=== PATIENT | male | born 1950 | race Caucasian/White ===

== ENCOUNTER 2016-12-26 23:56 | Emergency (ER) | payer MEDICARE, OTHER ==
[2016-12-27] MEDS ORDERED: DIPH,PERTUS(ACELL)TETVAC-LF 0.5 ML VIAL IM ONE
--- NOTE | 2016-12-27 00:04 | ED ---
General Adult HPI - General Stated complaint: Fall/Head Injury Time Seen by Provider: 12/26/16 23:56 Source: RN notes reviewed - History of Present Illness Initial comments: This is a 66-year-old male who presents emergency department after having been found down on the sidewalk. There appears to have been approximately one hour since the patient left the bar to the time that he was found down on the sidewalk. Patient was found conscious but with a puddle blood around the posterior aspect of his head. Patient appears to be intoxicated. Patient has no complaints at this time. Patient denies headache patient denies numbness weakness. Patient denies neck pain. Patient denies chest pain palpitations difficulty breathing shortness breath per patient denies abdominal pain patient denies nausea vomiting or diarrhea. Patient states she can move all 4 times. Patient does not know when his last tetanus was. Patient is not on any blood thinners. It is unclear whether the patient did lose consciousness or not. - Related Data Home Medications Medication Instructions Recorded Confirmed Albuterol Inhaler [Ventolin Hfa 1 - 2 puff INHALATION RT-Q6H PRN 02/09/15 Inhaler] Albuterol Nebulized [Ventolin 2.5 mg INHALATION RT-QID PRN 02/09/15 12/27/16 Nebulized] Budesonide/Formoterol Fumarate 2 puff INHALATION RT-BID 02/09/15 12/27/16 [Symbicort 80-4.5 Mcg Inhaler] HYDROcodone/APAP 10-325MG [Ruby 1 tab PO QID PRN 02/09/15 12/27/16 10-325] Isosorbide Mononitrate [Isosorbide 15 mg PO QAM 02/09/15 12/27/16 Mononitrate ER] Lisinopril [Prinivil] 20 mg PO QAM 02/09/15 12/27/16 Omeprazole [PriLOSEC] 20 mg PO AC-BRKFST 02/09/15 12/27/16 amLODIPine [Norvasc] 5 mg PO QAM 02/09/15 12/27/16 Nitroglycerin Sl Tabs [Nitrostat] 0.4 mg PO Q5M PRN 06/22/15 12/27/16 Albuterol Inhaler [Ventolin Hfa 1 - 2 puff INHALATION Q6HR PRN 12/27/16 12/27/16 Inhaler] Aspirin 81 mg PO DAILY 12/27/16 12/27/16 Docusate [Colace] 100 mg PO ONCE PRN 12/27/16 12/27/16 Dronabinol [Marinol] 2.5 mg PO DAILY 12/27/16 12/27/16 Metoprolol Tartrate [Lopressor] 25 mg PO BID 12/27/16 12/27/16 Pravastatin Sodium [Pravachol] 20 mg PO DAILY 12/27/16 12/27/16 levETIRAcetam [levETIRAcetam ER] 500 mg PO BID 12/27/16 12/27/16 Previous Rx's Medication Instructions Recorded Aspirin 81 mg PO DAILY #30 chew 10/16/15 Allergies Allergy/AdvReac Type Severity Reaction Status Date / Time codeine Allergy Unknown Verified 10/15/15 14:50 Childhood Review of Systems ROS Statement: Those systems with pertinent positive or pertinent negative responses have been documented in the HPI. ROS Other: All systems not noted in ROS Statement are negative. 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" BOWEL RESECTION IN JUNE [address] TO BLE History of Any Multi-Drug Resistant Organisms: None Reported Past Surgical History: Appendectomy, Bowel Resection, Orthopedic Surgery Additional Past Surgical History / Comment(s): finger repair Past Anesthesia/Blood Transfusion Reactions: No Reported Reaction Past Psychological History: No Psychological Hx Reported Smoking Status: Current every day smoker Past Alcohol Use History: Daily Additional Past Alcohol Use History / Comment(s): started smoking 1966, AGE 15, SMOKED 2-3 PPD AT [employer], NOW SMOKING 20 CIGARETTES A DAY .drinks 2-3 beers per day Past Drug Use History: Marijuana Additional Drug Use History / Comment(s): smokes marijuana 4-5 times per month- has medical card - Past Family History Mother Additional Family Medical History / Comment(s): at age 92 Father Family Medical History: CVA/TIA, Myocardial Infarction ([place]) Additional Family Medical History / Comment(s): multiple mi's Brother(s) Family Medical History: Coronary Artery Disease (CAD) Additional Family Medical History / Comment(s): cabg General Exam - General Exam Comments Initial Comments: GENERAL: Patient is well-developed and well-nourished. Patient is nontoxic and well- hydrated and is in mild distress. ENT: Neck is soft and supple. No significant lymphadenopathy is noted. Oropharynx is clear. Moist mucous membranes. Neck has full range of motion without eliciting any pain. EYES: The sclera were anicteric and conjunctiva were pink and moist. Extraocular movements were intact and pupils were equal round and reactive to light. Eyelids were unremarkable. PULMONARY: Unlabored respirations. Good breath sounds bilaterally. No audible rales rhonchi or wheezing was noted. CARDIOVASCULAR: There is a regular rate and rhythm without any murmurs gallops or rubs. ABDOMEN: Soft and nontender with normal bowel sounds. No palpable organomegaly was noted. There is no palpable pulsatile mass. SKIN: There is a scalp laceration to the posterior aspect of the patient's head. Laceration measures about 2 and half centimeters. NEUROLOGIC: Patient is alert and oriented x3. Cranial nerves II through XII are grossly intact. Motor and sensory are also intact. Speech is slightly slurred typical of someone who is intoxicated. Symmetrical smile. MUSCULOSKELETAL: Normal extremities with adequate strength and full range of motion. No lower extremity swelling or edema. No calf tenderness. LYMPHATICS: No significant lymphadenopathy is noted PSYCHIATRIC: Normal psychiatric evaluation. Normal interpersonal interactions appears functionally intact in deals appropriately with others. No signs of depression. No signs of anxiety. Course Vital Signs 12/27/16 12/27/16 00:05 01:26 Temperature 97.1 F L 97 F L Pulse Rate 66 70 Respiratory 16 20 Rate Blood Pressure 151/84 153/76 O2 Sat by Pulse 93 L 97 Oximetry Procedures - Laceration Laceration #1 Consent Obtained: verbal consent Time Out Performed: Yes Indication: laceration Site: scalp Description: stellate Depth: simple, single layer (4 michelle were used to close the wound) Medical Decision Making - Medical Decision Making EKG shows a normal sinus rhythm at 61 bpm VT interval 192 QRS is 88 QT interval 428 QTC is 4:30. Patient's EKG shows no ST segment elevation or depression or T wave normalities are noted. CT of the head shows a right sided this acute subdural. Patient's C-spine was negative. I stapled up the laceration on the posterior aspect patient's scalp I spoke with the [facility] that except for the patient in transfer the patient down in [facility]. - Lab Data Result diagrams: 12/27/16 00:05 12/27/16 00:05 Lab Results 12/27/16 12/27/16 12/27/16 Range/Units 00:05 00:05 00:05 WBC 7.6 (3.8-10.6) k/uL RBC 4.51 (4.30-5.90) m/uL Hgb 15.3 (13.0-17.5) gm/dL Hct 43.8 (39.0-53.0) % MCV 97.0 (80.0-100.0) fL MCH 33.8 (25.0-35.0) pg MCHC 34.8 (31.0-37.0) g/dL RDW 15.1 (11.5-15.5) % Plt Count 226 (150-450) k/uL Neutrophils % (Manual) 54 % Lymphocytes % (Manual) 31 % Monocytes % (Manual) 13 % Eosinophils % (Manual) 1 % Basophils % (Manual) 1 % Neutrophils # (Manual) 4.10 (1.3-7.7) k/uL Lymphocytes # (Manual) 2.36 (1.0-4.8) k/uL Monocytes # (Manual) 0.99 (0-1.0) k/uL Eosinophils # (Manual) 0.08 (0-0.7) k/uL Basophils # (Manual) 0.08 (0-0.2) k/uL Nucleated RBCs 0 (0-0) /100 WBC Manual Slide Review Performed PT (9.0-12.0) sec INR (<1.2) APTT (22.0-30.0) sec Sodium 127 L (137-145) mmol/L Potassium 4.5 (3.5-5.1) mmol/L Chloride 94 L (98-107) mmol/L Carbon Dioxide 21 L (22-30) mmol/L Anion Gap 12 mmol/L BUN 7 L (9-20) mg/dL Creatinine 0.80 (0.66-1.25) mg/dL Est GFR (MDRD) Af Amer >60 (>60 ml/min/1.73 sqM) Est GFR (MDRD) Non-Af >60 (>60 ml/min/1.73 sqM) Glucose 81 (74-99) mg/dL Calcium 9.5 (8.4-10.2) mg/dL Magnesium 1.7 (1.6-2.3) mg/dL Total Bilirubin 0.5 (0.2-1.3) mg/dL AST 37 (17-59) U/L ALT 46 (21-72) U/L Alkaline Phosphatase 63 (38-126) U/L Total Creatine Kinase 84 (55-170) U/L CK-MB (CK-2) 1.0 (0.0-2.4) ng/mL CK-MB (CK-2) Rel Index 1.2 Troponin I <0.012 (0.000-0.034) ng/mL Total Protein 7.6 (6.3-8.2) g/dL Albumin 4.5 (3.5-5.0) g/dL Serum Alcohol 260 mg/dL 12/27/16 Range/Units 00:05 WBC (3.8-10.6) k/uL RBC (4.30-5.90) m/uL Hgb (13.0-17.5) gm/dL Hct (39.0-53.0) % MCV (80.0-100.0) fL MCH (25.0-35.0) pg MCHC (31.0-37.0) g/dL RDW (11.5-15.5) % Plt Count (150-450) k/uL Neutrophils % (Manual) % Lymphocytes % (Manual) % Monocytes % (Manual) % Eosinophils % (Manual) % Basophils % (Manual) % Neutrophils # (Manual) (1.3-7.7) k/uL Lymphocytes # (Manual) (1.0-4.8) k/uL Monocytes # (Manual) (0-1.0) k/uL Eosinophils # (Manual) (0-0.7) k/uL Basophils # (Manual) (0-0.2) k/uL Nucleated RBCs (0-0) /100 WBC Manual Slide Review PT 10.6 (9.0-12.0) sec INR 1.1 (<1.2) APTT 23.3 (22.0-30.0) sec Sodium (137-145) mmol/L Potassium (3.5-5.1) mmol/L Chloride (98-107) mmol/L Carbon Dioxide (22-30) mmol/L Anion Gap mmol/L BUN (9-20) mg/dL Creatinine (0.66-1.25) mg/dL Est GFR (MDRD) Af Amer (>60 ml/min/1.73 sqM) Est GFR (MDRD) Non-Af (>60 ml/min/1.73 sqM) Glucose (74-99) mg/dL Calcium (8.4-10.2) mg/dL Magnesium (1.6-2.3) mg/dL Total Bilirubin (0.2-1.3) mg/dL AST (17-59) U/L ALT (21-72) U/L Alkaline Phosphatase (38-126) U/L Total Creatine Kinase (55-170) U/L CK-MB (CK-2) (0.0-2.4) ng/mL CK-MB (CK-2) Rel Index Troponin I (0.000-0.034) ng/mL Total Protein (6.3-8.2) g/dL Albumin (3.5-5.0) g/dL Serum Alcohol mg/dL Critical Care Time Critical Care Time: Yes Total Critical Care Time: 35 Disposition Clinical Impression: Acute subdural hematoma, Scalp laceration, Alcohol intoxication Disposition: OTHER INSTITUTION NOT DEFINED Referrals: Stella Lawrence MD [Primary Care Provider] - 1-2 days Time of Disposition: 01:29 - Out of Hospital Transfer - Req. Specs Out of Hospital Transfer - Requested Specifics: Other Emergency Center ( [facility])
[2016-12-27 00:32] LABS: Anion Gap 12 mmol/L; Calcium 9.5 mg/dL (8.4-10.2); Carbon Dioxide 21 mmol/L (22-30); Chloride 94 mmol/L (98-107); Glucose 81 mg/dL (74-99); Non-African American GFR(MDRD) >60 (>60 ml/min/1.73 sqM); Sodium 127 mmol/L (137-145); Total Bilirubin 0.5 mg/dL (0.2-1.3); Total Protein 7.6 g/dL (6.3-8.2)
[2016-12-27 00:35] LABS: AST 37 U/L (17-59); Alcohol 260 mg/dL; Blood Urea Nitrogen 7 mg/dL (9-20); Potassium 4.5 mmol/L (3.5-5.1)
[2016-12-27 00:36] LABS: ALT 46 U/L (21-72); Alkaline Phosphatase 63 U/L (38-126); Magnesium 1.7 mg/dL (1.6-2.3)
[2016-12-27 00:41] LABS: Creatine Kinase 84 U/L (55-170)
[2016-12-27 00:45] LABS: Partial Thromboplastin Time 23.3 sec (22.0-30.0)
[2016-12-27 00:46] LABS: Aty Lym Flag Slight; CH 34.3; CHCM 35.6; HCT 43.8 % (39.0-53.0); HDW 2.32; HGB 15.3 gm/dL (13.0-17.5); MCH 33.8 pg (25.0-35.0); MCHC 34.8 g/dL (31.0-37.0); Mean Platelet Volume 7.4; RBC 4.51 m/uL (4.30-5.90); RDW 15.1 % (11.5-15.5); WBC 7.6 k/uL (3.8-10.6); WBC (Perox) 7.32
[2016-12-27 00:47] LABS: INR 1.1 (<1.2); Prothrombin Time 10.6 sec (9.0-12.0)
[2016-12-27 00:52] LABS: Add Differential Manual Differential
[2016-12-27 00:54] LABS: Troponin I <0.012 ng/mL (0.000-0.034)
[2016-12-27 00:59] LABS: Manual Review Performed; Nucleated Red Blood Cells 0 /100 WBC (0-0); Total Cells Counted 100
--- NOTE | 2016-12-27 01:22 | CT ---
CT HEAD WITHOUT CONTRAST INDICATION: Fall, laceration to the back of the head TECHNIQUE: CT acquisition is performed through the brain. Sagittal and coronal reformatted images are provided. No IV contrast is administered. DOSE INFORMATION: CTDIvol 57.40 mGy; DLP 1098.80 mGy-cm. One or more of the following dose reduction techniques were used: automated exposure control, adjustment of the mA and/or kV according to patient size, use of iterative reconstruction technique. COMPARISON: CT head 10/25/15. FINDINGS: There is an acute right lateral convexity subdural hematoma measuring up to 5 mm thick. No intra-axial hemorrhage is identified. There is no midline shift. There is cerebral and cerebellar volume loss with stable prominence of the ventricles, sulci, and basal cisterns. Hypoattenuation in the periventricular and deep cerebral white matter is compatible with chronic small vessel ischemic disease. Espinal-white matter differentiation is preserved. There is intracranial atherosclerosis. No evidence of skull fracture. There is a high midline parietal scalp laceration and small hematoma. Mild mucosal thickening is noted in the ethmoid air cells. The visualized portions of the paranasal sinuses and mastoid air cells are otherwise clear. IMPRESSION: 1. Acute right lateral convexity subdural hematoma measuring 5 mm. No midline shift. 2. High midline parietal scalp laceration and small hematoma. No skull fracture. CT C SPINE WITHOUT CONTRAST INDICATION: Fall, laceration to the back of the head TECHNIQUE: CT acquisition is performed through the cervical spine. Sagittal and coronal reformatted images are provided. No IV contrast is administered. DOSE INFORMATION: CTDIvol 14.20 mGy; DLP 234.50 mGy-cm. One or more of the following dose reduction techniques were used: automated exposure control, adjustment of the mA and/or kV according to patient size, use of iterative reconstruction technique. COMPARISON: CT cervical spine, 10/25/15. FINDINGS: There is normal cervical lordosis, vertebral body height, and alignment. There is no evidence of acute fracture or subluxation. Craniocervical and atlantoaxial relationships are maintained. There is mild multilevel degenerative disc disease. There is mild to moderate multilevel facet degeneration. There is multilevel foraminal narrowing, severe on the right at C3-C4 and C4-C5 and on the left at C5- C6. There is no prevertebral soft tissue swelling. The lung apices demonstrate centrilobular and paraseptal emphysema. There are bilateral carotid calcifications. IMPRESSION: 1. No CT evidence of acute osseous abnormality. Critical Value Communications 12/27/16 01:21 Call Doctor Regarding Intracranial Hemorrhage, called Dr. Larios on 12/27 01:20 (-04:00)
[2016-12-27 01:28] VITALS: BP 153/76; PULSE 70; RESP 20; TEMP 97
--- NOTE | 2016-12-27 02:12 | XR ---
INDICATION: Chest pain, fall, EtOH COMPARISON: CXR 10/05/15 FINDINGS: PA and lateral views of the chest are obtained. Mild cardiomegaly with mild pulmonary vascular congestion in comparison to prior exam. Lungs are hyperinflated with emphysematous changes. No airspace consolidation, pleural effusion, or pneumothorax. No acute osseous findings. IMPRESSION: 1. Emphysema and chronic obstructive pulmonary disease. 2. Mild pulmonary vascular congestion in comparison to prior exam.
== END 2016-12-27 01:58 | disposition short-term general hospital (02) ==
LOC: EC 23:56
DX: S01.01XA Laceration without foreign body of scalp, initial encounter (principal); S06.5X9A Traumatic subdural hemorrhage with loss of consciousness of unspecified duration, initial encounter; F10.129 Alcohol abuse with intoxication, unspecified; M99.71 Connective tissue and disc stenosis of intervertebral foramina of cervical region; I10 Essential (primary) hypertension; J44.9 Chronic obstructive pulmonary disease, unspecified; I73.9 Peripheral vascular disease, unspecified; F17.210 Nicotine dependence, cigarettes, uncomplicated; Z79.51 Long term (current) use of inhaled steroids; Z79.82 Long term (current) use of aspirin; Z79.899 Other long term (current) drug therapy; Z88.5 Allergy status to narcotic agent; Z87.39 Personal history of other diseases of the musculoskeletal system and connective tissue; Z23 Encounter for immunization; W18.30XA Fall on same level, unspecified, initial encounter; Y92.480 Sidewalk as the place of occurrence of the external cause
CPT/HCPCS: 12001; 36415; 70450; 71020; 72125; 80053; 80320; 82550; 82553; 83735; 84484; 85025; 85610; 85730; 90471; 90715; 93005; 99291

== ENCOUNTER 2017-01-12 09:49 | Emergency (ER) | payer MEDICARE, OTHER ==
[2017-01-12 10:43] VITALS: RESP 16; TEMP 99.6
--- NOTE | 2017-01-12 10:59 | ED ---
General Adult HPI - General Chief complaint: Recheck/Abnormal Lab/Rx Stated complaint: abnormal labs Time Seen by Provider: 01/12/17 10:51 Source: patient, RN notes reviewed Mode of arrival: ambulatory Limitations: no limitations - History of Present Illness Initial comments: 66-year-old male presents to the emergency department with a chief complaint of concern for low sodium. Patient states last night his doctor called him at home and informed him that his sodium was low and to go to the emergency department. Patient states that he has no symptoms he has no complaints he states just here to get his sodium checked.Patient denies any recent fever, chills, shortness of breath, chest pain, back pain, abdominal pain, nausea vomiting, numbness or tingling, dysuria or hematuria, constipation or diarrhea, headaches or visual changes, or any other current symptoms. - Related Data Home Medications Medication Instructions Recorded Confirmed Albuterol Inhaler [Ventolin Hfa 1 - 2 puff INHALATION RT-Q6H PRN 02/09/15 Inhaler] Albuterol Nebulized [Ventolin 2.5 mg INHALATION RT-QID PRN 02/09/15 12/27/16 Nebulized] Budesonide/Formoterol Fumarate 2 puff INHALATION RT-BID 02/09/15 12/27/16 [Symbicort 80-4.5 Mcg Inhaler] HYDROcodone/APAP 10-325MG [[place] 1 tab PO QID PRN 02/09/15 12/27/16 10-325] Isosorbide Mononitrate [Isosorbide 15 mg PO QAM 02/09/15 12/27/16 Mononitrate ER] Lisinopril [Prinivil] 20 mg PO QAM 02/09/15 12/27/16 Omeprazole [PriLOSEC] 20 mg PO AC-BRKFST 02/09/15 12/27/16 amLODIPine [Norvasc] 5 mg PO QAM 02/09/15 12/27/16 Nitroglycerin Sl Tabs [Nitrostat] 0.4 mg PO Q5M PRN 06/22/15 12/27/16 Albuterol Inhaler [Ventolin Hfa 1 - 2 puff INHALATION Q6HR PRN 12/27/16 12/27/16 Inhaler] Aspirin 81 mg PO DAILY 12/27/16 12/27/16 Docusate [Colace] 100 mg PO ONCE PRN 12/27/16 12/27/16 Dronabinol [Marinol] 2.5 mg PO DAILY 12/27/16 12/27/16 Metoprolol Tartrate [Lopressor] 25 mg PO BID 12/27/16 12/27/16 Pravastatin Sodium [Pravachol] 20 mg PO DAILY 12/27/16 12/27/16 levETIRAcetam [levETIRAcetam ER] 500 mg PO BID 12/27/16 12/27/16 Previous Rx's Medication Instructions Recorded Aspirin 81 mg PO DAILY #30 chew 10/16/15 Allergies Allergy/AdvReac Type Severity Reaction Status Date / Time codeine Allergy Unknown Verified 01/12/17 10:42 Childhood Review of Systems ROS Statement: Those systems with pertinent positive or pertinent negative responses have been documented in the HPI. ROS Other: All systems not noted in ROS Statement are negative. 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" BOWEL RESECTION IN JUNE [address] TO BLE History of Any Multi-Drug Resistant Organisms: None Reported Past Surgical History: Appendectomy, Bowel Resection, Orthopedic Surgery Additional Past Surgical History / Comment(s): finger repair Past Anesthesia/Blood Transfusion Reactions: No Reported Reaction Past Psychological History: No Psychological Hx Reported Smoking Status: Current every day smoker Past Alcohol Use History: Daily Past Drug Use History: Marijuana - Past Family History Mother Additional Family Medical History / Comment(s): at age 92 Father Family Medical History: CVA/TIA, Myocardial Infarction ([place]) Additional Family Medical History / Comment(s): multiple mi's Brother(s) Family Medical History: Coronary Artery Disease (CAD) Additional Family Medical History / Comment(s): cabg General Exam Limitations: no limitations General appearance: alert, in no apparent distress Neck exam: Present: normal inspection. Absent: tenderness, meningismus, lymphadenopathy Respiratory exam: Present: normal lung sounds bilaterally. Absent: respiratory distress, wheezes, rales, rhonchi, stridor Cardiovascular Exam: Present: regular rate, normal rhythm, normal heart sounds. Absent: systolic murmur, diastolic murmur, rubs, gallop, clicks Back exam: Present: normal inspection Neurological exam: Present: alert, oriented X3 Psychiatric exam: Present: normal affect, normal mood Skin exam: Present: warm, dry, intact, normal color. Absent: rash Course Vital Signs 01/12/17 10:40 Temperature 99.6 F Pulse Rate 89 Respiratory 16 Rate Blood Pressure 175/82 O2 Sat by Pulse 97 Oximetry Medical Decision Making - Medical Decision Making 66-year-old male presents to the emergency department with a chief complaint of concern for hyponatremia. At this time patient is found to be hyponatremic we will give the patient fluids here we discussed follow-up for repeat evaluation with his family care doctor. Patient is given the plan all questions have been answered. He will be discharged. - Lab Data Result diagrams: 01/12/17 11:05 01/12/17 11:05 Lab Results 01/12/17 01/12/17 Range/Units 11:05 11:05 WBC 6.4 (3.8-10.6) k/uL RBC 4.78 (4.30-5.90) m/uL Hgb 16.3 (13.0-17.5) gm/dL Hct 45.3 (39.0-53.0) % MCV 94.8 (80.0-100.0) fL MCH 34.0 (25.0-35.0) pg MCHC 35.9 (31.0-37.0) g/dL RDW 14.1 (11.5-15.5) % Plt Count 319 (150-450) k/uL Neutrophils % 60 % Lymphocytes % 26 % Monocytes % 8 % Eosinophils % 1 % Basophils % 1 % Neutrophils # 3.8 (1.3-7.7) k/uL Lymphocytes # 1.7 (1.0-4.8) k/uL Monocytes # 0.5 (0-1.0) k/uL Eosinophils # 0.1 (0-0.7) k/uL Basophils # 0.0 (0-0.2) k/uL Sodium 130 L (137-145) mmol/L Potassium 4.9 (3.5-5.1) mmol/L Chloride 97 L (98-107) mmol/L Carbon Dioxide 22 (22-30) mmol/L Anion Gap 11 mmol/L BUN 7 L (9-20) mg/dL Creatinine 0.71 (0.66-1.25) mg/dL Est GFR (MDRD) Af Amer >60 (>60 ml/min/1.73 sqM) Est GFR (MDRD) Non-Af >60 (>60 ml/min/1.73 sqM) Glucose 82 (74-99) mg/dL Calcium 9.8 (8.4-10.2) mg/dL Total Bilirubin 0.9 (0.2-1.3) mg/dL AST 29 (17-59) U/L ALT 39 (21-72) U/L Alkaline Phosphatase 110 (38-126) U/L Total Protein 8.3 H (6.3-8.2) g/dL Albumin 4.7 (3.5-5.0) g/dL Disposition Clinical Impression: Hyponatremia Disposition: HOME SELF-CARE Condition: Stable Instructions: Hyponatremia (ED) Additional Instructions: Please use medication as discussed. Please follow up with family doctor if symptoms have not improved over the next two days. Please return to the emergency room if your symptoms increase or worsen or for any other concerns. Referrals: Stella Lawrence MD [Primary Care Provider] - 1-2 days Time of Disposition: 11:59
[2017-01-12 11:23] LABS: Basophils % (A) 1 %; CH 33.4; CHCM 35.4; Eosinophils # (A) 0.1 k/uL (0-0.7); Eosinophils % (A) 1 %; HCT 45.3 % (39.0-53.0); HDW 2.33; HGB 16.3 gm/dL (13.0-17.5); Luc # (Auto) 0.25; Luc % (Auto) 4; Lymphocytes # (A) 1.7 k/uL (1.0-4.8); Lymphocytes % (A) 26 %; MCHC 35.9 g/dL (31.0-37.0); MCV 94.8 fL (80.0-100.0); Mean Platelet Volume 6.4; Monocytes # (A) 0.5 k/uL (0-1.0); Monocytes % (A) 8 %; Neutrophils # (A) 3.8 k/uL (1.3-7.7); Neutrophils % (A) 60 %; RBC 4.78 m/uL (4.30-5.90); RDW 14.1 % (11.5-15.5); WBC 6.4 k/uL (3.8-10.6); WBC (Perox) 6.38
[2017-01-12 11:35] LABS: ALT 39 U/L (21-72); AST 29 U/L (17-59); Alkaline Phosphatase 110 U/L (38-126); Anion Gap 11 mmol/L; Blood Urea Nitrogen 7 mg/dL (9-20); Calcium 9.8 mg/dL (8.4-10.2); Carbon Dioxide 22 mmol/L (22-30); Chloride 97 mmol/L (98-107); Glucose 82 mg/dL (74-99); Non-African American GFR(MDRD) >60 (>60 ml/min/1.73 sqM); Potassium 4.9 mmol/L (3.5-5.1); Sodium 130 mmol/L (137-145); Total Bilirubin 0.9 mg/dL (0.2-1.3); Total Protein 8.3 g/dL (6.3-8.2)
[2017-01-12] MEDS ORDERED: SODIUM CHLORIDE 0.9% 1,000 ML IV STA (11:54)
[2017-01-12 13:14] VITALS: BP 185/79; PULSE 79
== END 2017-01-12 13:14 | disposition home or self-care (01) ==
LOC: EC 09:49
DX: E87.1 Hypo-osmolality and hyponatremia (principal); J44.9 Chronic obstructive pulmonary disease, unspecified; I10 Essential (primary) hypertension; F17.200 Nicotine dependence, unspecified, uncomplicated; Z79.51 Long term (current) use of inhaled steroids; Z79.82 Long term (current) use of aspirin; Z79.899 Other long term (current) drug therapy; Z88.5 Allergy status to narcotic agent
CPT/HCPCS: 36415; 80053; 85025; 96365; 99283

== ENCOUNTER → 2017-01-16 | Outpatient (CLI) | payer MEDICARE ==
--- NOTE | 2017-01-16 22:12 | CT ---
EXAMINATION TYPE: CT brain wo con DATE OF EXAM: 01/16/2017 COMPARISON: 12/27/2016 HISTORY: 66-year-old male follow up head trauma from 12/22/16. TECHNIQUE: Examination was done in axial plane without intravenous contrast. Coronal and sagittal r econstructions performed. CT DLP: 1275.00 mGycm Automated exposure control for dose reduction was used. FINDINGS: There has been interval evolution of the previous right lateral subdural hematoma now with isodensity measuring only 3 mm thickness versus 5 mm, previously. No evidence for acute intracranial hemorrhage , acute ischemic change, mass, mass effect, or midline shift. No effacement of the basal subarachnoid cisterns. Espinal-white matter differentiation is maintained though with mild patchy periventricular wh ite matter hypodensity suggesting chronic small vessel ischemic disease. There is mild generalized supratentorial volume loss especially central cerebral atrophy with seconda ry mild prominence to the ventricular system. Leftward nasal septal deviation. Visualized paranasal sinuses and mastoid air cells are well pneumati zed. No calvarial fracture. IMPRESSION: 1. Previous right lateral subdural hematoma has decreased in size now measuring 3 mm thick versus 5 m m, previously, and now shows evolution to isodense, subacute blood products. No acute change or mass effect. 2. Stable central cerebral atrophy and changes of chronic small vessel ischemic disease.
== END | disposition home or self-care (01) ==
LOC: RADCTMAIN 18:22
PROVIDERS: ATTEND Specialist
DX: G31.9 Degenerative disease of nervous system, unspecified (principal); I67.82 Cerebral ischemia; I62.00 Nontraumatic subdural hemorrhage, unspecified
CPT/HCPCS: 70450

== ENCOUNTER → 2017-10-23 | Outpatient (CLI) | payer MEDICARE ==
--- NOTE | 2017-10-23 14:39 | CT ---
EXAMINATION TYPE: CT chest wo con DATE OF EXAM: 10/23/2017 COMPARISON: 04/07/2015 HISTORY: Productive cough CT DLP: 238.[address] of the chest was performed with lung and mediastinal window settings submitted. The la ck of contrast limits evaluation of the vascular, mediastinal and parenchymal structures including th e upper abdomen. LUNGS: Moderate upper lobe emphysematous change. 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 No distinct pulmonary nodule or mass. No focal consolidation. Proxi mal scarring right apical region posteriorly. Hyperinflation compatible with COPD. MEDIASTINUM/[place]: Ascending thoracic aortic aneurysm measuring 4.3 cm AP dimension unchanged from jeff or study. Atheromatous change in remainder of the thoracic aorta. The heart is mildly enlarged. Coron gio artery calcifications seen. No evidence for mediastinal mass. No lymph nodes greater than 1cm. UPPER ABDOMEN: No significant abnormality is seen. OTHER: No significant other abnormality. IMPRESSION: 1. Emphysematous changes with underlying COPD. 2. Asbestos related pleural disease. 3. No evidence for focal consolidation. 4. Ascending thoracic aortic aneurysm stable.
== END | disposition home or self-care (01) ==
LOC: RADCTMAIN 13:54
PROVIDERS: ATTEND Family Medicine
DX: J43.9 Emphysema, unspecified (principal); J61 Pneumoconiosis due to asbestos and other mineral fibers; I71.2 Thoracic aortic aneurysm, without rupture; Z72.0 Tobacco use
CPT/HCPCS: 71250

== ENCOUNTER 2017-10-30 20:25 | Observation (INO) | payer MEDICARE, OTHER ==
[2017-10-30] MEDS ORDERED: SODIUM CHLORIDE 0.9% 1,000 ML IV STA (20:44)
--- NOTE | 2017-10-30 20:53 | ED ---
Syncope HPI - General Source: patient, EMS Mode of arrival: EMS Limitations: physical limitation <Savi Zaragoza - Last Filed: 10/31/17 00:17> <Sukhwinder Benitez - Last Filed: 10/31/17 14:05> - General Chief Complaint: Syncope Stated Complaint: Syncope - History of Present Illness Initial Comments: 66-year-old male patient presents the emergency department today for evaluation after having a syncopal episode. Patient states that shortly prior to arrival he was sitting at his friends picnic table outside when he became dizzy and fell from the picnic table landing on the ground. Patient states prior to this episode he was feeling well. Does admit to having 4-5 beers and smoking marijuana. Patient states that he does have a history of hypertension and that her chronic diarrhea after having a colectomy approximately 3 years ago. States currently he is feeling well. He denies any headache, current dizziness , weakness, numbness, tingling, chest pain, shortness of breath, blurred vision , double vision, abdominal pain, nausea, or vomiting. Patient states that he has had a slight increase in the amount of diarrhea that he has, states that it is watery and he has approximately 2-3 episodes per day. Patient denies any recent fever or chills. Denies any cough, congestion, nasal drainage, ear pain , or sore throat. Patient denies any recent rash, hematuria, dysuria, urinary urgency, urinary frequency, or any other complaints. (Savi Zaragoza) - Related Data Home Medications Medication Instructions Recorded Confirmed Albuterol Inhaler [Ventolin Hfa 1 - 2 puff INHALATION RT-Q6H PRN 02/09/15 Inhaler] Albuterol Nebulized [Ventolin 2.5 mg INHALATION RT-TID PRN 02/09/15 10/31/17 Nebulized] Budesonide/Formoterol Fumarate 2 puff INHALATION RT-BID 02/09/15 10/31/17 [Symbicort 80-4.5 Mcg Inhaler] HYDROcodone/APAP 10-325MG [[place] 1 tab PO QID PRN 02/09/15 10/31/17 10-325] Isosorbide Mononitrate [Isosorbide 30 mg PO QAM 02/09/15 10/31/17 Mononitrate ER] Omeprazole [PriLOSEC] 20 mg PO AC-BRKFST 02/09/15 10/31/17 Nitroglycerin Sl Tabs [Nitrostat] 0.4 mg PO Q5M PRN 06/22/15 10/31/17 Metoprolol Tartrate [Lopressor] 25 mg PO BID 12/27/16 10/31/17 Pravastatin Sodium [Pravachol] 20 mg PO HS 12/27/16 10/31/17 Previous Rx's Medication Instructions Recorded Lisinopril [Prinivil] 10 mg PO QAM #0 10/31/17 Allergies Allergy/AdvReac Type Severity Reaction Status Date / Time codeine Allergy Unknown Verified 10/31/17 08:39 Childhood Review of Systems ROS Other: All systems not noted in ROS Statement are negative. <Savi Zaragoza - Last Filed: 10/31/17 00:17> ROS Other: All systems not noted in ROS Statement are negative. <Sukhwinder Benitez - Last Filed: 10/31/17 14:05> ROS Statement: Those systems with pertinent positive or pertinent negative responses have been documented in the HPI. 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" BOWEL RESECTION IN JUNE [address] TO BLE History of Any Multi-Drug Resistant Organisms: None Reported Past Surgical History: Appendectomy, Bowel Resection, Orthopedic Surgery Additional Past Surgical History / Comment(s): finger repair Past Anesthesia/Blood Transfusion Reactions: No Reported Reaction Past Psychological History: No Psychological Hx Reported Smoking Status: Current every day smoker Past Alcohol Use History: Daily Past Drug Use History: Marijuana - Past Family History Mother Additional Family Medical History / Comment(s): at age 92 Father Family Medical History: CVA/TIA, Myocardial Infarction ([place]) Additional Family Medical History / Comment(s): multiple mi's Brother(s) Family Medical History: Coronary Artery Disease (CAD) Additional Family Medical History / Comment(s): cabg <Savi Zaragoza - Last Filed: 10/31/17 00:17> General Exam Limitations: physical limitation General appearance: alert, in no apparent distress, other (This is a well- developed, well-nourished, unkempt adult male patient in no acute distress. Vital signs upon presentation are temperature 97.1F, pulse 72, respirations 17 , blood pressure 98/58, pulse ox 98% on room air.) Eye exam: Present: normal appearance, PERRL, EOMI. Absent: scleral icterus, conjunctival injection, nystagmus, periorbital swelling ENT exam: Present: normal exam, normal oropharynx, mucous membranes moist Respiratory exam: Present: normal lung sounds bilaterally. Absent: respiratory distress, wheezes, rales, rhonchi, stridor Cardiovascular Exam: Present: regular rate, normal rhythm, normal heart sounds. Absent: systolic murmur, diastolic murmur, rubs, gallop, clicks GI/Abdominal exam: Present: soft, normal bowel sounds. Absent: distended, tenderness, guarding, rebound, rigid Neurological exam: Present: alert, oriented X3, CN II-XII intact, other ( Strength in all 4 extremities is 5/5.) Psychiatric exam: Present: normal affect, normal mood Skin exam: Present: warm, dry, intact, normal color. Absent: rash <Bantle,Savi M - Last Filed: 10/31/17 00:17> Vital Signs 10/30/17 10/30/17 10/30/17 20:27 20:42 21:25 Temperature 97.1 F L Pulse Rate 72 66 Pulse Rate [ Left Supine Pulse Oximetery ] Respiratory 17 17 Rate Blood Pressure 98/58 105/64 Blood Pressure 97/57 [Right Arm Sitting] Blood Pressure 87/50 [Right Arm Standing] Blood Pressure 95/54 [Right Arm Supine] O2 Sat by Pulse 98 96 Oximetry 10/30/17 10/30/17 10/30/17 22:33 23:15 23:22 Temperature 97.0 F L Pulse Rate 64 65 Pulse Rate [ 64 Left Supine Pulse Oximetery ] Respiratory 16 18 17 Rate Blood Pressure 124/72 116/66 Blood Pressure [Right Arm Sitting] Blood Pressure 120/60 [Right Arm Standing] Blood Pressure [Right Arm Supine] O2 Sat by Pulse 95 95 96 Oximetry EKG Findings - EKG Comments: EKG Findings:: EKG obtained at 2107 shows normal sinus rhythm. Ventricular rate is 70, CO interval 180, QR jehovah's witness 64, QTC 414, QTC 447. No evidence of ST elevation or depression. <Savi Zaragoza - Last Filed: 10/31/17 00:17> Medical Decision Making - Lab Data Result diagrams: 10/30/17 20:30 10/30/17 21:29 - Radiology Data Radiology results: report reviewed, image reviewed <Savi Zaragoza - Last Filed: 10/31/17 00:17> - Lab Data Result diagrams: 10/30/17 20:30 10/30/17 21:29 <Sukhwinder Benitez - Last Filed: 10/31/17 14:05> - Medical Decision Making 66 year-old male patient presented to the emergency department today for evaluation after expressing a syncopal episode at home today. Upon arrival patient was hypotensive. Labs were obtained and reviewed and did show a mildly elevated troponin. Chest x-ray showed no acute cardiopulmonary process. Other labs were unremarkable. Given patient's syncopal episode that could be related to cardiac problem or vasovagal episode we will admit to the hospital for observation and repeat troponin testing. We'll have cardiology see the patient. My attending Dr. Benitez did discuss the case with Dr. Terrazas who is accepting. (Savi Zaragoza) Resident/PA attestation: I, Dr. Sukhwinder Benitez, personally saw and examined the patient. I have reviewed and agree with the resident/PA findings, including all diagnostic interpretations and treatment plans as written unless otherwise stated. I was present for the camacho portions of any procedures performed and inclusive time noted for any critical care statement. Briefly, patient is a 66-year-old alcoholic male presents after syncopal episode. He presents in episode of syncope. Given multiple comorbidities suspicion that patient's syncope and hypotension is secondary to cardiac cause. And to be admitted to observation under the care of internal medicine with echo and cardiology consultation. Patient evaluated by myself pending inpatient transfer and found to be in stable medical condition. Patient had improvement of vital signs with intravenous fluids. (Sukhwinder Benitez) - Lab Data Lab Results 10/30/17 10/30/17 10/30/17 Range/Units 20:30 20:30 21:08 WBC 7.5 (3.8-10.6) k/uL RBC 4.68 (4.30-5.90) m/uL Hgb 15.3 (13.0-17.5) gm/dL Hct 46.0 (39.0-53.0) % MCV 98.5 (80.0-100.0) fL MCH 32.6 (25.0-35.0) pg MCHC 33.1 (31.0-37.0) g/dL RDW 13.6 (11.5-15.5) % Plt Count 240 (150-450) k/uL Neutrophils % 53 % Lymphocytes % 33 % Monocytes % 8 % Eosinophils % 2 % Basophils % 1 % Neutrophils # 4.0 (1.3-7.7) k/uL Lymphocytes # 2.5 (1.0-4.8) k/uL Monocytes # 0.6 (0-1.0) k/uL Eosinophils # 0.2 (0-0.7) k/uL Basophils # 0.1 (0-0.2) k/uL PT 10.7 (9.0-12.0) sec INR 1.1 (<1.2) APTT 21.7 L (22.0-30.0) sec Sodium (137-145) mmol/L Potassium (3.5-5.1) mmol/L Chloride (98-107) mmol/L Carbon Dioxide (22-30) mmol/L Anion Gap mmol/L BUN (9-20) mg/dL Creatinine (0.66-1.25) mg/dL Est GFR (CKD-EPI)AfAm (>60 ml/min/1.73 sqM) Est GFR (CKD-EPI)NonAf (>60 ml/min/1.73 sqM) Glucose (74-99) mg/dL POC Glucose (mg/dL) 89 (75-99) mg/dL POC Glu Technical Specialist [employer] ID [place] Staples Calcium (8.4-10.2) mg/dL Total Bilirubin (0.2-1.3) mg/dL AST (17-59) U/L ALT (21-72) U/L Alkaline Phosphatase (38-126) U/L Total Creatine Kinase (55-170) U/L CK-MB (CK-2) (0.0-2.4) ng/mL CK-MB (CK-2) Rel Index Troponin I (0.000-0.034) ng/mL Total Protein (6.3-8.2) g/dL Albumin (3.5-5.0) g/dL Serum Alcohol mg/dL 10/30/17 10/30/17 Range/Units 21:29 21:30 WBC (3.8-10.6) k/uL RBC (4.30-5.90) m/uL Hgb (13.0-17.5) gm/dL Hct (39.0-53.0) % MCV (80.0-100.0) fL MCH (25.0-35.0) pg MCHC (31.0-37.0) g/dL RDW (11.5-15.5) % Plt Count (150-450) k/uL Neutrophils % % Lymphocytes % % Monocytes % % Eosinophils % % Basophils % % Neutrophils # (1.3-7.7) k/uL Lymphocytes # (1.0-4.8) k/uL Monocytes # (0-1.0) k/uL Eosinophils # (0-0.7) k/uL Basophils # (0-0.2) k/uL PT (9.0-12.0) sec INR (<1.2) APTT (22.0-30.0) sec Sodium 133 L (137-145) mmol/L Potassium 3.9 (3.5-5.1) mmol/L Chloride 98 (98-107) mmol/L Carbon Dioxide 21 L (22-30) mmol/L Anion Gap 14 mmol/L BUN 13 (9-20) mg/dL Creatinine 0.80 (0.66-1.25) mg/dL Est GFR (CKD-EPI)AfAm >90 (>60 ml/min/1.73 sqM) Est GFR (CKD-EPI)NonAf >90 (>60 ml/min/1.73 sqM) Glucose 79 (74-99) mg/dL POC Glucose (mg/dL) (75-99) mg/dL POC Glu Technical Specialist [employer]etics ID Calcium 8.7 (8.4-10.2) mg/dL Total Bilirubin 0.4 (0.2-1.3) mg/dL AST 28 (17-59) U/L ALT 25 (21-72) U/L Alkaline Phosphatase 59 (38-126) U/L Total Creatine Kinase 263 H (55-170) U/L CK-MB (CK-2) 4.4 H* (0.0-2.4) ng/mL CK-MB (CK-2) Rel Index 1.7 Troponin I 0.038 H* (0.000-0.034) ng/mL Total Protein 6.3 (6.3-8.2) g/dL Albumin 3.5 (3.5-5.0) g/dL Serum Alcohol 67 mg/dL - Radiology Data Two-view x-ray of the chest is obtained. There is no heart failure nor confluent pneumonic infiltrate. Costophrenic angles are clear. There are chest leads. There is slight coarsening of the interstitial markings. Bony thorax is intact. Thoracic aorta is atheromatous. Impression by Dr. Miramontes shows mild pulmonary fibrosis. No active cardiopulmonary disease. No change. ( Savi Zaragoza) Disposition Decision to Admit Reason: Admit from EC Decision Date: 10/30/17 Decision Time: 23:03 <Savi Zaragoza - Last Filed: 10/31/17 00:17> <Sukhwinder Benitez - Last Filed: 10/31/17 14:05> Clinical Impression: Hypotension, Syncope, Elevated troponin Disposition: ADMITTED IP TO THIS HOSP Condition: Serious
[2017-10-30 21:01] LABS: Basophils # (A) 0.1 k/uL (0-0.2); Basophils % (A) 1 %; Eosinophils # (A) 0.2 k/uL (0-0.7); Eosinophils % (A) 2 %; HGB 15.3 gm/dL (13.0-17.5); Lymphocytes # (A) 2.5 k/uL (1.0-4.8); Lymphocytes % (A) 33 %; MCH 32.6 pg (25.0-35.0); MCHC 33.1 g/dL (31.0-37.0); MCV 98.5 fL (80.0-100.0); Mean Platelet Volume 7.4; Monocytes # (A) 0.6 k/uL (0-1.0); Monocytes % (A) 8 %; Neutrophils % (A) 53 %; Platelet Count 240 k/uL (150-450); RBC 4.68 m/uL (4.30-5.90); RDW 13.6 % (11.5-15.5); WBC 7.5 k/uL (3.8-10.6)
[2017-10-30 21:16] LABS: Glucose,Whole Blood 89 mg/dL (75-99)
[2017-10-30 21:21] LABS: INR 1.1 (<1.2); Prothrombin Time 10.7 sec (9.0-12.0)
--- NOTE | 2017-10-30 21:22 | XR ---
EXAMINATION TYPE: XR chest 2V DATE OF EXAM: 10/30/2017 COMPARISON: 12/27/2016 HISTORY: Syncope TECHNIQUE: Frontal and lateral views of the chest are obtained. FINDINGS: There is no heart failure nor confluent pneumonic infiltrate. Costophrenic angles are jarvis r. There are chest leads. There is slight coarsening of interstitial markings. Bony thorax is intact. Thoracic aorta is atheromatous. IMPRESSION: Mild pulmonary fibrosis. No active cardiopulmonary disease. No change.
[2017-10-30 21:23] LABS: Partial Thromboplastin Time 21.7 sec (22.0-30.0)
[2017-10-30 21:49] LABS: ALT 25 U/L (21-72); AST 28 U/L (17-59); Albumin 3.5 g/dL (3.5-5.0); Alcohol 67 mg/dL; Alkaline Phosphatase 59 U/L (38-126); Anion Gap 14 mmol/L; Blood Urea Nitrogen 13 mg/dL (9-20); Calcium 8.7 mg/dL (8.4-10.2); Carbon Dioxide 21 mmol/L (22-30); Chloride 98 mmol/L (98-107); Glucose 79 mg/dL (74-99); Potassium 3.9 mmol/L (3.5-5.1); Sodium 133 mmol/L (137-145); Total Bilirubin 0.4 mg/dL (0.2-1.3); Total Protein 6.3 g/dL (6.3-8.2)
[2017-10-30 22:19] LABS: Creatine Kinase MB 4.4 ng/mL (0.0-2.4); Troponin I 0.038 ng/mL (0.000-0.034)
[2017-10-30] MEDS ORDERED: NALOXONE 0.4 MG/ML 1 ML VIAL IV PRN (22:54)
[2017-10-30 23:00] LABS: Appearance,Urine Clear (Clear); Bilirubin,Urine Negative (Negative); Blood,Urine Negative (Negative); Color,Urine Light Yellow; Glucose,Urine (UA) Negative (Negative); Ketones,Urine Negative (Negative); Leukocyte Esterase,Urine Negative (Negative); Nitrite,Urine Negative (Negative); Protein,Urine Negative (Negative); Specific Gravity,Urine 1.004 (1.001-1.035); Urobilinogen,Urine <2.0 mg/dL (<2.0)
[2017-10-30] MEDS ORDERED: NITROGLYCERIN SL TABS 0.4 MG TAB SUBLINGUAL PRN (23:00)
[2017-10-30] MEDS ORDERED: SODIUM CHLORIDE 0.9% 1,000 ML IV SCH (23:00)
[2017-10-31 03:56] VITALS: RESP 18
[2017-10-31 03:57] LABS: Cholesterol 145 mg/dL (<200); HDL Cholesterol 43 mg/dL (40-60); LDL Cholesterol,Calculated 79 mg/dL (0-99); Triglycerides 114 mg/dL (<150)
[2017-10-31 04:26] LABS: Creatine Kinase MB 3.6 ng/mL (0.0-2.4); Troponin I 0.039 ng/mL (0.000-0.034)
[2017-10-31 08:50] VITALS: PULSE 53
[2017-10-31] MEDS ORDERED: ASPIRIN 325 MG TAB PO SCH (09:00)
--- NOTE | 2017-10-31 09:44 | CONS ---
CONSULTATION CHIEF COMPLAINT: Syncope. Israel is a 66-year-old gentleman with history of severe peripheral vascular disease, smoking and EtOH abuse, who passed out transiently while he was drinking excessive amounts of alcohol. When he initially presented to the ER, his systolic blood pressures were low. He has been hydrated and since that time blood pressures have been normal and he did not have further episodes of syncope. He states that he was sitting, has had 6 or more beers, was exposed to hot weather, felt dizzy and went down. It is unclear if he truly lost consciousness or not. There is no history of focal neurological deficits. Since admission, he has had 2 sets of troponins that are mildly elevated at 0.038 and 0.039. EKG does not reveal acute ischemic changes. PAST MEDICAL HISTORY: Significant for hypertension, dyslipidemia, peripheral vascular disease, and COPD. MEDICATIONS: Medications include Norvasc 10 q. daily, pravastatin 20 q. daily, Prilosec, Lopressor 25 b.i.d., Prinivil 20 q. daily, Imdur 30 daily, Symbicort. ALLERGIES: Allergic to CODEINE. FAMILY HISTORY: Negative for premature coronary artery disease. SOCIAL HISTORY: Significant for smoking. There is no history of EtOH abuse or drug abuse. REVIEW OF SYSTEMS: HEENT is unremarkable. CARDIAC: As described above. RESPIRATORY: As described above. GI: Negative. GENITOURINARY: Negative. ALLERGY/IMMUNOLOGICAL: Negative. SKIN: Negative. MUSCULOSKELETAL: Significant for arthritis PSYCHOSOCIAL: Negative. ENDOCRINE: Negative. HEMATOLOGICAL: Negative. DERM: Negative. CONSTITUTIONAL: Negative. ONCOLOGICAL: Negative. Rest of the system review is not relevant. PHYSICAL EXAMINATION: On exam, patient is comfortable at rest. Afebrile. Heart rate is 66 beats per minute. Blood pressure is 100/62. Respiratory rate is 16. O2 sat is 96% on room air. There is no jugular venous distention. Carotid upstroke is diminished. There is no bruit. Chest exam reveals good air entry bilaterally. Heart exam reveals first and second heart sounds. Systolic murmur at the left lower sternal border. Abdomen is soft. Examination of extremities did not reveal any edema. Peripheral pulses are felt. LOANS CONSULTANT exam did not reveal focal neurological deficits. ASSESSMENT: 1. Syncope probably related to dehydration and alcohol consumption. 2. Non ST-segment elevation myocardial infarction. 3. Peripheral vascular disease. 4. Hypertension. 5. Dyslipidemia. PLAN: We will continue the patient on his current medications. Await the next set of troponin and if they are in the same avendaño zone, I will obtain a Lexiscan on him. If that is abnormal, I will ask Dr. Malik his primary mission analyst to perform a cardiac catheterization. MMODL / IJN: [id number] /
--- NOTE | 2017-10-31 10:29 | ECHOF ---
Referral Reason:syncope MEASUREMENTS -------- HEIGHT: 162.6 cm WEIGHT: 71.7 kg BP: RVIDd: 2.8 cm (< 3.3) IVSd: 1.4 cm (0.6 - 1.1) LVIDd: 3.8 cm (3.9 - 5.3) LVPWd: 1.2 cm (0.6 - 1.1) IVSs: 1.7 cm LVIDs: 3.3 cm LVPWs: 1.1 cm Ao Diam: 3.7 cm (2.0 - 3.7) AV Cusp: 1.9 cm (1.5 - 2.6) LA Diam: 3.6 cm (2.7 - 3.8) MV EXCURSION: 18.742 mm (> 18.000) MV EF SLOPE: 115 mm/s (70 - 150) EPSS: 0.2 cm MV E Bert: 0.73 m/s MV DecT: 165 ms MV A Bert: 0.62 m/s MV E/A Ratio: 1.18 RAP: 5.00 mmHg RVSP: 11.66 mmHg FINDINGS -------- Sinus rhythm. This was a technically adequate study. The left ventricular size is normal. There is mild concentric left ventricular hypertrophy. Overa ll left ventricular systolic function is low-normal with, an EF between 50 - 55 %. The right ventricle is normal in size. The left atrial size is normal. The right atrial size is normal. There is mild aortic valve sclerosis. There is mild aortic regurgitation. Mild mitral annular calcification present. Mild mitral regurgitation is present. Mild tricuspid regurgitation present. There is no evidence of pulmonary hypertension. The right v entricular systolic pressure, as measured by Doppler, is 11.66mmHg. There is no pulmonic regurgitation present. The aortic root size is normal. Echo free space represents a pericardial fat pad. CONCLUSIONS -------- 1. The left ventricular size is normal. 2. There is mild concentric left ventricular hypertrophy. 3. Overall left ventricular systolic function is low-normal with, an EF between 50 - 55 %. 4. The right ventricle is normal in size. 5. The left atrial size is normal. 6. The right atrial size is normal. 7. There is mild aortic valve sclerosis. 8. There is mild aortic regurgitation. 9. Mild mitral annular calcification present. 10. Mild mitral regurgitation is present. 11. Mild tricuspid regurgitation present. 12. There is no evidence of pulmonary hypertension. 13. The right ventricular systolic pressure, as measured by Doppler, is 11.66mmHg. 14. There is no pulmonic regurgitation present. 15. The aortic root size is normal. 16. Echo free space represents a pericardial fat pad. MEDICAL PARASITOLOGIST: Vianney Ghosh RDCS
[2017-10-31 10:44] LABS: Troponin I 0.027 ng/mL (0.000-0.034)
[2017-10-31 10:46] LABS: Creatine Kinase MB 2.8 ng/mL (0.0-2.4)
[2017-10-31 11:31] VITALS: BP 132/73; TEMP 96.7
[2017-10-31] MEDS ORDERED: AMINOPHYLLINE 500 MG/20 ML VIAL IV PRN (11:32)
[2017-10-31] MEDS ORDERED: REGADENOSON 0.4 MG/5 ML SYRINGE IV ONE (11:32)
[2017-10-31] MEDS ORDERED: NITROGLYCERIN SL TABS 0.4 MG TAB SUBLINGUAL PRN (11:46)
[2017-10-31] MEDS ORDERED: ALBUTEROL NEBULIZED 2.5 MG/3 ML INHALATION PRN ×2 (11:46)
[2017-10-31] MEDS ORDERED: HYDROcodone/APAP 10-325MG 1 EACH TAB PO PRN (11:46)
[2017-10-31] MEDS ORDERED: ISOSORBIDE MONONITRATE ER 30 MG TAB.ER.24H PO SCH (12:00)
--- NOTE | 2017-10-31 13:23 | P.HPIM ---
History of Present Illness 66-year-old gentleman came in after a syncopal episode patient believes it secondary to the heat outside. Patient was on a picnic has been drinking. Patient doesn't drink on regular basis use to drink on regular basis in the past patient doesn't believe his have withdrawals patient was smoking marijuana as well but a bit dehydrated was hypotensive. Patient has been taking a beta starr, amlodipine and lisinopril. Even before this episode patient always felt lightheaded because of the 3 antidepressants medications. Patient was evaluated by cardiology. Patient has positive orthostatic vitals received IV fluids feeling better patient will be discharged today after the stress test patient has minimally elevated troponins because of which she is undergoing stress test although patient denied any cardiac chest pain. His stress test is negative patient will be discharged today with the following changes in medications beta starr will be continued as it is, lisinopril , dose of which will be will cut it down and patient was asked to check the blood pressure daily basis at home amlodipine will be discontinued. Patient denied any hematuria dysuria urinary urgency urinary frequency cough Review of Systems REVIEW OF SYSTEMS: CONSTITUTIONAL: No fever, no malaise, no fatigue. HEENT: No recent visual problems or hearing problems. Denied any sore throat. CARDIOVASCULAR: No chest pain, orthopnea, PND, no palpitations, no syncope. PULMONARY: No shortness of breath, no cough, no hemoptysis. GASTROINTESTINAL: No diarrhea, no nausea, no vomiting, no abdominal pain. Normoactive bowel sounds. NEUROLOGICAL: No headaches, no weakness, no numbness. HEMATOLOGICAL: Denies any bleeding or petechiae. GENITOURINARY: Denies any burning micturition, frequency, or urgency. MUSCULOSKELETAL/RHEUMATOLOGICAL: Denies any joint pain, swelling, or any muscle pain. ENDOCRINE: Denies any polyuria or polydipsia. The rest of the 14-point review of systems is negative. 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" BOWEL RESECTION IN JUNE [address] TO BLE History of Any Multi-Drug Resistant Organisms: None Reported Past Surgical History: Appendectomy, Bowel Resection, Orthopedic Surgery Additional Past Surgical History / Comment(s): finger repair Past Anesthesia/Blood Transfusion Reactions: No Reported Reaction Past Psychological History: No Psychological Hx Reported Smoking Status: Current every day smoker Past Alcohol Use History: Daily Past Drug Use History: Marijuana - Past Family History Mother Additional Family Medical History / Comment(s): at age 92 Father Family Medical History: CVA/TIA, Myocardial Infarction ([place]) Additional Family Medical History / Comment(s): multiple mi's Brother(s) Family Medical History: Coronary Artery Disease (CAD) Additional Family Medical History / Comment(s): cabg Medications and Allergies Home Medications Medication Instructions Recorded Confirmed Type Albuterol Inhaler [Ventolin Hfa 1 - 2 puff INHALATION RT-Q6H PRN 02/09/15 History Inhaler] Albuterol Nebulized [Ventolin 2.5 mg INHALATION RT-TID PRN 02/09/15 10/31/17 History Nebulized] Budesonide/Formoterol Fumarate 2 puff INHALATION RT-BID 02/09/15 10/31/17 History [Symbicort 80-4.5 Mcg Inhaler] HYDROcodone/APAP 10-325MG [[place] 1 tab PO QID PRN 02/09/15 10/31/17 History 10-325] Isosorbide Mononitrate [Isosorbide 30 mg PO QAM 02/09/15 10/31/17 History Mononitrate ER] Omeprazole [PriLOSEC] 20 mg PO AC-BRKFST 02/09/15 10/31/17 History Nitroglycerin Sl Tabs [Nitrostat] 0.4 mg PO Q5M PRN 06/22/15 10/31/17 History Metoprolol Tartrate [Lopressor] 25 mg PO BID 12/27/16 10/31/17 History Pravastatin Sodium [Pravachol] 20 mg PO HS 12/27/16 10/31/17 History Lisinopril [Prinivil] 10 mg PO QAM #0 10/31/17 10/31/17 Rx Allergies Allergy/AdvReac Type Severity Reaction Status Date / Time codeine Allergy Unknown Verified 10/31/17 08:39 Childhood Physical Exam Vitals: Vital Signs Temp Pulse Pulse Resp BP BP BP 10/31/17 11:30 96.7 F L 53 L 18 10/31/17 08:00 97.3 F L 53 L 10/31/17 03:48 97.0 F L 64 18 10/31/17 00:00 97.2 F L 66 17 10/30/17 23:22 65 17 116/66 10/30/17 23:15 97.0 F L 64 18 120/60 10/30/17 22:33 64 16 124/72 10/30/17 21:25 66 17 105/64 10/30/17 20:42 97/57 87/50 10/30/17 20:27 97.1 F L 72 17 98/58 BP Pulse Ox 10/31/17 11:30 132/73 97 10/31/17 08:00 126/68 96 10/31/17 03:48 119/76 95 10/31/17 00:00 122/62 96 10/30/17 23:22 96 10/30/17 23:15 95 10/30/17 22:33 95 10/30/17 21:25 96 10/30/17 20:42 95/54 10/30/17 20:27 98 Intake and Output 10/30/17 10/31/17 10/31/17 22:59 06:59 14:59 Intake Total 0 Output Total 600 775 Balance -600 -775 Intake: Oral 0 Output: Urine 600 775 Other: Voiding Method Urinal Weight 68.946 kg 71.7 kg PHYSICAL EXAMINATION: GENERAL: The patient is alert and oriented x3, not in any acute distress. Well developed, well nourished. HEENT: Pupils are round and equally reacting to light. EOMI. No scleral icterus. No conjunctival pallor. Normocephalic, atraumatic. No pharyngeal erythema. No thyromegaly. CARDIOVASCULAR: S1 and S2 present. No murmurs, rubs, or gallops. PULMONARY: Chest is clear to auscultation, no wheezing or crackles. ABDOMEN: Soft, nontender, nondistended, normoactive bowel sounds. No palpable organomegaly. MUSCULOSKELETAL: No joint swelling or deformity. EXTREMITIES: No cyanosis, clubbing, or pedal edema. NEUROLOGICAL: Gross neurological examination did not reveal any focal deficits. SKIN: No rashes. Results CBC & Chem 7: 10/30/17 20:30 10/30/17 21:29 Labs: Abnormal Lab Results - Last 24 Hours (Table) 10/30/17 10/30/17 10/30/17 Range/Units 20:30 21:29 21:30 APTT 21.7 L (22.0-30.0) sec Sodium 133 L (137-145) mmol/L Carbon Dioxide 21 L (22-30) mmol/L Total Creatine Kinase 263 H (55-170) U/L CK-MB (CK-2) 4.4 H* (0.0-2.4) ng/mL Troponin I 0.038 H* (0.000-0.034) ng/mL 10/31/17 10/31/17 Range/Units 03:10 09:35 APTT (22.0-30.0) sec Sodium (137-145) mmol/L Carbon Dioxide (22-30) mmol/L Total Creatine Kinase 211 H 176 H (55-170) U/L CK-MB (CK-2) 3.6 H* 2.8 H* (0.0-2.4) ng/mL Troponin I 0.039 H* (0.000-0.034) ng/mL Thrombosis Risk Factor Assmnt - Choose All That Apply Each Factor Represents 1 point: Abnormal pulmonary function (COPD) Each Risk Factor Represents 2 Points: Age 61-74 years Thrombosis Risk Factor Assessment Total Risk Factor Score: 3 Thrombosis Risk Factor Assessment Level: Moderate Risk Assessment and Plan Plan: -Syncope: Secondary to intravascular depletion and dehydration with positive orthostatic vitals patient is clinically doing well will be discharged today. Received IV fluids. Patient is undergoing stresses because of abnormal elevated troponins. -Alcohol abuse: Counseling was provided -Hyponatremia: Hypervolemic hyponatremia expected to improve with IV fluids he received last night -COPD-hypertension hypertension management as mentioned above -Marijuana use: Counseling was provided -Nicotine abuse quit recently -Peripheral vascular disease
--- NOTE | 2017-10-31 13:23 | P.DS ---
Providers Date of admission: 10/30/17 22:51 Attending physician: Kiersten Terrazas Consults: 10/30/17 22:57 Consult Physician Routine Consulting Provider: [facility] Consult Reason/Comments: syncope; elevated trop Do you want consulting provider notified?: Yes Primary care physician: [facility] Course: As mentioned in HPI Patient Condition at Discharge: Serious Plan - Discharge Summary Discharge Rx Participant: No New Discharge Prescriptions: Continue HYDROcodone/APAP 10-325MG [Stewart 10-325] 1 tab PO QID PRN PRN Reason: Pain Budesonide/Formoterol Fumarate [Symbicort 80-4.5 Mcg Inhaler] 2 puff INHALATION RT-BID Albuterol Nebulized [Ventolin Nebulized] 2.5 mg INHALATION RT-TID PRN PRN Reason: Shortness Of Breath Albuterol Inhaler [Ventolin Hfa Inhaler] 1 - 2 puff INHALATION RT-Q6H PRN PRN Reason: Shortness Of Breath Isosorbide Mononitrate [Isosorbide Mononitrate ER] 30 mg PO QAM Omeprazole [PriLOSEC] 20 mg PO AC-BRKFST Nitroglycerin Sl Tabs [Nitrostat] 0.4 mg PO Q5M PRN PRN Reason: Angina Pravastatin Sodium [Pravachol] 20 mg PO HS Metoprolol Tartrate [Lopressor] 25 mg PO BID Changed Lisinopril [Prinivil] 10 mg PO QAM #0 Discontinued amLODIPine [Norvasc] 10 mg PO QAM Discharge Medication List Albuterol Inhaler [Ventolin Hfa Inhaler] 1 - 2 puff INHALATION RT-Q6H PRN [History] Albuterol Nebulized [Ventolin Nebulized] 2.5 mg INHALATION RT-TID PRN 02/09/15 [ History] Budesonide/Formoterol Fumarate [Symbicort 80-4.5 Mcg Inhaler] 2 puff INHALATION RT-BID 02/09/15 [History] HYDROcodone/APAP 10-325MG [Stewart 10-325] 1 tab PO QID PRN 02/09/15 [History] Isosorbide Mononitrate [Isosorbide Mononitrate ER] 30 mg PO QAM 02/09/15 [ History] Omeprazole [PriLOSEC] 20 mg PO AC-BRKFST 02/09/15 [History] Nitroglycerin Sl Tabs [Nitrostat] 0.4 mg PO Q5M PRN 06/22/15 [History] Metoprolol Tartrate [Lopressor] 25 mg PO BID 12/27/16 [History] Pravastatin Sodium [Pravachol] 20 mg PO HS 12/27/16 [History] Lisinopril [Prinivil] 10 mg PO QAM #0 10/31/17 [Rx] Follow up Appointment(s)/Referral(s): Stella Lawrence MD [Primary Care Provider] - 3 Days Discharge Disposition: HOME SELF-CARE
--- NOTE | 2017-10-31 14:38 | NM ---
EXAMINATION TYPE: NM stress lexiscan cardiolite DATE OF EXAM: 10/31/2017 COMPARISON: 10/10/2011 HISTORY: 66-year-old male with chest pain TECHNIQUE: After the intravenous administration of 10.9 mCi Tc 99m Sestamibi - Cardiolite resting SP ECT images acquired 45 minutes post injection. The patient received 0.4mg Lexiscan, 24 mCi Tc 99m Sestamibi - Stress images obtained 70 minutes post injection FINDINGS: Review of stress and rest SPECT images demonstrates no distinct reversible perfusion abnormality. The re is small area of fixed decreased activity at the apex. Gated analysis shows normal wall motion wit h an estimated left ventricular ejection fraction of 61 %. TID is calculated at 1.16, upper limits o f normal. IMPRESSION: 1. Small fixed area of decreased perfusion at the apex could represent apical thinning or a small old infarct. 2. No scintigraphic evidence for reversible ischemia.
[2017-10-31] MEDS ORDERED: SYMBICORT 80-4.5 MCG INHALER INHALATION SCH (20:00)
[2017-10-31] MEDS ORDERED: PRAVASTATIN SODIUM 20 MG TAB PO SCH (21:00)
[2017-10-31] MEDS ORDERED: METOPROLOL TARTRATE 25 MG TAB PO SCH (21:00)
[2017-11-01] MEDS ORDERED: PANTOPRAZOLE 40 MG TABLET PO SCH (07:30)
--- NOTE | 2017-11-01 13:06 | EST ---
EXERCISE STRESS DATE OF SERVICE: 10/31/2017 AGE: 66 SEX: M HT: 5'11" WT: 158 PROTOCOL: Lexiscan Cardiolite Stress Test. HEART RATE REST: 60 BLOOD PRESSURE REST: 166/87 MAXIMUM HEART RATE ACHIEVED: 90 MAXIMUM BLOOD PRESSURE: 146/87 INDICATIONS: Chest pain. CLINICAL INFORMATION: Baseline EKG revealed a normal sinus rhythm without significant ST-T changes. There was poor R-wave progression noted with Lexiscan administration. Heart rate changed from 68- 90 beats per minute, blood pressure changed from 166/87 to 146/87. EKG remained unremarkable. . By EKG criteria, this is an unremarkable Lexiscan stress test without subjective symptoms of angina and patient did not have any significant arrhythmia. The nuclear scan results, which are more pertinent, will be reported by the radiologist. GERRI / SHEILAN: [id number] /
== END 2017-10-31 16:14 | disposition home or self-care (01) ==
LOC: EC 20:25 → 6SEL 22:51
PROVIDERS: ADMIT Internal Medicine; ATTEND Internal Medicine
DX: E86.0 Dehydration (principal); E86.9 Volume depletion, unspecified; R55 Syncope and collapse; E87.1 Hypo-osmolality and hyponatremia; I95.9 Hypotension, unspecified; R77.8 Other specified abnormalities of plasma proteins; J44.9 Chronic obstructive pulmonary disease, unspecified; I10 Essential (primary) hypertension; I73.9 Peripheral vascular disease, unspecified; H93.19 Tinnitus, unspecified ear; F17.200 Nicotine dependence, unspecified, uncomplicated; Z90.49 Acquired absence of other specified parts of digestive tract; F10.20 Alcohol dependence, uncomplicated; E78.5 Hyperlipidemia, unspecified; M19.90 Unspecified osteoarthritis, unspecified site; F12.90 Cannabis use, unspecified, uncomplicated; Z79.51 Long term (current) use of inhaled steroids; R19.7 Diarrhea, unspecified; R42 Dizziness and giddiness; T43.205A Adverse effect of unspecified antidepressants, initial encounter; Z79.899 Other long term (current) drug therapy; Z88.5 Allergy status to narcotic agent; X30.XXXA Exposure to excessive natural heat, initial encounter; Z82.49 Family history of ischemic heart disease and other diseases of the circulatory system; Z82.3 Family history of stroke
CPT/HCPCS: 99285 ×2; 96360 ×2; 36415; 93005; 93017; 93306; 80061; 80053; 82550 ×2; 82553 ×2; 84484 ×2; 85025; 85610; 85730; 81003; 80320; 71046; 78452; G0378 ×2; A9500; J2785

== ENCOUNTER → 2017-12-04 | Outpatient (CLI) | payer MEDICARE, OTHER ==
--- NOTE | 2017-12-04 14:30 | CT ---
EXAMINATION TYPE: CT chest wo con DATE OF EXAM: 12/04/2017 COMPARISON: CT chest October 23, 2017 and older studies HISTORY: SOB and cough per order. CT DLP: 305.2 mGycm. Automated Exposure Control for Dose Reduction was Utilized. TECHNIQUE: CT scan of the thorax is performed without IV contrast. FINDINGS: LUNGS: Calcified bilateral pleural plaques are redemonstrated likely product of prior asbestos exposu re. There is fairly moderate underlying emphysematous change with scattered bulla and bleb. There is stable posterior right apical and upper lung scarring near image 12 and persistent focal scarring sup erior aspect right lower lobe near axial image 26. There is additional linear scarring in the lingula redemonstrated. No suspicious new focal consolidation or groundglass opacity is identified. No pleur al effusion or pneumothorax is seen bilaterally. Mild central peribronchial wall thickening is noted likely product of underlying COPD. MEDIASTINUM: Lack of IV contrast is noted to limit evaluation for mediastinal and especially hilar ad enopathy. There are no definitive greater than 1 cm hilar or mediastinal lymph nodes. No cardiomega ly or pericardial effusion is seen. Ascending aorta measures up to 4.1 cm in diameter axial image 30 significant change from prior. Mild to moderate calcified plaque in the thoracic aorta is seen. There is more moderate to severe calcified plaque in the mid abdominal aorta. Fairly severe 3 vessel coron gio artery calcification is present which is noted marker for coronary artery disease. OTHER: Surgical sutures are seen in the colon near level of hepatic flexure felt from partial right-s ided colectomy. Duodenal diverticulum suspected axial image 77 along mesenteric aspect of the second and third portion of duodenum. Moderate multilevel spurring in the thoracic spine is identified mid t o lower levels. There is 1.7 cm splenule inferior to spleen redemonstrated. IMPRESSION: Evidence of prior asbestos exposure and moderate underlying emphysematous change. Scatter ed scarring. No acute pulmonary process. Stable 4.1 cm aneurysm of ascending aorta. No significant ch nagi from most recent CT.
== END | disposition home or self-care (01) ==
LOC: RADCTMAIN 12:53
PROVIDERS: ATTEND Internal Medicine Pulmonary Disease
DX: J43.9 Emphysema, unspecified (principal); J98.4 Other disorders of lung; I71.2 Thoracic aortic aneurysm, without rupture
CPT/HCPCS: 71250

== ENCOUNTER 2018-01-25 18:39 | Emergency (ER) | payer MEDICARE ==
[2018-01-25 19:03] VITALS: RESP 18
[2018-01-25] MEDS ORDERED: SODIUM CHLORIDE 0.9% 1,000 ML IV STA ×2 (19:03→20:30)
--- NOTE | 2018-01-25 19:25 | ED ---
General Adult HPI - General Chief complaint: Syncope Stated complaint: Syncope Time Seen by Provider: 01/25/18 18:40 Source: patient, EMS, RN notes reviewed, old records reviewed Mode of arrival: EMS Limitations: no limitations - History of Present Illness Initial comments: This is a 67-year-old male the ER for evaluation. Today patient presents for evaluation regarding syncopal event. Patient has no significant medical history does have prior history of syncope. Patient was doing some drinking today with friends. Syncopal event, does admit to mild dehydration otherwise has no complaints of chest pain or shortness breath or abdominal pain no headache currently. - Related Data Home Medications Medication Instructions Recorded Confirmed Albuterol Inhaler [Ventolin Hfa 1 - 2 puff INHALATION RT-Q6H PRN 02/09/15 Inhaler] Albuterol Nebulized [Ventolin 2.5 mg INHALATION RT-TID PRN 02/09/15 10/31/17 Nebulized] Budesonide/Formoterol Fumarate 2 puff INHALATION RT-BID 02/09/15 10/31/17 [Symbicort 80-4.5 Mcg Inhaler] HYDROcodone/APAP 10-325MG [Franklin 1 tab PO QID PRN 02/09/15 10/31/17 10-325] Isosorbide Mononitrate [Isosorbide 30 mg PO QAM 02/09/15 10/31/17 Mononitrate ER] Omeprazole [PriLOSEC] 20 mg PO AC-BRKFST 02/09/15 10/31/17 Nitroglycerin Sl Tabs [Nitrostat] 0.4 mg PO Q5M PRN 06/22/15 10/31/17 Metoprolol Tartrate [Lopressor] 25 mg PO BID 12/27/16 10/31/17 Pravastatin Sodium [Pravachol] 20 mg PO HS 12/27/16 10/31/17 Previous Rx's Medication Instructions Recorded Lisinopril [Prinivil] 10 mg PO QAM #0 10/31/17 Allergies Allergy/AdvReac Type Severity Reaction Status Date / Time codeine Allergy Unknown Verified 01/25/18 18:54 Childhood Review of Systems ROS Statement: Those systems with pertinent positive or pertinent negative responses have been documented in the HPI. ROS Other: All systems not noted in ROS Statement are negative. 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" BOWEL RESECTION IN JUNE [address] TO BLE History of Any Multi-Drug Resistant Organisms: None Reported Past Surgical History: Appendectomy, Bowel Resection, Orthopedic Surgery Additional Past Surgical History / Comment(s): finger repair Past Anesthesia/Blood Transfusion Reactions: No Reported Reaction Past Psychological History: No Psychological Hx Reported Smoking Status: Current every day smoker Past Alcohol Use History: Daily Past Drug Use History: Marijuana - Past Family History Mother Additional Family Medical History / Comment(s): at age 92 Father Family Medical History: CVA/TIA, Myocardial Infarction (MT) Additional Family Medical History / Comment(s): multiple mi's Brother(s) Family Medical History: Coronary Artery Disease (CAD) Additional Family Medical History / Comment(s): cabg General Exam Limitations: no limitations General appearance: alert, in no apparent distress Head exam: Present: atraumatic, normocephalic, normal inspection Eye exam: Present: normal appearance, PERRL, EOMI. Absent: scleral icterus, conjunctival injection, periorbital swelling ENT exam: Present: normal exam, mucous membranes moist Neck exam: Present: normal inspection. Absent: tenderness, meningismus, lymphadenopathy Respiratory exam: Present: normal lung sounds bilaterally. Absent: respiratory distress, wheezes, rales, rhonchi, stridor Cardiovascular Exam: Present: regular rate, normal rhythm, normal heart sounds. Absent: systolic murmur, diastolic murmur, rubs, gallop, clicks GI/Abdominal exam: Present: soft, normal bowel sounds. Absent: distended, tenderness, guarding, rebound, rigid Extremities exam: Present: normal inspection, full ROM, normal capillary refill. Absent: tenderness, pedal edema, joint swelling, calf tenderness Back exam: Present: normal inspection Neurological exam: Present: alert, oriented X3, CN II-XII intact Psychiatric exam: Present: normal affect, normal mood Skin exam: Present: warm, dry, intact, normal color. Absent: rash Course Vital Signs 01/25/18 01/25/18 01/25/18 18:54 20:37 21:00 Temperature 97.9 F Pulse Rate 68 77 68 Respiratory 18 18 18 Rate Blood Pressure 157/78 164/77 147/82 O2 Sat by Pulse 97 94 L 96 Oximetry 01/25/18 23:02 Temperature 97.5 F L Pulse Rate 88 Respiratory 18 Rate Blood Pressure 164/84 O2 Sat by Pulse 98 Oximetry - Reevaluation(s) Reevaluation #1: Patient is without syncopal event here in the ER no arrhythmia noted on rhythm strip. Patient states he has no headache chest pain source of breath or abdominal pain currently EKG Findings - EKG Comments: EKG Findings:: EKG shows sinus rhythm rate of 65, DC 170, QRS 72, QTc 457 Medical Decision Making - Medical Decision Making 67 male the ER with syncopal event, unknown cause. Patient does have alcohol intake today patient's feeling better with resuscitation and can be discharged home - Lab Data Result diagrams: 01/25/18 19:25 01/25/18 19:25 Lab Results 01/25/18 01/25/18 01/25/18 Range/Units 19:25 19:25 19:25 WBC 5.5 (3.8-10.6) k/uL RBC 5.04 (4.30-5.90) m/uL Hgb 16.3 (13.0-17.5) gm/dL Hct 49.7 (39.0-53.0) % MCV 98.6 (80.0-100.0) fL MCH 32.3 (25.0-35.0) pg MCHC 32.8 (31.0-37.0) g/dL RDW 14.2 (11.5-15.5) % Plt Count 201 (150-450) k/uL Neutrophils % 52 % Lymphocytes % 34 % Monocytes % 7 % Eosinophils % 3 % Basophils % 1 % Neutrophils # 2.9 (1.3-7.7) k/uL Lymphocytes # 1.9 (1.0-4.8) k/uL Monocytes # 0.4 (0-1.0) k/uL Eosinophils # 0.2 (0-0.7) k/uL Basophils # 0.0 (0-0.2) k/uL PT (9.0-12.0) sec INR (<1.2) APTT (22.0-30.0) sec D-Dimer (<0.60) mg/L FEU Sodium 136 L (137-145) mmol/L Potassium 4.2 (3.5-5.1) mmol/L Chloride 102 (98-107) mmol/L Carbon Dioxide 25 (22-30) mmol/L Anion Gap 9 mmol/L BUN 7 L (9-20) mg/dL Creatinine 0.78 (0.66-1.25) mg/dL Est GFR (CKD-EPI)AfAm >90 (>60 ml/min/1.73 sqM) Est GFR (CKD-EPI)NonAf >90 (>60 ml/min/1.73 sqM) Glucose 85 (74-99) mg/dL Calcium 9.2 (8.4-10.2) mg/dL Phosphorus 4.0 (2.5-4.5) mg/dL Magnesium 1.9 (1.6-2.3) mg/dL Total Bilirubin 0.6 (0.2-1.3) mg/dL AST 25 (17-59) U/L ALT 22 (21-72) U/L Alkaline Phosphatase 61 (38-126) U/L Total Creatine Kinase 66 (55-170) U/L CK-MB (CK-2) 1.9 (0.0-2.4) ng/mL CK-MB (CK-2) Rel Index 2.9 Troponin I <0.012 (0.000-0.034) ng/mL Total Protein 7.2 (6.3-8.2) g/dL Albumin 3.9 (3.5-5.0) g/dL Serum Alcohol 97 mg/dL 01/25/18 Range/Units 19:25 WBC (3.8-10.6) k/uL RBC (4.30-5.90) m/uL Hgb (13.0-17.5) gm/dL Hct (39.0-53.0) % MCV (80.0-100.0) fL MCH (25.0-35.0) pg MCHC (31.0-37.0) g/dL RDW (11.5-15.5) % Plt Count (150-450) k/uL Neutrophils % % Lymphocytes % % Monocytes % % Eosinophils % % Basophils % % Neutrophils # (1.3-7.7) k/uL Lymphocytes # (1.0-4.8) k/uL Monocytes # (0-1.0) k/uL Eosinophils # (0-0.7) k/uL Basophils # (0-0.2) k/uL PT 10.3 (9.0-12.0) sec INR 1.1 (<1.2) APTT 21.4 L (22.0-30.0) sec D-Dimer 1.74 H (<0.60) mg/L FEU Sodium (137-145) mmol/L Potassium (3.5-5.1) mmol/L Chloride (98-107) mmol/L Carbon Dioxide (22-30) mmol/L Anion Gap mmol/L BUN (9-20) mg/dL Creatinine (0.66-1.25) mg/dL Est GFR (CKD-EPI)AfAm (>60 ml/min/1.73 sqM) Est GFR (CKD-EPI)NonAf (>60 ml/min/1.73 sqM) Glucose (74-99) mg/dL Calcium (8.4-10.2) mg/dL Phosphorus (2.5-4.5) mg/dL Magnesium (1.6-2.3) mg/dL Total Bilirubin (0.2-1.3) mg/dL AST (17-59) U/L ALT (21-72) U/L Alkaline Phosphatase (38-126) U/L Total Creatine Kinase (55-170) U/L CK-MB (CK-2) (0.0-2.4) ng/mL CK-MB (CK-2) Rel Index Troponin I (0.000-0.034) ng/mL Total Protein (6.3-8.2) g/dL Albumin (3.5-5.0) g/dL Serum Alcohol mg/dL - Radiology Data Radiology results: report reviewed (CTA chest is negative for PE), image reviewed Disposition Clinical Impression: Syncope Disposition: HOME SELF-CARE Condition: Good Instructions: Syncope (ED) Is patient prescribed a controlled substance at d/c from ED?: No Referrals: Stella Lawrence MD [Primary Care Provider] - 1-2 days
[2018-01-25 19:47] LABS: Basophils % (A) 1 %; Eosinophils # (A) 0.2 k/uL (0-0.7); Eosinophils % (A) 3 %; HCT 49.7 % (39.0-53.0); HGB 16.3 gm/dL (13.0-17.5); Lymphocytes # (A) 1.9 k/uL (1.0-4.8); Lymphocytes % (A) 34 %; MCH 32.3 pg (25.0-35.0); MCHC 32.8 g/dL (31.0-37.0); MCV 98.6 fL (80.0-100.0); Monocytes # (A) 0.4 k/uL (0-1.0); Monocytes % (A) 7 %; Neutrophils # (A) 2.9 k/uL (1.3-7.7); Neutrophils % (A) 52 %; Platelet Count 201 k/uL (150-450); RBC 5.04 m/uL (4.30-5.90); RDW 14.2 % (11.5-15.5); WBC 5.5 k/uL (3.8-10.6)
[2018-01-25 19:56] LABS: ALT 22 U/L (21-72); AST 25 U/L (17-59); Albumin 3.9 g/dL (3.5-5.0); Alkaline Phosphatase 61 U/L (38-126); Anion Gap 9 mmol/L; Blood Urea Nitrogen 7 mg/dL (9-20); Calcium 9.2 mg/dL (8.4-10.2); Carbon Dioxide 25 mmol/L (22-30); Chloride 102 mmol/L (98-107); Glucose 85 mg/dL (74-99); Magnesium 1.9 mg/dL (1.6-2.3); Potassium 4.2 mmol/L (3.5-5.1); Sodium 136 mmol/L (137-145); Total Bilirubin 0.6 mg/dL (0.2-1.3); Total Protein 7.2 g/dL (6.3-8.2)
[2018-01-25 19:59] LABS: Alcohol 97 mg/dL
[2018-01-25 20:10] LABS: Creatine Kinase 66 U/L (55-170)
[2018-01-25 20:24] LABS: Creatine Kinase MB 1.9 ng/mL (0.0-2.4); Troponin I <0.012 ng/mL (0.000-0.034)
[2018-01-25] MEDS ORDERED: FOLIC ACID 1 MG TAB PO STA (20:30)
[2018-01-25 20:49] LABS: INR 1.1 (<1.2); Prothrombin Time 10.3 sec (9.0-12.0)
[2018-01-25 20:57] LABS: D-Dimer 1.74 mg/L FEU (<0.60); Partial Thromboplastin Time 21.4 sec (22.0-30.0)
--- NOTE | 2018-01-25 21:42 | CT ---
CT CHEST FOR PULMONARY EMBOLISM. EXAMINATION TYPE: CT angio chest DATE OF EXAM: 01/25/2018 INDICATION: Syncope CT DLP: 487 mGycm, Automated exposure control for dose reduction was used. CONTRAST: Patient injected with 100 mL of Isovue 370. COMPARISON: None TECHNIQUE: CT of the chest is performed on a spiral scan at 2 mm thick sections. Study is performed with intravenous contrast timed for evaluation for pulmonary embolism. This will limit additional po rtions of the evaluation. 3-D MIP images reconstructed by the technologist are reviewed on the compu ter in the coronal and sagittal planes. FINDINGS: No persistent filling defects are evident to suggest an acute pulmonary embolism. No mediastinal or hilar adenopathy enlarged by CT criteria is evident. Some small shotty lymphadenop athy is present. The ascending aorta diameter at the level of the main pulmonary artery is 4.1 cm. T he main pulmonary artery diameter at the bifurcation is 2.6 cm. Lung there is a subtle density just above the right diaphragm measuring 0.8 cm. Series 5 image 113 manan ng windows. In the coronal plane this is suggestive for some pleural plaquing along the diaphragm. Wi ndows are otherwise clear. Smaller areas of pleural plaquing with calcification are noted. Emphysemat ous changes are through the lung lewis. Limited CT section through the upper abdomen are unremarkable. IMPRESSIONS: 1. No acute pulmonary embolism. 2. Scattered small areas of pleural thickening and calcification could be prior asbestos exposure. 3. Ascending thoracic aortic aneurysm measuring 4.1 cm.
[2018-01-25 23:04] VITALS: BP 164/84; PULSE 88; TEMP 97.5
[2018-01-26] MEDS ORDERED: THIAMINE 100 MG/ML 2 ML VIAL IVPB SCH (09:00)
== END 2018-01-25 23:02 | disposition home or self-care (01) ==
LOC: EC 18:39
DX: R55 Syncope and collapse (principal); E86.0 Dehydration; I10 Essential (primary) hypertension; J44.9 Chronic obstructive pulmonary disease, unspecified; F17.200 Nicotine dependence, unspecified, uncomplicated; Z88.5 Allergy status to narcotic agent; Z79.51 Long term (current) use of inhaled steroids; Z79.899 Other long term (current) drug therapy
CPT/HCPCS: 36415; 93005; 85379; 80053; 82550; 82553; 83735; 84100; 84484; 85025; 85610; 85730; 71275; 99285; 96360; 96361; G0480; Q9967; 80320

== ENCOUNTER 2018-02-21 14:45 | Emergency (ER) | payer MEDICARE ==
[2018-02-21 15:05] LABS: Glucose,Whole Blood 111 mg/dL (75-99)
[2018-02-21] MEDS ORDERED: SODIUM CHLORIDE 0.9% 1,000 ML IV ONE (15:48)
[2018-02-21] MEDS ORDERED: ASPIRIN 81 MG PO STA (15:48)
--- NOTE | 2018-02-21 15:52 | ED ---
Syncope HPI - General Chief Complaint: Syncope Stated Complaint: Syncope Time Seen by Provider: 02/21/18 15:33 Source: patient Mode of arrival: wheelchair Limitations: no limitations - History of Present Illness Initial Comments: Patient is a 67-year-old chief complaint of a syncopal episode. Patient states that he has history of the same last month for which she was evaluated in the emergency department at this facility. Patient states that today he was at the bar when he had a syncopal episode lasting about 5 minutes. Patient states he was seated and just fell asleep at the bar. This was a witnessed event, witnesses say that he had a very pale skin color, had an episode of emesis, and up after 5 minutes. There were no inciting events leading up to this, there are no aggravating or alleviating factors. Currently the patient states he is asymptomatic. - Related Data Home Medications Medication Instructions Recorded Confirmed Albuterol Inhaler [Ventolin Hfa 1 - 2 puff INHALATION RT-Q6H PRN 02/09/15 Inhaler] Albuterol Nebulized [Ventolin 2.5 mg INHALATION RT-TID PRN 02/09/15 02/21/18 Nebulized] Budesonide/Formoterol Fumarate 2 puff INHALATION RT-BID 02/09/15 02/21/18 [Symbicort 80-4.5 Mcg Inhaler] Isosorbide Mononitrate [Isosorbide 30 mg PO QAM 02/09/15 02/21/18 Mononitrate ER] Omeprazole [PriLOSEC] 20 mg PO AC-BRKFST 02/09/15 02/21/18 Nitroglycerin Sl Tabs [Nitrostat] 0.4 mg PO Q5M PRN 06/22/15 02/21/18 Metoprolol Tartrate [Lopressor] 25 mg PO BID 12/27/16 02/21/18 Pravastatin Sodium [Pravachol] 20 mg PO HS 12/27/16 02/21/18 Aspirin EC [Ecotrin Low Dose] 81 mg PO DAILY 02/21/18 02/21/18 Previous Rx's Medication Instructions Recorded Lisinopril [Prinivil] 10 mg PO QAM #0 10/31/17 Allergies Allergy/AdvReac Type Severity Reaction Status Date / Time codeine Allergy Unknown Verified 02/21/18 15:56 Childhood Review of Systems ROS Statement: Those systems with pertinent positive or pertinent negative responses have been documented in the HPI. ROS Other: All systems not noted in ROS Statement are negative. Gastrointestinal: Reports: nausea, vomiting Neurological: Reports: other (Syncope) 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" BOWEL RESECTION IN JUNE [address] TO BLE History of Any Multi-Drug Resistant Organisms: None Reported Past Surgical History: Appendectomy, Bowel Resection, Orthopedic Surgery Additional Past Surgical History / Comment(s): finger repair Past Anesthesia/Blood Transfusion Reactions: No Reported Reaction Past Psychological History: No Psychological Hx Reported Smoking Status: Current every day smoker Past Alcohol Use History: Daily Past Drug Use History: Marijuana - Past Family History Mother Additional Family Medical History / Comment(s): at age 92 Father Family Medical History: CVA/TIA, Myocardial Infarction ([place]) Additional Family Medical History / Comment(s): multiple mi's Brother(s) Family Medical History: Coronary Artery Disease (CAD) Additional Family Medical History / Comment(s): cabg General Exam Limitations: no limitations General appearance: alert, in no apparent distress Head exam: Present: atraumatic, normocephalic Eye exam: Present: normal appearance, PERRL, EOMI ENT exam: Present: normal exam Neck exam: Present: normal inspection Respiratory exam: Present: rhonchi. Absent: respiratory distress Cardiovascular Exam: Present: regular rate, normal rhythm GI/Abdominal exam: Present: soft. Absent: distended, tenderness Rectal exam: Present: deferred Extremities exam: Present: normal inspection Back exam: Present: normal inspection Neurological exam: Present: alert, oriented X3 Psychiatric exam: Present: normal affect, normal mood Skin exam: Present: warm, dry, intact Course Vital Signs 02/21/18 02/21/18 02/21/18 14:57 16:21 16:30 Temperature 97.4 F L Pulse Rate 67 72 Respiratory 16 Rate Blood Pressure 121/67 112/77 112/77 O2 Sat by Pulse 98 97 96 Oximetry 02/21/18 02/21/18 02/21/18 17:00 17:30 18:00 Temperature Pulse Rate 68 66 70 Respiratory Rate Blood Pressure 121/80 137/85 124/80 O2 Sat by Pulse 95 95 Oximetry 02/21/18 21:00 Temperature 97.8 F Pulse Rate 93 Respiratory 20 Rate Blood Pressure 138/96 O2 Sat by Pulse 97 Oximetry Medical Decision Making - Medical Decision Making Patient presents with a chief complaint of syncopal episode. On initial evaluation, vital signs are stable, patient is no acute distress. Patient to be evaluated with basic labs including cardiac enzymes and urinalysis. Review of patient's chart shows that he was evaluated for this last month. 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 review of past imaging studies reveals a normal stress test on 10/31/2017, Lexiscan was performed of the same time and that did not show any reversible ischemia and there was a small area at the apex that represents either cleaning or old TX. EF was estimated at 61% at that time. I was unable to find any record of CT scans of the head and therefore today the patient will be evaluated with a computed tomography scan of the brain with and without contrast. 6:32 PM Lab evaluation of this patient is unremarkable. Troponin is negative. A computed tomography scan of the head shows chronic small vessel ischemic changes without other acute intracranial abnormality. CT angios shows a 30% and 40% narrowing of the internal carotid arteries with complete occlusion of the left vertebral artery. This is stable when compared to previous study performed in 2016. On reevaluation, the patient is in no acute distress. Currently pending repeat troponin. 9:19 PM Repeat troponin is negative. I discussed results with the patient instructed to follow up with primary care in 1-2 days. Return to the emergency department if symptoms worsen or change. Patient family agreeable with this care plan. - Lab Data Result diagrams: 02/21/18 16:20 02/21/18 16:20 Lab Results 02/21/18 02/21/18 02/21/18 Range/Units 15:03 16:20 16:20 WBC 8.8 (3.8-10.6) k/uL RBC 5.36 (4.30-5.90) m/uL Hgb 17.8 H (13.0-17.5) gm/dL Hct 53.6 H (39.0-53.0) % MCV 99.9 (80.0-100.0) fL MCH 33.1 (25.0-35.0) pg MCHC 33.2 (31.0-37.0) g/dL RDW 14.9 (11.5-15.5) % Plt Count 249 (150-450) k/uL Neutrophils % 76 % Lymphocytes % 15 % Monocytes % 6 % Eosinophils % 1 % Basophils % 0 % Neutrophils # 6.7 (1.3-7.7) k/uL Lymphocytes # 1.3 (1.0-4.8) k/uL Monocytes # 0.5 (0-1.0) k/uL Eosinophils # 0.1 (0-0.7) k/uL Basophils # 0.0 (0-0.2) k/uL Macrocytosis Slight Sodium 136 L (137-145) mmol/L Potassium 4.7 (3.5-5.1) mmol/L Chloride 98 (98-107) mmol/L Carbon Dioxide 28 (22-30) mmol/L Anion Gap 10 mmol/L BUN 12 (9-20) mg/dL Creatinine 1.01 (0.66-1.25) mg/dL Est GFR (CKD-EPI)AfAm 89 (>60 ml/min/1.73 sqM) Est GFR (CKD-EPI)NonAf 77 (>60 ml/min/1.73 sqM) Glucose 104 H (74-99) mg/dL POC Glucose (mg/dL) 111 H (75-99) mg/dL POC Glu [employer] Specialist ID Chasity Walsh Calcium 10.0 (8.4-10.2) mg/dL Troponin I (0.000-0.034) ng/mL NT-Pro-B Natriuret Pep pg/mL Urine Color Urine Appearance (Clear) Urine pH (5.0-8.0) Ur Specific [place] (1.001-1.035) Urine Protein (Negative) Urine Glucose (UA) (Negative) Urine Ketones (Negative) Urine Blood (Negative) Urine Nitrite (Negative) Urine Bilirubin (Negative) Urine Urobilinogen (<2.0) mg/dL Ur Leukocyte Esterase (Negative) Serum Alcohol <10 mg/dL 02/21/18 02/21/18 02/21/18 Range/Units 16:20 16:20 18:20 WBC (3.8-10.6) k/uL RBC (4.30-5.90) m/uL Hgb (13.0-17.5) gm/dL Hct (39.0-53.0) % MCV (80.0-100.0) fL MCH (25.0-35.0) pg MCHC (31.0-37.0) g/dL RDW (11.5-15.5) % Plt Count (150-450) k/uL Neutrophils % % Lymphocytes % % Monocytes % % Eosinophils % % Basophils % % Neutrophils # (1.3-7.7) k/uL Lymphocytes # (1.0-4.8) k/uL Monocytes # (0-1.0) k/uL Eosinophils # (0-0.7) k/uL Basophils # (0-0.2) k/uL Macrocytosis Sodium (137-145) mmol/L Potassium (3.5-5.1) mmol/L Chloride (98-107) mmol/L Carbon Dioxide (22-30) mmol/L Anion Gap mmol/L BUN (9-20) mg/dL Creatinine (0.66-1.25) mg/dL Est GFR (CKD-EPI)AfAm (>60 ml/min/1.73 sqM) Est GFR (CKD-EPI)NonAf (>60 ml/min/1.73 sqM) Glucose (74-99) mg/dL POC Glucose (mg/dL) (75-99) mg/dL POC Glu [employer] Specialist ID Calcium (8.4-10.2) mg/dL Troponin I 0.013 (0.000-0.034) ng/mL NT-Pro-B Natriuret Pep 372 pg/mL Urine Color Yellow Urine Appearance Clear (Clear) Urine pH 6.0 (5.0-8.0) Ur Specific [place] 1.027 (1.001-1.035) Urine Protein Trace H (Negative) Urine Glucose (UA) Negative (Negative) Urine Ketones Negative (Negative) Urine Blood Negative (Negative) Urine Nitrite Negative (Negative) Urine Bilirubin Negative (Negative) Urine Urobilinogen <2.0 (<2.0) mg/dL Ur Leukocyte Esterase Negative (Negative) Serum Alcohol mg/dL 02/21/18 Range/Units 19:41 WBC (3.8-10.6) k/uL RBC (4.30-5.90) m/uL Hgb (13.0-17.5) gm/dL Hct (39.0-53.0) % MCV (80.0-100.0) fL MCH (25.0-35.0) pg MCHC (31.0-37.0) g/dL RDW (11.5-15.5) % Plt Count (150-450) k/uL Neutrophils % % Lymphocytes % % Monocytes % % Eosinophils % % Basophils % % Neutrophils # (1.3-7.7) k/uL Lymphocytes # (1.0-4.8) k/uL Monocytes # (0-1.0) k/uL Eosinophils # (0-0.7) k/uL Basophils # (0-0.2) k/uL Macrocytosis Sodium (137-145) mmol/L Potassium (3.5-5.1) mmol/L Chloride (98-107) mmol/L Carbon Dioxide (22-30) mmol/L Anion Gap mmol/L BUN (9-20) mg/dL Creatinine (0.66-1.25) mg/dL Est GFR (CKD-EPI)AfAm (>60 ml/min/1.73 sqM) Est GFR (CKD-EPI)NonAf (>60 ml/min/1.73 sqM) Glucose (74-99) mg/dL POC Glucose (mg/dL) (75-99) mg/dL POC Glu [employer] Specialist ID Calcium (8.4-10.2) mg/dL Troponin I 0.013 (0.000-0.034) ng/mL NT-Pro-B Natriuret Pep pg/mL Urine Color Urine Appearance (Clear) Urine pH (5.0-8.0) Ur Specific [place] (1.001-1.035) Urine Protein (Negative) Urine Glucose (UA) (Negative) Urine Ketones (Negative) Urine Blood (Negative) Urine Nitrite (Negative) Urine Bilirubin (Negative) Urine Urobilinogen (<2.0) mg/dL Ur Leukocyte Esterase (Negative) Serum Alcohol mg/dL Disposition Clinical Impression: Syncope Disposition: HOME SELF-CARE Condition: Good Instructions: Syncope (DC) Is patient prescribed a controlled substance at d/c from ED?: No Referrals: Stella Lawrence MD [Primary Care Provider] - 1-2 days
[2018-02-21 16:38] LABS: Basophils % (A) 0 %; Eosinophils # (A) 0.1 k/uL (0-0.7); Eosinophils % (A) 1 %; HCT 53.6 % (39.0-53.0); HGB 17.8 gm/dL (13.0-17.5); Lymphocytes # (A) 1.3 k/uL (1.0-4.8); Lymphocytes % (A) 15 %; MCH 33.1 pg (25.0-35.0); MCHC 33.2 g/dL (31.0-37.0); MCV 99.9 fL (80.0-100.0); Macrocytosis Slight; Mean Platelet Volume 6.6; Monocytes # (A) 0.5 k/uL (0-1.0); Monocytes % (A) 6 %; Neutrophils # (A) 6.7 k/uL (1.3-7.7); Neutrophils % (A) 76 %; Platelet Count 249 k/uL (150-450); RBC 5.36 m/uL (4.30-5.90); RDW 14.9 % (11.5-15.5); WBC 8.8 k/uL (3.8-10.6)
--- NOTE | 2018-02-21 16:50 | XR ---
EXAMINATION TYPE: XR chest 2V DATE OF EXAM: 02/21/2018 COMPARISON: 10/30/2017 HISTORY: Syncope TECHNIQUE: Frontal and lateral views of the chest are obtained. FINDINGS: There is no heart failure nor confluent pneumonic infiltrate. Costophrenic angles are jarvis r. There is mild coarsening of the lung markings. Bony thorax shows slight anterior wedging of 2 mid thoracic vertebra of 10-15%. IMPRESSION: No active cardiopulmonary disease. No change. Mild pulmonary fibrosis.
[2018-02-21 16:56] LABS: Alcohol <10 mg/dL; Anion Gap 10 mmol/L; Blood Urea Nitrogen 12 mg/dL (9-20); Carbon Dioxide 28 mmol/L (22-30); Chloride 98 mmol/L (98-107); Glucose 104 mg/dL (74-99); Potassium 4.7 mmol/L (3.5-5.1); Sodium 136 mmol/L (137-145)
--- NOTE | 2018-02-21 18:02 | CT ---
EXAMINATION TYPE: CT brain wo con DATE OF EXAM: 02/21/2018 COMPARISON: 04/04/2017 HISTORY: Syncopal episode today. CT DLP: 1082.2 mGycm Automated exposure control for dose reduction was used. FINDINGS: There is cerebral cortical atrophy. There is no mass effect nor midline shift. There is no sign of in tracranial hemorrhage. The calvarium is intact. There is some hypodensity in the periventricular whit e matter. IMPRESSION: CEREBRAL ATROPHY AND CHRONIC SMALL VESSEL ISCHEMIA. NO ACUTE INTRACRANIAL ABNORMALITY. NO CHANGE.
--- NOTE | 2018-02-21 18:13 | CT ---
EXAMINATION TYPE: CT angio head neck DATE OF EXAM: 02/21/2018 HISTORY: Syncopal episode today. COMPARISON: None CT DLP: 325.2 mGycm. Automated Exposure Control for Dose Reduction was Utilized. TECHNIQUE: CTA scan of the neck is performed with IV Contrast, patient injected with 65 mL of Isovue 370, axial images are obtained, coronal and sagittal reformatted images are reviewed. Three-D recons tructed images are created on an independent workstation and reviewed. FINDINGS: There is normal branching pattern of the great vessels on the aortic arch. There is no evidence of ao rtic arch dissection. There is arterial flow in the right vertebral artery. There is no flow seen in the left vertebral art saundra. There is arterial flow in the common internal and external carotid arteries bilaterally. There is ath erosclerotic plaque formation at the carotid artery bifurcations. There is approximate 30% stenosis o rigin of the right internal carotid artery. There is approximate 40% stenosis origin of the left inte rnal carotid artery. There is arterial flow in the basilar artery. There is arterial flow in the distal left vertebral art saundra probably through retrograde filling. There is arterial flow in the anterior middle and posterior cerebral arteries. I see no significant contrast in the venous sinuses probably due to the timing of the exam. There is no mass effect. I see no intracranial arterial stenosis. There is atherosclerotic plaque in the intracranial internal carotid arteries. There is probably some luminal narrowing of the cavernous portions of both internal carotid arteries due to plaque formation. IMPRESSION: Mild stenosis both internal carotid arteries as above at the bifurcation. No evidence of carotid or v ertebral artery dissection. 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 This is also evident o n the MR angiogram 10/18/2015. There is plaque formation and probably some stenosis of the cavernous portions of both internal carot id arteries. No aneurysm identified. The arterial lumen could be better evaluated with repeat MR scan if clinically indicated.
[2018-02-21 18:38] LABS: Appearance,Urine Clear (Clear); Bilirubin,Urine Negative (Negative); Blood,Urine Negative (Negative); Color,Urine Yellow; Glucose,Urine (UA) Negative (Negative); Ketones,Urine Negative (Negative); Leukocyte Esterase,Urine Negative (Negative); Nitrite,Urine Negative (Negative); Protein,Urine Trace (Negative); Specific Gravity,Urine 1.027 (1.001-1.035); Urobilinogen,Urine <2.0 mg/dL (<2.0)
[2018-02-21 21:18] VITALS: BP 138/96; PULSE 93; RESP 20; TEMP 97.8
== END 2018-02-21 21:24 | disposition home or self-care (01) ==
LOC: EC 14:45
DX: R55 Syncope and collapse (principal); I67.82 Cerebral ischemia; I65.29 Occlusion and stenosis of unspecified carotid artery; I65.02 Occlusion and stenosis of left vertebral artery; J44.9 Chronic obstructive pulmonary disease, unspecified; I10 Essential (primary) hypertension; F17.200 Nicotine dependence, unspecified, uncomplicated; Z88.5 Allergy status to narcotic agent; Z79.51 Long term (current) use of inhaled steroids; Z79.82 Long term (current) use of aspirin; Z79.899 Other long term (current) drug therapy; Z82.49 Family history of ischemic heart disease and other diseases of the circulatory system
CPT/HCPCS: 36415; 83880; 80048; 84484; 85025; 81003; 71046; 70496; 70450; 70498; 99285; 96360; 96361 ×4; G0480; Q9967; 80320

== ENCOUNTER 2018-03-17 21:44 | Emergency (ER) | payer MEDICARE ==
--- NOTE | 2018-03-17 22:47 | CT ---
EXAMINATION TYPE: CT brain leroy esqueda con DATE OF EXAM: 03/17/2018 COMPARISON: 04/04/2017 HISTORY: Fall. CT DLP: 1219.6 mGycm Automated exposure control for dose reduction was used. TECHNIQUE: CT scan of the head and cervical spine are performed without contrast. FINDINGS: There is cerebral cortical atrophy. There is no mass effect nor midline shift. There is n o sign of intracranial hemorrhage. There is patchy hypodensity in the periventricular white matter. T here is prominence of the ventricles. There is left occipital scalp soft tissue swelling and a 4 x 1 cm scalp hematoma. Cervical vertebra have normal alignment. There is mild narrowing and spurring at C5-6 C6-7. Posterior elements are intact. There is mild facet arthropathy. The skull base is intact. IMPRESSION: Mild spondylotic changes. No fracture. Cerebral atrophy and chronic small vessel ischemia. Mild hydrocephalus. Brain and cervical spine unchanged compared to old exam. There is new left occipital scalp hematoma compared to old exam.
--- NOTE | 2018-03-17 23:39 | XR ---
EXAMINATION TYPE: XR chest 2V DATE OF EXAM: 03/17/2018 COMPARISON: 02/21/2018 HISTORY: Chest pain TECHNIQUE: Frontal and lateral views of the chest are obtained. FINDINGS: There is some coarsening of interstitial markings in the lower lobes. There is no heart fa ilure. Costophrenic angles are clear. Bony thorax is intact. Thoracic aorta is atheromatous. IMPRESSION: Pulmonary interstitial fibrosis. No heart failure. No significant change compared to old exam.
--- NOTE | 2018-03-17 23:45 | ED ---
General Adult HPI - General Chief complaint: Fall Stated complaint: FALL Source: patient, EMS, RN notes reviewed, old records reviewed Mode of arrival: EMS Limitations: no limitations - History of Present Illness Initial comments: 67-year-old male patient presents to ED after sustaining fall. Patient was sitting on chair when he fell backwards hitting his head. patient admits to using alcohol. Patient had a approximately 1 minute loss of consciousness. Patient got up set on chair and then fell back again. Patient did not have a loss of consciousness the second fall. Patient presented to ED. Patient denies use of blood thinners. Patient denies changes in vision. Patient denies focal weakness. Patient able to use all extremities. Patient has full sensation in all extremities.patient denies loss of bowel or bladder control. Patient denies chest pain or shortness of breath. Systemic: Pt denies fatigue, myalgia, fever/chills, rash. Pt denies weakness, night sweats, weight loss. Neuro: Pt denies visual disturbances, syncope. HEENT: Pt denies ocular discharge or irritation, otalgia, rhinorrhea, pharyngitis or notable lymphadenopathy. Cardiopulmonary: Pt denies chest pain, SOB, heart palpitations, dyspnea on exertion. Abdominal/GI: Pt denies abdominal pain, n/v/d. : Pt denies dysuria, burning w/ urination, frequency/urgency. Denies new onset urinary or bowel incontinence. MSK: Pt denies myalgia, loss of strength or function in extremities. - Related Data Home Medications Medication Instructions Recorded Confirmed Albuterol Inhaler [Ventolin Hfa 1 - 2 puff INHALATION RT-Q6H PRN 02/09/15 Inhaler] Albuterol Nebulized [Ventolin 2.5 mg INHALATION RT-TID PRN 02/09/15 02/21/18 Nebulized] Budesonide/Formoterol Fumarate 2 puff INHALATION RT-BID 02/09/15 02/21/18 [Symbicort 80-4.5 Mcg Inhaler] Isosorbide Mononitrate [Isosorbide 30 mg PO QAM 02/09/15 02/21/18 Mononitrate ER] Omeprazole [PriLOSEC] 20 mg PO AC-BRKFST 02/09/15 02/21/18 Nitroglycerin Sl Tabs [Nitrostat] 0.4 mg PO Q5M PRN 06/22/15 02/21/18 Metoprolol Tartrate [Lopressor] 25 mg PO BID 12/27/16 02/21/18 Pravastatin Sodium [Pravachol] 20 mg PO HS 12/27/16 02/21/18 Aspirin EC [Ecotrin Low Dose] 81 mg PO DAILY 02/21/18 02/21/18 Previous Rx's Medication Instructions Recorded Lisinopril [Prinivil] 10 mg PO QAM #0 10/31/17 Allergies Allergy/AdvReac Type Severity Reaction Status Date / Time codeine Allergy Unknown Verified 03/17/18 21:48 Childhood Review of Systems ROS Statement: Those systems with pertinent positive or pertinent negative responses have been documented in the HPI. ROS Other: All systems not noted in ROS Statement are negative. 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" BOWEL RESECTION IN JUNE [address] TO BLE History of Any Multi-Drug Resistant Organisms: None Reported Past Surgical History: Appendectomy, Bowel Resection, Orthopedic Surgery Additional Past Surgical History / Comment(s): finger repair Past Anesthesia/Blood Transfusion Reactions: No Reported Reaction Past Psychological History: No Psychological Hx Reported Smoking Status: Current every day smoker Past Alcohol Use History: Daily Past Drug Use History: Marijuana - Past Family History Mother Additional Family Medical History / Comment(s): at age 92 Father Family Medical History: CVA/TIA, Myocardial Infarction ([place]) Additional Family Medical History / Comment(s): multiple mi's Brother(s) Family Medical History: Coronary Artery Disease (CAD) Additional Family Medical History / Comment(s): cabg General Exam - General Exam Comments Initial Comments: Constitutional: NAD, AOX3, Pt has pleasant affect. HEENT: NC/AT, trachea midline, neck supple, no lymphadenopathy. Posterior pharynx non erythematous, without exudates. External ears appear normal, without discharge. Mucous membranes moist. Eyes PERRLA, EOM intact. There is no scleral icterus. No pallor noted. Cardiopulmonary: RRR, no murmurs, rubs or gallops, no JVD noted. Lungs CTAB in anterior and posterior lewis. No peripheral edema. Abdominal exam: Abdomen soft and non-distended. Abdomen non-tender to palpation in all 4 quadrants. Bowel sounds active in LLQ. No hepatosplenomegaly. Neuro: CN II-XII intact. no focal deficit. Full sensation in all extremities. 5 out of 5 strength in upper and lower extremities. MSK: Pt has approximately 2x2cm contusion on L occiptal lobe. Limitations: no limitations Course Vital Signs 03/17/18 21:48 Temperature 97.9 F Pulse Rate 72 Respiratory 16 Rate Blood Pressure 142/100 O2 Sat by Pulse 93 L Oximetry Medical Decision Making - Medical Decision Making 67-year-old male patient presents to ED after sustaining fall. Patient was sitting on chair when he fell backwards hitting his head. patient admits to using alcohol. Patient had a approximately 1 minute loss of consciousness. Patient got up set on chair and then fell back again. Patient did not have a loss of consciousness the second fall. Patient presented to ED. Patient denies use of blood thinners. Patient denies changes in vision. Patient denies focal weakness. Patient able to use all extremities. Patient has full sensation in all extremities.patient denies loss of bowel or bladder control. Patient denies chest pain or shortness of breath.physical exam displayed a normal neuro exam. No cranial nerve deficit. No focal weakness. Full sensation in all extremities. Full active range of motion and normal strength. Pt has approximately 2x2cm contusion on L occiptal lobe. Noncontrast CT of head and neck did not display any pathology. Mild hydrocephalus was noted on CT, findings explained to pt. CXR did not display any acute process, findings explained to pt. Pt to be driven home by friend, davida. patient to follow with PCP in one to days. patient to put ice on 2 x 2 centimeter contusion. Patient to return to ED if any new signs or symptoms develop including chest pain, shortness of breath, weakness, syncope or urinary symptoms. Case discussed with Dr. Chandler. Disposition Clinical Impression: Contusion, Fall Disposition: HOME SELF-CARE Condition: Good Instructions: Fall Prevention for Older Adults (ED) Additional Instructions: Patient to adhere to previously discussed treatment plan and will take medication(s) as directed. Patient to follow up with PCP in 1-2 days. Patient to return to ED if symptoms do not improve. Is patient prescribed a controlled substance at d/c from ED?: No Referrals: Stella Lawrence MD [Primary Care Provider] - 1-2 days Time of Disposition: 23:45
[2018-03-18 00:09] VITALS: BP 141/90; PULSE 64; RESP 18; TEMP 97.1
== END 2018-03-18 00:05 | disposition home or self-care (01) ==
LOC: EC 21:44
DX: S06.2X1A Diffuse traumatic brain injury with loss of consciousness of 30 minutes or less, initial encounter (principal); G91.9 Hydrocephalus, unspecified; J44.9 Chronic obstructive pulmonary disease, unspecified; I10 Essential (primary) hypertension; I73.9 Peripheral vascular disease, unspecified; F17.200 Nicotine dependence, unspecified, uncomplicated; Z88.5 Allergy status to narcotic agent; Z79.51 Long term (current) use of inhaled steroids; Z79.82 Long term (current) use of aspirin; Z79.899 Other long term (current) drug therapy; W07.XXXA Fall from chair, initial encounter; Y93.89 Activity, other specified
CPT/HCPCS: 70450; 71046; 72125; 99284

== ENCOUNTER → 2018-03-25 | Outpatient (CLI) | payer MEDICARE ==
--- NOTE | 2018-03-26 11:20 | MR ---
EXAMINATION TYPE: MR brain wo con DATE OF EXAM: 03/25/2018 COMPARISON: 10/18/2015 HISTORY: 67-year-old male Syncope and collapse TECHNIQUE: Multiplanar, multisequence images of the brain and brainstem were acquired without IV con trast. Diffusion weighted imaging is performed. FINDINGS: Residual left posterior scalp hematoma with heterogeneous signal intensity and restricted diffusion m easuring 3.0 x 0.8 cm. No evidence for acute infarction, hemorrhage, mass, mass effect, midline shift, herniation, effacemen t of basal cisterns, or extra-axial fluid collection. There is mild ventriculomegaly likely secondary to central cerebral atrophy with moderate generalized supratentorial volume loss. Consideration was calculated at 0.36 versus 0.34, previously. Major intracranial flow voids are intact. T2/FLAIR weighted sequences demonstrate moderate patchy white matter change, confluent in the periven tricular regions with foci scattered throughout the subcortical and deep white matter as well without significant change. Patchy increased signal in the bilateral paramedian javan is redemonstrated. There is loss of flow void within the visualized V3 and proximal V4 segment of the left vertebral art saundra compatible with known vessel occlusion. Midline structures demonstrate normal morphology. The craniocervical junction is normal. Moderate pansinus mucosal thickening, severe in the ethmoid air cells. Leftward nasal septal deviatio n. Globes are intact. Trapped fluid in the mastoid air cells. IMPRESSION: 1. Mild ventriculomegaly likely on an ex vacuo basis secondary to moderate generalized supratentorial volume loss. Atrophy has slightly progressed from 2016. 2. Similar moderate burden of T2 bright white matter change in both cerebral hemispheres and in the p ons. Nonspecific, likely relating to changes of chronic small vessel ischemic disease. 3. Residual left posterior scalp hematoma. 4. Loss of the flow void within the left vertebral artery compatible with known vessel occlusion. 5. Moderate to severe chronic pansinusitis. 6. Trapped fluid in the mastoid air cells. Correlate for any mastoid pain to exclude mastoiditis.
--- NOTE | 2018-03-26 11:27 | MR ---
EXAMINATION TYPE: MR angio head wo con DATE OF EXAM: 03/25/2018 COMPARISON: 10/18/2015 HISTORY: 67-year-old male Syncope and collapse TECHNIQUE: High-resolution 3-D [id number] imaging focusing on the [place] were performed without contrast. Rotational 3-D reconstructions generated on a dedicated independent workstation. FINDINGS: Loss of flow related enhancement within the proximal to mid C4 segment left vertebral artery compatib le with known vessel occlusion. There is some reconstitution of enhancement in the distal left V4 seg ment likely secondary to retrograde flow from the basilar artery. The tiny focal 2.5 mm outpouching along the anterior cavernous segment of the right ICA is unchanged. There is some mild to moderate atherosclerotic irregularity and narrowing along the clinoid and ophth almic segments of the bilateral ICAs. This appearance is also relatively unchanged. Otherwise, no arterial occlusion, significant stenosis, or other aneurysmal changes seen. IMPRESSION: 1. Known left vertebral artery occlusion. There is some reconstitution of the distal V4 segment from retrograde flow from the basilar artery as seen previously. 2. 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 3. Stable mild to moderate atherosclerotic narrowing throughout the carotid siphons.
== END | disposition home or self-care (01) ==
LOC: RADMRIMAIN 14:34
PROVIDERS: ATTEND Family Medicine
DX: G93.89 Other specified disorders of brain (principal); G31.9 Degenerative disease of nervous system, unspecified; R90.82 White matter disease, unspecified; I65.02 Occlusion and stenosis of left vertebral artery; I65.23 Occlusion and stenosis of bilateral carotid arteries; I72.0 Aneurysm of carotid artery; J32.4 Chronic pansinusitis
CPT/HCPCS: 70544; 70551

== ENCOUNTER → 2018-06-13 | Day surgery (SDC) | payer MEDICARE ==
[2018-06-11 13:14] VITALS: BMI 22.4
[~2018-06-13] MED LIST: ALPRAZolam 0.25 MG TAB PO PRN; ASPIRIN 325 MG TAB PO STA; IOPAMIDOL-250 100ML BTL INTRAARTER ONE; IOPAMIDOL-250 50ML BTL INTRAARTER ONE; LIDOCAINE 1% INJ 10MG/ML (20 ML MDV) SQ ONE; MIDAZOLAM 2 MG/2 ML VIAL IV ONE; SODIUM CHLORIDE 0.9% 1,000 ML IV SCH; SODIUM CHLORIDE 0.9% 1,000 ML in EMPTY BAG 1 BAG IV ONE
[2018-06-13 07:13] VITALS: RESP 18; TEMP 97.6
--- NOTE | 2018-06-13 12:42 | IR ---
Fluoroscopy HISTORY: Pain in bilateral legs 2.4 minutes fluoroscopy time supplied to the referring clinician. 287 intraoperative C-arm images do cument the procedure. See dictated report from cardiology.
[2018-06-13 14:02] VITALS: BP 117/65; PULSE 63
--- NOTE | 2018-06-13 15:21 | AN ---
ANGIOGRAPHY REPORT DATE OF SERVICE: June 13, 2018 PERFORMING PHYSICIAN: Teddy Busby MD, elevator examiner. PROCEDURE PERFORMED: 1. Abdominal aortogram. 2. Bilateral lower extremities runoff. INDICATION: This is a pleasant 67-year-old gentleman who sees Dr. Malik in the office on a regular basis as an outpatient with a past medical history significant for peripheral arterial disease, hypertension, and dyslipidemia, who was experiencing bilateral lower extremity intermittent claudication, seems to be severe enough and interfering with his daily activities. The patient cannot walk more than 1 block before he stops because of the pain. The pain is in both legs. In 2016, he underwent abdominal aortogram and bilateral lower extremities runoff and he was found to have severe peripheral arterial disease bilaterally with severe aortoiliac and femoral-popliteal disease. At that point, I did recommend the patient to undergo an aortobifem surgery, but for some reason he ended up not having it. Lately his symptoms of intermittent claudication has gotten worse. Because of that, I did recommend doing angiogram again. APPROACH: Right common femoral artery. COMPLICATION: None. LEVEL OF SEDATION: Moderate with sedation length of 20 minutes. PROCEDURE DESCRIPTION: After obtaining an informed consent, the patient was brought to cardiac mill laborer. The right common femoral artery was cannulated under ultrasound guidance, I did advance a micropuncture wire freely. Then I did place 4-Georgian sheath in the right common femoral artery. After that, I did an abdominal aortogram and bilateral lower extremities runoff using DSA. The catheter was initially placed at the level of the renal arteries then it was pulled into above the bifurcation of the aorta to right and left common iliac arteries. The procedure was completed without any complication. SELECTIVE PERIPHERAL ANGIOGRAM: 1. The aorta appeared to be heavily calcified with mild to moderate disease only. 2. 3. Common iliac arteries: The right common iliac artery appeared to be critically diseased. The left common iliac artery appeared to have mild disease only. 4. External iliac arteries: The right external iliac artery appeared to have critical disease and the left external iliac artery is occluded in the proximal portion. 5. Common femoral arteries: The right and left common femoral arteries are extremely calcified and chronically occluded as well. 6. Profunda: The right and left profunda are patent. 7. SFA: The right and left SFA are extremely calcified and diffusely disease up to about 100% by the Landon canal. 8. Popliteal: The right and left popliteal are also occluded bilaterally. 9. Below the knee: There are 1 vessel runoff below the knee on the right side with posterior tibial and 2 vessel runoff on the left side with posterior tibial and peroneal. CONCLUSION: 1. Severe aortoiliac disease with severe disease involving the external iliac arteries bilaterally. 2. Severe femoral-popliteal disease with occluded bilateral common femoral arteries and SFA. 3. Severe nujrc-lqb-jzoi disease with one-vessel runoff below the knee on the right- side which is posterior tibial and two-vessel runoff on the right side with posterior tibial and peroneal. POSTPROCEDURE MANAGEMENT: Given his anatomy, and given his age, I did recommend proceeding with aortobifem surgery. I am going to discuss that with him in the office. MMODL / IJN: [id number] /
== END ==
LOC: CATHCVL 06:23
PROVIDERS: ATTEND Internal Medicine Interventional Cardiology
DX: I10 Essential (primary) hypertension (principal); E78.5 Hyperlipidemia, unspecified; F17.200 Nicotine dependence, unspecified, uncomplicated; Z79.51 Long term (current) use of inhaled steroids; Z79.899 Other long term (current) drug therapy
CPT/HCPCS: 36200; 75625; 75716; C1769 ×4; J2250; J2001; Q9966 ×2

== ENCOUNTER 2018-07-15 15:48 | Observation (INO) | payer MEDICARE ==
[2018-07-15] MEDS ORDERED: SODIUM CHLORIDE 0.9% 1,000 ML IV STA (16:26)
[2018-07-15 16:53] LABS: Glucose,Whole Blood 108 mg/dL (75-99)
[2018-07-15 16:55] LABS: Basophils # (A) 0.1 k/uL (0-0.2); Basophils % (A) 1 %; Eosinophils # (A) 0.1 k/uL (0-0.7); Eosinophils % (A) 1 %; HGB 14.9 gm/dL (13.0-17.5); Lymphocytes # (A) 2.1 k/uL (1.0-4.8); Lymphocytes % (A) 25 %; MCH 32.3 pg (25.0-35.0); MCHC 31.7 g/dL (31.0-37.0); MCV 101.9 fL (80.0-100.0); Macrocytosis Slight; Mean Platelet Volume 6.5; Monocytes # (A) 0.5 k/uL (0-1.0); Monocytes % (A) 6 %; Neutrophils # (A) 5.6 k/uL (1.3-7.7); Neutrophils % (A) 66 %; Platelet Count 263 k/uL (150-450); RBC 4.61 m/uL (4.30-5.90); RDW 14.9 % (11.5-15.5); WBC 8.5 k/uL (3.8-10.6)
[2018-07-15 16:59] LABS: ALT 22 U/L (21-72); AST 23 U/L (17-59); Acetaminophen <10.0 ug/mL; Albumin 3.5 g/dL (3.5-5.0); Alcohol <10 mg/dL; Alkaline Phosphatase 81 U/L (38-126); Anion Gap 11 mmol/L; Blood Urea Nitrogen 12 mg/dL (9-20); Calcium 8.9 mg/dL (8.4-10.2); Carbon Dioxide 23 mmol/L (22-30); Chloride 103 mmol/L (98-107); Creatine Kinase 173 U/L (55-170); Glucose 123 mg/dL (74-99); Magnesium 1.6 mg/dL (1.6-2.3); Partial Thromboplastin Time 22.2 sec (22.0-30.0); Potassium 4.4 mmol/L (3.5-5.1); Prothrombin Time 10.6 sec (9.0-12.0); Salicylate <1.0 mg/dL; Sodium 137 mmol/L (137-145); Total Bilirubin 0.8 mg/dL (0.2-1.3); Total Protein 6.4 g/dL (6.3-8.2)
[2018-07-15 17:01] LABS: Ammonia <9 umol/L (<30)
[2018-07-15 17:02] LABS: Lactic Acid, Venous 3.2 mmol/L (0.7-2.0)
[2018-07-15] MEDS ORDERED: MAGNESIUM SULFATE-D5W PMX 1 GM in DEXTROSE/WATER 1 100ML.BAG IVPB ONE (17:09)
--- NOTE | 2018-07-15 17:14 | XR ---
EXAMINATION: XR chest 2V DATE AND TIME: 07/15/2018 5:01 PM CLINICAL INDICATION: PHH; syncope TECHNIQUE: Departmental protocol COMPARISON: 03/17/2018 FINDINGS: The lungs appear similar to the prior study, with hyperinflation and senescent changes redemonstrated . There is no additional silhouetting of the pulmonary vasculature, and there is no silhouetting of the pleural reflections to suggest acute pulmonary process. The pleural spaces are negative. The cardiac silhouette is borderline enlarged, unchanged. The skeletal structures and soft tissues are negative for acute findings. IMPRESSION: NO ACUTE PROCESS.
--- NOTE | 2018-07-15 18:30 | CT ---
EXAMINATION TYPE: CT brain leroy han DATE OF EXAM: 07/15/2018 COMPARISON: 03/17/2018 HISTORY: Multiple falls in the last 4 days with posterior head injury CT DLP: 1406.8 mGycm Automated exposure control for dose reduction was used. TECHNIQUE: CT scan of the head and cervical spine are performed without contrast. FINDINGS: High over the right convexity is subcutaneous hematoma measuring approximately 3 cm mean d iameter. There is no underlying fracture. There is no acute intracranial hemorrhage, mass effect, or midline shift identified. The ventricles are larger than the sulcal pattern and cisterns, suggesting the possibility of a clinical diagnosis of normal pressure hydrocephalus. The globes are intact and the visualized sinuses are clear. Cervical spine is visualized in its entirety from C1 through upper thoracic levels and demonstrates s atisfactory alignment without evidence of acute fracture or dislocation. Prevertebral soft tissue ap pears within normal limits. The C1-C2 articulation is unremarkable. IMPRESSION: 1. There is no acute fracture or dislocation evident in the cervical spine. 2. No skull fracture or acute intracranial hemorrhage, mass effect, or midline shift.
[2018-07-15 19:28] LABS: Appearance,Urine Clear (Clear); Bilirubin,Urine Negative (Negative); Blood,Urine Negative (Negative); Color,Urine Yellow; Glucose,Urine (UA) Negative (Negative); Ketones,Urine Negative (Negative); Leukocyte Esterase,Urine Negative (Negative); Nitrite,Urine Negative (Negative); PH, Urine 5.5 (5.0-8.0); Protein,Urine Trace (Negative); Specific Gravity,Urine 1.009 (1.001-1.035); Urobilinogen,Urine <2.0 mg/dL (<2.0)
[2018-07-15] MEDS ORDERED: AMPICILLIN-SULBACTAM 3 GM in SODIUM CHLORIDE 0.9% 100 ML IVPB STA (19:28)
--- NOTE | 2018-07-15 19:30 | ED ---
Dizziness HPI - General Chief Complaint: Syncope Stated Complaint: Syncope/head injury Time Seen by Provider: 07/15/18 15:51 Source: patient, EMS Mode of arrival: EMS Limitations: no limitations - History of Present Illness Initial Comments: The patient is a 67-year-old male presents to the emergency department after he had a syncopal episode. The patient reports that he had a syncopal episode on Saturday. He was drinking heavily because it was . He was at home when he had a syncopal episode. Fell and hit his posterior head on the floor of his home. This happened around 8:00 pm. He states he was on the floor until about midnight when he woke up and crawled into bed. There was significant bleeding noted on the floor. He did not seek care for his wounds. He then went to the bar today to have a few drinks. States that when he arrived he felt very lightheaded. They did give him some thing to eat and he did drink a portion of a beer. He then had a second syncopal episode within his chair. He did not fall or hit his head this time. He was out for only several seconds before he was aroused. EMS was called. Upon finding the patient his blood pressure was noted to be in the 70 systolic. They obtained IV access and gave the patient 400 mL of fluid. He did slowly improve to 100 systolic. Patient does arrive to the emergency department and states that he does feel better. No history of syncopal episodes in the past. He denies any visual changes headaches, neck pain, fevers, chills prior to the episode. He denied any chest pain, chest palpitations or shortness of breath prior to the episode. No recent report of diarrhea, constipation, melanotic stools or hematochezia. He denies any changes in his urination. No ripping or tearing sensation to his back. Denies urinary changes. Denies use of any drugs. - Related Data Home Medications Medication Instructions Recorded Confirmed Albuterol Inhaler [Ventolin Hfa 1 - 2 puff INHALATION RT-Q4H PRN 02/09/1507/15 Inhaler] Isosorbide Mononitrate [Isosorbide 30 mg PO DAILY 02/09/15 07/15/18 Mononitrate ER] Omeprazole [PriLOSEC] 20 mg PO AC-BRKFST 02/09/15 07/15/18 Aspirin EC [Ecotrin Low Dose] 81 mg PO DAILY 02/21/18 07/15/18 amLODIPine [Norvasc] 10 mg PO DAILY 06/11/18 07/15/18 Atorvastatin [Lipitor] 80 mg PO HS 07/15/18 07/15/18 Budesonide/Formoterol Fumarate 2 puff INHALATION RT-BID 07/15/18 07/15/18 [Symbicort 80-4.5 Mcg Inhaler] Metoprolol Tartrate [Lopressor] 25 mg PO BID 07/15/18 07/15/18 Nitroglycerin Sl Tabs [Nitrostat] 0.4 mg SUBLINGUAL Q5M PRN 07/15/18 07/15/18 Allergies Allergy/AdvReac Type Severity Reaction Status Date / Time No Known Allergies Allergy Verified 07/15/18 17:50 Review of Systems ROS Statement: Those systems with pertinent positive or pertinent negative responses have been documented in the HPI. ROS Other: All systems not noted in ROS Statement are negative. 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 History of Any Multi-Drug Resistant Organisms: None Reported Past Surgical History: Appendectomy, Bowel Resection, Orthopedic Surgery Additional Past Surgical History / Comment(s): finger repair Past Anesthesia/Blood Transfusion Reactions: No Reported Reaction Past Psychological History: Depression Smoking Status: Heavy tobacco smoker Past Alcohol Use History: Daily Past Drug Use History: Marijuana - Past Family History Mother Additional Family Medical History / Comment(s): at age 92 Father Family Medical History: CVA/TIA, Myocardial Infarction ([place]) Additional Family Medical History / Comment(s): multiple mi's Brother(s) Family Medical History: Coronary Artery Disease (CAD) Additional Family Medical History / Comment(s): cabg General Exam Limitations: no limitations General appearance: alert, in no apparent distress Head exam: Present: other (The patient does have 2 lacerations noted to his posterior scalp. They do measure 3 and 3.5 cm in length. They are not actively bleeding. They are in healing stages however there does appear to be a small amount of surrounding cellulitis) Eye exam: Present: PERRL, EOMI Pupils: Present: normal accommodation ENT exam: Present: normal exam, normal oropharynx, mucous membranes moist, TM's normal bilaterally, other (There is no sign of hemotympanum. Negative Grey sign. Negative raccoon eyes) Neck exam: Present: normal inspection. Absent: tenderness Respiratory exam: Present: normal lung sounds bilaterally. Absent: respiratory distress, wheezes, rales, rhonchi Cardiovascular Exam: Present: regular rate, normal rhythm GI/Abdominal exam: Present: soft. Absent: distended, tenderness, guarding, rebound, rigid Extremities exam: Present: normal inspection, full ROM, normal capillary refill. Absent: tenderness Back exam: Present: normal inspection, full ROM Neurological exam: Present: alert, oriented X3 Psychiatric exam: Present: normal affect, normal mood Skin exam: Present: warm, dry, intact Course Vital Signs 07/15/18 07/15/18 07/15/18 15:53 15:57 16:00 Temperature 97.7 F Pulse Rate 89 92 94 Respiratory 18 Rate Blood Pressure 108/65 108/65 108/65 O2 Sat by Pulse 97 97 96 Oximetry 07/15/18 07/15/18 07/15/18 16:30 17:00 17:30 Temperature Pulse Rate 82 78 Respiratory Rate Blood Pressure 99/54 102/68 104/73 O2 Sat by Pulse 96 96 Oximetry 07/15/18 07/15/18 07/15/18 18:00 18:30 19:00 Temperature Pulse Rate 93 71 83 Respiratory Rate Blood Pressure 109/74 98/64 106/67 O2 Sat by Pulse 98 96 94 L Oximetry 07/15/18 20:00 Temperature Pulse Rate 62 Respiratory 20 Rate Blood Pressure 114/73 O2 Sat by Pulse 97 Oximetry EKG Findings - EKG Results: EKG: WNL, sinus rhythm Medical Decision Making - Medical Decision Making The patient was placed into room 1. He hooked up to continuous pulse ox and ca rdiac monitoring. A 12-lead EKG is performed and demonstrates a normal sinus rhythm. No acute ST segment elevations or depressions concerning for ischemic changes. The patient has had improvement in his blood pressures 100 systolic. I did recommend a CT of the patient's brain and C-spine because of his recent injury. I also recommended a chest x-ray. Laboratory studies are performed. Upon return results I did discuss with the patient. I did recommend admission to the hospital due to the patient's transient hypotension and multiple syncopal episodes. Patient did agree to this. He will be admitted to Dr. Tolbert. The PA did recommend that I place the patient on CIWA protocol. He will also have neuro checks done every 6 hours and be given electrolyte replacement. I did start the patient on Unasyn because of his posterior scalp cellulitis. I also ordered an echo. The patient remained in stable condition was transferred to the floor - Lab Data Result diagrams: 07/15/18 16:03 07/15/18 16:03 Lab Results 07/15/18 07/15/18 07/15/18 Range/Units 16:03 16:03 16:03 WBC 8.5 (3.8-10.6) k/uL RBC 4.61 (4.30-5.90) m/uL Hgb 14.9 (13.0-17.5) gm/dL Hct 47.0 (39.0-53.0) % MCV 101.9 H (80.0-100.0) fL MCH 32.3 (25.0-35.0) pg MCHC 31.7 (31.0-37.0) g/dL RDW 14.9 (11.5-15.5) % Plt Count 263 (150-450) k/uL Neutrophils % 66 % Lymphocytes % 25 % Monocytes % 6 % Eosinophils % 1 % Basophils % 1 % Neutrophils # 5.6 (1.3-7.7) k/uL Lymphocytes # 2.1 (1.0-4.8) k/uL Monocytes # 0.5 (0-1.0) k/uL Eosinophils # 0.1 (0-0.7) k/uL Basophils # 0.1 (0-0.2) k/uL Macrocytosis Slight PT 10.6 (9.0-12.0) sec INR 1.0 (<1.2) APTT 22.2 (22.0-30.0) sec Sodium 137 (137-145) mmol/L Potassium 4.4 (3.5-5.1) mmol/L Chloride 103 (98-107) mmol/L Carbon Dioxide 23 (22-30) mmol/L Anion Gap 11 mmol/L BUN 12 (9-20) mg/dL Creatinine 0.97 (0.66-1.25) mg/dL Est GFR (CKD-EPI)AfAm >90 (>60 ml/min/1.73 sqM) Est GFR (CKD-EPI)NonAf 81 (>60 ml/min/1.73 sqM) Glucose 123 H (74-99) mg/dL POC Glucose (mg/dL) (75-99) mg/dL POC Glu Financial Rep ID Lactic Ac Sepsis Rflx Plasma Lactic Acid Colin (0.7-2.0) mmol/L Calcium 8.9 (8.4-10.2) mg/dL Magnesium 1.6 (1.6-2.3) mg/dL Total Bilirubin 0.8 (0.2-1.3) mg/dL AST 23 (17-59) U/L ALT 22 (21-72) U/L Alkaline Phosphatase 81 (38-126) U/L Ammonia (<30) umol/L Creatine Kinase 173 H (55-170) U/L Troponin I (0.000-0.034) ng/mL Total Protein 6.4 (6.3-8.2) g/dL Albumin 3.5 (3.5-5.0) g/dL Urine Color Urine Appearance (Clear) Urine pH (5.0-8.0) Ur Specific [place] (1.001-1.035) Urine Protein (Negative) Urine Glucose (UA) (Negative) Urine Ketones (Negative) Urine Blood (Negative) Urine Nitrite (Negative) Urine Bilirubin (Negative) Urine Urobilinogen (<2.0) mg/dL Ur Leukocyte Esterase (Negative) Salicylates <1.0 mg/dL Acetaminophen <10.0 ug/mL Serum Alcohol <10 mg/dL 07/15/18 07/15/18 07/15/18 Range/Units 16:03 16:03 16:51 WBC (3.8-10.6) k/uL RBC (4.30-5.90) m/uL Hgb (13.0-17.5) gm/dL Hct (39.0-53.0) % MCV (80.0-100.0) fL MCH (25.0-35.0) pg MCHC (31.0-37.0) g/dL RDW (11.5-15.5) % Plt Count (150-450) k/uL Neutrophils % % Lymphocytes % % Monocytes % % Eosinophils % % Basophils % % Neutrophils # (1.3-7.7) k/uL Lymphocytes # (1.0-4.8) k/uL Monocytes # (0-1.0) k/uL Eosinophils # (0-0.7) k/uL Basophils # (0-0.2) k/uL Macrocytosis PT (9.0-12.0) sec INR (<1.2) APTT (22.0-30.0) sec Sodium (137-145) mmol/L Potassium (3.5-5.1) mmol/L Chloride (98-107) mmol/L Carbon Dioxide (22-30) mmol/L Anion Gap mmol/L BUN (9-20) mg/dL Creatinine (0.66-1.25) mg/dL Est GFR (CKD-EPI)AfAm (>60 ml/min/1.73 sqM) Est GFR (CKD-EPI)NonAf (>60 ml/min/1.73 sqM) Glucose (74-99) mg/dL POC Glucose (mg/dL) 108 H (75-99) mg/dL POC Glu Financial Rep ID [place] Lactic Ac Sepsis Rflx Plasma Lactic Acid Colin 3.2 H* (0.7-2.0) mmol/L Calcium (8.4-10.2) mg/dL Magnesium (1.6-2.3) mg/dL Total Bilirubin (0.2-1.3) mg/dL AST (17-59) U/L ALT (21-72) U/L Alkaline Phosphatase (38-126) U/L Ammonia <9 (<30) umol/L Creatine Kinase (55-170) U/L Troponin I <0.012 (0.000-0.034) ng/mL Total Protein (6.3-8.2) g/dL Albumin (3.5-5.0) g/dL Urine Color Urine Appearance (Clear) Urine pH (5.0-8.0) Ur Specific [place] (1.001-1.035) Urine Protein (Negative) Urine Glucose (UA) (Negative) Urine Ketones (Negative) Urine Blood (Negative) Urine Nitrite (Negative) Urine Bilirubin (Negative) Urine Urobilinogen (<2.0) mg/dL Ur Leukocyte Esterase (Negative) Salicylates mg/dL Acetaminophen ug/mL Serum Alcohol mg/dL 07/15/18 07/15/18 Range/Units 17:06 19:15 WBC (3.8-10.6) k/uL RBC (4.30-5.90) m/uL Hgb (13.0-17.5) gm/dL Hct (39.0-53.0) % MCV (80.0-100.0) fL MCH (25.0-35.0) pg MCHC (31.0-37.0) g/dL RDW (11.5-15.5) % Plt Count (150-450) k/uL Neutrophils % % Lymphocytes % % Monocytes % % Eosinophils % % Basophils % % Neutrophils # (1.3-7.7) k/uL Lymphocytes # (1.0-4.8) k/uL Monocytes # (0-1.0) k/uL Eosinophils # (0-0.7) k/uL Basophils # (0-0.2) k/uL Macrocytosis PT (9.0-12.0) sec INR (<1.2) APTT (22.0-30.0) sec Sodium (137-145) mmol/L Potassium (3.5-5.1) mmol/L Chloride (98-107) mmol/L Carbon Dioxide (22-30) mmol/L Anion Gap mmol/L BUN (9-20) mg/dL Creatinine (0.66-1.25) mg/dL Est GFR (CKD-EPI)AfAm (>60 ml/min/1.73 sqM) Est GFR (CKD-EPI)NonAf (>60 ml/min/1.73 sqM) Glucose (74-99) mg/dL POC Glucose (mg/dL) (75-99) mg/dL POC Glu Financial Rep ID Lactic Ac Sepsis Rflx Y Plasma Lactic Acid Colin (0.7-2.0) mmol/L Calcium (8.4-10.2) mg/dL Magnesium (1.6-2.3) mg/dL Total Bilirubin (0.2-1.3) mg/dL AST (17-59) U/L ALT (21-72) U/L Alkaline Phosphatase (38-126) U/L Ammonia (<30) umol/L Creatine Kinase (55-170) U/L Troponin I (0.000-0.034) ng/mL Total Protein (6.3-8.2) g/dL Albumin (3.5-5.0) g/dL Urine Color Yellow Urine Appearance Clear (Clear) Urine pH 5.5 (5.0-8.0) Ur Specific [place] 1.009 (1.001-1.035) Urine Protein Trace H (Negative) Urine Glucose (UA) Negative (Negative) Urine Ketones Negative (Negative) Urine Blood Negative (Negative) Urine Nitrite Negative (Negative) Urine Bilirubin Negative (Negative) Urine Urobilinogen <2.0 (<2.0) mg/dL Ur Leukocyte Esterase Negative (Negative) Salicylates mg/dL Acetaminophen ug/mL Serum Alcohol mg/dL - EKG Data -: EKG Interpreted by [place] EKG shows normal: sinus rhythm When compared to previous EKG there are: no significant change - Radiology Data Radiology results: report reviewed Disposition Clinical Impression: Vasovagal syncope, Syncope due to orthostatic hypotension, Dehydration, Hypotension Disposition: ADMITTED IP TO THIS [facility] Condition: Stable Is patient prescribed a controlled substance at d/c from ED?: No Decision to Admit Reason: Admit from EC Decision Date: 07/15/18 Decision Time: 19:30
[2018-07-15] MEDS ORDERED: NALOXONE 0.4 MG/ML 1 ML VIAL IV PRN (19:39)
[2018-07-15] MEDS ORDERED: SODIUM CHLORIDE 0.9% 1,000 ML IV SCH (19:45)
[2018-07-16] MEDS ORDERED: ALBUTEROL NEBULIZED 2.5 MG/3 ML INHALATION PRN (00:14)
[2018-07-16] MEDS ORDERED: ATORVASTATIN 80 MG TAB PO SCH (00:30)
[2018-07-16] MEDS: HEPARIN SODIUM,PORCINE 5,000 UNIT/ML 1 ML VIAL SQ SCH ×3 (01:21→13:41)
[2018-07-16 04:48] VITALS: RESP 18
[2018-07-16 06:18] LABS: Basophils # (A) 0.1 k/uL (0-0.2); Basophils % (A) 1 %; Eosinophils # (A) 0.2 k/uL (0-0.7); Eosinophils % (A) 2 %; HCT 40.6 % (39.0-53.0); Lymphocytes # (A) 2.2 k/uL (1.0-4.8); Lymphocytes % (A) 32 %; MCH 31.8 pg (25.0-35.0); MCV 99.6 fL (80.0-100.0); Macrocytosis Slight; Mean Platelet Volume 6.6; Monocytes # (A) 0.5 k/uL (0-1.0); Monocytes % (A) 7 %; Neutrophils % (A) 56 %; Platelet Count 231 k/uL (150-450); RBC 4.07 m/uL (4.30-5.90); RDW 14.4 % (11.5-15.5); WBC 7.1 k/uL (3.8-10.6)
[2018-07-16 06:34] LABS: Calcium 8.7 mg/dL (8.4-10.2); Potassium 4.6 mmol/L (3.5-5.1)
[2018-07-16 07:57] VITALS: PULSE 53
[2018-07-16] MEDS ORDERED: SYMBICORT 80-4.5 MCG INHALER INHALATION SCH (08:00)
[2018-07-16] MEDS ORDERED: METOPROLOL TARTRATE 25 MG TAB PO SCH (09:00)
[2018-07-16] MEDS ORDERED: amLODIPine 10 MG TAB PO SCH (09:00)
[2018-07-16] MEDS ORDERED: THIAMINE 100 MG TAB PO SCH (12:00)
[2018-07-16] MEDS ORDERED: FOLIC ACID 1 MG TAB PO SCH (12:00)
[2018-07-16] MEDS ORDERED: MULTIVITAMINS, THERA 1 EACH TAB PO SCH (12:00)
[2018-07-16 12:58] VITALS: BP 154/82; TEMP 98.2
--- NOTE | 2018-07-16 14:01 | ECHOF ---
Referral Reason:syncope MEASUREMENTS -------- HEIGHT: 177.8 cm WEIGHT: 73.9 kg BP: 153/76 RVIDd: 3.8 cm (< 3.3) IVSd: 1.3 cm (0.6 - 1.1) LVIDd: 4.3 cm (3.9 - 5.3) LVPWd: 1.3 cm (0.6 - 1.1) IVSs: 1.8 cm LVIDs: 2.9 cm LVPWs: 1.7 cm LA Diam: 3.9 cm (2.7 - 3.8) LAESV Index (A-L): 21.59 ml/m Ao Diam: 4.6 cm (2.0 - 3.7) AV Cusp: 2.2 cm (1.5 - 2.6) MV EXCURSION: 18.395 mm (> 18.000) MV EF SLOPE: 77 mm/s (70 - 150) EPSS: 0.8 cm MV E Bert: 0.93 m/s MV DecT: 193 ms MV A Bert: 0.78 m/s MV E/A Ratio: 1.19 AR PHT: 1401 ms RAP: 5.00 mmHg RVSP: 25.10 mmHg FINDINGS -------- Sinus rhythm. This was a technically difficult study with suboptimal apical views. The left ventricular size is normal. There is mild concentric left ventricular hypertrophy. Overa ll left ventricular systolic function is normal with, an EF between 60 - 65 %. The right ventricle is mild to moderately enlarged. Normal LA size by volume 22+/-6 ml/m2. The right atrium is normal in size. 5 ml of Lumason was utilized for enhancement of images. Aortic valve is trileaflet and is mildly thickened. There is mild aortic regurgitation. The mitral valve is normal. Mild tricuspid regurgitation present. Right ventricular systolic pressure is normal at < 35 mmHg. There is no pulmonic regurgitation present. The aortic root is dilated measuring 4.6cm. Normal inferior vena cava with normal inspiratory collapse consistent with estimated right atrial pre ssure of 5 mmHg. There is no pericardial effusion. CONCLUSIONS -------- 1. Sinus rhythm. 2. This was a technically difficult study with suboptimal apical views. 3. The left ventricular size is normal. 4. There is mild concentric left ventricular hypertrophy. 5. Overall left ventricular systolic function is normal with, an EF between 60 - 65 %. 6. The right ventricle is mild to moderately enlarged. 7. Normal LA size by volume 22+/-6 ml/m2. 8. The right atrium is normal in size. 9. 5 ml of Lumason was utilized for enhancement of images. 10. Aortic valve is trileaflet and is mildly thickened. 11. There is mild aortic regurgitation. 12. The mitral valve is normal. 13. Mild tricuspid regurgitation present. 14. Right ventricular systolic pressure is normal at < 35 mmHg. 15. There is no pulmonic regurgitation present. 16. The aortic root is dilated measuring 4.6cm. 17. Normal inferior vena cava with normal inspiratory collapse consistent with estimated right atrial pressure of 5 mmHg. 18. There is no pericardial effusion. ELECTRIC METER TESTER HELPER: Alicia Ni RDCS
--- NOTE | 2018-07-16 17:27 | CONS ---
CONSULTATION Mr. Gasca is a 67-year-old gentleman who is seen for cardiac evaluation. Patient came to the emergency room with a complaint of syncope. The patient gives a history that he was drinking heavily on 's Day. Subsequently he went home and he had a syncopal episode. He did have some head injury. Patient lay down on the floor for several hours and subsequently he went to the bed. There was evidence of some bleeding noted on the floor. The patient did go to the bar the next day to have a few more drinks and subsequently patient again passed out for several seconds. EMS was called. When the EMS arrived, patient's blood pressure was low, in the range of 70 systolic. The patient was given IV fluids, with improvement in the symptoms. The patient denies any chest discomfort. Patient does have a history of hypertension, history of reflux and peripheral vascular disease. PAST MEDICAL HISTORY: 1. Appendicectomy. 2. Bowel resection. 3. Orthopedic surgery. 4. History of peripheral vascular disease. HOME MEDICATIONS: Home medications include: 1. Isosorbide. 2. Prilosec. 3. Ecotrin. 4. Norvasc. 5. Lopressor 25 mg b.i.d. 6. Nitrostat. PHYSICAL EXAMINATION: Physical examination at present reveals a 67-year-old gentleman who does not appear to be in any acute distress. In the emergency room, this patient's initial blood pressure was 108/65 mmHg. Heart rate was 80 per minute. Patient is stable now. Blood pressure is 154/83 mmHg, heart rate is 60 per minute. Head/ENT examination is negative. Neck is supple. There is no increase in jugular venous pressure. Both the carotid pulses are felt. There is no bruit. Chest is symmetrical. HEART: The PMI is not felt. First and second heart sounds are heard. There is no evidence of any murmur. Lungs are clinically clear to auscultation and percussion. Abdomen is negative. EXTREMITIES: Peripheral pulsations are 2+. EKG shows normal sinus rhythm without any acute ischemic changes. First troponin is negative. FINAL IMPRESSION: This patient's syncope appears to be secondary to hypovolemia, dehydration and hypotension. No significant cardiac dysrhythmias are noted. RECOMMENDATIONS: We will obtain echo and Doppler study, check for orthostatic hypotension and continue the IV fluids. If the troponins are negative, patient can be discharged home. MMODL / IJN: [id number] /
--- NOTE | 2018-07-16 21:56 | P.HPIM ---
History of Present Illness H&P Date: 07/16/18 Chief Complaint: Syncope Patient is 67-year-old male with a known history of COPD, GERD, hypertension, history of bowel resection, frequent diarrhea, depression and alcohol abuse was brought to the hospital post syncopal episode. Patient was drinking heavily on Saturday, 's Day and had a syncopal episode at home. Patient fell back and hit his head on the floor. Patient was on the floor until midnight and when he woke up in the midnight he crawled to the bed. Patient was found to have significant bleeding on the floor. She then went to the bar had a few drinks. [place] very lightheaded and and second syncopal episode within his chair and could not be aroused while he was in the change. EMS was called and patient was brought to the hospital. Patient was hypotensive on admission with SBP less than 70 mmHg. Patient was started on IV fluids by EMS. Patient is able symptomatically. Denied any complaints of further syncopal episode while in the hospital. Otherwise denied any fever or chills. No chest pain or shortness of breath. No cough or sputum production. No hematemesis or melena or hemoptysis. Denied any dysuria or hematuria. Denied any recent illnesses. Patient also uses marijuana and does smoke more than a pack a day. Lactic acid 3.2 and CK level CLXXV EKG showed sinus rhythm with PVCs. Chest x-ray showed no acute cardio pulmonary process CT head and cervical spine showed no fracture or dislocation. No acute intracranial abnormality was noted. Review of Systems Constitutional: Patient denies any fever or chills . No generalized weakness or weight loss. Abdomen: Patient denied nausea vomiting and diarrhea and abdominal pain. Cardiovascular: Patient denies any chest pain or short of breath no palpitations. Respiratory: patient denied any cough is from production. No shortness of breath Neurologic: Patient denied any numbness or tingling headache. Musculoskeletal: Patient denies any complaints of joint swelling or deformity. Skin: Negative Psychiatric: Negative Endocrine: No heat or cold intolerance. No recent weight gain. Genitourinary: No dysuria or hematuria. 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 History of Any Multi-Drug Resistant Organisms: None Reported Past Surgical History: Appendectomy, Bowel Resection, Orthopedic Surgery Additional Past Surgical History / Comment(s): finger repair Past Anesthesia/Blood Transfusion Reactions: No Reported Reaction Past Psychological History: Depression Smoking Status: Heavy tobacco smoker Past Alcohol Use History: Daily Past Drug Use History: Marijuana - Past Family History Mother Additional Family Medical History / Comment(s): at age 92 Father Family Medical History: CVA/TIA, Myocardial Infarction (MT) Additional Family Medical History / Comment(s): multiple mi's Brother(s) Family Medical History: Coronary Artery Disease (CAD) Additional Family Medical History / Comment(s): cabg Medications and Allergies Home Medications Medication Instructions Recorded Confirmed Type Albuterol Inhaler [Ventolin Hfa 1 - 2 puff INHALATION RT-Q4H PRN 02/09/15 07/15/18 History Inhaler] Isosorbide Mononitrate [Isosorbide 30 mg PO DAILY 02/09/15 07/15/18 History Mononitrate ER] Omeprazole [PriLOSEC] 20 mg PO AC-BRKFST 02/09/15 07/15/18 History Aspirin EC [Ecotrin Low Dose] 81 mg PO DAILY 02/21/18 07/15/18 History amLODIPine [Norvasc] 10 mg PO DAILY 06/11/18 07/15/18 History Atorvastatin [Lipitor] 80 mg PO HS 07/15/18 07/15/18 History Budesonide/Formoterol Fumarate 2 puff INHALATION RT-BID 07/15/18 07/15/18 History [Symbicort 80-4.5 Mcg Inhaler] Metoprolol Tartrate [Lopressor] 25 mg PO BID 07/15/18 07/15/18 History Nitroglycerin Sl Tabs [Nitrostat] 0.4 mg SUBLINGUAL Q5M PRN 07/15/18 07/15/18 History Folic Acid 1 mg PO DAILY@1200 #30 tab 07/16/18 Rx Multivitamins, Thera [Multivitamin 1 each PO DAILY@1200 #30 tab 07/16/18 Rx (formulary)] Thiamine [Vitamin B-1] 100 mg PO DAILY@1200 #30 tab 07/16/18 Rx Allergies Allergy/AdvReac Type Severity Reaction Status Date / Time No Known Allergies Allergy Verified 07/15/18 17:50 Physical Exam Vitals: Vital Signs Temp Pulse Pulse Resp BP BP Pulse Ox 07/16/18 07:56 98.1 F 53 L 18 112/62 97 07/16/18 04:46 98.2 F 69 18 153/76 95 07/16/18 03:25 56 L 17 07/16/18 00:00 98.4 F 58 L 17 123/70 96 07/15/18 21:18 97.7 F 70 18 128/71 98 07/15/18 20:44 17 07/15/18 20:00 62 20 114/73 97 07/15/18 19:00 83 106/67 94 L 07/15/18 18:30 71 98/64 96 07/15/18 18:00 93 109/74 98 07/15/18 17:30 78 104/73 96 07/15/18 17:00 102/68 07/15/18 16:30 82 99/54 96 07/15/18 16:00 94 108/65 96 07/15/18 15:57 92 108/65 97 07/15/18 15:53 97.7 F 89 18 108/65 97 Intake and Output 07/15/18 07/16/18 07/16/18 22:59 06:59 14:59 Other: Voiding Method Toilet Toilet # Voids 2 1 Weight 73.936 kg MPHYSICAL EXAMINATION: Patient is lying in the bed comfortably, no acute distress, awake alert and oriented.. HEENT: Normocephalic. 2 x 2 centimeter laceration on the occipital scalp. Neck is supple. Pupils reactive. Nostrils clear. Oral cavity is moist. Ears reveal no drainage. Neck reveals no JVD, carotid bruits, or thyromegaly. CHEST EXAMINATION: Trachea is central. Symmetrical expansion. Lung lewis clear to auscultation and percussion. CARDIAC: Normal S1, S2 with no gallops. No murmurs ABDOMEN: Soft. Bowel sounds normal. No organomegaly. No abdominal bruits. Extremities: reveal no edema. No clubbing or cyanosis Neurologically awake, alert, oriented x3 with well-coordinated movements. No focal deficits noted Skin: No rash or skin lesions. Psychiatric: Coperative. Nonsuicidal Musculoskeletal: No joint swelling or deformity. Normal range of motion. . Results CBC & Chem 7: 07/16/18 05:45 07/16/18 05:45 Labs: Abnormal Lab Results - Last 24 Hours (Table) 07/15/18 07/15/18 07/15/18 Range/Units 16:03 16:03 16:03 RBC (4.30-5.90) m/uL MCV 101.9 H (80.0-100.0) fL Glucose 123 H (74-99) mg/dL POC Glucose (mg/dL) (75-99) mg/dL Plasma Lactic Acid Colin 3.2 H* (0.7-2.0) mmol/L Creatine Kinase 173 H (55-170) U/L Urine Protein (Negative) 07/15/18 07/15/18 07/16/18 Range/Units 16:51 19:15 05:45 RBC 4.07 L (4.30-5.90) m/uL MCV (80.0-100.0) fL Glucose (74-99) mg/dL POC Glucose (mg/dL) 108 H (75-99) mg/dL Plasma Lactic Acid Colin (0.7-2.0) mmol/L Creatine Kinase (55-170) U/L Urine Protein Trace H (Negative) Thrombosis Risk Factor Assmnt - DVT/VTE Prophylaxis DVT/VTE Prophylaxis: Pharmacologic Prophylaxis ordered - Choose All That Apply Each Risk Factor Represents 2 Points: Age 61-74 years, Malignancy Other congenital or acquired thrombophilia - If yes, enter type in comment: No Thrombosis Risk Factor Assessment Total Risk Factor Score: 4 Thrombosis Risk Factor Assessment Level: Moderate Risk Assessment and Plan Assessment: Acute syncopal episode likely due to orthostatic hypotension and dehydration Dehydration and volume depletion with hypotension. unLikely septic are cardiogenic shock. 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 DVT prophylaxis plan: Patient will be admitted on IV hydration and fluid boluses given in the ER. Patient had CT head, CT cervical spine and chest x-ray, a negative study. Blood pressure is currently much improved. Replace electrolyte. Patient will be continued on thiamine and folic acid and multivitamins. 2-D echocardiogram was ordered. Alcohol abuse and smoking cessation has been counseled extensively. Cardiology was consulted for further evaluation. Time with Patient: Greater than 30
--- NOTE | 2018-07-16 22:00 | P.DS ---
Providers Date of admission: 07/15/18 19:39 Expected date of discharge: 07/16/18 Attending physician: Linda Tolbert Consults: 07/16/18 08:29 Consult Physician Routine Consulting Provider: Sima Mcdowell Consult Reason/Comments: syncope/hypotension Do you want consulting provider notified?: Already Contacted [facility] [place] [facility] Course: Discharge diagnosis Acute syncopal episode likely due to orthostatic hypotension and dehydration Dehydration and volume depletion with hypotension. unLikely septic are cardiogenic shock. 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 DVT prophylaxis Hospital course Patient is 67-year-old male with a known history of COPD, GERD, hypertension, history of bowel resection, frequent diarrhea, depression and alcohol abuse was brought to the hospital post syncopal episode. Patient was drinking heavily on Saturday, 's Day and had a syncopal episode at home. Patient fell back and hit his head on the floor. Patient was on the floor until midnight and when he woke up in the midnight he crawled to the bed. Patient was found to have significant bleeding on the floor. She then went to the bar had a few drinks. [place] very lightheaded and and second syncopal episode within his chair and could not be aroused while he was in the change. EMS was called and patient was brought to the hospital. Patient was hypotensive on admission with SBP less than 70 mmHg. Patient was started on IV fluids by EMS. Patient is able symptomatically. Denied any complaints of further syncopal episode while in the hospital. Otherwise denied any fever or chills. No chest pain or shortness of breath. No cough or sputum production. No hematemesis or melena or hemoptysis. Denied any dysuria or hematuria. Denied any recent illnesses. Patient also uses marijuana and does smoke more than a pack a day. Lactic acid 3.2 and CK level CLXXV EKG showed sinus rhythm with PVCs. Chest x-ray showed no acute cardio pulmonary process CT head and cervical spine showed no fracture or dislocation. No acute intracranial abnormality was noted. Patient will be admitted on IV hydration and fluid boluses given in the ER. Patient had CT head, CT cervical spine and chest x-ray, a negative study. Blood pressure is currently much improved. Replace electrolyte. Patient will be continued on thiamine and folic acid and multivitamins. 2-D echocardiogram was ordered. 2-D echocardiogram showed normal ejection fraction and no valvular abnormality noted. Alcohol abuse and smoking cessation has been counseled extensively. Discharge physical examination was done. Vital Signs - 24 hr 07/16/18 07/16/18 07/16/18 00:00 03:25 04:46 Temperature 98.4 F 98.2 F Pulse Rate [ 58 L 56 L 69 Pulse Oximetery ] Respiratory 17 17 18 Rate Blood Pressure 123/70 153/76 [Right Arm] O2 Sat by Pulse 96 95 Oximetry 07/16/18 07/16/18 07:56 12:57 Temperature 98.1 F 98.2 F Pulse Rate [ 53 L 53 L Pulse Oximetery ] Respiratory 18 18 Rate Blood Pressure 112/62 154/82 [Right Arm] O2 Sat by Pulse 97 95 Oximetry Patient Condition at Discharge: Stable Plan - Discharge Summary Discharge Rx Participant: Yes New Discharge Prescriptions: New Folic Acid 1 mg PO DAILY@1200 #30 tab Multivitamins, Thera [Multivitamin (formulary)] 1 each PO DAILY@1200 #30 tab Thiamine [Vitamin B-1] 100 mg PO DAILY@1200 #30 tab Continue Albuterol Inhaler [Ventolin Hfa Inhaler] 1 - 2 puff INHALATION RT-Q4H PRN PRN Reason: Shortness Of Breath Isosorbide Mononitrate [Isosorbide Mononitrate ER] 30 mg PO DAILY Omeprazole [PriLOSEC] 20 mg PO AC-BRKFST Aspirin EC [Ecotrin Low Dose] 81 mg PO DAILY amLODIPine [Norvasc] 10 mg PO DAILY Atorvastatin [Lipitor] 80 mg PO HS Budesonide/Formoterol Fumarate [Symbicort 80-4.5 Mcg Inhaler] 2 puff INHALATION RT-BID Metoprolol Tartrate [Lopressor] 25 mg PO BID Nitroglycerin Sl Tabs [Nitrostat] 0.4 mg SUBLINGUAL Q5M PRN PRN Reason: Chest Pain Discharge Medication List Albuterol Inhaler [Ventolin Hfa Inhaler] 1 - 2 puff INHALATION RT-Q4H PRN 02/09/15 [History] Isosorbide Mononitrate [Isosorbide Mononitrate ER] 30 mg PO DAILY 02/09/15 [History] Omeprazole [PriLOSEC] 20 mg PO AC-BRKFST 02/09/15 [History] Aspirin EC [Ecotrin Low Dose] 81 mg PO DAILY 02/21/18 [History] amLODIPine [Norvasc] 10 mg PO DAILY 06/11/18 [History] Atorvastatin [Lipitor] 80 mg PO HS 07/15/18 [History] Budesonide/Formoterol Fumarate [Symbicort 80-4.5 Mcg Inhaler] 2 puff INHALATION RT-BID 07/15/18 [History] Metoprolol Tartrate [Lopressor] 25 mg PO BID 07/15/18 [History] Nitroglycerin Sl Tabs [Nitrostat] 0.4 mg SUBLINGUAL Q5M PRN 07/15/18 [History] Folic Acid 1 mg PO DAILY@1200 #30 tab 07/16/18 [Rx] Multivitamins, Thera [Multivitamin (formulary)] 1 each PO DAILY@1200 #30 tab 07/16/18 [Rx] Thiamine [Vitamin B-1] 100 mg PO DAILY@1200 #30 tab 07/16/18 [Rx] Follow up Appointment(s)/Referral(s): Stella Lawrence MD [Primary Care Provider] - 1-2 days Patient Instructions/Handouts: Syncope (GEN) Discharge Disposition: HOME SELF-CARE
== END 2018-07-16 16:13 | disposition home or self-care (01) ==
LOC: EC 15:48 → 1SOBS 19:39
PROVIDERS: ADMIT Internal Medicine; ATTEND Internal Medicine
DX: R55 Syncope and collapse (principal); I95.1 Orthostatic hypotension; E86.0 Dehydration; E86.9 Volume depletion, unspecified; F10.10 Alcohol abuse, uncomplicated; L03.811 Cellulitis of head [any part, except face]; K21.9 Gastro-esophageal reflux disease without esophagitis; J44.9 Chronic obstructive pulmonary disease, unspecified; I10 Essential (primary) hypertension; F32.9 Major depressive disorder, single episode, unspecified; I67.1 Cerebral aneurysm, nonruptured; Z90.49 Acquired absence of other specified parts of digestive tract; R19.7 Diarrhea, unspecified; W18.30XA Fall on same level, unspecified, initial encounter; Y92.009 Unspecified place in unspecified non-institutional (private) residence as the place of occurrence of the external cause; F17.210 Nicotine dependence, cigarettes, uncomplicated; F12.90 Cannabis use, unspecified, uncomplicated; I73.9 Peripheral vascular disease, unspecified; R26.2 Difficulty in walking, not elsewhere classified; M79.605 Pain in left leg; M79.604 Pain in right leg; R35.0 Frequency of micturition; Z82.3 Family history of stroke; Z79.82 Long term (current) use of aspirin; Z79.899 Other long term (current) drug therapy; Z79.51 Long term (current) use of inhaled steroids; Z82.49 Family history of ischemic heart disease and other diseases of the circulatory system
CPT/HCPCS: 96361 ×3; 96365; 96367; 99285; 36415; 94640 ×2; 93005; 80053; 80048; 82140; 82550; 83605; 83735; 84484; 85025 ×2; 85610; 85730; 81003; 83520 ×2; 71046; 72125; 70450; G0378 ×2; C8929; G0480; J3475; J0295; Q9950; 80320; 93306

== ENCOUNTER → 2018-08-12 | Outpatient (CLI) | payer MEDICARE ==
[2018-08-12 13:34] LABS: Blood Urea Nitrogen 12 mg/dL (9-20)
--- NOTE | 2018-08-12 15:55 | CT ---
EXAMINATION TYPE: CT angio head DATE OF EXAM: 08/12/2018 HISTORY: Cerebral aneurysm with headache COMPARISON: MR angiogram of the head dated 03/25/2018 CT DLP: 1574.5 mGycm. Automated Exposure Control for Dose Reduction was Utilized. TECHNIQUE: CTA scan of the neck is performed with IV Contrast, patient injected with 100 mL of Isovu e 370, axial images are obtained, coronal and sagittal reformatted images are reviewed. Three-D recon structed images are created on an independent workstation and reviewed. FINDINGS: There is noninclusion of the left vertebral artery with no flow seen at the level of C2 nor C1. There is minimal retrograde flow within the vertebral artery from the basilar artery at the level of the f oramen magnum. A known tiny 2.5 mm aneurysm from the anterior right cavernous portion of the internal carotid artery is better appreciated on MRA and not well appreciated on CTA. This partially measures approximately 2.5 mm, stable on series 6 image 23. Again there is moderate calcific plaquing of the cavernous and supraclinoid portions of the internal carotid arteries without hemodynamically significant or stenosis or occlusion. Feeding arteries appea r absent. [place] of [place] does not appear complete. No new additional aneurysm is identified. Symmet lewis sulcal prominence and ventricular prominence are compatible with age-related atrophy. There is ci rcumferential mucosal thickening of the inferior maxillary sinuses, right greater than left. Leftward nasal septal deviation is also seen. Mild mucosal thickening in the ethmoid sinuses extending into t he right frontal recess and frontal sinuses are noted. Sphenoid sinuses and mastoid air cells are wel l aerated. Calvarium appears intact. IMPRESSION: 1. 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 2. 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 3. No new intracranial aneurysm or occlusion. 4. Moderate atherosclerosis of the cavernous and supraglottic portions of the internal carotid arteri es. 5. Overall moderate paranasal sinus disease.
== END ==
LOC: RADCTMAIN 12:51
PROVIDERS: ATTEND Specialist
DX: I72.0 Aneurysm of carotid artery (principal); I65.02 Occlusion and stenosis of left vertebral artery; I65.1 Occlusion and stenosis of basilar artery
CPT/HCPCS: 82565; 84520; 70496; 36415; Q9967

== ENCOUNTER → 2018-11-19 | Outpatient (CLI) | payer MEDICARE ==
[2018-11-19 14:34] LABS: African American GFR (CKD) >90 (>60 ml/min/1.73 sqM); Blood Urea Nitrogen 13 mg/dL (9-20)
--- NOTE | 2018-11-19 15:37 | CT ---
EXAMINATION TYPE: CT angio chest DATE OF EXAM: 11/19/2018 COMPARISON: HISTORY: Thoracic ascending aneurysm. CT DLP: 675 mGycm CONTRAST: CTA thoracic aorta with 3-D reconstruction is performed and without and with IV Contrast, patient inj ected with 100 mL of Isovue 370. Contrast CTA of the thoracic aorta was performed from the lung apex through the upper abdomen. 3D re construction imaging obtained at a separate workstation. CT Chest: THORACIC AORTA: Ascending thoracic aortic aneurysm measuring 4.1 cm AP dimension. Mild atheromatous changes seen. There is no evidence for dissection or periaortic collection. LUNGS: The lungs are clear and free of infiltrate or atelectasis. No pulmonary nodule or mass is det ected. No pleural effusion or CT evidence of interstitial lung disease. Calcified pleural plaques no ilan. Emphysematous changes noted. MEDIASTINUM: No evidence for mediastinal hematoma. No evidence for mediastinal mass or adenopathy. There is evidence of cardiomegaly with coronary artery calcifications. HILAR STRUCTURES: No evidence for mass. No hilar adenopathy is appreciated. OTHER: No significant abnormality. IMPRESSION- 1. Ascending thoracic aorta aneurysm with uncomplicated factor. 2. Pleural-based plaques. 3. Moderate emphysematous change.
== END | disposition home or self-care (01) ==
LOC: RADCTMAIN 13:53
PROVIDERS: ATTEND Thoracic Surgery (Cardiothoracic Vascular Surgery)
DX: I71.2 Thoracic aortic aneurysm, without rupture (principal); J43.9 Emphysema, unspecified
CPT/HCPCS: 82565; 84520; 71275; 36415; Q9967

== ENCOUNTER 2019-02-09 21:32 | Emergency (ER) | payer MEDICARE ==
[2019-02-09 21:50] VITALS: TEMP 97.6
[2019-02-09] MEDS ORDERED: SODIUM CHLORIDE 0.9% 1,000 ML IV STA (22:01)
--- NOTE | 2019-02-09 22:03 | ED ---
Fall HPI - General Source: EMS, RN notes reviewed, old records reviewed Mode of arrival: EMS Limitations: no limitations - History of Present Illness MD Complaint: fall, other (LOC after gall) -: minutes(s) Fall From: standing When Fall Occurred: unsure Fall Witnessed: yes, by bystander Place Fall Occurred: other (VFF) Loss of Consciousness: yes Prolonged Down Time?: no Symptoms Prior to Fall: none Location: head Severity: mild Context: tripped/slipped Associated Symptoms: denies <Marcos Price - Last Filed: 02/09/19 23:38> <Cecy Chandler - Last Filed: 02/10/19 05:41> - General Chief Complaint: Fall Stated Complaint: Fall Time Seen by Provider: 02/09/19 21:39 - History of Present Illness Initial Comments: This is a 60-year-old male the ER status post fall fall from standing. Does admit to positive alcohol use tonight. Patient was at the [facility], was much lines. Biliary did fall in a passed out he did hit his head. No significant headache currently. Patient denies any chest pain or shortness of breath. No recent change in medications (Marcos Price) - Related Data Home Medications Medication Instructions Recorded Confirmed Albuterol Inhaler [Ventolin Hfa 1 - 2 puff INHALATION RT-Q4H PRN 02/09/15 07/15/18 Inhaler] Isosorbide Mononitrate [Isosorbide 30 mg PO DAILY 02/09/15 07/15/18 Mononitrate ER] Omeprazole [PriLOSEC] 20 mg PO AC-BRKFST 02/09/15 07/15/18 Aspirin EC [Ecotrin Low Dose] 81 mg PO DAILY 02/21/18 02/09/19 amLODIPine [Norvasc] 10 mg PO DAILY 06/11/18 07/15/18 Atorvastatin [Lipitor] 80 mg PO HS 07/15/18 07/15/18 Budesonide/Formoterol Fumarate 2 puff INHALATION RT-BID 07/15/18 07/15/18 [Symbicort 80-4.5 Mcg Inhaler] Metoprolol Tartrate [Lopressor] 25 mg PO BID 07/15/18 07/15/18 Nitroglycerin Sl Tabs [Nitrostat] 0.4 mg SUBLINGUAL Q5M PRN 07/15/18 07/15/18 Previous Rx's Medication Instructions Recorded Folic Acid 1 mg PO DAILY@1200 #30 tab 07/16/18 Multivitamins, Thera [Multivitamin 1 each PO DAILY@1200 #30 tab 07/16/18 (formulary)] Thiamine [Vitamin B-1] 100 mg PO DAILY@1200 #30 tab 07/16/18 Allergies Allergy/AdvReac Type Severity Reaction Status Date / Time No Known Allergies Allergy Verified 02/09/19 22:10 Review of Systems ROS Other: All systems not noted in ROS Statement are negative. <Marcos Price - Last Filed: 02/09/19 23:38> ROS Other: All systems not noted in ROS Statement are negative. <Cecy Chandler - Last Filed: 02/10/19 05:41> ROS Statement: Those systems with pertinent positive or pertinent negative responses have been documented in the HPI. 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 History of Any Multi-Drug Resistant Organisms: None Reported Past Surgical History: Appendectomy, Bowel Resection, Orthopedic Surgery Additional Past Surgical History / Comment(s): finger repair Past Anesthesia/Blood Transfusion Reactions: No Reported Reaction Past Psychological History: Depression Smoking Status: Heavy tobacco smoker Past Alcohol Use History: Daily Past Drug Use History: Marijuana - Past Family History Mother Additional Family Medical History / Comment(s): at age 92 Father Family Medical History: CVA/TIA, Myocardial Infarction ([place]) Additional Family Medical History / Comment(s): multiple mi's Brother(s) Family Medical History: Coronary Artery Disease (CAD) Additional Family Medical History / Comment(s): cabg <Marcos Price - Last Filed: 02/09/19 23:38> General Exam Limitations: no limitations General appearance: alert, in no apparent distress, appears intoxicated Head exam: Present: atraumatic, normocephalic, normal inspection Eye exam: Present: normal appearance, PERRL, EOMI. Absent: scleral icterus, conjunctival injection, periorbital swelling ENT exam: Present: normal exam, mucous membranes moist Neck exam: Present: normal inspection. Absent: tenderness, meningismus, lymphadenopathy Respiratory exam: Present: normal lung sounds bilaterally. Absent: respiratory distress, wheezes, rales, rhonchi, stridor Cardiovascular Exam: Present: regular rate, normal rhythm, normal heart sounds. Absent: systolic murmur, diastolic murmur, rubs, gallop, clicks GI/Abdominal exam: Present: soft, normal bowel sounds. Absent: distended, tenderness, guarding, rebound, rigid Extremities exam: Present: normal inspection, full ROM, normal capillary refill. Absent: tenderness, pedal edema, joint swelling, calf tenderness Back exam: Present: normal inspection Neurological exam: Present: alert, oriented X3, CN II-XII intact Psychiatric exam: Present: normal affect, normal mood Skin exam: Present: warm, dry, intact, normal color. Absent: rash <Marcos Price - Last Filed: 02/09/19 23:38> Course <Marcos Price - Last Filed: 02/09/19 23:38> Vital Signs 02/09/19 02/09/19 02/09/19 21:34 22:30 23:50 Temperature 97.6 F Pulse Rate 59 L 66 57 L Respiratory 20 18 16 Rate Blood Pressure 149/100 135/80 148/81 O2 Sat by Pulse 95 93 L 93 L Oximetry 02/10/19 02:09 Temperature Pulse Rate 64 Respiratory 18 Rate Blood Pressure 128/62 O2 Sat by Pulse 96 Oximetry - Reevaluation(s) Reevaluation #1: 02/09/19 23:38 Medical records reviewed (Marcos Price) Reevaluation #2: 02/09/19 23:38 Patient significantly intoxicated (Marcos Price) Reevaluation #3: 02/09/19 23:38 Family at bedside with they did leave, unable to say her take the patient home (Marcos Price) Medical Decision Making - Lab Data Result diagrams: 02/09/19 21:49 02/09/19 21:49 - EKG Data -: EKG Interpreted by Me (EKG shows sinus rhythm rate of 60, [place] 204, QRS 62, QTc 4:30) - Radiology Data Radiology results: report reviewed (CT brain C-spine negative for acute disease), image reviewed <Marcos Price - Last Filed: 02/09/19 23:38> - Lab Data Result diagrams: 02/09/19 21:49 02/09/19 21:49 <Cecy Chandler - Last Filed: 02/10/19 05:41> - Medical Decision Making 68 male the ER for evaluation presents today for evaluation regards to fall with alcohol intoxication. (Marcos Price) - Lab Data Lab Results 02/09/19 02/09/19 02/09/19 Range/Units 21:49 21:49 21:49 WBC 7.5 (3.8-10.6) k/uL RBC 4.69 (4.30-5.90) m/uL Hgb 16.4 (13.0-17.5) gm/dL Hct 47.6 (39.0-53.0) % MCV 101.5 H (80.0-100.0) fL MCH 34.9 (25.0-35.0) pg MCHC 34.4 (31.0-37.0) g/dL RDW 13.6 (11.5-15.5) % Plt Count 211 (150-450) k/uL Neutrophils % 42 % Lymphocytes % 45 % Monocytes % 5 % Eosinophils % 3 % Basophils % 1 % Neutrophils # 3.1 (1.3-7.7) k/uL Lymphocytes # 3.4 (1.0-4.8) k/uL Monocytes # 0.4 (0-1.0) k/uL Eosinophils # 0.2 (0-0.7) k/uL Basophils # 0.1 (0-0.2) k/uL Macrocytosis Slight PT (9.0-12.0) sec INR (<1.2) APTT (22.0-30.0) sec Sodium 135 L (137-145) mmol/L Potassium 4.3 (3.5-5.1) mmol/L Chloride 97 L (98-107) mmol/L Carbon Dioxide 26 (22-30) mmol/L Anion Gap 12 mmol/L BUN 11 (9-20) mg/dL Creatinine 0.75 (0.66-1.25) mg/dL Est GFR (CKD-EPI)AfAm >90 (>60 ml/min/1.73 sqM) Est GFR (CKD-EPI)NonAf >90 (>60 ml/min/1.73 sqM) Glucose 85 (74-99) mg/dL Calcium 9.1 (8.4-10.2) mg/dL Phosphorus 4.7 H (2.5-4.5) mg/dL Magnesium 1.9 (1.6-2.3) mg/dL Total Bilirubin 0.6 (0.2-1.3) mg/dL AST 45 (17-59) U/L ALT 46 (21-72) U/L Alkaline Phosphatase 65 (38-126) U/L Troponin I (0.000-0.034) ng/mL NT-Pro-B Natriuret Pep 312 pg/mL Total Protein 7.6 (6.3-8.2) g/dL Albumin 4.1 (3.5-5.0) g/dL Serum Alcohol 255 H* mg/dL 02/09/19 02/09/19 Range/Units 21:49 21:49 WBC (3.8-10.6) k/uL RBC (4.30-5.90) m/uL Hgb (13.0-17.5) gm/dL Hct (39.0-53.0) % MCV (80.0-100.0) fL MCH (25.0-35.0) pg MCHC (31.0-37.0) g/dL RDW (11.5-15.5) % Plt Count (150-450) k/uL Neutrophils % % Lymphocytes % % Monocytes % % Eosinophils % % Basophils % % Neutrophils # (1.3-7.7) k/uL Lymphocytes # (1.0-4.8) k/uL Monocytes # (0-1.0) k/uL Eosinophils # (0-0.7) k/uL Basophils # (0-0.2) k/uL Macrocytosis PT 10.2 (9.0-12.0) sec INR 0.9 (<1.2) APTT 25.2 (22.0-30.0) sec Sodium (137-145) mmol/L Potassium (3.5-5.1) mmol/L Chloride (98-107) mmol/L Carbon Dioxide (22-30) mmol/L Anion Gap mmol/L BUN (9-20) mg/dL Creatinine (0.66-1.25) mg/dL Est GFR (CKD-EPI)AfAm (>60 ml/min/1.73 sqM) Est GFR (CKD-EPI)NonAf (>60 ml/min/1.73 sqM) Glucose (74-99) mg/dL Calcium (8.4-10.2) mg/dL Phosphorus (2.5-4.5) mg/dL Magnesium (1.6-2.3) mg/dL Total Bilirubin (0.2-1.3) mg/dL AST (17-59) U/L ALT (21-72) U/L Alkaline Phosphatase (38-126) U/L Troponin I <0.012 (0.000-0.034) ng/mL NT-Pro-B Natriuret Pep pg/mL Total Protein (6.3-8.2) g/dL Albumin (3.5-5.0) g/dL Serum Alcohol mg/dL Disposition Is patient prescribed a controlled substance at d/c from ED?: No <Marcos Price B - Last Filed: 02/09/19 23:38> Is patient prescribed a controlled substance at d/c from ED?: No <Cecy Chandler P - Last Filed: 02/10/19 05:41> Clinical Impression: Fall, Alcohol intoxication Disposition: HOME SELF-CARE Condition: Good Instructions (If sedation given, give patient instructions): Alcohol Intoxication (ED), Fall Prevention (ED) Referrals: Stella Lawrence MD [Primary Care Provider] - 1-2 days
[2019-02-09 22:15] LABS: Basophils # (A) 0.1 k/uL (0-0.2); Basophils % (A) 1 %; Eosinophils # (A) 0.2 k/uL (0-0.7); Eosinophils % (A) 3 %; HCT 47.6 % (39.0-53.0); HGB 16.4 gm/dL (13.0-17.5); Lymphocytes # (A) 3.4 k/uL (1.0-4.8); Lymphocytes % (A) 45 %; MCH 34.9 pg (25.0-35.0); MCHC 34.4 g/dL (31.0-37.0); MCV 101.5 fL (80.0-100.0); Macrocytosis Slight; Mean Platelet Volume 6.1; Monocytes # (A) 0.4 k/uL (0-1.0); Monocytes % (A) 5 %; Neutrophils # (A) 3.1 k/uL (1.3-7.7); Neutrophils % (A) 42 %; Platelet Count 211 k/uL (150-450); RBC 4.69 m/uL (4.30-5.90); RDW 13.6 % (11.5-15.5); WBC 7.5 k/uL (3.8-10.6)
[2019-02-09 22:25] LABS: ALT 46 U/L (21-72); AST 45 U/L (17-59); African American GFR (CKD) >90 (>60 ml/min/1.73 sqM); Albumin 4.1 g/dL (3.5-5.0); Alkaline Phosphatase 65 U/L (38-126); Anion Gap 12 mmol/L; Blood Urea Nitrogen 11 mg/dL (9-20); Calcium 9.1 mg/dL (8.4-10.2); Carbon Dioxide 26 mmol/L (22-30); Chloride 97 mmol/L (98-107); Glucose 85 mg/dL (74-99); INR 0.9 (<1.2); Partial Thromboplastin Time 25.2 sec (22.0-30.0); Phosphorus 4.7 mg/dL (2.5-4.5); Prothrombin Time 10.2 sec (9.0-12.0); Sodium 135 mmol/L (137-145); Total Bilirubin 0.6 mg/dL (0.2-1.3); Total Protein 7.6 g/dL (6.3-8.2)
[2019-02-09 22:28] LABS: Alcohol 255 mg/dL; Magnesium 1.9 mg/dL (1.6-2.3); Potassium 4.3 mmol/L (3.5-5.1)
--- NOTE | 2019-02-09 23:00 | CT ---
EXAMINATION TYPE: CT brain leroy wo con DATE OF EXAM: 02/09/2019 COMPARISON: 07/15/2018 HISTORY: Fall injury CT DLP: 1447.4 mGycm Automated exposure control for dose reduction was used. TECHNIQUE: CT scan of the head and cervical spine are performed without contrast. FINDINGS: There is cerebral cortical atrophy. There is hypodensity in the periventricular white mat ter. There is no mass effect nor midline shift. There is no sign of intracranial hemorrhage. The calv arium is intact. There is moderate mucosal thickening in the maxillary and ethmoid sinuses. There is mild mucosal thickening also in the frontal sinuses. Cervical vertebra have fairly normal alignment. There is mild spurring in the lower cervical spine. P osterior elements are intact. There is mild multilevel hypertrophic cervical facet arthropathy. Atlan toaxial facet joint appears normal. . IMPRESSION: Cerebral atrophy. No acute intracranial abnormality. Chronic small vessel ischemia. Brain unchanged. There is sinusitis that is new compared to old exam. Mild spondylotic changes in the cervical spine. No fracture.
[2019-02-10 02:10] VITALS: PULSE 64
[2019-02-10 06:25] VITALS: BP 186/90; RESP 17
== END 2019-02-10 06:42 | disposition home or self-care (01) ==
LOC: EC 21:32
DX: F10.129 Alcohol abuse with intoxication, unspecified (principal); J44.9 Chronic obstructive pulmonary disease, unspecified; K21.9 Gastro-esophageal reflux disease without esophagitis; I10 Essential (primary) hypertension; I73.9 Peripheral vascular disease, unspecified; F17.200 Nicotine dependence, unspecified, uncomplicated; Z79.51 Long term (current) use of inhaled steroids; Z79.82 Long term (current) use of aspirin; Z79.899 Other long term (current) drug therapy; Z87.39 Personal history of other diseases of the musculoskeletal system and connective tissue; Y90.8 Blood alcohol level of 240 mg/100 ml or more; W18.39XA Other fall on same level, initial encounter; Y92.29 Other specified public building as the place of occurrence of the external cause
CPT/HCPCS: 36415; 93005; 83880; 80053; 83735; 84100; 84484; 85025; 85610; 85730; 72125; 70450; 99285; 96360; 96361 ×2; G0480; 80320

== ENCOUNTER 2019-05-18 22:21 | Emergency (ER) | payer MEDICARE ==
[2019-05-18] MEDS ORDERED: SODIUM CHLORIDE 0.9% 500 ML 500 ML IV STA (22:28)
[2019-05-18] MEDS ORDERED: SODIUM CHLORIDE 0.9% 1,000 ML IV STA ×2 (22:28)
--- NOTE | 2019-05-18 22:31 | ED ---
Alcohol HPI - General Chief Complaint: Alcohol Stated Complaint: ETOH Time Seen by Provider: 05/18/19 22:25 Source: patient, EMS, RN notes reviewed, old records reviewed Mode of arrival: EMS Limitations: no limitations - History of Present Illness Initial Comments: This is a 60-year-old male here for evaluation. Patient is safe for evaluation regards to alcohol intoxication nausea vomiting abdominal pain not feeling well weakness no recent fevers no travel history multiple ER visits for alcohol intoxication does fabian mauricio prior to arrival. No recent travel history or sick contacts. No new medications. Patient has no desire to stop drinking and denies abdominal MD Complaint: alcohol intoxication, alcohol dependence Last Drink: just [employer] -: minute(s) Previous Visits for Alcohol Intoxication?: Yes Recent Trauma: Yes Associated Symptoms: denies other symptoms Treatments Prior to Arrival: none Chronic Alcohol Use: Yes - Related Data Home Medications Medication Instructions Recorded Confirmed Albuterol Inhaler [Ventolin Hfa 1 - 2 puff INHALATION RT-Q4H PRN 02/09/15 07/15/18 Inhaler] Isosorbide Mononitrate [Isosorbide 30 mg PO DAILY 02/09/15 07/15/18 Mononitrate ER] Omeprazole [PriLOSEC] 20 mg PO AC-BRKFST 02/09/15 07/15/18 Aspirin EC [Ecotrin Low Dose] 81 mg PO DAILY 02/21/18 02/09/19 amLODIPine [Norvasc] 10 mg PO DAILY 06/11/18 07/15/18 Atorvastatin [Lipitor] 80 mg PO HS 07/15/18 07/15/18 Budesonide/Formoterol Fumarate 2 puff INHALATION RT-BID 07/15/18 07/15/18 [Symbicort 80-4.5 Mcg Inhaler] Metoprolol Tartrate [Lopressor] 25 mg PO BID 07/15/18 07/15/18 Nitroglycerin Sl Tabs [Nitrostat] 0.4 mg SUBLINGUAL Q5M PRN 07/15/18 07/15/18 Previous Rx's Medication Instructions Recorded Folic Acid 1 mg PO DAILY@1200 #30 tab 07/16/18 Multivitamins, Thera [Multivitamin 1 each PO DAILY@1200 #30 tab 07/16/18 (formulary)] Thiamine [Vitamin B-1] 100 mg PO DAILY@1200 #30 tab 07/16/18 Allergies Allergy/AdvReac Type Severity Reaction Status Date / Time No Known Allergies Allergy Verified 05/18/19 22:28 Review of Systems ROS Statement: Those systems with pertinent positive or pertinent negative responses have been documented in the HPI. ROS Other: All systems not noted in ROS Statement are negative. 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 History of Any Multi-Drug Resistant Organisms: None Reported Past Surgical History: Appendectomy, Bowel Resection, Orthopedic Surgery Additional Past Surgical History / Comment(s): finger repair Past Anesthesia/Blood Transfusion Reactions: No Reported Reaction Past Psychological History: Depression Smoking Status: Heavy tobacco smoker Past Alcohol Use History: Daily Past Drug Use History: Marijuana - Past Family History Mother Additional Family Medical History / Comment(s): at age 92 Father Family Medical History: CVA/TIA, Myocardial Infarction ([place]) Additional Family Medical History / Comment(s): multiple mi's Brother(s) Family Medical History: Coronary Artery Disease (CAD) Additional Family Medical History / Comment(s): cabg General Exam Limitations: no limitations General appearance: appears intoxicated, anxious Head exam: Present: atraumatic, normocephalic, normal inspection Eye exam: Present: normal appearance, PERRL, EOMI. Absent: scleral icterus, conjunctival injection, periorbital swelling ENT exam: Present: normal exam, mucous membranes moist Neck exam: Present: normal inspection. Absent: tenderness, meningismus, lymphadenopathy Respiratory exam: Present: normal lung sounds bilaterally. Absent: respiratory distress, wheezes, rales, rhonchi, stridor Cardiovascular Exam: Present: regular rate, normal rhythm, normal heart sounds. Absent: systolic murmur, diastolic murmur, rubs, gallop, clicks GI/Abdominal exam: Present: soft, normal bowel sounds. Absent: distended, tenderness, guarding, rebound, rigid Extremities exam: Present: normal inspection, full ROM, normal capillary refill. Absent: tenderness, pedal edema, joint swelling, calf tenderness Back exam: Present: normal inspection Neurological exam: Present: alert, oriented X3, CN II-XII intact Psychiatric exam: Present: normal affect, normal mood Skin exam: Present: warm, dry, intact, normal color. Absent: rash Course Vital Signs 05/18/19 05/18/19 05/19/19 22:28 23:30 00:30 Temperature 97.9 F Pulse Rate 74 77 78 Respiratory 20 20 20 Rate Blood Pressure 144/85 167/90 163/85 O2 Sat by Pulse 90 L 95 95 Oximetry - Reevaluation(s) Reevaluation #1: 05/19/19 01:45 Medical records reviewed Reevaluation #2: 05/19/19 01:45 Patient is in no significant distress able to drink Medical Decision Making - Medical Decision Making 68 Male here for evaluation positive alcohol intoxication some abdominal pain, lipase is negative lab work is normal otherwise. Patient will be discharged home - Lab Data Result diagrams: 05/18/19 23:20 05/18/19 23:20 Lab Results 05/18/19 05/18/19 05/18/19 Range/Units 00:55 00:55 23:20 WBC 6.4 (3.8-10.6) k/uL RBC 5.32 (4.30-5.90) m/uL Hgb 17.5 (13.0-17.5) gm/dL Hct 52.8 (39.0-53.0) % MCV 99.2 (80.0-100.0) fL MCH 32.8 (25.0-35.0) pg MCHC 33.1 (31.0-37.0) g/dL RDW 12.8 (11.5-15.5) % Plt Count 280 (150-450) k/uL Neutrophils % 53 % Lymphocytes % 34 % Monocytes % 6 % Eosinophils % 4 % Basophils % 1 % Neutrophils # 3.4 (1.3-7.7) k/uL Lymphocytes # 2.1 (1.0-4.8) k/uL Monocytes # 0.4 (0-1.0) k/uL Eosinophils # 0.2 (0-0.7) k/uL Basophils # 0.0 (0-0.2) k/uL Sodium (137-145) mmol/L Potassium (3.5-5.1) mmol/L Chloride (98-107) mmol/L Carbon Dioxide (22-30) mmol/L Anion Gap mmol/L BUN (9-20) mg/dL Creatinine (0.66-1.25) mg/dL Est GFR (CKD-EPI)AfAm (>60 ml/min/1.73 sqM) Est GFR (CKD-EPI)NonAf (>60 ml/min/1.73 sqM) Glucose (74-99) mg/dL Calcium (8.4-10.2) mg/dL Phosphorus (2.5-4.5) mg/dL Magnesium (1.6-2.3) mg/dL Total Bilirubin (0.2-1.3) mg/dL AST (17-59) U/L ALT (4-49) U/L Alkaline Phosphatase (38-126) U/L Creatine Kinase (55-170) U/L Total Protein (6.3-8.2) g/dL Albumin (3.5-5.0) g/dL Lipase (23-300) U/L Urine Color Light Yellow Urine Appearance Clear (Clear) Urine pH 5.0 (5.0-8.0) Ur Specific [place] 1.004 (1.001-1.035) Urine Protein Negative (Negative) Urine Glucose (UA) Negative (Negative) Urine Ketones Negative (Negative) Urine Blood Negative (Negative) Urine Nitrite Negative (Negative) Urine Bilirubin Negative (Negative) Urine Urobilinogen <2.0 (<2.0) mg/dL Ur Leukocyte Esterase Negative (Negative) Urine Opiates Screen Not Detected (NotDetected) Ur Oxycodone Screen Not Detected (NotDetected) Urine Methadone Screen Not Detected (NotDetected) Ur Propoxyphene Screen Not Detected (NotDetected) Ur Barbiturates Screen Not Detected (NotDetected) U Tricyclic Antidepress Not Detected (NotDetected) Ur Phencyclidine Scrn Not Detected (NotDetected) Ur Amphetamines Screen Not Detected (NotDetected) U Methamphetamines Scrn Not Detected (NotDetected) U Benzodiazepines Scrn Not Detected (NotDetected) Urine Cocaine Screen Not Detected (NotDetected) U Marijuana (THC) Screen Not Detected (NotDetected) Serum Alcohol mg/dL 05/18/19 Range/Units 23:20 WBC (3.8-10.6) k/uL RBC (4.30-5.90) m/uL Hgb (13.0-17.5) gm/dL Hct (39.0-53.0) % MCV (80.0-100.0) fL MCH (25.0-35.0) pg MCHC (31.0-37.0) g/dL RDW (11.5-15.5) % Plt Count (150-450) k/uL Neutrophils % % Lymphocytes % % Monocytes % % Eosinophils % % Basophils % % Neutrophils # (1.3-7.7) k/uL Lymphocytes # (1.0-4.8) k/uL Monocytes # (0-1.0) k/uL Eosinophils # (0-0.7) k/uL Basophils # (0-0.2) k/uL Sodium 134 L (137-145) mmol/L Potassium 3.9 (3.5-5.1) mmol/L Chloride 98 (98-107) mmol/L Carbon Dioxide 20 L (22-30) mmol/L Anion Gap 16 mmol/L BUN 11 (9-20) mg/dL Creatinine 0.79 (0.66-1.25) mg/dL Est GFR (CKD-EPI)AfAm >90 (>60 ml/min/1.73 sqM) Est GFR (CKD-EPI)NonAf >90 (>60 ml/min/1.73 sqM) Glucose 102 H (74-99) mg/dL Calcium 9.4 (8.4-10.2) mg/dL Phosphorus 5.2 H (2.5-4.5) mg/dL Magnesium 1.8 (1.6-2.3) mg/dL Total Bilirubin 0.5 (0.2-1.3) mg/dL AST 33 (17-59) U/L ALT 27 (4-49) U/L Alkaline Phosphatase 75 (38-126) U/L Creatine Kinase 80 (55-170) U/L Total Protein 7.7 (6.3-8.2) g/dL Albumin 4.3 (3.5-5.0) g/dL Lipase 83 (23-300) U/L Urine Color Urine Appearance (Clear) Urine pH (5.0-8.0) Ur Specific [place] (1.001-1.035) Urine Protein (Negative) Urine Glucose (UA) (Negative) Urine Ketones (Negative) Urine Blood (Negative) Urine Nitrite (Negative) Urine Bilirubin (Negative) Urine Urobilinogen (<2.0) mg/dL Ur Leukocyte Esterase (Negative) Urine Opiates Screen (NotDetected) Ur Oxycodone Screen (NotDetected) Urine Methadone Screen (NotDetected) Ur Propoxyphene Screen (NotDetected) Ur Barbiturates Screen (NotDetected) U Tricyclic Antidepress (NotDetected) Ur Phencyclidine Scrn (NotDetected) Ur Amphetamines Screen (NotDetected) U Methamphetamines Scrn (NotDetected) U Benzodiazepines Scrn (NotDetected) Urine Cocaine Screen (NotDetected) U Marijuana (THC) Screen (NotDetected) Serum Alcohol 156 mg/dL - EKG Data -: EKG Interpreted by Me (EKG shows sinus arrhythmia, ME 150, QRS 72, QTc 482) Disposition Clinical Impression: Alcoholic intoxication, Dehydration Disposition: HOME SELF-CARE Instructions (If sedation given, give patient instructions): Alcohol Intoxication (ED) Is patient prescribed a controlled substance at d/c from ED?: No Referrals: Stella Lawrence MD [Primary Care Provider] - 1-2 days
[2019-05-18 23:33] LABS: Basophils % (A) 1 %; Eosinophils # (A) 0.2 k/uL (0-0.7); Eosinophils % (A) 4 %; HCT 52.8 % (39.0-53.0); HGB 17.5 gm/dL (13.0-17.5); Lymphocytes # (A) 2.1 k/uL (1.0-4.8); Lymphocytes % (A) 34 %; MCH 32.8 pg (25.0-35.0); MCHC 33.1 g/dL (31.0-37.0); MCV 99.2 fL (80.0-100.0); Mean Platelet Volume 7.1; Monocytes # (A) 0.4 k/uL (0-1.0); Monocytes % (A) 6 %; Neutrophils # (A) 3.4 k/uL (1.3-7.7); Neutrophils % (A) 53 %; Platelet Count 280 k/uL (150-450); RBC 5.32 m/uL (4.30-5.90); RDW 12.8 % (11.5-15.5); WBC 6.4 k/uL (3.8-10.6)
[2019-05-18 23:52] LABS: ALT 27 U/L (4-49); AST 33 U/L (17-59); African American GFR (CKD) >90 (>60 ml/min/1.73 sqM); Albumin 4.3 g/dL (3.5-5.0); Alkaline Phosphatase 75 U/L (38-126); Anion Gap 16 mmol/L; Blood Urea Nitrogen 11 mg/dL (9-20); Calcium 9.4 mg/dL (8.4-10.2); Carbon Dioxide 20 mmol/L (22-30); Chloride 98 mmol/L (98-107); Creatine Kinase 80 U/L (55-170); Glucose 102 mg/dL (74-99); Magnesium 1.8 mg/dL (1.6-2.3); Non-African American GFR(CKD) >90 (>60 ml/min/1.73 sqM); Phosphorus 5.2 mg/dL (2.5-4.5); Potassium 3.9 mmol/L (3.5-5.1); Sodium 134 mmol/L (137-145); Total Bilirubin 0.5 mg/dL (0.2-1.3); Total Protein 7.7 g/dL (6.3-8.2)
[2019-05-18 23:57] LABS: Alcohol 156 mg/dL
[2019-05-19] MEDS ORDERED: PANTOPRAZOLE 40 MG/10 ML VIAL IVP STA (00:17)
[2019-05-19] MEDS ORDERED: ONDANSETRON 4 MG/2 ML VIAL IVP STA (00:17)
[2019-05-19 01:16] LABS: Appearance,Urine Clear (Clear); Bilirubin,Urine Negative (Negative); Blood,Urine Negative (Negative); Color,Urine Light Yellow; Glucose,Urine (UA) Negative (Negative); Ketones,Urine Negative (Negative); Leukocyte Esterase,Urine Negative (Negative); Nitrite,Urine Negative (Negative); Protein,Urine Negative (Negative); Specific Gravity,Urine 1.004 (1.001-1.035); Urobilinogen,Urine <2.0 mg/dL (<2.0)
[2019-05-19 01:27] LABS: Amphetamine Screen,Urine Not Detected (NotDetected); Barbiturate Screen,Urine Not Detected (NotDetected); Benzodiazepines Screen,Urine Not Detected (NotDetected); Cocaine Screen,Urine Not Detected (NotDetected); Methadone Screen, Urine Not Detected (NotDetected); Opiate Screen,Urine Not Detected (NotDetected); Oxycodone Screen, Urine Not Detected (NotDetected); Phencyclidine Screen,Urine Not Detected (NotDetected); Tricyclic Antidepressant,Urine Not Detected (NotDetected); Urn Cannabinoid Scrn Not Detected (NotDetected)
[2019-05-19 02:47] VITALS: BP 171/93; PULSE 94; RESP 19; TEMP 98
== END 2019-05-19 02:47 | disposition home or self-care (01) ==
LOC: EC 22:21
DX: F10.129 Alcohol abuse with intoxication, unspecified (principal); E86.0 Dehydration; J44.9 Chronic obstructive pulmonary disease, unspecified; K21.9 Gastro-esophageal reflux disease without esophagitis; I10 Essential (primary) hypertension; F17.200 Nicotine dependence, unspecified, uncomplicated; Z79.82 Long term (current) use of aspirin; Z79.51 Long term (current) use of inhaled steroids; Z79.899 Other long term (current) drug therapy
CPT/HCPCS: 99284 ×2; 96374 ×2; 96375 ×2; 96361 ×4; 82075; 36415; 93005; 80053; 82550; 83690; 83735; 84100; 85025; 81003; 80306; G0480; J2405; C9113; 80320

== ENCOUNTER → 2019-07-13 | Outpatient (CLI) | payer MEDICARE | END | disposition home or self-care (01) | CPT/HCPCS: 82565; 84520; 36415; 74174; Q9967 ==

== ENCOUNTER 2019-10-05 20:57 | Emergency (ER) | payer MEDICARE ==
--- NOTE | 2019-10-05 21:34 | ED ---
Fall HPI - General Chief Complaint: Fall Stated Complaint: Fall, ETOH Time Seen by Provider: 10/05/19 21:19 Source: EMS, RN notes reviewed, old records reviewed Mode of arrival: EMS Limitations: no limitations - History of Present Illness Initial Comments: This is a 60-year-old male DF for evaluation patient presents intoxicated with a slip and fall. Patient does have occipital scalp laceration EMS was called secondary to fall being witnessed patient was at [employer] drinking today really drinking all day who is also unknown drinker. Patient is complaining of headache, missed alcohol drinking today. Mild bleeding MD Complaint: fall -: minutes(s) Fall From: standing When Fall Occurred: 1 hour [facility] Fall Witnessed: yes, by bystander Place Fall Occurred: other (Patient was at a bar) Loss of Consciousness: none Prolonged Down Time?: no Symptoms Prior to Fall: none Location: head Severity: mild Severity scale (1-10): 5 Context: alcohol use Associated Symptoms: headache - Related Data Home Medications Medication Instructions Recorded Confirmed Omeprazole [PriLOSEC] 20 mg PO AC-BRKFST 02/09/15 10/05/19 Aspirin EC [Ecotrin Low Dose] 81 mg PO DAILY 02/21/18 10/05/19 Budesonide/Formoterol Fumarate 2 puff INHALATION RT-DAILY 07/15/18 10/05/19 [Symbicort 80-4.5 Mcg Inhaler] Metoprolol Tartrate [Lopressor] 25 mg PO BID 07/15/18 10/05/19 Nitroglycerin Sl Tabs [Nitrostat] 0.4 mg SUBLINGUAL Q5M PRN 07/15/18 10/05/19 Albuterol Sulfate [Ventolin HFA] 1 - 2 puff INHALATION RT-Q6H PRN 10/05/19 10/05/19 Isosorbide Mononitrate 20 mg PO DAILY 10/05/19 10/05/19 Lisinopril [Zestril] 20 mg PO DAILY 10/05/19 10/05/19 Pravastatin Sodium [Pravachol] 20 mg PO HS 10/05/19 10/05/19 amLODIPine [Norvasc] 5 mg PO DAILY 10/05/19 10/05/19 Allergies Allergy/AdvReac Type Severity Reaction Status Date / Time No Known Allergies Allergy Verified 10/05/19 22:07 Review of Systems ROS Statement: Those systems with pertinent positive or pertinent negative responses have been documented in the HPI. ROS Other: All systems not noted in ROS Statement are negative. 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 History of Any Multi-Drug Resistant Organisms: None Reported Past Surgical History: Appendectomy, Bowel Resection, Orthopedic Surgery Additional Past Surgical History / Comment(s): finger repair Past Anesthesia/Blood Transfusion Reactions: No Reported Reaction Past Psychological History: Depression Smoking Status: Heavy tobacco smoker Past Alcohol Use History: Daily Past Drug Use History: Marijuana - Past Family History Mother Additional Family Medical History / Comment(s): at age 92 Father Family Medical History: CVA/TIA, Myocardial Infarction ([place]) Additional Family Medical History / Comment(s): multiple mi's Brother(s) Family Medical History: Coronary Artery Disease (CAD) Additional Family Medical History / Comment(s): cabg General Exam Limitations: no limitations General appearance: alert, in no apparent distress Head exam: Present: normocephalic, normal inspection. Absent: atraumatic (Patient does have 4 cm scalp laceration) Eye exam: Present: normal appearance, PERRL, EOMI. Absent: scleral icterus, conjunctival injection, periorbital swelling ENT exam: Present: normal exam, mucous membranes moist Neck exam: Present: normal inspection. Absent: tenderness, meningismus, lymphad enopathy Respiratory exam: Present: normal lung sounds bilaterally. Absent: respiratory distress, wheezes, rales, rhonchi, stridor Cardiovascular Exam: Present: regular rate, normal rhythm, normal heart sounds. Absent: systolic murmur, diastolic murmur, rubs, gallop, clicks GI/Abdominal exam: Present: soft, normal bowel sounds. Absent: distended, tenderness, guarding, rebound, rigid Extremities exam: Present: normal inspection, full ROM, normal capillary refill. Absent: tenderness, pedal edema, joint swelling, calf tenderness Back exam: Present: normal inspection Neurological exam: Present: alert, oriented X3, CN II-XII intact Psychiatric exam: Present: normal affect, normal mood Skin exam: Present: warm, dry, intact, normal color. Absent: rash Course Vital Signs 10/05/19 10/05/19 10/05/19 20:59 21:05 22:46 Temperature 97.4 F L Pulse Rate 77 69 Respiratory 16 16 Rate Blood Pressure 188/107 177/98 157/92 O2 Sat by Pulse 97 96 Oximetry 10/05/19 23:21 Temperature 98 F Pulse Rate 86 Respiratory 18 Rate Blood Pressure 155/95 O2 Sat by Pulse 98 Oximetry - Reevaluation(s) Reevaluation #1: Medical records reviewed Patient has known history of alcoholism Patient's able ambulate without significant intoxication or difficulty Procedures - Laceration Laceration #1 Consent Obtained: verbal consent Indication: laceration Site: scalp Size (cm): 5 Description: linear Depth: simple, single layer Anesthetic Used: lidocaine 1%, with epi Type of Sutures: other (Michelle) Size of Sutures: other (Michelle) Patient Tolerated Procedure: well Medical Decision Making - Medical Decision Making 68 male DF for evaluation patient Dese for evaluation of fall several scalp laceration repaired here in the ER with michelle and patient can be discharged home - EKG Data -: EKG Interpreted by Me (EKG shows sinus rhythm of 64, DE 200 QRS 66 QTc 437) - Radiology Data Radiology results: report reviewed (CT brain C-spine negative for acute disease), image reviewed Disposition Clinical Impression: Fall, Alcohol intoxication, Occipital scalp laceration, Head injury Disposition: HOME SELF-CARE Condition: Good Instructions (If sedation given, give patient instructions): Fall Prevention for Older Adults (ED), Head Injury (ED), Alcohol Intoxication (ED) Is patient prescribed a controlled substance at d/c from ED?: No Referrals: Stella Lawrence MD [Primary Care Provider] - 1-2 days
--- NOTE | 2019-10-05 22:00 | CT ---
EXAMINATION TYPE: CT brain leroy wo con DATE OF EXAM: 10/05/2019 COMPARISON: 02/09/2019 HISTORY: Fall, posterior head injury. CT DLP: 1361.8 mGycm Automated exposure control for dose reduction was used. There is diffuse cerebral atrophy. There is no mass effect nor midline shift. There is no sign of int racranial hemorrhage. There is some hypodensity in the periventricular white matter. There is slight enlargement of the ventricles. Calvarium is intact. There is some mild right parietal scalp soft tiss ue swelling. Skull base appears intact. Cervical vertebra have fairly normal spacing and alignment. Posterior elements are intact. There is m ild hypertrophic cervical facet arthropathy. There is mild spurring of the endplates. There is no juanito dence of cervical spine fracture. IMPRESSION: Cerebral atrophy and chronic small vessel ischemia. Mild right side maxillary sinusitis that is impro emily compared to old exam. Mild spondylotic changes in the cervical spine. No fracture. No change.
[2019-10-05 23:23] VITALS: BP 155/95; PULSE 86; RESP 18; TEMP 98
== END 2019-10-05 23:32 | disposition home or self-care (01) ==
LOC: EC 20:57
DX: F10.129 Alcohol abuse with intoxication, unspecified (principal); S01.01XA Laceration without foreign body of scalp, initial encounter; J44.9 Chronic obstructive pulmonary disease, unspecified; K21.9 Gastro-esophageal reflux disease without esophagitis; I10 Essential (primary) hypertension; I73.9 Peripheral vascular disease, unspecified; F17.210 Nicotine dependence, cigarettes, uncomplicated; Z79.51 Long term (current) use of inhaled steroids; Z79.82 Long term (current) use of aspirin; Z79.899 Other long term (current) drug therapy; Z90.49 Acquired absence of other specified parts of digestive tract; Z99.89 Dependence on other enabling machines and devices; W01.0XXA Fall on same level from slipping, tripping and stumbling without subsequent striking against object, initial encounter; Y93.89 Activity, other specified; Y92.89 Other specified places as the place of occurrence of the external cause
CPT/HCPCS: 12002; 70450; 72125; 93005; 99285

== ENCOUNTER → 2019-10-22 | Outpatient (CLI) | payer MEDICARE ==
[2019-10-22 13:13] LABS: HCT 51.9 % (39.0-53.0); HGB 17.1 gm/dL (13.0-17.5); MCH 31.4 pg (25.0-35.0); MCHC 32.9 g/dL (31.0-37.0); MCV 95.3 fL (80.0-100.0); Mean Platelet Volume 6.9; Platelet Count 288 k/uL (150-450); RBC 5.44 m/uL (4.30-5.90); RDW 13.8 % (11.5-15.5)
[2019-10-22 13:49] LABS: Partial Thromboplastin Time 24.4 sec (22.0-30.0); Prothrombin Time 10.5 sec (9.0-12.0)
== END | disposition home or self-care (01) ==
LOC: LABPAT 12:34
PROVIDERS: ATTEND Anesthesiology
DX: Z01.818 Encounter for other preprocedural examination (principal); U07.1 COVID-19
CPT/HCPCS: 85027; 85610; 85730; U0003; 36415; 86850; 86900; 86901

== ENCOUNTER 2019-11-06 06:01 | Inpatient (IN) | payer MEDICARE ==
[~2019-11-06 06:01] MED LIST changes: -ASPIRIN 325 MG TAB PO STA; -IOPAMIDOL-250 100ML BTL INTRAARTER ONE; -IOPAMIDOL-250 50ML BTL INTRAARTER ONE; -LIDOCAINE 1% INJ 10MG/ML (20 ML MDV) SQ ONE; -MIDAZOLAM 2 MG/2 ML VIAL IV ONE; -SODIUM CHLORIDE 0.9% 1,000 ML IV SCH
[2019-11-06] MEDS ORDERED: SODIUM CHLORIDE 0.9% 1,000 ML IV ONE (06:54)
[2019-11-06] MEDS ORDERED: ASPIRIN 325 MG TAB PO ONE (07:00)
[2019-11-06 07:05] LABS: African American GFR (CKD) >90 (>60 ml/min/1.73 sqM); Anion Gap 9 mmol/L; Blood Urea Nitrogen 10 mg/dL (9-20); Calcium 9.3 mg/dL (8.4-10.2); Carbon Dioxide 26 mmol/L (22-30); Chloride 99 mmol/L (98-107); Glucose 94 mg/dL (74-99); Non-African American GFR(CKD) >90 (>60 ml/min/1.73 sqM); Potassium 4.3 mmol/L (3.5-5.1); Sodium 134 mmol/L (137-145)
[2019-11-06] MEDS ORDERED: NEOSTIGMINE 1 MG/ML 10 ML VIAL ONE (07:40)
[2019-11-06] MEDS ORDERED: ROCURONIUM BROMIDE 10 MG/ML 5 ML VIAL IV ONE (07:40)
[2019-11-06] MEDS ORDERED: fentaNYL (PF) 50 MCG/ML 2 ML AMP ONE (07:40)
[2019-11-06] MEDS ORDERED: SUCCINYLCHOLINE CHLORIDE 100 MG/5 ML SYR IV ONE (07:40)
[2019-11-06] MEDS ORDERED: PROPOFOL 10 MG/ML 20 ML VIAL IV ONE (07:40)
[2019-11-06] MEDS ORDERED: ePHEDrine SULFATE/0.9% NACL/PF 50 MG/5 ML SYRINGE IV ONE (07:40)
[2019-11-06] MEDS ORDERED: PHENYLEPHRINE-0.9% NACL SYG 1 MG/10 ML SYRINGE ONE (07:40)
[2019-11-06] MEDS ORDERED: HEPARIN SODIUM,PORCINE 10,000 UNIT/ML 1 ML VIAL ONE (07:40)
[2019-11-06] MEDS ORDERED: LIDOCAINE 1% INJ 10MG/ML (20 ML MDV) ONE (07:40)
[2019-11-06] MEDS ORDERED: MIDAZOLAM 2 MG/2 ML VIAL ONE (07:40)
[2019-11-06] MEDS ORDERED: GLYCOPYRROLATE 0.2 MG/ML 2 ML VIAL ONE (07:40)
[2019-11-06] MEDS ORDERED: PROTAMINE SULFATE 10 MG/ML 5 ML VIAL IV ONE (07:40)
--- NOTE | 2019-11-06 07:41 | P.GSHP ---
History of Present Illness H&P Date: 11/06/19 Chief Complaint: lower extremity pain 68-year-old gentleman with history of lower extremity claudication which patient states he is unable to walk more than 50 feet without significant pain in his lower extremities and calves. He also complains of intermittent pain at night which is relieved by pain in his feet over the bed. He was scheduled previously for endarterectomy of bilateral common femoral arteries with possible aortobiiliac bypass prior to [facility] but due to the restrictions he was rescheduled. He presents today for revascularization of bilateral common femo ral arteries. He did undergo an aortogram with runoff with Dr. Busby in the past which did demonstrate severe femoral and iliac occlusions. Currently he denies any fevers, chills, chest pain or shortness of breath. He was cleared per cardiology and primary care. 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 Fall 10/05/19 with michelle back of head History of Any Multi-Drug Resistant Organisms: None Reported Past Surgical History: Appendectomy, Bowel Resection, Orthopedic Surgery Additional Past Surgical History / Comment(s): finger repair Past Anesthesia/Blood Transfusion Reactions: No Reported Reaction Smoking Status: Current every day smoker - Past Family History Mother Family Medical History: No Reported History Additional Family Medical History / Comment(s): . Father Family Medical History: CVA/TIA, Myocardial Infarction ([place]) Additional Family Medical History / Comment(s): multiple mi's Brother(s) Family Medical History: Coronary Artery Disease (CAD) Additional Family Medical History / Comment(s): cabg Medications and Allergies Home Medications Medication Instructions Recorded Confirmed Type Omeprazole [PriLOSEC] 20 mg PO AC-BRKFST 02/09/15 11/06/19 History Budesonide/Formoterol Fumarate 2 puff INHALATION BID 07/15/18 11/06/19 History [Symbicort 80-4.5 Mcg Inhaler] Metoprolol Tartrate [Lopressor] 25 mg PO BID 07/15/18 11/06/19 History Nitroglycerin Sl Tabs [Nitrostat] 0.4 mg SUBLINGUAL Q5M PRN 07/15/18 11/04/19 History Albuterol Sulfate [Ventolin HFA] 1 - 2 puff INHALATION RT-Q6H PRN 10/05/19 11/06/19 History Isosorbide Mononitrate 20 mg PO DAILY 10/05/19 11/06/19 History Lisinopril [Zestril] 20 mg PO DAILY 10/05/19 11/06/19 History Pravastatin Sodium [Pravachol] 20 mg PO HS 10/05/19 11/06/19 History amLODIPine [Norvasc] 5 mg PO DAILY 10/05/19 11/06/19 History Allergies Allergy/AdvReac Type Severity Reaction Status Date / Time No Known Allergies Allergy Verified 11/06/19 06:21 Surgical - Exam Vital Signs Temp Pulse Resp BP Pulse Ox 98.2 F 58 L 16 192/84 96 11/06/19 07:20 11/06/19 07:20 11/06/19 07:20 11/06/19 07:20 11/06/19 07:20 - General well developed, well nourished, no distress - Eyes PERRL - Neck no masses, no bruits - Respiratory normal expansion - Cardiovascular Rhythm: regular - Abdomen Abdomen: soft, non tender - Integumentary no rash - Neurologic normal coordination, no normal sensation - Psychiatric oriented to time, oriented to person, speech is normal Results - Labs 11/06/19 06:40 Abnormal Lab Results - Last 24 Hours (Table) 11/06/19 Range/Units 06:40 Sodium 134 L (137-145) mmol/L Diabetes panel 11/06/19 Range/Units 06:40 Sodium 134 L (137-145) mmol/L Potassium 4.3 (3.5-5.1) mmol/L Chloride 99 (98-107) mmol/L Carbon Dioxide 26 (22-30) mmol/L BUN 10 (9-20) mg/dL Creatinine 0.74 (0.66-1.25) mg/dL Glucose 94 (74-99) mg/dL Calcium 9.3 (8.4-10.2) mg/dL Calcium panel 11/06/19 Range/Units 06:40 Calcium 9.3 (8.4-10.2) mg/dL Pituitary panel 11/06/19 Range/Units 06:40 Sodium 134 L (137-145) mmol/L Potassium 4.3 (3.5-5.1) mmol/L Chloride 99 (98-107) mmol/L Carbon Dioxide 26 (22-30) mmol/L BUN 10 (9-20) mg/dL Creatinine 0.74 (0.66-1.25) mg/dL Glucose 94 (74-99) mg/dL Calcium 9.3 (8.4-10.2) mg/dL Adrenal panel 11/06/19 Range/Units 06:40 Sodium 134 L (137-145) mmol/L Potassium 4.3 (3.5-5.1) mmol/L Chloride 99 (98-107) mmol/L Carbon Dioxide 26 (22-30) mmol/L BUN 10 (9-20) mg/dL Creatinine 0.74 (0.66-1.25) mg/dL Glucose 94 (74-99) mg/dL Calcium 9.3 (8.4-10.2) mg/dL Assessment and Plan Assessment: #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
[2019-11-06] MEDS ORDERED: LIDOCAINE 1% INJ 10MG/ML (20 ML MDV) SQ ONE (09:23)
[2019-11-06 09:28] VITALS: BMI 22.9
[2019-11-06] MEDS ORDERED: IOPAMIDOL-250 100ML BTL INTRAARTER ONE (13:06)
[2019-11-06] MEDS ORDERED: THROMBIN (BOVINE) 5,000 UNIT VIAL TOPICAL ONE (13:06)
[2019-11-06] MEDS ORDERED: ceFAZolin 4,000 MG in SODIUM CHLORIDE 0.9% 1,000 ML IRRIGATION ONE (13:06)
[2019-11-06] MEDS ORDERED: IOPAMIDOL-300 50ML BTL INJ ONE (13:06)
[2019-11-06] MEDS ORDERED: GELATIN SPONGE,ABSORB (LARGE) 1 EACH SPONGE TOPICAL ONE (13:06)
[2019-11-06] MEDS ORDERED: NITROGLYCERIN SL TABS 0.4 MG TAB SUBLINGUAL PRN (14:09)
[2019-11-06] MEDS: HYDROmorphone 0.5 MG/0.5 ML SYRINGE IVP ONE ×3 (14:30→15:15)
--- NOTE | 2019-11-06 14:31 | IR ---
Fluoroscopy HISTORY: Pain in bilateral legs 29.4 minutes fluoroscopy time supplied to the referring clinician. 1167 images obtained document the procedure. See dictated report from vascular surgery for full evaluation.
[2019-11-06] MEDS ORDERED: LABETALOL 5 MG/ML VIAL MDV IV ONE (14:39)
[2019-11-06 15:51] LABS: Basophils % (A) 0 %; Eosinophils # (A) 0.1 k/uL (0-0.7); Eosinophils % (A) 1 %; HCT 50.2 % (39.0-53.0); HGB 15.9 gm/dL (13.0-17.5); Lymphocytes # (A) 1.4 k/uL (1.0-4.8); Lymphocytes % (A) 14 %; MCH 31.6 pg (25.0-35.0); MCHC 31.7 g/dL (31.0-37.0); MCV 99.8 fL (80.0-100.0); Macrocytosis Slight; Mean Platelet Volume 7.3; Monocytes # (A) 0.4 k/uL (0-1.0); Monocytes % (A) 4 %; Neutrophils % (A) 80 %; Platelet Count 206 k/uL (150-450); RBC 5.03 m/uL (4.30-5.90); RDW 14.3 % (11.5-15.5); WBC 9.9 k/uL (3.8-10.6)
[2019-11-06 16:08] LABS: Glucose,Whole Blood 96 mg/dL (75-99)
[2019-11-06] MEDS: SODIUM CHLORIDE 0.9% 1,000 ML IV SCH (16:08)
[2019-11-06 16:15] LABS: African American GFR (CKD) >90 (>60 ml/min/1.73 sqM); Anion Gap 9 mmol/L; Blood Urea Nitrogen 8 mg/dL (9-20); Calcium 8.2 mg/dL (8.4-10.2); Carbon Dioxide 22 mmol/L (22-30); Chloride 103 mmol/L (98-107); Glucose 107 mg/dL (74-99); Non-African American GFR(CKD) 89 (>60 ml/min/1.73 sqM); Potassium 4.5 mmol/L (3.5-5.1); Sodium 134 mmol/L (137-145)
--- NOTE | 2019-11-06 17:17 | P.CONS ---
History of Present Illness - Reason for Consult Recommendations regarding blood pressure medications - History of Present Illness Patient was a 68-year-old gentleman was admitted for left extremity claudication patient underwent iliac stent followed by bilateral femoral artery endarterectomy. Patient is feeling better does have poor pulses in both lower extremities . Patient denied any fever chills patient denied dysuria patient has a Robles catheter in place which probably will be removed tomorrow Patient blood pressure is bit elevated patient does admit to drinking alcohol and daily basis just continues to smoke. Review of Systems REVIEW OF SYSTEMS: CONSTITUTIONAL: No fever, no malaise, no fatigue. HEENT: No recent visual problems or hearing problems. Denied any sore throat. CARDIOVASCULAR: No chest pain, orthopnea, PND, no palpitations, no syncope. PULMONARY: No shortness of breath, no cough, no hemoptysis. GASTROINTESTINAL: No diarrhea, no nausea, no vomiting, no abdominal pain. NEUROLOGICAL: No headaches, no weakness, no numbness. HEMATOLOGICAL: Denies any bleeding or petechiae. GENITOURINARY: Denies any burning micturition, frequency, or urgency. MUSCULOSKELETAL/RHEUMATOLOGICAL: Denies any joint pain, swelling, or any muscle pain. ENDOCRINE: Denies any polyuria or polydipsia. The rest of the 14-point review of systems is negative. 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 Fall 10/05/19 with michelle back of head History of Any Multi-Drug Resistant Organisms: None Reported Past Surgical History: Appendectomy, Bowel Resection, Orthopedic Surgery Additional Past Surgical History / Comment(s): finger repair Past Anesthesia/Blood Transfusion Reactions: No Reported Reaction Smoking Status: Current every day smoker - Past Family History Mother Family Medical History: No Reported History Additional Family Medical History / Comment(s): . Father Family Medical History: CVA/TIA, Myocardial Infarction ([place]) Additional Family Medical History / Comment(s): multiple mi's Brother(s) Family Medical History: Coronary Artery Disease (CAD) Additional Family Medical History / Comment(s): cabg Medications and Allergies Home Medications Medication Instructions Recorded Confirmed Type Omeprazole [PriLOSEC] 20 mg PO AC-BRKFST 02/09/15 11/06/19 History Budesonide/Formoterol Fumarate 2 puff INHALATION BID 07/15/18 11/06/19 History [Symbicort 80-4.5 Mcg Inhaler] Metoprolol Tartrate [Lopressor] 25 mg PO BID 07/15/18 11/06/19 History Nitroglycerin Sl Tabs [Nitrostat] 0.4 mg SUBLINGUAL Q5M PRN 07/15/18 11/04/19 History Albuterol Sulfate [Ventolin HFA] 1 - 2 puff INHALATION RT-Q6H PRN 10/05/19 11/06/19 History Isosorbide Mononitrate 20 mg PO DAILY 10/05/19 11/06/19 History Lisinopril [Zestril] 20 mg PO DAILY 10/05/19 11/06/19 History Pravastatin Sodium [Pravachol] 20 mg PO HS 10/05/19 11/06/19 History amLODIPine [Norvasc] 5 mg PO DAILY 10/05/19 11/06/19 History Allergies Allergy/AdvReac Type Severity Reaction Status Date / Time No Known Allergies Allergy Verified 11/06/19 06:21 Physical Exam Vitals: Vital Signs Temp Pulse Pulse Pulse Resp BP BP 11/06/19 16:00 97.7 F 81 21 153/89 11/06/19 15:48 20 11/06/19 15:30 59 L 18 158/76 11/06/19 15:15 72 18 185/84 11/06/19 15:00 66 18 164/82 11/06/19 14:45 56 L 18 143/70 11/06/19 14:30 87 20 200/94 11/06/19 14:15 98 F 90 20 197/99 11/06/19 07: 98.2 F 58 L 16 192/84 Pulse Ox 11/06/19 16:00 97 11/06/19 15:48 99 11/06/19 15:30 99 11/06/19 15:15 99 11/06/19 15:00 100 11/06/19 14:45 100 11/06/19 14:30 100 11/06/19 14:15 96 11/06/19 07:20 96 Intake and Output 11/06/19 11/06/19 11/06/19 06:59 14:59 22:59 Intake Total 100 101 80 Output Total 600 75 Balance 100 -499 5 Intake: IV 100 101 80 Sodium Chloride 0.9% 1, 80 000 ml @ 80 mls/hr IV . [id number] [facility] Rx#:[id number] Output: Urine 75 Estimated Blood Loss 600 Other: Voiding Method Indwelling Catheter Weight 76.7 kg 76.7 kg PHYSICAL EXAMINATION: GENERAL: The patient is alert and oriented x3, not in any acute distress. Well developed, well nourished. HEENT: Pupils are round and equally reacting to light. EOMI. No scleral icterus. No conjunctival pallor. Normocephalic, atraumatic. No pharyngeal erythema. No t hyromegaly. CARDIOVASCULAR: S1 and S2 present. No murmurs, rubs, or gallops. PULMONARY: Chest is clear to auscultation, no wheezing or crackles. ABDOMEN: Soft, nontender, nondistended, normoactive bowel sounds. No palpable organomegaly. MUSCULOSKELETAL: No joint swelling or deformity. EXTREMITIES: No cyanosis, clubbing, or pedal edema. NEUROLOGICAL: Gross neurological examination did not reveal any focal deficits. SKIN: No rashes. Results CBC & Chem 7: 11/06/19 14:44 11/06/19 14:44 Labs: Abnormal Lab Results - Last 24 Hours (Table) 11/06/19 11/06/19 11/06/19 Range/Units 06:40 14:44 14:44 Neutrophils # 8.0 H (1.3-7.7) k/uL Sodium 134 L 134 L (137-145) mmol/L BUN 8 L (9-20) mg/dL Glucose 107 H (74-99) mg/dL Calcium 8.2 L (8.4-10.2) mg/dL Assessment and Plan Plan: -Hypertension: Patient will be continued on amlodipine and a beta starr will be changed to Coreg from metoprolol for better blood pressure control. Lisinop ril will be continued as well -Hyperlipidemia -COPD without any acute exacerbation -Cerebrovascular disease patient underwent above-mentioned procedures postoperative day 0 extensive counseling regarding nicotine cessation was provided will use nicotine patch if needed but that does increase her blood pressure -Alcohol abuse: Counseling was provided patient will be watched for alcohol withdrawals if he has any will be treated accordingly with Ativan -Gastroesophageal reflux disease -Depression
--- NOTE | 2019-11-06 17:30 | P.OP ---
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% #3 left external iliac artery occlusion #4 bilateral common femoral artery occlusions #5 bilateral superficial femoral artery [employer]'s Postoperative Diagnosis: Same Procedure(s) Performed: #1 bilateral common femoral, external iliac artery endarterectomy with patch angioplasty #2 bilateral common iliac artery transluminal balloon angioplasty #3 bilateral common iliac artery stenting #4 bilateral external iliac artery transluminal balloon angioplasty #5 bilateral external iliac artery covered stent placement #6 aortoiliac angiogram with catheter placement in the aorta #7 bilateral selective iliofemoral angiogram #8 bilateral Prevena incisional VAC placement Anesthesia: GETA Surgeon: Jarrett Tucker (Co-surgeon: Jerica Robles) Estimated Blood Loss (ml): 600 Pathology: other (Bilateral femoral artery plaque) Condition: stable Disposition: PACU Indications for Procedure: 68-year-old gentleman with history of bilateral lower extremity claudication which has worsened to rest pain [place] classification 4 presents to the hospital for elective iliofemoral stenting with femoral endarterectomy and patch angioplasty secondary to iliofemoral occlusions noted on recent angiogram. Operative Findings: Bilateral common femoral and external iliac artery calcification and occlusions with dense atherosclerotic calcific disease throughout the iliofemoral system. Description of Procedure: After written and informed consent was obtained the patient all risks benefits competitions were described the patient is brought to the [facility] [employer] and laid in a supine position. The area of the abdomen and groins were prepped and draped in usual sterile fashion after appropriate anesthetic was performed per the anesthesiologist. A timeout was performed in normal fashion and antibiotics were given prior to any incision. Bilateral vertical incisions were then created with a 10 blade scalpel at the groin and dissection was carried down to the common femoral artery with electrocautery. The common femoral, profundus, superficial femoral, circumflex arteries were dissected free in a circumferential manner and controlled with vessel loops. Dissection was carried up under the inguinal ligament bilaterally and the external iliac artery was also dissected free and controlled with a vessel loop. The patient was administered 5000 units of heparin and redosed as needed based off of ACTs. Once proximal distal control was obtained after the ACT was over 200 and arteriotomy was created with 11 blade scalpel of the femoral artery and extended with Pott Johnson scissors. This was extended to the external iliac artery and endarterectomy was performed with eversion technique for the profundus femoris artery. Plaque was removed and sent off for pathology. All free debris was removed. Improved inflow was noted but there is still dense plaque within the external iliac artery system. At this time a patch angioplasty with a bovine pericardial patch was performed with 6-0 Prolene suture in a running fashion. Prior to final sutures the superficial femoral, profundus femoris were assessed for back-bleeding and brisk back-bleeding was noted from the profundus with slow trickle back-bleeding from the superficial femoral artery. All control was released and the patch was then accessed with a multipurpose needle and a 12- German sheath was placed. Retrograde and gram was obtained demonstrating oc clusion of the external iliac artery just above the patch with severe stenosis in the external and common iliac arteries greater than 80-90%. 035 Glidewire was then placed through these lesions into the aorta. Aortogram with bilateral iliac angiogram was then obtained through the angled glide catheter/RBI. Occlusion was noted at the external iliac artery just distal to the left internal iliac artery takeoff. Utilizing an 035 Glidewire advantage a 5-German destination sheath was placed through the 12-German sheath an up and over fashion. Attention was then placed to the left common femoral artery and control was obtained both proximally and distally and utilizing 11 blade scalpel and arteriotomy was created and extended with Pott Johnson scissors. Endarterectomy was then performed of the external iliac, femoral, eversion technique for the profundus down to the superficial femoral artery. When plaque was removed the posterior wall did separate and needed repair with 6-0 Prolene suture. Once repaired all free debris was removed. Utilizing a 035 Glidewire from the right femoral sheath the external iliac artery occlusion was crossed and the wire was passed through and into the common femoral artery opening and a body floss manner. Once across the lesion patch angioplasty of the left iliofemoral area was performed with 6-0 Prolene suture in a running fashion. Utilizing the Up & Over wire and an 8-German sheath was placed through the left femoral patch. Retrograde angiogram was obtained demonstrating occlusion of the external iliac artery. Transluminal balloon angioplasty was then performed throughout the entire common iliac and external iliac systems bilaterally with a 5 mm balloon. Measurements were obtained and it was determined to place covered stent across the lesions due to the dense calcification. A 10 mm stent was then placed in bilateral common iliac arteries just distal to the bifurcation. This was followed by a 8 x 79 mm VBX stent in the right common, extending into the external iliac artery. Balloon angioplasty with a 10 mm balloon was then performed and the stent was dilated out to 10 mm. Another VBX stent was then utilized and extended into the external iliac artery. Good pulsatile brisk flow was then noted after stent placement. Attention was then placed to the left external iliac artery and once again a 6 x 79 mm VBX stent was placed just distal to the takeoff of the external iliac artery. Postdilatation was performed followed by another 7 x 39 mm VBX stent across the inguinal ligaments into the external iliac, femoral junction. Postdilatation was performed and final angiogram was performed revealing good brisk flow through the aorta and bilateral iliac femoral systems. Good pulsatile flow was noted in the common femoral arteries bilaterally and the sheaths were then removed and 6-0 Prolene suture was utilized to close the patch out any sites. The area was then copiously irrigated with antibiotic solution. Hemostasis was assured with Gelfoam and thrombin. Once hemostatic and good pulsatile flow was noted into the profundus femoris arteries bilaterally the incisions were then closed in a multilayer fashion. The skin was then cleansed and dressed with Prevena incisional VAC. The patient tolerated the procedure well and had palpable femoral pulses bilaterally with Doppler signal at the DP and PT. He was then sent to PACU for recovery.
[2019-11-06] MEDS: CARVEDILOL 6.25 MG TAB PO SCH (17:38)
[2019-11-06] MEDS: SYMBICORT 80-4.5 MCG INHALER INHALATION SCH (20:10)
[2019-11-06] MEDS ORDERED: METOPROLOL TARTRATE 25 MG TAB PO SCH (21:00)
[2019-11-06] MEDS: PRAVASTATIN SODIUM 20 MG TAB PO SCH (22:40)
[2019-11-07 06:29] LABS: African American GFR (CKD) >90 (>60 ml/min/1.73 sqM); Non-African American GFR(CKD) >90 (>60 ml/min/1.73 sqM)
[2019-11-07 07:45] LABS: HCT 43.1 % (39.0-53.0); HGB 14.1 gm/dL (13.0-17.5); MCH 32.4 pg (25.0-35.0); MCHC 32.6 g/dL (31.0-37.0); MCV 99.4 fL (80.0-100.0); Macrocytosis Slight; Mean Platelet Volume 7.8; Platelet Count 207 k/uL (150-450); RBC 4.34 m/uL (4.30-5.90); RDW 14.5 % (11.5-15.5); WBC 10.8 k/uL (3.8-10.6)
[2019-11-07 08:04] LABS: African American GFR (CKD) >90 (>60 ml/min/1.73 sqM); Anion Gap 6 mmol/L; Blood Urea Nitrogen 6 mg/dL (9-20); Calcium 8.3 mg/dL (8.4-10.2); Carbon Dioxide 24 mmol/L (22-30); Chloride 105 mmol/L (98-107); Glucose 105 mg/dL (74-99); Non-African American GFR(CKD) >90 (>60 ml/min/1.73 sqM); Potassium 4.4 mmol/L (3.5-5.1); Sodium 135 mmol/L (137-145)
[2019-11-07] MEDS: SYMBICORT 80-4.5 MCG INHALER INHALATION SCH ×2 (08:25→19:27)
[2019-11-07] MEDS: PANTOPRAZOLE 40 MG TABLET PO SCH (08:33)
[2019-11-07] MEDS: amLODIPine 5 MG TAB PO SCH (08:33)
[2019-11-07] MEDS: ISOSORBIDE MONONITRATE 20 MG TAB PO SCH (08:33)
[2019-11-07] MEDS: ASPIRIN 81 MG PO SCH (08:33)
[2019-11-07] MEDS: CARVEDILOL 6.25 MG TAB PO SCH (08:33)
[2019-11-07] MEDS: SODIUM CHLORIDE 0.9% 1,000 ML IV SCH ×2 (08:35→19:50)
[2019-11-07] MEDS ORDERED: LISINOPRIL 20 MG TAB PO SCH (09:00)
[2019-11-07] MEDS ORDERED: IPRATROPIUM-ALBUTEROL 3 ML NEB INHALATION PRN (11:14)
--- NOTE | 2019-11-07 11:15 | P.PN ---
Subjective Progress Note Date: 11/07/19 Patient is postop day #1 status post bilateral iliofemoral thromboendarterectomy/stent placement. Indicates that his legs feel well. He has taken some liquids today without issue. He indicates his pain is relatively well controlled. His Robles catheter was just recently discontinued and he has yet to void. He has not ambulated although he is now sitting in a chair. Evaluation revealed the patient be on 2 L of nasal cannula with 100% of pulse oxygenation. His blood pressure and heart rate are stable. Surgical wounds were covered by [employer]. dressings. There is no significant drainage noted Assessment: Patient appears surgically stable at this point time however he has yet to avoid and has not really ambulated. The Robles catheters been discontinued and I will await his spontaneous void. We will also contact physical therapy to begin ambulation. It is felt the patient would be able to be dismissed within the next 24 hours. Objective - Vital Signs Vital signs: Vital Signs Temp 97.8 F 11/07/19 09:00 Pulse 88 11/07/19 10:00 Resp 16 11/07/19 08:00 BP 69/54 11/07/19 10:00 Pulse Ox 97 11/07/19 10:00 Intake & Output 11/06/19 11/07/19 11/07/19 18:59 06:59 18:59 Intake Total 841 960 240 Output Total 770 1310 155 Balance 71 -350 85 Weight 76.7 kg 77.4 kg Intake: IV 841 960 240 Sodium Chloride 0.9% 1, 240 960 240 000 ml @ 80 mls/hr IV . [id number] [facility] Rx#:[id number] Output: Urine 170 1310 155 Estimated Blood Loss 600 Other: Voiding Method Indwelling Catheter Indwelling Catheter Indwelling Catheter - Labs CBC & Chem 7: 11/07/19 05:22 11/07/19 05:22 Labs: Abnormal Lab Results - Last 24 Hours (Table) 11/06/19 11/06/19 11/07/19 Range/Units 14:44 14:44 05:22 WBC 10.8 H (3.8-10.6) k/uL Neutrophils # 8.0 H (1.3-7.7) k/uL Sodium 134 L (137-145) mmol/L BUN 8 L (9-20) mg/dL Glucose 107 H (74-99) mg/dL Calcium 8.2 L (8.4-10.2) mg/dL 11/07/19 Range/Units 05:22 WBC (3.8-10.6) k/uL Neutrophils # (1.3-7.7) k/uL Sodium 135 L (137-145) mmol/L BUN 6 L (9-20) mg/dL Glucose 105 H (74-99) mg/dL Calcium 8.3 L (8.4-10.2) mg/dL
[2019-11-07] MEDS: HYDROcodone/APAP 5-325MG 1 EACH TAB PO PRN (11:34)
--- NOTE | 2019-11-07 11:41 | CONS ---
CONSULTATION DATE OF CONSULTATION: 11/07/2019 REASON FOR CONSULTATION: Pulmonary/critical care. HISTORY OF PRESENT ILLNESS: This is a 68-year-old gentleman who apparently was brought in for an elective procedure. He apparently had some significant blockages in his lower extremity arteries and had significant claudication. The patient underwent a bilateral common femoral, external iliac artery endarterectomy with patch angioplasty, bilateral common iliac artery transluminal balloon angioplasty, bilateral common iliac artery stenting, bilateral external iliac artery transluminal balloon angioplasty, bilateral external iliac artery covered stent placement, aortoiliac angiogram with catheter placement in the aorta, bilateral selective iliofemoral angiogram and bilateral Prevena incisional VAC placement. The surgery was done with general anesthesia by Dr. Tucker. The patient came back to the ICU. He was having some issues with hypertension postoperatively and received some labetalol in the postoperative area. MMJOCELYN / SHEILAN: [id number] /
--- NOTE | 2019-11-07 13:20 | CONS ---
CONSULTATION ADDENDUM: Currently, the patient is resting comfortably. He is postop day #1. The surgery was done by Dr. Tucker. He is on 2 L nasal cannula. He is getting saline at 80 mL an hour. He did have some issues with high blood pressure in the recovery area and received some labetalol. Currently, the patient is stable and eating breakfast. He does admit to drinking alcohol and smoking on a daily basis. His primary care physician is Dr. Douglas. MEDICAL HISTORY: Reviewed. He has a history of COPD, GERD, hypertension, and peripheral artery disease. He apparently does have claudication. 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 He suffers from frequent diarrhea, frequent urination and apparently has a tiny aneurysm in his brain. SURGICAL HISTORY: Includes appendectomy, bowel resection, and some orthopedic procedures. He has also had some finger surgery. SOCIAL HISTORY: Positive for ongoing tobacco use and alcohol use. FAMILY HISTORY: Positive for a mother who is healthy and a father with history of CVA and myocardial infarction and a brother with a history of CAD and previous bypass grafting. MEDICATIONS: Home medications reviewed. Takes Prilosec, Symbicort, Lopressor, Nitrostat, albuterol, Imdur, lisinopril, Pravachol and amlodipine. ALLERGIES: Denied. REVIEW OF SYSTEMS: CONSTITUTIONAL negative. NEUROLOGIC negative. HEENT negative. CARDIOVASCULAR negative. PULMONARY negative. GI/ negative. RHEUMATOLOGIC negative. IMMUNOLOGIC negative. ENDOCRINOLOGIC negative. DERMATOLOGIC negative. He does suffer from significant claudication. PHYSICAL EXAMINATION: VITAL SIGNS: Current vital signs are reviewed. Temperature is 97.8. Heart rate 88, respiratory rate 14, blood pressure 136/83 mean 100. Saturations on 2 L are 97%. Appears in no acute distress. HEENT: Examination is grossly unremarkable. Nasal O2 in place. NECK: Supple. Full range of motion. No adenopathy. Neck veins are flat. CARDIOVASCULAR: Examination reveals regular rhythm and rate. Heart rate about 80 beats per minute. S1, S2 normal. Heart sounds are distant. No murmur. LUNGS: Reveal relatively clear breath sounds. A few scattered rhonchi. No wheezes or crackles. ABDOMEN: Soft. EXTREMITIES are intact. No cyanosis, clubbing or edema. SKIN: Without rash. NEUROLOGIC: Examination is brief but nonfocal. LABS: Reviewed. White count 7.8, hemoglobin 14.1, hematocrit 43.1, platelet count 307,000. Sodium 135, potassium 4.4, chloride 105, CO2 24, anion gap is 6. BUN and creatinine were 6 and 0.82, calcium 8.3. No additional x-rays to report. ASSESSMENT: 1. Postoperative day #1 status post femoral endarterectomy with stent placement for severe peripheral artery disease/peripheral vascular occlusive disease. 2. Postoperative hypertension, treated with labetalol, improved. 3. History of chronic obstructive pulmonary disease from chronic and ongoing tobacco use. 4. Gastroesophageal reflux disease. 5. Hypertension by history. 6. Tinnitus. 7. History of bowel/appendiceal tumor, status post resection. 8. History of frequent diarrhea as well as frequent urination. 9. History of tiny brain aneurysm. 10.Daily alcohol and tobacco abuse. PLAN: Currently, the patient seems to be doing relatively well. He has no particular complaints currently. His medications are reviewed. He is currently on Symbicort. I will add some DuoNeb. The rest of his medications appear to be normal. No additional recommendations are made. We will continue to follow. MMODL / IJN: [id number] /
[2019-11-07] MEDS: IPRATROPIUM-ALBUTEROL 3 ML NEB INHALATION SCH ×2 (13:49→19:26)
--- NOTE | 2019-11-07 14:01 | P.PN ---
Subjective Patient was a 68-year-old gentleman was admitted for left extremity claudication patient underwent iliac stent followed by bilateral femoral artery endarterectomy. Patient is feeling better does have poor pulses in both lower extremities . Patient denied any fever chills patient denied dysuria patient has a Robles catheter in place which probably will be removed tomorrow Patient blood pressure is bit elevated patient does admit to drinking alcohol and daily basis just continues to smoke. 11/07/2019 Patient's hyponatremia improved with patient the blood pressure dropped after he received all the antidepressant medications because of this I'm cutting down lisinopril dose for tomorrow morning to 10 mg and also changing coronary back to metoprolol. His blood pressure dropped to as low as 70 systolic at the time patient was dizzy. Constitutional: Denied any fatigue denied any fever. Cardio vascular: denied any chest pain, palpitations Gastrointestinal denied any nausea vomiting Pulmonary: Denied any shortness of breath cough Neurologic denied any new focal deficits All inpatient medications were reviewed and appropriate changes in these medications as dictated in the interval history and assessment and plan. Objective - Vital Signs Vital signs: Vital Signs Temp 97.8 F 11/07/19 09:00 Pulse 64 11/07/19 13:50 Resp 16 11/07/19 13:30 BP 92/71 11/07/19 13:00 Pulse Ox 99 11/07/19 13:30 Intake & Output 11/06/19 11/07/19 11/07/19 18:59 06:59 18:59 Intake Total 841 960 560 Output Total 770 1310 155 Balance 71 -350 405 Weight 76.7 kg 77.4 kg Intake: IV 841 960 560 Sodium Chloride 0.9% 1, 240 960 560 000 ml @ 80 mls/hr IV . [id number] [facility] Rx#:[id number] Output: Urine 170 1310 155 Estimated Blood Loss 600 Other: Voiding Method Indwelling Catheter Indwelling Catheter Indwelling Catheter # Voids 0 - Exam PHYSICAL EXAMINATION: GENERAL: The patient is alert and oriented x3, not in any acute distress. Well developed, well nourished. HEENT: Pupils are round and equally reacting to light. EOMI. No scleral icterus. No conjunctival pallor. Normocephalic, atraumatic. No pharyngeal erythema. No thyromegaly. CARDIOVASCULAR: S1 and S2 present. No murmurs, rubs, or gallops. PULMONARY: Chest is clear to auscultation, no wheezing or crackles. ABDOMEN: Soft, nontender, nondistended, normoactive bowel sounds. No palpable organomegaly. MUSCULOSKELETAL: No joint swelling or deformity. EXTREMITIES: No cyanosis, clubbing, or pedal edema. NEUROLOGICAL: Gross neurological examination did not reveal any focal deficits. SKIN: No rashes. - Labs CBC & Chem 7: 11/07/19 05:22 11/07/19 05:22 Labs: Abnormal Lab Results - Last 24 Hours (Table) 11/06/19 11/06/19 11/07/19 Range/Units 14:44 14:44 05:22 WBC 10.8 H (3.8-10.6) k/uL Neutrophils # 8.0 H (1.3-7.7) k/uL Sodium 134 L (137-145) mmol/L BUN 8 L (9-20) mg/dL Glucose 107 H (74-99) mg/dL Calcium 8.2 L (8.4-10.2) mg/dL 11/07/19 Range/Units 05:22 WBC (3.8-10.6) k/uL Neutrophils # (1.3-7.7) k/uL Sodium 135 L (137-145) mmol/L BUN 6 L (9-20) mg/dL Glucose 105 H (74-99) mg/dL Calcium 8.3 L (8.4-10.2) mg/dL Assessment and Plan Plan: -Hypertension: Ended an episode of hypotension because of which I'm cutting down the dose of lisinopril and Toprol is being changed to oral will repeat the basic metabolic profile tomorrow to make sure patient the doesn't have any renal failure because of these episode of hypotension. -Hyperlipidemia -COPD without any acute exacerbation -Cerebrovascular disease patient underwent above-mentioned procedures postoperative day 1 -Alcohol abuse: Counseling was provided patient will be watched for alcohol withdrawals if he has any will be treated accordingly with Ativan -Gastroesophageal reflux disease -Depression
[2019-11-07] MEDS: METOPROLOL TARTRATE 25 MG TAB PO SCH (19:51)
[2019-11-07] MEDS: PRAVASTATIN SODIUM 20 MG TAB PO SCH (20:48)
[2019-11-08] MEDS: SODIUM CHLORIDE 0.9% 1,000 ML IV SCH ×2 (04:41→16:44)
[2019-11-08 05:05] LABS: Calcium 8.4 mg/dL (8.4-10.2); Potassium 3.8 mmol/L (3.5-5.1)
[2019-11-08] MEDS: IPRATROPIUM-ALBUTEROL 3 ML NEB INHALATION SCH ×3 (07:45→20:10)
[2019-11-08] MEDS: SYMBICORT 80-4.5 MCG INHALER INHALATION SCH ×2 (07:58→20:10)
[2019-11-08] MEDS: METOPROLOL TARTRATE 25 MG TAB PO SCH (08:36)
[2019-11-08] MEDS: ISOSORBIDE MONONITRATE 20 MG TAB PO SCH (08:36)
[2019-11-08] MEDS: ASPIRIN 81 MG PO SCH (08:36)
[2019-11-08] MEDS: amLODIPine 5 MG TAB PO SCH (08:36)
[2019-11-08] MEDS: PANTOPRAZOLE 40 MG TABLET PO SCH (08:36)
[2019-11-08] MEDS ORDERED: LISINOPRIL 10 MG TAB PO SCH (09:00)
--- NOTE | 2019-11-08 10:08 | P.PN ---
Subjective Progress Note Date: 11/08/19 Patient is asked status post bilateral lower extremity revascularization, postop day #2. He is seen sitting in a chair. He did have some physical therapy however nursing reports it takes 2-3 people to stand him. He denies any abdominal pain. He indicates that his surgical site pain is well controlled. Vital signs are stable and patient is afebrile. Legs are free of edema. Toes are freely movable and nontender. Assessment: #1: Status post bilateral lower extremity revascularization, surgically stable presently. #2: General debilitation, will most likely need TIFFANY placement. Objective - Vital Signs Vital signs: Vital Signs Temp 98.1 F 11/08/19 08:00 Pulse 74 11/08/19 08:00 Resp 23 11/08/19 08:00 BP 127/68 11/08/19 08:00 Pulse Ox 99 11/08/19 08:00 Intake & Output 11/07/19 11/08/19 11/08/19 18:59 06:59 18:59 Intake Total 1160 960 200 Output Total 155 200 60 Balance 1005 760 140 Weight 82.7 kg Intake: IV 960 960 80 Sodium Chloride 0.9% 1, 960 960 80 000 ml @ 80 mls/hr IV . [id number] Rx#:[id number] Oral 200 120 Output: Urine 155 200 60 Other: Voiding Method Indwelling Catheter Indwelling Catheter # Voids 0 0 - Labs CBC & Chem 7: 11/07/19 05:22 11/08/19 04:07 Labs: Abnormal Lab Results - Last 24 Hours (Table) 11/08/19 Range/Units 04:07 Sodium 133 L (137-145) mmol/L Creatinine 1.43 H (0.66-1.25) mg/dL Glucose 112 H (74-99) mg/dL
[2019-11-08] MEDS: HYDROcodone/APAP 5-325MG 1 EACH TAB PO PRN (11:12)
--- NOTE | 2019-11-08 11:56 | PN ---
PROGRESS NOTE DATE OF SERVICE: November 08, 2019 This is a patient who is postop day #1 status post femoral endarterectomy with stent placement, severe peripheral artery disease/peripheral vascular occlusive disease. He did have some postoperative hypertension treated with labetalol. He also suffers from chronic obstructive pulmonary disease from ongoing tobacco use. Currently, he is doing relatively well. He is on 2 L nasal cannula. He is getting saline at 80 mL an hour. He is well enough to go to general medical floor in my opinion. He denies any chest pain or chest discomfort. There is no shortness of breath, cough, wheezing, phlegm production. Denies any pain in his lower extremities. PHYSICAL EXAMINATION: VITAL SIGNS: Current vital signs are reviewed. Temperature 98.1. Heart rate 62, respiratory rate 20. Blood pressure 116/64, mean 81, 2 L saturations 100%. He appears in no acute distress. HEENT: Examination is grossly unremarkable. NECK: Supple. Full range of motion. No adenopathy. Neck veins are flat. CARDIOVASCULAR: Examination reveals distant heart sounds. Heart rate mid 60s. S1, S2 normal. There is no S3, S4, or murmur. LUNGS: Reveal mostly clear breath sounds. A few scattered rhonchi. Breath sounds are definitely decreased throughout. No crackles. ABDOMEN: Soft. Bowel sounds are heard. EXTREMITIES are intact. No cyanosis, clubbing, or significant edema. LABS: Reviewed. Sodium 133, potassium 3.8, chloride 102, CO2 23. Anion gap 8. BUN and creatinine were 12 and 1.43. Microbiology is negative. No recent x-ray to report. Medications reviewed. ASSESSMENT: 1. Postoperative day #2 status post femoral endarterectomy with stent placement, and severe CAD/PVOD. 2. Postoperative hypertension, treated with labetalol, improved. 3. History of chronic obstructive pulmonary disease from chronic and ongoing tobacco use. 4. Gastroesophageal reflux disease. 5. Hypertension by history. 6. Tinnitus. 7. History of bowel/appendiceal tumor, status post resection. 8. History of frequent diarrhea as well as frequent urination. 9. History of tiny brain aneurysm. 10.Daily alcohol and tobacco abuse. PLAN: All-in-all, the patient is doing well. He is on 2 L. He is getting saline at 80 mL an hour. He has yet to be seen by the vascular surgeon. He is postop day #2. He could be transferred to the general medical floor. GERRI / SANTI: [id number] / TARA
--- NOTE | 2019-11-08 13:13 | P.PN ---
Subjective Patient was a 68-year-old gentleman was admitted for left extremity claudication patient underwent iliac stent followed by bilateral femoral artery endarterectomy. Patient is feeling better does have poor pulses in both lower extremities . Patient denied any fever chills patient denied dysuria patient has a Robles catheter in place which probably will be removed tomorrow Patient blood pressure is bit elevated patient does admit to drinking alcohol and daily basis just continues to smoke. 11/07/2019 Patient's hyponatremia improved with patient the blood pressure dropped after he received all the antidepressant medications because of this I'm cutting down lisinopril dose for tomorrow morning to 10 mg and also changing coronary back to metoprolol. His blood pressure dropped to as low as 70 systolic at the time patient was dizzy. 11/08/2019 Patient was hypotensive yesterday leading to renal failure today. STALIN inhibitor as well as amlodipine patient's blood pressure was still low today depending on her blood pressure tomorrow and discharge on his discharge med and it was medications. Patient is fairly feeling well. Patient the creatinine is 1.43 as opposed to 0.8 yesterday patient is still hyponatremic. Patient will continue on IV fluids and physical therapy will be consulted patient is quite weak may require subacute rehabilitation. Patient will be transferred out of ICU Constitutional: Denied any fatigue denied any fever. Cardio vascular: denied any chest pain, palpitations Gastrointestinal denied any nausea vomiting Pulmonary: Denied any shortness of breath cough Neurologic denied any new focal deficits All inpatient medications were reviewed and appropriate changes in these medications as dictated in the interval history and assessment and plan. Objective - Vital Signs Vital signs: Vital Signs Temp 98.4 F 11/08/19 09:00 Pulse 62 11/08/19 11:00 Resp 26 H 11/08/19 11:00 BP 88/67 11/08/19 11:00 Pulse Ox 100 11/08/19 11:00 Intake & Output 11/07/19 11/08/19 11/08/19 18:59 06:59 18:59 Intake Total 1160 960 530 Output Total 155 200 160 Balance 1005 760 370 Weight 82.7 kg Intake: IV 960 960 320 Sodium Chloride 0.9% 1, 960 960 320 000 ml @ 80 mls/hr IV . [id number] [facility] Rx#:[id number] Oral 200 210 Output: Urine 155 200 160 Other: Voiding Method Indwelling Catheter Indwelling Catheter Indwelling Catheter # Voids 0 0 1 - Exam PHYSICAL EXAMINATION: GENERAL: The patient is alert and oriented x3, not in any acute distress. Well developed, well nourished. HEENT: Pupils are round and equally reacting to light. EOMI. No scleral icterus. No conjunctival pallor. Normocephalic, atraumatic. No pharyngeal erythema. No thyromegaly. CARDIOVASCULAR: S1 and S2 present. No murmurs, rubs, or gallops. PULMONARY: Chest is clear to auscultation, no wheezing or crackles. ABDOMEN: Soft, nontender, nondistended, normoactive bowel sounds. No palpable organomegaly. MUSCULOSKELETAL: No joint swelling or deformity. EXTREMITIES: No cyanosis, clubbing, or pedal edema. NEUROLOGICAL: Gross neurological examination did not reveal any focal deficits. SKIN: No rashes. - Labs CBC & Chem 7: 11/07/19 05:22 11/08/19 04:07 Labs: Abnormal Lab Results - Last 24 Hours (Table) 11/08/19 Range/Units 04:07 Sodium 133 L (137-145) mmol/L Creatinine 1.43 H (0.66-1.25) mg/dL Glucose 112 H (74-99) mg/dL Assessment and Plan Plan: -Hypertension: Patient still remained hypotensive today because of the renal failure on hold off on STALIN inhibitor also hold off amlodipine because of hypo-continued hypotension depending on his blood pressure tomorrow we will decide on the discharge antihypertensive medication regimen -Acute renal failure secondary to hypotension continue with IV fluids recheck the kidney function tomorrow -Hyperlipidemia -COPD without any acute exacerbation -Cerebrovascular disease patient underwent above-mentioned procedures postoperative day 2 -Alcohol abuse: Patient is not having any withdrawals -Gastroesophageal reflux disease -Depression -Hyponatremia probably hypotonic hyponatremia continue with IV fluids recheck the sodium tomorrow -Generalized deconditioning PT and OT evaluation
[2019-11-09] MEDS: PRAVASTATIN SODIUM 20 MG TAB PO SCH ×2 (00:02→20:52)
[2019-11-09] MEDS: METOPROLOL TARTRATE 25 MG TAB PO SCH ×3 (00:02→20:52)
--- NOTE | 2019-11-09 06:58 | XR ---
EXAMINATION TYPE: XR chest 1V portable DATE OF EXAM: 11/09/2019 HISTORY: Shortness of breath. COMPARISON: 07/15/2018 TECHNIQUE: Single view of the chest is submitted. FINDINGS: Demonstrated are scattered senescent parenchymal change. Basilar atelectasis and/or infiltrates persist. The heart is stable. Hilar and mediastinal structures are within normal limits. Degenerative changes are seen of the dorsal spine. IMPRESSION: 1. Basilar atelectasis and/or infiltrates persist.
--- NOTE | 2019-11-09 07:00 | XR ---
EXAMINATION TYPE: XR abdomen 1V DATE OF EXAM: 11/09/2019 COMPARISON: NONE HISTORY: Pain TECHNIQUE: Single supine KUB image of the abdomen is obtained FINDINGS: Dilated small and large bowel noted. Distal obstruction difficult to exclude. No convincing evidence for pneumoperitoneum. No unusual calcifications. The lung bases are clear. The osseous structures are intact. Biiliac stents are in place. IMPRESSION: 1. Dilated small and large bowel noted. Distal obstruction difficult to exclude.
[2019-11-09] MEDS: IPRATROPIUM-ALBUTEROL 3 ML NEB INHALATION SCH ×3 (07:51→18:52)
[2019-11-09] MEDS: SYMBICORT 80-4.5 MCG INHALER INHALATION SCH ×2 (08:04→18:52)
[2019-11-09] MEDS: SODIUM CHLORIDE 0.9% 1,000 ML IV SCH ×3 (08:26→23:19)
[2019-11-09 08:55] LABS: Basophils % (A) 0 %; Eosinophils # (A) 0.1 k/uL (0-0.7); Eosinophils % (A) 1 %; HCT 40.7 % (39.0-53.0); HGB 13.1 gm/dL (13.0-17.5); Lymphocytes # (A) 1.1 k/uL (1.0-4.8); Lymphocytes % (A) 14 %; MCH 31.8 pg (25.0-35.0); MCHC 32.3 g/dL (31.0-37.0); MCV 98.5 fL (80.0-100.0); Mean Platelet Volume 7.5; Monocytes # (A) 0.5 k/uL (0-1.0); Monocytes % (A) 6 %; Neutrophils # (A) 5.8 k/uL (1.3-7.7); Neutrophils % (A) 75 %; Platelet Count 265 k/uL (150-450); RBC 4.13 m/uL (4.30-5.90); RDW 14.4 % (11.5-15.5); WBC 7.7 k/uL (3.8-10.6)
[2019-11-09] MEDS ORDERED: DOCUSATE 100 MG CAP PO PRN (09:00)
[2019-11-09 09:11] LABS: ALT 13 U/L (4-49); AST 27 U/L (17-59); African American GFR (CKD) >90 (>60 ml/min/1.73 sqM); Albumin 3.2 g/dL (3.5-5.0); Alkaline Phosphatase 67 U/L (38-126); Anion Gap 6 mmol/L; Blood Urea Nitrogen 14 mg/dL (9-20); Calcium 8.6 mg/dL (8.4-10.2); Carbon Dioxide 25 mmol/L (22-30); Chloride 104 mmol/L (98-107); Glucose 132 mg/dL (74-99); Non-African American GFR(CKD) >90 (>60 ml/min/1.73 sqM); Potassium 4.2 mmol/L (3.5-5.1); Sodium 135 mmol/L (137-145); Total Bilirubin 1.1 mg/dL (0.2-1.3); Total Protein 5.9 g/dL (6.3-8.2)
[2019-11-09] MEDS: PANTOPRAZOLE 40 MG TABLET PO SCH (10:17)
[2019-11-09] MEDS: ASPIRIN 81 MG PO SCH (10:17)
[2019-11-09] MEDS: ISOSORBIDE MONONITRATE 20 MG TAB PO SCH (10:17)
[2019-11-09] MEDS: BISACODYL 10 MG SUPP RECTAL SCH (10:18)
--- NOTE | 2019-11-09 12:25 | P.PN ---
Subjective Progress Note Date: 11/09/19 Patient was seen and evaluated lying in bed in the ICU. Patient is postop day #3 status post bilateral iliofemoral thromboendarterectomy/stent placement. Patient was being considered for discharge to subacute rehab, however through the night has developed an ileus. ICU is back on medical management. They are ordering patient to have a Robles catheter placed. Physical therapy has been working with the patient at the bedside. He is able to move bilateral lower extremities. Sensorimotor and intact bilaterally. His Provina dressing from left groin came off. He is without any active bleeding. Abdominal x-ray shows dilated small and large bowel, distal traction difficult to exclude. No convin cing evidence for pneumoperitoneum. Objective - Vital Signs Vital signs: Vital Signs Temp 97.7 F 11/09/19 08:00 Pulse 89 11/09/19 11:00 Resp 22 11/09/19 11:00 BP 128/86 11/09/19 11:00 Pulse Ox 98 11/09/19 11:00 Intake & Output 11/08/19 11/09/19 11/09/19 18:59 06:59 18:59 Intake Total 1320 425 Output Total 280 400 650 Balance 1040 -400 -225 Intake: IV 800 425 Sodium Chloride 0.9% 1, 800 425 000 ml @ 125 mls/hr IV . Q8H [facility] Rx#:[id number] Oral 520 Output: Urine 280 400 650 Other: Voiding Method Indwelling Catheter Indwelling Catheter Urinal # Voids 1 1 # Bowel Movements 2 - Exam General appearance: The patient is alert, oriented, in no acute distress. HET: Head is normocephalic and atraumatic. Pupils are equal and reactive. Oropharynx is clear without lesions. Neck: Supple without lymphadenopathy. Trachea midline. Heart: S1 S2. Regular rate and rhythm. Lungs: No crackles or wheezes are heard. Abdomen: Soft, nontender, nondistended with bowel sounds. Extremities: Normal skin color and turgor. No cyanosis, rash, ulceration, clubbing, or edema. Able to move bilateral lower extremities and toes, patient has intact sensory motor bilaterally. Right PT and DP Doppler signals. Left monophasic PT Doppler signal, intermittent DP signal. Neurological: No focal deficits. Strength and sensation are grossly intact. - Labs CBC & Chem 7: 11/09/19 08:27 11/09/19 08:27 Labs: Abnormal Lab Results - Last 24 Hours (Table) 11/09/19 11/09/19 Range/Units 08:27 08:27 RBC 4.13 L (4.30-5.90) m/uL Sodium 135 L (137-145) mmol/L Glucose 132 H (74-99) mg/dL Total Protein 5.9 L (6.3-8.2) g/dL Albumin 3.2 L (3.5-5.0) g/dL Assessment and Plan Assessment: #1: Status post bilateral lower extremity revascularization, surgically stable p resently. #2: General debilitation, will most likely need TIFFANY placement. #3 Ileus Plan: Physical therapy to continue to work with patient. Left provina removed and 4 x 4 applied. Maintain right provina dressing. Incentive spirometer to bedside. These management to work on subacute rehab placement. We will await further recommendations per ICU management for ileus. Further recommendations to follow. The above dictated assessment and findings were discussed with Dr. Robles. The impression and plan of care have been directed as dictated.
--- NOTE | 2019-11-09 12:35 | P.PN ---
Subjective Patient was a 68-year-old gentleman was admitted for left extremity claudication patient underwent iliac stent followed by bilateral femoral artery endarterectomy. Patient is feeling better does have poor pulses in both lower extremities . Patient denied any fever chills patient denied dysuria patient has a Robles catheter in place which probably will be removed tomorrow Patient blood pressure is bit elevated patient does admit to drinking alcohol and daily basis just continues to smoke. 11/07/2019 Patient's hyponatremia improved with patient the blood pressure dropped after he received all the antidepressant medications because of this I'm cutting down lisinopril dose for tomorrow morning to 10 mg and also changing coronary back to metoprolol. His blood pressure dropped to as low as 70 systolic at the time patient was dizzy. 11/08/2019 Patient was hypotensive yesterday leading to renal failure today. STALIN inhibitor as well as amlodipine patient's blood pressure was still low today depending on her blood pressure tomorrow and discharge on his discharge med and it was medications. Patient is fairly feeling well. Patient the creatinine is 1.43 as opposed to 0.8 yesterday patient is still hyponatremic. Patient will continue on IV fluids and physical therapy will be consulted patient is quite weak may require subacute rehabilitation. Patient will be transferred out of ICU 11/09/2019 Patient's hyponatremia and renal failure improved but the patient is found to have ileus patient started having nausea vomiting found to have ileus on the abdominal x-ray patient has sluggish bowel sounds. Constitutional: Denied any fatigue denied any fever. Cardio vascular: denied any chest pain, palpitations Gastrointestinal denied any nausea vomiting Pulmonary: Denied any shortness of breath cough Neurologic denied any new focal deficits All inpatient medications were reviewed and appropriate changes in these medications as dictated in the interval history and assessment and plan. Objective - Vital Signs Vital signs: Vital Signs Temp 97.7 F 11/09/19 08:00 Pulse 89 11/09/19 11:00 Resp 22 11/09/19 11:00 BP 128/86 11/09/19 11:00 Pulse Ox 98 11/09/19 11:00 Intake & Output 11/08/19 11/09/19 11/09/19 18:59 06:59 18:59 Intake Total 1320 425 Output Total 280 400 650 Balance 1040 -400 -225 Intake: IV 800 425 Sodium Chloride 0.9% 1, 800 425 000 ml @ 125 mls/hr IV . Q8H [facility] Rx#:[id number] Oral 520 Output: Urine 280 400 650 Other: Voiding Method Indwelling Catheter Indwelling Catheter Urinal # Voids 1 1 # Bowel Movements 2 - Exam PHYSICAL EXAMINATION: GENERAL: The patient is alert and oriented x3, not in any acute distress. Well developed, well nourished. HEENT: Pupils are round and equally reacting to light. EOMI. No scleral icterus. No conjunctival pallor. Normocephalic, atraumatic. No pharyngeal erythema. No thyromegaly. CARDIOVASCULAR: S1 and S2 present. No murmurs, rubs, or gallops. PULMONARY: Chest is clear to auscultation, no wheezing or crackles. ABDOMEN: Abdomen is distended sluggish bowel sounds no tenderness MUSCULOSKELETAL: No joint swelling or deformity. EXTREMITIES: No cyanosis, clubbing, or pedal edema. NEUROLOGICAL: Gross neurological examination did not reveal any focal deficits. SKIN: No rashes. - Labs CBC & Chem 7: 11/09/19 08:27 11/09/19 08:27 Labs: Abnormal Lab Results - Last 24 Hours (Table) 11/09/19 11/09/19 Range/Units 08:27 08:27 RBC 4.13 L (4.30-5.90) m/uL Sodium 135 L (137-145) mmol/L Glucose 132 H (74-99) mg/dL Total Protein 5.9 L (6.3-8.2) g/dL Albumin 3.2 L (3.5-5.0) g/dL Assessment and Plan Plan: -Hypertension: Blood pressure is better today expected to go up tomorrow after tomorrow patient will be started on Norvasc. -Ileus: Patient will remain nothing by mouth bowel rest -Acute renal failure secondary to hypotension continue with IV fluids recheck the kidney function tomorrow -Hyperlipidemia -COPD without any acute exacerbation -Cerebrovascular disease patient underwent above-mentioned procedures postoperative day 2 -Alcohol abuse: Patient is not having any withdrawals -Gastroesophageal reflux disease -Depression -Hyponatremia probably hypotonic hyponatremia continue with IV fluids recheck the sodium tomorrow -Generalized deconditioning PT and OT evaluation
--- NOTE | 2019-11-09 12:38 | P.PN ---
Subjective Progress Note Date: 11/09/19 A 68-year-old male patient with extensive peripheral vascular disease and the patient is postop day #3 following bilateral iliofemoral thromboendarterectomy and stent placements. The patient is stent placement in the right iliac and femoral endarterectomies bilaterally. He is resting comfortably in bed. No significant pain lower extremities. Doppler signal were quite weak specially in the left. Nevertheless, the foot itself is not significantly cold and the patient had diminished sensation yet there present. Vascular surgery will be reevaluating the vascular supply to the left lower extremity and left foot. No edema lower extremities. Abdomen today's distended. The patient had 2 bouts of emesis earlier and the patient is currently nothing by mouth status. X-ray of the abdomen was done and showed dilatation of the small or large bowel consistent with ileus. He states that he is passing bowel movement activity and he had liquidy bowel movement earlier today. He is also passing flatness. the chest x-ray shows atelectatic changes in lung bases bilaterally. No evidence of any pneumoperitoneum or air under the diaphragm. No fever. No chills. He has a Robles catheter in place. He is on IV fluids with normal saline at the rate of 80 mL an hour and the fluid was increased up to 125 mL an hour. No respiratory distress. Currently on room air oxygen. No chest pain. No cough or sputum production. No hemoptysis or pleurisy. Objective - Vital Signs Vital signs: Vital Signs Temp 97.7 F 11/09/19 08:00 Pulse 89 11/09/19 11:00 Resp 22 11/09/19 11:00 BP 128/86 11/09/19 11:00 Pulse Ox 98 11/09/19 11:00 Intake & Output 11/08/19 11/09/19 11/09/19 18:59 06:59 18:59 Intake Total 1320 425 Output Total 280 400 650 Balance 1040 -400 -225 Intake: IV 800 425 Sodium Chloride 0.9% 1, 800 425 000 ml @ 125 mls/hr IV . Q8H [facility] Rx#:[id number] Oral 520 Output: Urine 280 400 650 Other: Voiding Method Indwelling Catheter Indwelling Catheter Urinal # Voids 1 1 # Bowel Movements 2 - Exam General appearance: The patient is alert, oriented, in no acute distress. Head exam was generally normal. There was no scleral icterus or corneal arcus. Mucous membranes were moist. Neck was supple and without jugular venous distension, thyromegaly, or carotid bruits. Carotids were easily palpable bilaterally. There was no adenopathy. Cardiac exam revealed the PMI to be normally situated and sized. The rhythm was regular and no extrasystoles were noted during several minutes of auscultation. The first and second heart sounds were normal and physiologic splitting of the second heart sound was noted. There were no murmurs, rubs, clicks, or gallops. Lungs were clear to auscultation and percussion, and with normal diaphragmatic excursion. No wheezes or rales were noted. Abdomen: Soft, nontender, distended and extremely diminished bowel sounds have been noted. No direct tenderness. No rebound tenderness or guarding. Abdomen is slightly distended. No organs cannot be accurately palpated this point in time. This positive tympany. Extremities: Normal skin color and turgor. No cyanosis, rash, ulceration, clubbing, or edema. Able to move bilateral lower extremities and toes, patient has intact sensory motor bilaterally. Right PT and DP Doppler signals. Left monophasic PT Doppler signal, intermittent DP signal. Neurological: No focal deficits. Strength and sensation are grossly intact. - Labs CBC & Chem 7: 11/09/19 08:27 11/09/19 08:27 Labs: Abnormal Lab Results - Last 24 Hours (Table) 11/09/19 11/09/19 Range/Units 08:27 08:27 RBC 4.13 L (4.30-5.90) m/uL Sodium 135 L (137-145) mmol/L Glucose 132 H (74-99) mg/dL Total Protein 5.9 L (6.3-8.2) g/dL Albumin 3.2 L (3.5-5.0) g/dL Assessment and Plan Plan: 1 severe peripheral vascular disease and the patient is undergone bilateral lower extremity femoral thromboendarterectomy and rides iliac stent insertion. The patient is postop day #3. Pulses remained quite diminished specially in the left foot. Surgical wound site in the groin are dry clean and intact at this point in time. Hemoglobin stable. Hemodynamically stable. 2 claudication secondary to above 3 acute abdominal distention, small and large bowel ileus versus partial obstruction. The patient about of emesis this morning. 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 For now the patient is stable. Continue using incentive spirometer Monitor the surgical wounds over the groins bilaterally We'll continue to follow and keep the patient in ICU for now.
[2019-11-09] MEDS: HYDROcodone/APAP 5-325MG 1 EACH TAB PO PRN (23:18)
[2019-11-10 04:27] LABS: Basophils % (A) 0 %; Eosinophils # (A) 0.1 k/uL (0-0.7); Eosinophils % (A) 2 %; HCT 32.2 % (39.0-53.0); HGB 10.2 gm/dL (13.0-17.5); Lymphocytes # (A) 1.3 k/uL (1.0-4.8); Lymphocytes % (A) 20 %; MCH 31.4 pg (25.0-35.0); MCHC 31.8 g/dL (31.0-37.0); MCV 98.7 fL (80.0-100.0); Mean Platelet Volume 7.5; Monocytes # (A) 0.4 k/uL (0-1.0); Monocytes % (A) 6 %; Neutrophils # (A) 4.6 k/uL (1.3-7.7); Neutrophils % (A) 69 %; Platelet Count 231 k/uL (150-450); RBC 3.26 m/uL (4.30-5.90); RDW 14.5 % (11.5-15.5); WBC 6.6 k/uL (3.8-10.6)
[2019-11-10 04:47] LABS: African American GFR (CKD) >90 (>60 ml/min/1.73 sqM); Anion Gap 4 mmol/L; Blood Urea Nitrogen 18 mg/dL (9-20); Calcium 7.8 mg/dL (8.4-10.2); Carbon Dioxide 21 mmol/L (22-30); Chloride 108 mmol/L (98-107); Glucose 95 mg/dL (74-99); Non-African American GFR(CKD) >90 (>60 ml/min/1.73 sqM); Potassium 3.7 mmol/L (3.5-5.1); Sodium 133 mmol/L (137-145)
[2019-11-10] MEDS ORDERED: POTASSIUM CHLORIDE ER 20 MEQ TAB.ER PO STA (05:12)
[2019-11-10] MEDS: PANTOPRAZOLE 40 MG TABLET PO SCH (06:49)
[2019-11-10] MEDS: SODIUM CHLORIDE 0.9% 1,000 ML IV SCH ×2 (07:33→11:19)
[2019-11-10] MEDS: METOPROLOL TARTRATE 25 MG TAB PO SCH (08:33)
[2019-11-10] MEDS: ASPIRIN 81 MG PO SCH (08:33)
[2019-11-10] MEDS: ISOSORBIDE MONONITRATE 20 MG TAB PO SCH (08:50)
[2019-11-10] MEDS: BISACODYL 10 MG SUPP RECTAL SCH (08:50)
--- NOTE | 2019-11-10 09:09 | CDI ---
Documentation Clarification Form Date: 11/10/2019 08:53:17 AM From: Jami Conway CCS, CCDS Admit Date: 11/06/2019 06:01:00 AM Patient Name: Israel Gasca Visit Number: [id number] Discharge Date: ATTENTION: The Clinical Documentation Specialists (CDI) and [facility] Coding Staff appreciate your assistance in clarifying documentation. Please respond to the clarification below the line at the bottom and electronically sign. The CDI & [facility] Coding staff will review the response and follow-up if needed. Please note: Queries are made part of the Legal Health Record. If you have any questions, please contact the author of this message via ITS. Dr. Linda Tolbert: Per the 11/06 Medical Management Progress Note: ""Hypertension: ... episode of hypotension because of which I'm cutting down the dose of Lisinopril and Toprol is being changed to oral, will repeat the basic metabolic profile tomorrow to make sure patient the doesn't have any renal failure because of these episode of hypotension." Per the 11/07 Medical Management Progress Note: "Acute Renal Failure secondary to Hypotension, continue with IV fluids, recheck the kidney function tomorrow." Patients Admitting Diagnosis: Bilateral lower extremity disabling claudication with rest pain. 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 Left external iliac artery occlusion Bilateral common femoral artery occlusions. Bilateral superficial femoral artery NEWS PRODUCER's. Post-Operative Diagnosis: Same Procedure performed: Bilateral common femoral, external iliac artery endarterectomy with patch angioplasty. Bilateral common iliac artery transluminal balloon angioplasty & stent. Bilateral external iliac artery transluminal balloon angioplasty & stent. Aortoiliac angiogram with catheter placement in the aorta. Bilateral selective iliofemoral angiogram. Bilateral Prevena incisional VAC placement. History/Risk Factors: Hypertension, COPD, GERD, Previous bowel resection, Brain aneurysm, Current Smoker, Drinks Alcohol daily. Clinical Indicators: Presented for elective surgery as above. Postoperatively developed hypotension as documented & Acute Renal Failure. Blood Pressure 11/05: 153/89 - 109/73; 11/06: 110/78 - 76/53; 11/07: 103/56 - 88/67; 11/08: 151/90 - 93/71; 11/09: 131/63 Treatment: Medication adjusted per PN above, IV fluid rate 1000 mls @ 75/hr, IV Trandate. In order to accurately reflect this patients severity of illness, please clarify if the Hypotension: is a complication of surgical procedure is an expected outcome of the surgical procedure is related to co-morbid condition(s) of Other please specify: Unable to determine (Last Revision: May 2019) Good condition for vascular surgery MTDD
--- NOTE | 2019-11-10 09:16 | CDI ---
Documentation Clarification Form Date: 11/10/2019 CDS: Jami Conway, CCS, CCDS Admit Date: 11/06/2019 Patient Name: Israel Gasca Discharge Date: ATTENTION: The Clinical Documentation Specialists (CDI) and [facility] Coding Staff appreciate your assistance in clarifying documentation. Please respond to the clarification below the line at the bottom and electronically sign. The CDI & [facility] Coding staff will review the response and follow-up if needed. Please note: Queries are made part of the Legal Health Record. If you have any questions, please contact the author of this message via ITS. Dear Dr. Jarrett Tucker: Per the 11/08 Vascular Surgery Progress Note: "Patient was being considered for discharge to subacute rehab, however through the night has developed an ileus." Patients Admitting Diagnosis: Bilateral lower extremity disabling claudication with rest pain. 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 Left external iliac artery occlusion Bilateral common femoral artery occlusions. Bilateral superficial femoral artery TRACKMOBILE OPERATOR's. Post-Operative Diagnosis: Same Procedure performed: Bilateral common femoral, external iliac artery endarterectomy with patch angioplasty. Bilateral common iliac artery transluminal balloon angioplasty. Bilateral common iliac artery stenting. Bilateral external iliac artery transluminal balloon angioplasty. Bilateral external iliac artery covered stent placement. Aortoiliac angiogram with catheter placement in the aorta. Bilateral selective iliofemoral angiogram. Bilateral Prevena incisional VAC placement. History/Risk Factors: Hypertension, COPD, GERD, Previous bowel resection, Brain aneurysm, Current Smoker, Drinks Alcohol daily. Clinical Indicators: Presented for elective surgery as above. Postoperatively developed an ileus as documented. 11/08 Abdominal XR: Dilated small & large bowel noted. Distal obstruction difficult to exclude. Treatment: IV Cefazolin, IV fluid rate 1000 mls @ 75/hr, NPO, IV Dilaudid, IV Trandate, INH Symbicort. Per the Pulmonary/Critical Care Progress Note on 11/08: may consider an NGT. In order to accurately reflect this patients severity of illness, please clarify if the Ileus: is a complication of surgical procedure is an expected outcome of the surgical procedure is related to co-morbid condition(s) of Other please specify: Unable to determine (Last Revision: May 2019) expected outcome MTDD
[2019-11-10] MEDS: IPRATROPIUM-ALBUTEROL 3 ML NEB INHALATION SCH ×3 (09:48→21:43)
[2019-11-10] MEDS: SYMBICORT 80-4.5 MCG INHALER INHALATION SCH ×2 (09:49→21:43)
--- NOTE | 2019-11-10 12:04 | P.PN ---
Subjective Progress Note Date: 11/10/19 Patient was seen and examined in the ICU. Patient is postop day #4 status post bilateral iliofemoral thromboendarterectomy/stent placement. Patient denies any acute changes through the night. Patient had 2-3 bowel movements yesterday. Robles catheter still intact. Patient had another suppository this morning. Denies any abdominal pain nausea or vomiting. States pain has improved in bilateral lower extremity since surgery. Objective - Vital Signs Vital signs: Vital Signs Temp 97.7 F 11/10/19 08:00 Pulse 54 L 11/10/19 11:00 Resp 21 11/10/19 11:00 BP 136/90 11/10/19 11:00 Pulse Ox 95 11/10/19 11:00 Intake & Output 11/09/19 11/10/19 11/10/19 18:59 06:59 18:59 Intake Total 1522 1700 475 Output Total 970 620 427 Balance 552 1080 48 Weight 82.3 kg Intake: IV 1300 1500 475 Sodium Chloride 0.9% 1, 1300 1500 475 000 ml @ 75 mls/hr IV . [id number] [facility] Rx#:[id number] Oral 222 200 Output: Urine 970 620 427 Other: Voiding Method Indwelling Catheter Indwelling Catheter Indwelling Catheter # Voids 1 # Bowel Movements 2 - Exam General appearance: The patient is alert, oriented, in no acute distress. HET: Head is normocephalic and atraumatic. Pupils are equal and reactive. Oropharynx is clear without lesions. Neck: Supple without lymphadenopathy. Trachea midline. Heart: S1 S2. Regular rate and rhythm. Lungs: No crackles or wheezes are heard. Abdomen: Soft, nontender, nondistended with bowel sounds. Extremities: Normal skin color and turgor. No cyanosis, rash, ulceration, clubbing, or edema. Able to move bilateral lower extremities and toes, patient has intact sensory motor bilaterally. Right PT and DP Doppler signals. Left monophasic PT Doppler signal, intermittent DP signal. Neurological: No focal deficits. Strength and sensation are grossly intact. - Labs CBC & Chem 7: 11/10/19 03:50 11/10/19 03:50 Labs: Abnormal Lab Results - Last 24 Hours (Table) 11/10/19 11/10/19 Range/Units 03:50 03:50 RBC 3.26 L (4.30-5.90) m/uL Hgb 10.2 L (13.0-17.5) gm/dL Hct 32.2 L (39.0-53.0) % Sodium 133 L (137-145) mmol/L Chloride 108 H (98-107) mmol/L Carbon Dioxide 21 L (22-30) mmol/L Calcium 7.8 L (8.4-10.2) mg/dL Assessment and Plan Assessment: #1: Status post bilateral lower extremity revascularization, surgically stable presently. #2: General debilitation, will most likely need TIFFANY placement. #3 Ileus Plan: Ileus has improved. Discontinue Robles catheter. Continue with physical therapy. Case management to work on subacute rehab placement. Patient may be downgraded to [facility] unit. The above dictated assessment and findings were discussed with Dr. Robles. The impression and plan of care have been directed as dictated.
--- NOTE | 2019-11-10 12:40 | P.PN ---
Subjective Patient was a 68-year-old gentleman was admitted for left extremity claudication patient underwent iliac stent followed by bilateral femoral artery endarterectomy. Patient is feeling better does have poor pulses in both lower extremities . Patient denied any fever chills patient denied dysuria patient has a Robles catheter in place which probably will be removed tomorrow Patient blood pressure is bit elevated patient does admit to drinking alcohol and daily basis just continues to smoke. 11/07/2019 Patient's hyponatremia improved with patient the blood pressure dropped after he received all the antidepressant medications because of this I'm cutting down lisinopril dose for tomorrow morning to 10 mg and also changing coronary back to metoprolol. His blood pressure dropped to as low as 70 systolic at the time patient was dizzy. 11/08/2019 Patient was hypotensive yesterday leading to renal failure today. STALIN inhibitor as well as amlodipine patient's blood pressure was still low today depending on her blood pressure tomorrow and discharge on his discharge med and it was medications. Patient is fairly feeling well. Patient the creatinine is 1.43 as opposed to 0.8 yesterday patient is still hyponatremic. Patient will continue on IV fluids and physical therapy will be consulted patient is quite weak may require subacute rehabilitation. Patient will be transferred out of ICU 11/09/2019 Patient's hyponatremia and renal failure improved but the patient is found to have ileus patient started having nausea vomiting found to have ileus on the abdominal x-ray patient has sluggish bowel sounds. 11/10/2019 Patient ileus resolved. Patient does have increased OXYGEN requirements above- mentioned chest x-ray to rule out any pulmonary edema. IV fluids will be discontinued. Blood pressure is fairly stable. Serum creatinine improved Constitutional: Denied any fatigue denied any fever. Cardio vascular: denied any chest pain, palpitations Gastrointestinal denied any nausea vomiting Pulmonary: Denied any shortness of breath cough Neurologic denied any new focal deficits All inpatient medications were reviewed and appropriate changes in these medications as dictated in the interval history and assessment and plan. Objective - Vital Signs Vital signs: Vital Signs Temp 97.7 F 11/10/19 08:00 Pulse 54 L 11/10/19 11:00 Resp 21 11/10/19 11:00 BP 136/90 11/10/19 11:00 Pulse Ox 95 11/10/19 11:00 Intake & Output 07/11/10/19 11/10/19 18:59 06:59 18:59 Intake Total 1522 1700 475 Output Total 970 620 427 Balance 552 1080 48 Weight 82.3 kg Intake: IV 1300 1500 475 Sodium Chloride 0.9% 1, 1300 1500 475 000 ml @ 75 mls/hr IV . [id number] [facility] Rx#:[id number] Oral 222 200 Output: Urine 970 620 427 Other: Voiding Method Indwelling Catheter Indwelling Catheter Indwelling Catheter # Voids 1 # Bowel Movements 2 - Exam PHYSICAL EXAMINATION: GENERAL: The patient is alert and oriented x3, not in any acute distress. Well developed, well nourished. HEENT: Pupils are round and equally reacting to light. EOMI. No scleral icterus. No conjunctival pallor. Normocephalic, atraumatic. No pharyngeal erythema. No thyromegaly. CARDIOVASCULAR: S1 and S2 present. No murmurs, rubs, or gallops. PULMONARY: Decreased air entry with possible bibasilar crackles ABDOMEN: Abdomen is distended sluggish bowel sounds no tenderness MUSCULOSKELETAL: No joint swelling or deformity. EXTREMITIES: No cyanosis, clubbing, or pedal edema. NEUROLOGICAL: Gross neurological examination did not reveal any focal deficits. SKIN: No rashes. - Labs CBC & Chem 7: 11/10/19 03:50 11/10/19 03:50 Labs: Abnormal Lab Results - Last 24 Hours (Table) 11/10/19 11/10/19 Range/Units 03:50 03:50 RBC 3.26 L (4.30-5.90) m/uL Hgb 10.2 L (13.0-17.5) gm/dL Hct 32.2 L (39.0-53.0) % Sodium 133 L (137-145) mmol/L Chloride 108 H (98-107) mmol/L Carbon Dioxide 21 L (22-30) mmol/L Calcium 7.8 L (8.4-10.2) mg/dL Assessment and Plan Plan: -Hypertension: Patient blood pressure is doing well will not be started on any other antidepressant medications. We'll obtain a chest x-ray to see if patient has any pulmonary edema patient has bibasilar crackles can be atelectasis. -Ileus: Patient will remain nothing by mouth bowel rest -Acute renal failure secondary to hypotension improved with IV fluids presently discontinued with concerns of pulmonary edema -Hyperlipidemia -COPD without any acute exacerbation -Cerebrovascular disease patient underwent above-mentioned procedures postoperative day 2 -Alcohol abuse: Patient is not having any withdrawals -Gastroesophageal reflux disease -Depression -Hyponatremia etiology is not clear initially hypovolemic hyponatremia presently appears to have hypervolemic hyponatremia may need Lasix will order Lasix. Patient's chest x-ray shows pulmonary edema -Generalized deconditioning she'll be discharged to subacute rehabilitation
--- NOTE | 2019-11-10 13:18 | XR ---
EXAMINATION TYPE: XR chest 1V portable DATE OF EXAM: 11/10/2019 COMPARISON: 11/09/2019 INDICATION: CHF TECHNIQUE: Single frontal view of the chest is obtained. FINDINGS: The heart size is normal. The pulmonary vasculature is normal. Minimal bibasilar infiltrates are present. Correlate for atelectasis. Findings are improved compariso n IMPRESSION: 1. Improving minimal bibasilar infiltrates. Correlate for atelectasis. Resolving pneumonia could be c onsidered. Continued follow-up is performed.
--- NOTE | 2019-11-10 13:50 | P.PN ---
Subjective Progress Note Date: 11/10/19 A 68-year-old male patient with extensive peripheral vascular disease and the patient is postop day #3 following bilateral iliofemoral thromboendarterectomy and stent placements. The patient is stent placement in the right iliac and femoral endarterectomies bilaterally. He is resting comfortably in bed. No significant pain lower extremities. Doppler signal were quite weak specially in the left. Nevertheless, the foot itself is not significantly cold and the patient had diminished sensation yet there present. Vascular surgery will be reevaluating the vascular supply to the left lower extremity and left foot. No edema lower extremities. Abdomen today's distended. The patient had 2 bouts of emesis earlier and the patient is currently nothing by mouth status. X-ray of the abdomen was done and showed dilatation of the small or large bowel consistent with ileus. He states that he is passing bowel movement activity and he had liquidy bowel movement earlier today. He is also passing flatness. the chest x-ray shows atelectatic changes in lung bases bilaterally. No evidence of any pneumoperitoneum or air under the diaphragm. No fever. No chills. He has a Robles catheter in place. He is on IV fluids with normal saline at the rate of 80 mL an hour and the fluid was increased up to 125 mL an hour. No respiratory distress. Currently on room air oxygen. No chest pain. No cough or sputum production. No hemoptysis or pleurisy. On today's evaluation of 11/10/2019, the patient is postop day #4 following a iliofemoral thromboendarterectomy and stent placement. The patient is doing well. The examination of the left lower extremity essentially the same. The foot is slightly cold. The pulses are intermittent by Doppler signal. This is mainly in the dorsalis pedis and posterior tibialis. No leg pain. He is able to sit up on a chair. His abdomen still distended. He had several bowel movements yesterday that was liquidy. No nausea. No vomiting. No emesis. Is tolerating his diet. His abdomen is however is slightly distended and his tympanic. Suspect a component of mild ileus. No altered mentation. His IV fluids running at 125 mL an hour. Function is normalized. No respiratory distress. Objective - Vital Signs Vital signs: Vital Signs Temp 97.7 F 11/10/19 08:00 Pulse 54 L 11/10/19 11:00 Resp 21 11/10/19 11:00 BP 136/90 11/10/19 11:00 Pulse Ox 95 11/10/19 11:00 Intake & Output 11/09/19 11/10/19 11/10/19 18:59 06:59 18:59 Intake Total 1522 1700 475 Output Total 970 620 427 Balance 552 1080 48 Weight 82.3 kg Intake: IV 1300 1500 475 Sodium Chloride 0.9% 1, 1300 1500 475 000 ml @ 75 mls/hr IV . [id number] [facility] Rx#:[id number] Oral 222 200 Output: Urine 970 620 427 Other: Voiding Method Indwelling Catheter Indwelling Catheter Indwelling Catheter # Voids 1 # Bowel Movements 2 - Exam General appearance: The patient is alert, oriented, in no acute distress. Head exam was generally normal. There was no scleral icterus or corneal arcus. Mucous membranes were moist. Neck was supple and without jugular venous distension, thyromegaly, or carotid bruits. Carotids were easily palpable bilaterally. There was no adenopathy. Cardiac exam revealed the PMI to be normally situated and sized. The rhythm was regular and no extrasystoles were noted during several minutes of auscultation. The first and second heart sounds were normal and physiologic splitting of the second heart sound was noted. There were no murmurs, rubs, clicks, or gallops. Lungs were clear to auscultation and percussion, and with normal diaphragmatic excursion. No wheezes or rales were noted. Abdomen: Soft, nontender, distended and extremely diminished bowel sounds have been noted. No direct tenderness. No rebound tenderness or guarding. Abdomen is slightly distended. No organs cannot be accurately palpated this point in time. This positive tympany. Extremities: Normal skin color and turgor. No cyanosis, rash, ulceration, clubbing, or edema. Able to move bilateral lower extremities and toes, patient has intact sensory motor bilaterally. Right PT and DP Doppler signals. Left monophasic PT Doppler signal, intermittent DP signal. Neurological: No focal deficits. Strength and sensation are grossly intact. - Labs CBC & Chem 7: 11/10/19 03:50 11/10/19 03:50 Labs: Abnormal Lab Results - Last 24 Hours (Table) 11/10/19 11/10/19 Range/Units 03:50 03:50 RBC 3.26 L (4.30-5.90) m/uL Hgb 10.2 L (13.0-17.5) gm/dL Hct 32.2 L (39.0-53.0) % Sodium 133 L (137-145) mmol/L Chloride 108 H (98-107) mmol/L Carbon Dioxide 21 L (22-30) mmol/L Calcium 7.8 L (8.4-10.2) mg/dL Assessment and Plan Plan: 1 severe peripheral vascular disease and the patient is undergone bilateral lower extremity femoral thromboendarterectomy and rides iliac stent insertion. The patient is postop day #4. Pulses remained quite diminished specially in the left foot. Surgical wound site in the groin are dry clean and intact at this point in time. Hemoglobin stable. Hemodynamically stable. The examination of left lower extremity remains unchanged. There is some intermittent pulses by Doppler signal. 2 claudication secondary to above 3 abdominal distention, small and large bowel ileus versus partial obstruction. The patient is passing stools. There is some sluggish bowel sounds. Abdomen still distended. No signs of any obstruction as the patient is having liquidy stool for now. 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 There be a component of ileus for now. Continue using incentive spirometer Monitor the surgical wounds over the groins bilaterally We'll continue to follow and may transfer to a medical surgical floor.
[2019-11-10] MEDS: HYDROcodone/APAP 5-325MG 1 EACH TAB PO PRN (20:01)
[2019-11-10] MEDS: PRAVASTATIN SODIUM 20 MG TAB PO SCH (20:28)
[2019-11-11] MEDS: IPRATROPIUM-ALBUTEROL 3 ML NEB INHALATION SCH ×2 (07:36→11:08)
[2019-11-11] MEDS: SYMBICORT 80-4.5 MCG INHALER INHALATION SCH (07:36)
[2019-11-11 08:11] LABS: Basophils # (A) 0.1 k/uL (0-0.2); Basophils % (A) 1 %; Eosinophils # (A) 0.2 k/uL (0-0.7); Eosinophils % (A) 3 %; HCT 32.2 % (39.0-53.0); HGB 10.9 gm/dL (13.0-17.5); Lymphocytes # (A) 1.7 k/uL (1.0-4.8); Lymphocytes % (A) 25 %; MCH 33.5 pg (25.0-35.0); MCHC 33.8 g/dL (31.0-37.0); MCV 99.2 fL (80.0-100.0); Mean Platelet Volume 7.5; Monocytes # (A) 0.5 k/uL (0-1.0); Monocytes % (A) 7 %; Neutrophils # (A) 4.2 k/uL (1.3-7.7); Neutrophils % (A) 61 %; Platelet Count 274 k/uL (150-450); RBC 3.24 m/uL (4.30-5.90); RDW 14.4 % (11.5-15.5); WBC 6.8 k/uL (3.8-10.6)
[2019-11-11] MEDS: PANTOPRAZOLE 40 MG TABLET PO SCH (08:11)
[2019-11-11] MEDS: ISOSORBIDE MONONITRATE 20 MG TAB PO SCH (08:11)
[2019-11-11] MEDS: ASPIRIN 81 MG PO SCH (08:11)
[2019-11-11] MEDS: BISACODYL 10 MG SUPP RECTAL SCH (08:12)
[2019-11-11 08:17] LABS: African American GFR (CKD) >90 (>60 ml/min/1.73 sqM); Anion Gap 7 mmol/L; Blood Urea Nitrogen 9 mg/dL (9-20); Calcium 8.1 mg/dL (8.4-10.2); Carbon Dioxide 24 mmol/L (22-30); Chloride 103 mmol/L (98-107); Glucose 91 mg/dL (74-99); Non-African American GFR(CKD) >90 (>60 ml/min/1.73 sqM); Potassium 3.9 mmol/L (3.5-5.1); Sodium 134 mmol/L (137-145)
[2019-11-11] MEDS ORDERED: METOPROLOL SUCCINATE (ER) 25 MG TAB.ER.24H PO SCH (09:00)
[2019-11-11 11:19] VITALS: PULSE 68
[2019-11-11 13:32] VITALS: BP 141/67; RESP 23; TEMP 97.6
--- NOTE | 2019-11-11 14:40 | P.DS ---
Providers Date of admission: 11/06/19 06:01 Expected date of discharge: 11/11/19 Attending physician: Jarrett Tucker DO Consults: 11/06/19 14:06 Consult Physician Routine Consulting Provider: Willam Houston Consult Reason/Comments: medical management Do you want consulting provider notified?: Yes 11/06/19 14:10 Consult Physician Routine Consulting Provider: Yuniel Sanches Consult Reason/Comments: icu care Do you want consulting provider notified?: Yes Primary care physician: [place] Hospital Course: Patient is 60-year-old gentleman with a history of lower extremity claudication who was unable to walk more than 50 feet without significant pain in his lower extremities and calves. He was previously scheduled for an endarterectomy of bilateral common femoral arteries with possible aorta biiliac bypass prior to but due to restriction was rescheduled. He had a past aortogram with runoff with Dr. Busby in the past which did demonstrate severe femoral and iliac occlusions. The patient was brought in for revascularization of bilateral common femoral arteries. On 11/06/2019 he underwent bilateral common iliofemoral endarterectomy with patch angioplasty/stent placement. Patient tolerated the procedure well. However he has had difficulty with ambulation, therefore physical therapy was consult today working with the patient. Patient remains unstable on his feet, requiring subacute rehab placement. Patient has remained afebrile, voiding without difficulty, advanced his diet. Bilateral Prevena dressings removed. He is without complaints today. Pain has substantially improved. During his stay in the ICU the patient did develop nausea and vomiting, and x-ray did show probable ileus. Ileus has since resolved, patient having all movement. Has not had any further nausea or vomiting. Patient is stable and cleared for discharge from vascular surgery. Patient will need to follow-up with Dr. Tucker in 1-2 weeks. Assessment: - Exam General appearance: The patient is alert, oriented, in no acute distress. HET: Head is normocephalic and atraumatic. Pupils are equal and reactive. Oropharynx is clear without lesions. Neck: Supple without lymphadenopathy. Trachea midline. Heart: S1 S2. Regular rate and rhythm. Lungs: No crackles or wheezes are heard. Abdomen: Soft, nontender, nondistended with bowel sounds. Extremities: Normal skin color and turgor. No cyanosis, rash, ulceration, clubbing, or edema. Able to move bilateral lower extremities and toes, patient has intact sensory motor bilaterally. Right PT and DP Doppler signals. Left monophasic PT Doppler signal, intermittent DP signal. Right groin Prevena dressing in place. Neurological: No focal deficits. Strength and sensation are grossly intact. Assessment: #1: Status post bilateral lower extremity revascularization, surgically stable presently. #2: General debilitation, will most likely need TIFFANY placement. #3 Ileus, resolved Procedures: 11/06/2019 bilateral common iliofemoral endarterectomy with patch angioplasty/stent placement. Patient Condition at Discharge: Fair Plan - Discharge Summary Discharge Rx Participant: No New Discharge Prescriptions: New Ipratropium-Albuterol Nebulize [Duoneb 0.5 mg-3 mg/3 ml Soln] 3 ml INHALATION RT-Q2H PRN ml PRN Reason: Shortness Of Breath Or Wheezing Metoprolol Succinate (ER) [Toprol XL] 25 mg PO DAILY tab.er.24h Polyethylene Glycol 3350 [Miralax] 17 gm PO DAILY PRN #15 packet PRN Reason: Constipation Continue Omeprazole [PriLOSEC] 20 mg PO AC-BRKFST Budesonide/Formoterol Fumarate [Symbicort 80-4.5 Mcg Inhaler] 2 puff INHALATION BID Nitroglycerin Sl Tabs [Nitrostat] 0.4 mg SUBLINGUAL Q5M PRN PRN Reason: Chest Pain Albuterol Sulfate [Ventolin HFA] 1 - 2 puff INHALATION RT-Q6H PRN PRN Reason: Shortness Of Breath Isosorbide Mononitrate 20 mg PO DAILY Pravastatin Sodium [Pravachol] 20 mg PO HS Changed Lisinopril [Zestril] 5 mg PO DAILY #0 Discontinued Metoprolol Tartrate [Lopressor] 25 mg PO BID amLODIPine [Norvasc] 5 mg PO DAILY Discharge Medication List Omeprazole [PriLOSEC] 20 mg PO AC-BRKFST 02/09/15 [History] Budesonide/Formoterol Fumarate [Symbicort 80-4.5 Mcg Inhaler] 2 puff INHALATION BID 07/15/18 [History] Nitroglycerin Sl Tabs [Nitrostat] 0.4 mg SUBLINGUAL Q5M PRN 07/15/18 [History] Albuterol Sulfate [Ventolin HFA] 1 - 2 puff INHALATION RT-Q6H PRN 10/05/19 [History] Isosorbide Mononitrate 20 mg PO DAILY 10/05/19 [History] Pravastatin Sodium [Pravachol] 20 mg PO HS 10/05/19 [History] Ipratropium-Albuterol Nebulize [Duoneb 0.5 mg-3 mg/3 ml Soln] 3 ml INHALATION RT-Q2H PRN ml 11/11/19 [Rx] Lisinopril [Zestril] 5 mg PO DAILY #0 11/11/19 [Rx] Metoprolol Succinate (ER) [Toprol XL] 25 mg PO DAILY tab.er.24h 11/11/19 [Rx] Polyethylene Glycol 3350 [Miralax] 17 gm PO DAILY PRN #15 packet 11/11/19 [Rx] Follow up Appointment(s)/Referral(s): Eb Foster MD [STAFF PHYSICIAN] - 1-2 Days Jarrett Tucker DO [STAFF PHYSICIAN] - 1 Week Stella Lawrence MD [Primary Care Provider] - 2 Weeks Activity/Diet/Wound Care/Special Instructions: No heavy lifting greater than 10 pounds. No tub bathing, patient may shower. Increase ambulation per physical therapy. Discharge Disposition: TRANSFER TO SNF/ECF
--- NOTE | 2019-11-11 15:08 | P.PN ---
Subjective Progress Note Date: 11/11/19 Principal diagnosis: lower extremity pain, status post bilateral lower extremity revascularization A 68-year-old male patient with extensive peripheral vascular disease and the pa tient is postop day #3 following bilateral iliofemoral thromboendarterectomy and stent placements. The patient is stent placement in the right iliac and femoral endarterectomies bilaterally. He is resting comfortably in bed. No significant pain lower extremities. Doppler signal were quite weak specially in the left. Nevertheless, the foot itself is not significantly cold and the patient had d iminished sensation yet there present. Vascular surgery will be reevaluating the vascular supply to the left lower extremity and left foot. No edema lower extremities. Abdomen today's distended. The patient had 2 bouts of emesis earlier and the patient is currently nothing by mouth status. X-ray of the abdomen was done and showed dilatation of the small or large bowel consistent with ileus. He states that he is passing bowel movement activity and he had liquidy bowel movement earlier today. He is also passing flatness. the chest x-ray shows atelectatic changes in lung bases bilaterally. No evidence of any pneumoperitoneum or air under the diaphragm. No fever. No chills. He has a Robles catheter in place. He is on IV fluids with normal saline at the rate of 80 mL an hour and the fluid was increased up to 125 mL an hour. No respiratory distress. Currently on room air oxygen. No chest pain. No cough or sputum production. No hemoptysis or pleurisy. On today's evaluation of 11/10/2019, the patient is postop day #4 following a iliofemoral thromboendarterectomy and stent placement. The patient is doing well. The examination of the left lower extremity essentially the same. The foot is slightly cold. The pulses are intermittent by Doppler signal. This is mainly in the dorsalis pedis and posterior tibialis. No leg pain. He is able to sit up on a chair. His abdomen still distended. He had several bowel movements yesterday that was liquidy. No nausea. No vomiting. No emesis. Is tolerating his diet. His abdomen is however is slightly distended and his tympanic. Suspect a component of mild ileus. No altered mentation. His IV fluids running at 125 mL an hour. Function is normalized. No respiratory distress. On 11/11/2019 patient seen in follow-up on a general medical floor, yesterday we transfer the patient the intensive care unit, in the last 24 hours has had no acute events, he denies any shortness of breath, he is on 2 L of oxygen with pulse ox of 98%, occasional cough, lung sounds reveal some scattered rhonchi, patient is on nebulized bronchodilators, no fever or chills, he is status post iliofemoral thrombo-endarterectomy and stent placement, postoperative day #5. His bilateral lower extremities are warm, Doppler left posterior tibial pulse, no pallor, skin is warm. patient is working with physical therapy, he requires extensive assist to get out of bed, he is complaining of some pain on the bottom of his feet with standing. patient is being evaluated for discharge to [facility] today for rehabilitation. patient continues on stool softeners, denies any abdominal discomfort, and he started tolerating regular diet.no nausea vomiting. no diarrhea, she is voiding without difficulty, bilateral pre-vena dressings were removed, bilateral groin incisions and michelle are intact. Patient is passing bowel movements. Objective - Vital Signs Vital signs: Vital Signs Temp 97.6 F 11/11/19 12:50 Pulse 68 11/11/19 12:50 Resp 23 11/11/19 12:50 BP 141/67 11/11/19 12:50 Pulse Ox 98 11/11/19 12:50 Intake & Output 11/10/19 11/11/19 11/11/19 18:59 06:59 18:59 Intake Total 475 1200 Output Total 502 125 Balance -27 1075 Intake: IV 475 600 Sodium Chloride 0.9% 1, 475 600 000 ml @ 75 mls/hr IV . [id number] [facility] Rx#:[id number] Oral 600 Output: Urine 502 125 Other: Voiding Method Bedside Commode Urinal Urinal # Voids 1 3 4 # Bowel Movements 0 - Exam GENERAL EXAM: Alert, very pleasant, 60-year-old white male, on 2 L of oxygen pulse ox of 98% comfortable in no apparent distress. HEAD: Normocephalic/atraumatic. EYES: Normal reaction of pupils, equal size. Conjunctiva pink, sclera white. NOSE: Clear with pink turbinates. THROAT: No erythema or exudates. NECK: No masses, no JVD, no thyroid enlargement, no adenopathy. CHEST: No chest wall deformity. Symmetrical expansion. LUNGS: Equal air entry with no crackles, wheeze, rhonchi or dullness. CVS: Regular rate and rhythm, normal S1 and S2, no gallops, no murmurs, no rubs ABDOMEN: Soft, nontender. No hepatosplenomegaly, normal bowel sounds, no guarding or rigidity. EXTREMITIES: No clubbing, no edema, no cyanosis, right posterior tibial and pedal Doppler signals, left posterior tibial Doppler signal, and intermittent pedal signal on the left. Bilateral groin incisions clean dry and intact, with intact michelle MUSCULOSKELETAL: Muscle strength and tone normal. SPINE: No scoliosis or deformity SKIN: No rashes CENTRAL NERVOUS SYSTEM: Alert and oriented -3. No focal deficits, tone is normal in all 4 extremities. PSYCHIATRIC: Alert and oriented -3. Appropriate affect. Intact judgment and insight. - Labs CBC & Chem 7: 11/11/19 07:40 11/11/19 07:40 Labs: Abnormal Lab Results - Last 24 Hours (Table) 11/11/19 11/11/19 Range/Units 07:40 07:40 RBC 3.24 L (4.30-5.90) m/uL Hgb 10.9 L (13.0-17.5) gm/dL Hct 32.2 L (39.0-53.0) % Sodium 134 L (137-145) mmol/L Calcium 8.1 L (8.4-10.2) mg/dL Assessment and Plan Plan: assessment: 1 severe peripheral vascular disease and the patient is undergone bilateral lower extremity femoral thromboendarterectomy and rides iliac stent insertion. The patient is postop day #5. Pulses remained quite diminished specially in the left foot. Surgical wound site in the groin are dry clean and intact at this point in time. Hemoglobin stable. Hemodynamically stable. The examination of left lower extremity remains unchanged. There is some intermittent pulses by Doppler signal. 2 claudication secondary to above 3 abdominal distention, small and large bowel ileus versus partial obstruction. The patient is passing stools. There is some sluggish bowel sounds. Abdomen still distended. No signs of any obstruction as the patient is having liquidy stool for now. 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 Each incentive spirometry use. Surgical incisions in bilateral groins are clean dry and intact, michelle are intact, prerenal dressing has been removed. Anticipate transfer to [facility] today I performed a history & physical examination of the patient and discussed their management with my nurse practitioner, Rowena Morris. I reviewed the nurse practitioner's note and agree with the documented findings and plan of care. Lung sounds are positive for diminished breath sounds. The findings and the impression was discussed with the patient. I attest to the documentation by the nurse practitioner. Time with Patient: Less than 30
--- NOTE | 2019-11-11 15:33 | P.PN ---
Subjective Patient was a 68-year-old gentleman was admitted for left extremity claudication patient underwent iliac stent followed by bilateral femoral artery endarterectomy. Patient is feeling better does have poor pulses in both lower extremities . Patient denied any fever chills patient denied dysuria patient has a Robles catheter in place which probably will be removed tomorrow Patient blood pressure is bit elevated patient does admit to drinking alcohol and daily basis just continues to smoke. 11/07/2019 Patient's hyponatremia improved with patient the blood pressure dropped after he received all the antidepressant medications because of this I'm cutting down lisinopril dose for tomorrow morning to 10 mg and also changing coronary back to metoprolol. His blood pressure dropped to as low as 70 systolic at the time patient was dizzy. 11/08/2019 Patient was hypotensive yesterday leading to renal failure today. STALIN inhibitor as well as amlodipine patient's blood pressure was still low today depending on her blood pressure tomorrow and discharge on his discharge med and it was medications. Patient is fairly feeling well. Patient the creatinine is 1.43 as opposed to 0.8 yesterday patient is still hyponatremic. Patient will continue on IV fluids and physical therapy will be consulted patient is quite weak may require subacute rehabilitation. Patient will be transferred out of ICU 11/09/2019 Patient's hyponatremia and renal failure improved but the patient is found to have ileus patient started having nausea vomiting found to have ileus on the abdominal x-ray patient has sluggish bowel sounds. 11/10/2019 Patient ileus resolved. Patient does have increased OXYGEN requirements above- mentioned chest x-ray to rule out any pulmonary edema. IV fluids will be discontinued. Blood pressure is fairly stable. Serum creatinine improved 11/11/2019 Patient's ileus resolved and patient is clinically doing well. Patient is on 2 L of oxygen. Patient does have history of COPD patient has some bibasilar crackles. Does have bowel sounds still bit sluggish. can be discharged from medical perspective although the medication reconciliation. Constitutional: Denied any fatigue denied any fever. Cardio vascular: denied any chest pain, palpitations Gastrointestinal denied any nausea vomiting Pulmonary: No significant cough no significant shortness of breath still has mild shortness of breath Neurologic denied any new focal deficits All inpatient medications were reviewed and appropriate changes in these medications as dictated in the interval history and assessment and plan. Objective - Vital Signs Vital signs: Vital Signs Temp 97.6 F 11/11/19 12:50 Pulse 68 11/11/19 12:50 Resp 23 11/11/19 12:50 BP 141/67 11/11/19 12:50 Pulse Ox 98 11/11/19 12:50 Intake & Output 11/10/19 11/11/19 11/11/19 18:59 06:59 18:59 Intake Total 475 1200 Output Total 502 125 Balance -27 1075 Intake: IV 475 600 Sodium Chloride 0.9% 1, 475 600 000 ml @ 75 mls/hr IV . [id number] [facility] Rx#:[id number] Oral 600 Output: Urine 502 125 Other: Voiding Method Bedside Commode Urinal Urinal # Voids 1 3 4 # Bowel Movements 0 - Exam PHYSICAL EXAMINATION: GENERAL: The patient is alert and oriented x3, not in any acute distress. Well developed, well nourished. HEENT: Pupils are round and equally reacting to light. EOMI. No scleral icterus. No conjunctival pallor. Normocephalic, atraumatic. No pharyngeal erythema. No thyromegaly. CARDIOVASCULAR: S1 and S2 present. No murmurs, rubs, or gallops. PULMONARY: Decreased air entry with possible bibasilar crackles ABDOMEN: Abdomen is distended sluggish bowel sounds no tenderness MUSCULOSKELETAL: No joint swelling or deformity. EXTREMITIES: No cyanosis, clubbing, or pedal edema. NEUROLOGICAL: Gross neurological examination did not reveal any focal deficits. SKIN: No rashes. - Labs CBC & Chem 7: 11/11/19 07:40 11/11/19 07:40 Labs: Abnormal Lab Results - Last 24 Hours (Table) 11/11/19 11/11/19 Range/Units 07:40 07:40 RBC 3.24 L (4.30-5.90) m/uL Hgb 10.9 L (13.0-17.5) gm/dL Hct 32.2 L (39.0-53.0) % Sodium 134 L (137-145) mmol/L Calcium 8.1 L (8.4-10.2) mg/dL Assessment and Plan Plan: -Hypertension: Patient is being discharged on low-dose of STALIN inhibitor along with the metoprolol. And had atelectasis on x-ray vision related incentive spirometry -Ileus: Ileus resolved patient is clinically doing well -Acute renal failure secondary to hypotension improved with IV fluids- hypovolemic hyponatremia improved at this time -Hyperlipidemia -COPD without any acute exacerbation -Cerebrovascular disease patient underwent above-mentioned procedures postoperative day 5 -Alcohol abuse: Patient is not having any withdrawals -Gastroesophageal reflux disease -Depression -Generalized deconditioning she'll be discharged to subacute rehabilitation
== END 2019-11-11 16:43 | DRG 271 ==
LOC: 2ORMAIN 06:01 → 2SICU 13:43 → 5NMEDONC 11-10 18:09
PROVIDERS: ADMIT Surgery; ATTEND Surgery
PROC: 04CJ0ZZ Extirpation of Matter from Left External Iliac Artery, Open Approach (ICD-10-PCS; principal; 2019-11-06 07:30)
PROC: 047J04Z Dilation of Left External Iliac Artery with Drug-eluting Intraluminal Device, Open Approach (ICD-10-PCS; principal; 2019-11-06 07:30)
PROC: 04UL0KZ Supplement Left Femoral Artery with Nonautologous Tissue Substitute, Open Approach (ICD-10-PCS; principal; 2019-11-06 07:30)
PROC: 04UC0KZ Supplement Right Common Iliac Artery with Nonautologous Tissue Substitute, Open Approach (ICD-10-PCS; principal; 2019-11-06 07:30)
PROC: 04CH0ZZ Extirpation of Matter from Right External Iliac Artery, Open Approach (ICD-10-PCS; principal; 2019-11-06 07:30)
PROC: 04UJ0KZ Supplement Left External Iliac Artery with Nonautologous Tissue Substitute, Open Approach (ICD-10-PCS; principal; 2019-11-06 07:30)
PROC: 047H04Z Dilation of Right External Iliac Artery with Drug-eluting Intraluminal Device, Open Approach (ICD-10-PCS; principal; 2019-11-06 07:30)
PROC: 047 Lower Arteries, Dilation (ICD-10-PCS; principal; 2019-11-06 07:30)
PROC: 04CL0ZZ Extirpation of Matter from Left Femoral Artery, Open Approach (ICD-10-PCS; principal; 2019-11-06 07:30)
PROC: 04UK0KZ Supplement Right Femoral Artery with Nonautologous Tissue Substitute, Open Approach (ICD-10-PCS; principal; 2019-11-06 07:30)
PROC: 047C04Z Dilation of Right Common Iliac Artery with Drug-eluting Intraluminal Device, Open Approach (ICD-10-PCS; principal; 2019-11-06 07:30)
PROC: 04CK0ZZ Extirpation of Matter from Right Femoral Artery, Open Approach (ICD-10-PCS; principal; 2019-11-06 07:30)
PROC: B41D1ZZ Fluoroscopy of Aorta and Bilateral Lower Extremity Arteries using Low Osmolar Contrast (ICD-10-PCS; principal; 2019-11-06 07:30)
DX: I70.213 Atherosclerosis of native arteries of extremities with intermittent claudication, bilateral legs (principal); E87.1 Hypo-osmolality and hyponatremia; K56.7 Ileus, unspecified; N17.9 Acute kidney failure, unspecified; I67.1 Cerebral aneurysm, nonruptured; I95.9 Hypotension, unspecified; I71.2 Thoracic aortic aneurysm, without rupture; J44.9 Chronic obstructive pulmonary disease, unspecified; F17.200 Nicotine dependence, unspecified, uncomplicated; H93.19 Tinnitus, unspecified ear; I10 Essential (primary) hypertension; K21.9 Gastro-esophageal reflux disease without esophagitis; R26.2 Difficulty in walking, not elsewhere classified; Z11.59 Encounter for screening for other viral diseases; E86.1 Hypovolemia; F32.9 Major depressive disorder, single episode, unspecified; I25.10 Atherosclerotic heart disease of native coronary artery without angina pectoris; E78.5 Hyperlipidemia, unspecified; E78.00 Pure hypercholesterolemia, unspecified; F10.10 Alcohol abuse, uncomplicated; Z71.41 Alcohol abuse counseling and surveillance of alcoholic; R53.81 Other malaise; Z79.51 Long term (current) use of inhaled steroids; Z79.899 Other long term (current) drug therapy; Z90.49 Acquired absence of other specified parts of digestive tract; Z82.49 Family history of ischemic heart disease and other diseases of the circulatory system; Z82.3 Family history of stroke
CPT/HCPCS: 37221; 37223; 71045; 74018; 80048; 80053; 82565; 85025; 85027; 86850; 86900; 86901; 87635; 88304; 88307; 94640

== ENCOUNTER 2020-12-27 12:07 | Inpatient (IN) | payer MEDICARE ==
[2020-12-27 12:38] LABS: Glucose,Whole Blood 103 mg/dL (75-99)
--- NOTE | 2020-12-27 12:41 | ED ---
General Adult HPI - General Chief complaint: Fall Stated complaint: weakness Time Seen by Provider: 12/27/20 12:40 Source: patient, EMS, RN notes reviewed, old records reviewed Mode of arrival: EMS Limitations: physical limitation - History of Present Illness Initial comments: Patient is a 70-year-old male with past medical history remarkable for COPD, GERD, reflux, hypertension, peripheral vascular disease status post bilateral lower extremity bypasses, chronic alcohol use who presents to the emergency Department after a fall. Patient fell an unknown amount of time ago, possibly yesterday the day before. He was found face down and was unable to get up. States he does not remember how he fell, however he does have a history of alcohol abuse. Denies it any acute alcohol intoxication or history of withdrawals. Currently is complaining of nonspecific pain. He is alert and oriented 2-3 at this time, complaining of nonspecific pain over his body. He is complaining of left-sided face pain, chest discomfort over multiple ribs spaces bilaterally, back pain, abdominal pain, right shoulder pain. His overall poor historian. He believes he may have passed out. He denies any current new onset weakness, numbness. Patient has chronic claudication. He denies any fevers or chills or cough. Denies any shortness of breath. Does endorse chest pain as above, particularly over his left chest. Describes it as an achy sensation. It is worse with palpation. Denies any blurry vision. He otherwise is a poor historian regarding his fall. Patient states he is supposed to be on blood thinners but does not take them. - Related Data Home Medications Medication Instructions Recorded Confirmed No Known Home Medications 12/27/20 12/27/20 Allergies Allergy/AdvReac Type Severity Reaction Status Date / Time No Known Allergies Allergy Verified 12/27/20 15:13 Review of Systems ROS Statement: Those systems with pertinent positive or pertinent negative responses have been documented in the HPI. Review of Systems: CONST: [Denies fever] EYES: [Denies blurry vision] ENT: [Denies nasal congestion] C/V: Endorses chest pain RESP: [Denies shortness of breath] GI: Endorses abdominal pain : [Denies dysuria] SKIN: [Denies rash.] MSK: Endorses joint pain NEURO: [Denies headache] ROS Other: All systems not noted in ROS Statement are negative. 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 Fall 10/05/19 with michelle back of head History of Any Multi-Drug Resistant Organisms: None Reported Past Surgical History: Appendectomy, Bowel Resection, Orthopedic Surgery Additional Past Surgical History / Comment(s): finger repair Past Anesthesia/Blood Transfusion Reactions: No Reported Reaction Past Psychological History: Depression Additional Psychological History / Comment(s): . Past Alcohol Use History: Daily Additional Past Alcohol Use History / Comment(s): started smoking 1965 (AGE 15) SMOKES 1PPD. 1-2 beers daily Past Drug Use History: Marijuana Additional Drug Use History / Comment(s): denies - Past Family History Mother Family Medical History: No Reported History Additional Family Medical History / Comment(s): . Father Family Medical History: CVA/TIA, Myocardial Infarction (NH) Additional Family Medical History / Comment(s): multiple mi's Brother(s) Family Medical History: Coronary Artery Disease (CAD) Additional Family Medical History / Comment(s): cabg General Exam - General Exam Comments Initial Comments: General: Appears in a mild amount of pain at this time. Patient soiled himself. HEAD: Normal with no signs of head trauma. EYES: PERRLA, EOMI, conjunctiva normal, no discharge. Pupils are 3 mm and equal bilaterally. ENT: Hearing grossly intact, normal oropharynx. RESPIRATORY: Mild end expiratory wheezing. C/V: Patient is mildly tachycardic with regular rhythm. S1 and S2 auscultated. No peripheral edema. Patient has cool extremities likely secondary to his chronic peripheral vascular disease. He does have palpable pulses in all 4 extremities approximately one plus. ABD: Abdomen is soft, with tenderness to palpation in the epigastric, left upper and lower quadrant. There is nonspecific tenderness. Fluid wave is somewhat appreciated. There are no peritoneal signs and no rebound tenderness. No CVA tenderness to percussion. EXT: Normal range of motion of all 4 extremities without any obvious deformity. Patient does have some tenderness to palpation of the right shoulder over the humeral head. Patient also has tightness to palpation of the cervical spine, or thoracic spine and upper lumbar spine. SKIN: Patient has bruising over the left face, upper abdomen where he was lying on the ground. NEURO: Alert and oriented 3. No focal sensory strength deficits. NIH stroke scale is 0. Cerebellar function is intact as evident by normal finger to nose testing. Limitations: physical limitation Course Vital Signs 12/27/20 12/27/20 12/27/20 12:31 13:50 13:57 Temperature 98.5 F Pulse Rate 113 H 112 H 103 H Respiratory 20 20 Rate Blood Pressure 158/107 146/86 O2 Sat by Pulse 95 94 L Oximetry 12/27/20 12/27/20 12/27/20 14:00 14:54 17:49 Temperature 96.6 F L Pulse Rate 108 H 102 H 114 H Respiratory 18 20 Rate Blood Pressure 193/105 157/97 O2 Sat by Pulse 94 L 97 Oximetry 12/27/20 12/27/20 19:05 19:16 Temperature Pulse Rate 120 H 117 H Respiratory Rate Blood Pressure O2 Sat by Pulse Oximetry Medical Decision Making - Medical Decision Making Based on the patient's presentation and physical exam, as well as is nonspecific generalized body pain secondary to a fall of unknown etiology, a broad workup will be obtained. This includes a cardiac workup, laboratory studies, alcohol Level. Troponin, EKG, chest x-ray will be obtained. We will obtain CT imaging of the spine, brain, thorax, abdomen, pelvis. X-rays of the chest, pelvis, right shoulder also be obtained. Patient will be given Tylenol for pain management at this time as well as fluid bolus. He will be connected to елена nuous cardiac monitoring. Patient was in agreement this plan. Patient's laboratory studies are remarkable for a leukocytosis of 11.5. Patient has a elevated hemoglobin at 22.2 which is likely secondary to severe dehydration. We will re-he the laboratory study and a repeat CBC. Platelets are remarkable for a acidosis with a, dioxide of 18 and a gap of 20, likely secondary to lactic acidosis as his lactic acid level is elevated to 4.0. Repeat is improved to 2.1. Patient has acute rhabdomyolysis with a creatinine kinase of 6600. Troponin is also initially mildly elevated to 0.121, repeat 0.102. This is likely secondary to his rhabdo. Patient's renal function remains adequate with a creatinine 1.55 be on a 54. Patient's urinalysis is remarkable for 72 hyaline casts. No signs of acute infection. Patient's COVID- 19 negative. I do not believe the patient is having an acute infectious etiology at this time, and lactic acidosis is likely secondary to dehydration. Antibiotics are not required at this time. Patient's right shoulder x-ray revealed a possible right before meals joint separation. Chest and pelvic x-ray were negative for acute fracture dislocation. Patient's extensive CT imaging showed no evidence of acute traumatic process or injury. On reevaluation, patient is wheezing and he will be given an additional breathing treatment. I did inform him that he will be admitted to the hospital due to his AKA and rhabdomyolysis. He was in agreement this plan. CIWA p rotocol was ordered. Patient was given a total of 3 fluid boluses here in the department started on a maintenance IV infusion. We will continue to treat his COPD in addition to his rhabdomyolysis. He requires admission to hospital. I spoke with the admitting team under Dr. Houston who accepted the patient. Patient was therefore admitted and serous condition to telemetry bed. The patient's only troponin, I did speak with Dr. Crowder of cardiology who stated that the troponin is likely secondary to his rhabdomyolysis and we will continue to monitor for improvement. He has no acute EKG changes to suggest ischemia at this time. - Lab Data Result diagrams: 12/27/20 12:32 12/27/20 12:32 Lab Results 12/27/20 12/27/20 12/27/20 Range/Units 12:22 12:31 12:32 WBC 11.5 H (3.8-10.6) k/uL RBC 6.78 H (4.30-5.90) m/uL Hgb 22.2 H* (13.0-17.5) gm/dL Hct 64.0 H* (39.0-53.0) % MCV 94.4 (80.0-100.0) fL MCH 32.8 (25.0-35.0) pg MCHC 34.7 (31.0-37.0) g/dL RDW 15.0 (11.5-15.5) % Plt Count 240 (150-450) k/uL MPV 7.6 Neutrophils % 83 % Lymphocytes % 8 % Monocytes % 6 % Eosinophils % 0 % Basophils % 1 % Neutrophils # 9.6 H (1.3-7.7) k/uL Lymphocytes # 0.9 L (1.0-4.8) k/uL Monocytes # 0.7 (0-1.0) k/uL Eosinophils # 0.0 (0-0.7) k/uL Basophils # 0.1 (0-0.2) k/uL Sodium (137-145) mmol/L Potassium (3.5-5.1) mmol/L Chloride (98-107) mmol/L Carbon Dioxide (22-30) mmol/L Anion Gap mmol/L BUN (9-20) mg/dL Creatinine (0.66-1.25) mg/dL Est GFR (CKD-EPI)AfAm (>60 ml/min/1.73 sqM) Est GFR (CKD-EPI)NonAf (>60 ml/min/1.73 sqM) Glucose (74-99) mg/dL POC Glucose (mg/dL) 103 H (75-99) mg/dL POC Glu Proprietary Trader ID Tian NormanNeftali Lactic Ac Sepsis Rflx Plasma Lactic Acid Colin (0.7-2.0) mmol/L Calcium (8.4-10.2) mg/dL Magnesium (1.6-2.3) mg/dL Total Bilirubin (0.2-1.3) mg/dL AST (17-59) U/L ALT (4-49) U/L Alkaline Phosphatase (38-126) U/L Ammonia (<30) umol/L Creatine Kinase 6602 H* (55-170) U/L Troponin I (0.000-0.034) ng/mL Total Protein (6.3-8.2) g/dL Albumin (3.5-5.0) g/dL Amylase (30-110) U/L Lipase (23-300) U/L Urine Color Urine Appearance (Clear) Urine pH (5.0-8.0) Ur Specific [place] (1.001-1.035) Urine Protein (Negative) Urine Glucose (UA) (Negative) Urine Ketones (Negative) Urine Blood (Negative) Urine Nitrite (Negative) Urine Bilirubin (Negative) Urine Urobilinogen (<2.0) mg/dL Ur Leukocyte Esterase (Negative) Urine RBC (0-5) /hpf Urine WBC (0-5) /hpf Ur Squamous Epith Cells (0-4) /hpf Hyaline Casts (0-2) /lpf Urine Mucus (None) /hpf Serum Alcohol mg/dL Coronavirus (PCR) (Not Detectd) 12/27/20 12/27/20 12/27/20 Range/Units 12:32 12:32 12:32 WBC (3.8-10.6) k/uL RBC (4.30-5.90) m/uL Hgb (13.0-17.5) gm/dL Hct (39.0-53.0) % MCV (80.0-100.0) fL MCH (25.0-35.0) pg MCHC (31.0-37.0) g/dL RDW (11.5-15.5) % Plt Count (150-450) k/uL MPV Neutrophils % % Lymphocytes % % Monocytes % % Eosinophils % % Basophils % % Neutrophils # (1.3-7.7) k/uL Lymphocytes # (1.0-4.8) k/uL Monocytes # (0-1.0) k/uL Eosinophils # (0-0.7) k/uL Basophils # (0-0.2) k/uL Sodium 137 (137-145) mmol/L Potassium 4.9 (3.5-5.1) mmol/L Chloride 99 (98-107) mmol/L Carbon Dioxide 18 L (22-30) mmol/L Anion Gap 20 mmol/L BUN 54 H (9-20) mg/dL Creatinine 1.55 H (0.66-1.25) mg/dL Est GFR (CKD-EPI)AfAm 52 (>60 ml/min/1.73 sqM) Est GFR (CKD-EPI)NonAf 45 (>60 ml/min/1.73 sqM) Glucose 105 H (74-99) mg/dL POC Glucose (mg/dL) (75-99) mg/dL POC Glu Proprietary Trader ID Lactic Ac Sepsis Rflx Plasma Lactic Acid Colin (0.7-2.0) mmol/L Calcium 9.7 (8.4-10.2) mg/dL Magnesium 2.2 (1.6-2.3) mg/dL Total Bilirubin 1.5 H (0.2-1.3) mg/dL AST 138 H (17-59) U/L ALT 37 (4-49) U/L Alkaline Phosphatase 110 (38-126) U/L Ammonia (<30) umol/L Creatine Kinase (55-170) U/L Troponin I 0.121 H* (0.000-0.034) ng/mL Total Protein 8.1 (6.3-8.2) g/dL Albumin 4.7 (3.5-5.0) g/dL Amylase 97 (30-110) U/L Lipase 219 (23-300) U/L Urine Color Urine Appearance (Clear) Urine pH (5.0-8.0) Ur Specific [place] (1.001-1.035) Urine Protein (Negative) Urine Glucose (UA) (Negative) Urine Ketones (Negative) Urine Blood (Negative) Urine Nitrite (Negative) Urine Bilirubin (Negative) Urine Urobilinogen (<2.0) mg/dL Ur Leukocyte Esterase (Negative) Urine RBC (0-5) /hpf Urine WBC (0-5) /hpf Ur Squamous Epith Cells (0-4) /hpf Hyaline Casts (0-2) /lpf Urine Mucus (None) /hpf Serum Alcohol <10 mg/dL Coronavirus (PCR) Not Detected (Not Detectd) 12/27/20 12/27/20 12/27/20 Range/Units 13:32 13:41 13:59 WBC (3.8-10.6) k/uL RBC (4.30-5.90) m/uL Hgb (13.0-17.5) gm/dL Hct (39.0-53.0) % MCV (80.0-100.0) fL MCH (25.0-35.0) pg MCHC (31.0-37.0) g/dL RDW (11.5-15.5) % Plt Count (150-450) k/uL MPV Neutrophils % % Lymphocytes % % Monocytes % % Eosinophils % % Basophils % % Neutrophils # (1.3-7.7) k/uL Lymphocytes # (1.0-4.8) k/uL Monocytes # (0-1.0) k/uL Eosinophils # (0-0.7) k/uL Basophils # (0-0.2) k/uL Sodium (137-145) mmol/L Potassium (3.5-5.1) mmol/L Chloride (98-107) mmol/L Carbon Dioxide (22-30) mmol/L Anion Gap mmol/L BUN (9-20) mg/dL Creatinine (0.66-1.25) mg/dL Est GFR (CKD-EPI)AfAm (>60 ml/min/1.73 sqM) Est GFR (CKD-EPI)NonAf (>60 ml/min/1.73 sqM) Glucose (74-99) mg/dL POC Glucose (mg/dL) (75-99) mg/dL POC Glu Proprietary Trader ID Lactic Ac Sepsis Rflx Y Plasma Lactic Acid Colin 4.0 H* (0.7-2.0) mmol/L Calcium (8.4-10.2) mg/dL Magnesium (1.6-2.3) mg/dL Total Bilirubin (0.2-1.3) mg/dL AST (17-59) U/L ALT (4-49) U/L Alkaline Phosphatase (38-126) U/L Ammonia <9 (<30) umol/L Creatine Kinase (55-170) U/L Troponin I (0.000-0.034) ng/mL Total Protein (6.3-8.2) g/dL Albumin (3.5-5.0) g/dL Amylase (30-110) U/L Lipase (23-300) U/L Urine Color Yellow Urine Appearance Clear (Clear) Urine pH 5.0 (5.0-8.0) Ur Specific [place] 1.022 (1.001-1.035) Urine Protein 1+ H (Negative) Urine Glucose (UA) Negative (Negative) Urine Ketones 1+ H (Negative) Urine Blood Trace H (Negative) Urine Nitrite Negative (Negative) Urine Bilirubin 1+ H (Negative) Urine Urobilinogen 2.0 (<2.0) mg/dL Ur Leukocyte Esterase Negative (Negative) Urine RBC 1 (0-5) /hpf Urine WBC 3 (0-5) /hpf Ur Squamous Epith Cells <1 (0-4) /hpf Hyaline Casts 72 H (0-2) /lpf Urine Mucus Rare H (None) /hpf Serum Alcohol mg/dL Coronavirus (PCR) (Not Detectd) - EKG Data -: EKG Interpreted by Me EKG Comments: 12-lead Electrocardiogram Interpretation Note EKG was reviewed and interpreted by myself. 12-lead ECG performed at 1255 is interpreted by me as revealing sinus tach cardio with PACs at a rate of 116 beats per minute. [place] is normal. ME interval is 174 ms, QRS duration 64 ms, QTc is 444 ms.. There were no ST or T wave abnormalities to suggest myocardial ischemia or injury. R wave progression across the precordium was satisfactory. By my interpretation this EKG is non-diagnostic for acute ischemia. Disposition Clinical Impression: Rhabdomyolysis, Fall, ANGE (acute kidney injury), Elevated troponin, COPD exacerbation, History of ETOH abuse, Lactic acidosis, Skin abrasion, Dehydration, Acromioclavicular joint separation Disposition: ADMITTED IP TO THIS HOSP Condition: Serious
[2020-12-27] MEDS ORDERED: SODIUM CHLORIDE 0.9% 1,000 ML IV ONE ×3 (12:50→18:35)
[2020-12-27] MEDS ORDERED: IPRATROPIUM-ALBUTEROL 3 ML NEB INHALATION STA (13:14)
[2020-12-27] MEDS ORDERED: methylPREDNISolone SOD SUCCI 125 MG/2 ML VIAL IV STA (13:14)
[2020-12-27 13:50] LABS: ALT 37 U/L (4-49); AST 138 U/L (17-59); African American GFR (CKD) 52 (>60 ml/min/1.73 sqM); Albumin 4.7 g/dL (3.5-5.0); Alcohol <10 mg/dL; Alkaline Phosphatase 110 U/L (38-126); Amylase 97 U/L (30-110); Anion Gap 20 mmol/L; Blood Urea Nitrogen 54 mg/dL (9-20); Calcium 9.7 mg/dL (8.4-10.2); Carbon Dioxide 18 mmol/L (22-30); Chloride 99 mmol/L (98-107); Glucose 105 mg/dL (74-99); Lipase 219 U/L (23-300); Magnesium 2.2 mg/dL (1.6-2.3); Non-African American GFR(CKD) 45 (>60 ml/min/1.73 sqM); Potassium 4.9 mmol/L (3.5-5.1); Sodium 137 mmol/L (137-145); Total Bilirubin 1.5 mg/dL (0.2-1.3); Total Protein 8.1 g/dL (6.3-8.2)
[2020-12-27 13:58] LABS: Basophils # (A) 0.1 k/uL (0-0.2); Basophils % (A) 1 %; Eosinophils % (A) 0 %; Lymphocytes # (A) 0.9 k/uL (1.0-4.8); Lymphocytes % (A) 8 %; MCH 32.8 pg (25.0-35.0); MCHC 34.7 g/dL (31.0-37.0); MCV 94.4 fL (80.0-100.0); Mean Platelet Volume 7.6; Monocytes # (A) 0.7 k/uL (0-1.0); Monocytes % (A) 6 %; Neutrophils # (A) 9.6 k/uL (1.3-7.7); Neutrophils % (A) 83 %; Platelet Count 240 k/uL (150-450); RBC 6.78 m/uL (4.30-5.90); WBC 11.5 k/uL (3.8-10.6)
[2020-12-27] MEDS ORDERED: ACETAMINOPHEN TAB 500 MG TAB PO STA (14:00)
[2020-12-27 14:04] LABS: HGB 22.2 gm/dL (13.0-17.5)
[2020-12-27 14:16] LABS: Appearance,Urine Clear (Clear); Bilirubin,Urine 1+ (Negative); Blood,Urine Trace (Negative); Color,Urine Yellow; Glucose,Urine (UA) Negative (Negative); Hyaline Casts,Urine 72 /lpf (0-2); Ketones,Urine 1+ (Negative); Leukocyte Esterase,Urine Negative (Negative); Mucus,Urine Rare /hpf; Nitrite,Urine Negative (Negative); Protein,Urine 1+ (Negative); RBC,Urine 1 /hpf (0-5); Specific Gravity,Urine 1.022 (1.001-1.035); Squamous Epithelial Cell,Urine <1 /hpf (0-4); WBC,Urine 3 /hpf (0-5)
--- NOTE | 2020-12-27 14:30 | CT ---
EXAMINATION TYPE: CT brain leroy esqueda con DATE OF EXAM: 12/27/2020 COMPARISON: October 05, 2019 HISTORY: fall CT DLP: 2232.[address] of the brain was performed. The ventricles, basal cisterns and sulci overlying the cerebral convexities demonstrate moderate enla rgement. There is no evidence for intracranial hemorrhage or sulcal effacement. There is decreased attenuatio n about the periventricular white matter and deep white matter of both cerebral hemispheres, compatib le with chronic small vessel ischemia. No mass effects are seen. If symptoms persist consider MRI. Osseous calvarium is intact. IMPRESSION: 1. Age related atrophic and chronic small vessel ischemic change without acute intracranial process seen at this time. CT Cervical Spine: Unenhanced CT of the cervical spine was performed with bone and soft tissue window settings submitted . Coronal and sagittal reconstruction is obtained. There is normal alignment and prevertebral soft tissues. No evidence for acute cervical fracture . Scattered degenerative disc disease and spondylosis. Biapical scarring. IMPRESSION: 1. No evidence for acute fracture or subluxation of the cervical spine.
--- NOTE | 2020-12-27 14:32 | CT ---
EXAMINATION TYPE: CT facial bones wo con DATE OF EXAM: 12/27/2020 COMPARISON: None HISTORY: Fall CT DLP: 2232.[address] of the facial bones was performed in the axial and coronal planes. Bone and soft tissu e window settings are submitted. Mild soft tissue swelling left periorbital region. I do not see evidence for displaced facial bone fracture or depressed facial bone fracture. The globes are intact. There is evidence of pansinusitis. Postoperative changes of medial maxillary antrectomy bilaterally. IMPRESSION: 1. No evidence for depressed or displaced facial bone fracture.
--- NOTE | 2020-12-27 14:36 | CT ---
EXAMINATION TYPE: CT ChestAbdPelvis wo con DATE OF EXAM: 12/27/2020 HISTORY: fall CT DLP: 2223.[address] of the chest abdomen pelvis was performed. The lack of contrast limits evaluation of th e solid and hollow abdominal viscera. Chest: LUNGS: There is no evidence for pneumothorax. The lungs are clear and free of focal contusion or ate lectasis. No pleural effusion . Moderate emphysematous change. Calcified pleural plaques noted. MEDIASTINUM: Ascending thoracic aortic aneurysm measuring 4.5 cm AP dimension. Cardiomegaly. No media stinal fluid or blood. No pericardial fluid or cardia abnormality. HILAR STRUCTURES: No evidence for mass. No hilar adenopathy is appreciated. OTHER: No significant abnormality. OSSEOUS: No displaced osseous fractures identified. CT ABDOMEN AND PELVIS FINDINGS: LIVER/GB: No focal laceration, contusion or subcapsular hemorrhage. No calcified gallstones. No s pace occupying hepatic lesion. Biliary tree is of normal caliber. PANCREAS: No evidence for transection. No inflammation. No distinct mass. SPLEEN: No focal laceration, contusion or subcapsular hemorrhage. ADRENALS: No hemorrhage. No nodule. No thickening. KIDNEYS/BLADDER: No focal laceration, contusion or subcapsular hemorrhage. No hydronephrosis. No n ephrolithiasis. No disctinct renal mass. BOWEL: Bowel is intact. No evidence for pneumoperitoneum. GENITAL ORGANS: No gross abnormality. LYMPH NODES: No greater than 1cm abdominal or pelvic lymph nodes areappreciated. AORTA: No traumatic aortic injury visualized. OSSEOUS STRUCTURES: No displaced fracture seen. OTHER: No evidence for hemoperitoneum. IMPRESSION: 1. No evidence for traumatic injury to the chest. 2. No evidence for traumatic injury to the abdomen or pelvis.
--- NOTE | 2020-12-27 14:39 | CT ---
EXAMINATION TYPE: CT thor lumbar spine wo con DATE OF EXAM: 12/27/2020 COMPARISON: None HISTORY: fall CT DLP: 2223.2 mGycm Automated exposure control for dose reduction was used. Unenhanced CT of the thoracic and lumbar spin es was performed with bone and soft tissue windows reviewed in the axial coronal and sagittal planes. FINDINGS: No fracture or dislocation seen. Scattered multilevel degenerative disc space narrowing and spondylos is. Normal alignment. IMPRESSION: NO FRACTURE SEEN
[2020-12-27] MEDS ORDERED: hydrALAZINE HCL 20 MG/ML 1 ML VIAL IVP STA (15:34)
--- NOTE | 2020-12-27 15:52 | XR ---
EXAMINATION TYPE: XR shoulder complete RT DATE OF EXAM: 12/27/2020 COMPARISON: NONE HISTORY: Pain TECHNIQUE: Right Shoulder examined in 3 views FINDINGS: The humeral head articulates with the glenoid. There is movement of the acromioclavicular joint with close approximation to 0.8 cm during the examination compatible with an acromioclavicular joint separation. No acute fractures are evident. A follow up study can be performed 7-10 days from acute trauma for continued pain. IMPRESSION: 1. Acromioclavicular joint separation. This can be better assessed without and with weights. 2. No acute fractures
--- NOTE | 2020-12-27 15:53 | XR ---
EXAMINATION TYPE: XR pelvis AP view DATE OF EXAM: 12/27/2020 COMPARISON: None HISTORY: Fall TECHNIQUE: AP pelvis FINDINGS: Stents are present to the iliac vessels bilaterally extending towards the common femoral ar teries. Nonspecific bowel gas is present Symphysis pubis and sacroiliac joints are normal. Femoral heads articulate with the acetabulum. No ac wiyot fractures are evident. Vascular calcification is noted. IMPRESSION: 1. No acute osseous abnormality AP pelvis
--- NOTE | 2020-12-27 15:55 | XR ---
EXAMINATION TYPE: XR chest 2V DATE OF EXAM: 12/27/2020 COMPARISON: 11/10/2019 INDICATION: Fall, pain TECHNIQUE: Frontal and lateral views of the chest are obtained. FINDINGS: The heart size is normal. The pulmonary vasculature is normal. The lungs are clear. No pneumothorax is evident. If there is clinical concern for rib fracture, rib study can be performed . Right acromioclavicular junction is somewhat prominent compared to the left. IMPRESSION: 1. Right acromioclavicular joint separation can be considered, see shoulder dictation same date. 2. No additional posttraumatic changes identified.
[2020-12-27] MEDS ORDERED: ACETAMINOPHEN TAB 325 MG TAB PO PRN (16:03)
[2020-12-27] MEDS ORDERED: MORPHINE SULFATE 4 MG/ML SYRINGE IV PRN (16:03)
[2020-12-27] MEDS ORDERED: NALOXONE 0.4 MG/ML 1 ML VIAL IV PRN (16:03)
[2020-12-27] MEDS ORDERED: KETOROLAC 15 MG/ML 1 ML VIAL IVP PRN (16:03)
[2020-12-27] MEDS ORDERED: LORazepam 2 MG/ML INJ IV PRN ×3 (16:06)
[2020-12-27] MEDS ORDERED: THIAMINE 100 MG/ML 2 ML VIAL IM STA (16:06)
[2020-12-27 17:43] LABS: INR 1.1 (<1.2); Partial Thromboplastin Time 22.3 sec (22.0-30.0); Prothrombin Time 11.6 sec (9.0-12.0)
[2020-12-27 18:07] LABS: Glucose,Whole Blood 114 mg/dL (75-99)
[2020-12-27] MEDS ORDERED: IPRATROPIUM-ALBUTEROL 3 ML NEB INHALATION SCH (18:35)
[2020-12-27] MEDS ORDERED: HYDROcodone/APAP 5-325MG 1 EACH TAB PO PRN (19:44)
[2020-12-27] MEDS: IPRATROPIUM-ALBUTEROL 3 ML NEB INHALATION SCH (19:58)
--- NOTE | 2020-12-27 20:22 | HP ---
HISTORY AND PHYSICAL DATE OF SERVICE: 12/27/2020 CHIEF COMPLAINTS: Weakness and fall. HISTORY OF PRESENT ILLNESS: This 70-year-old gentleman with a past medical history of multiple medical problems, including COPD, GERD, hypertension, vascular disease, peripheral vascular disease, appendectomy, bowel resection, being followed by Dr. Stella Lawrence in the outpatient setting, was apparently living by himself with two cats. The patient has a motorized wheelchair. The patient has difficulty in ambulation and the family was checking on them, but apparently the neighbors found the patient yelling for help and they checked and the patient was found to be lying face down, unable to get up. The down time is unknown at this time. The patient does not remember how he fell. The patient was taken to [facility] and admitted for evaluation and treatment. The patient had a history of alcoholism, but alcohol level on admission was less than 10. The patient had features of rhabdomyolysis. The patient had multiple excoriations of the legs and skin also and also a rash on the face and anterior part of chest; possibly a rug rash. Creatinine was elevated to 1.5, indicating acute renal failure. The white count was 11.5, hemoglobin 20.2, possibly secondary to polycythemia or hemoconcentration. The patient was admitted for evaluation and treatment. The patient is able to give only a sketchy history. Extensive CT scan evaluation has been done. Head and cervical spine CT scan showed no evidence of an acute fracture, age-related changes. CT scan of the chest, abdomen and pelvis was done which showed no evidence of any traumatic injury. Thoracic lumbar spine CT was also done which showed no fractures. The shoulder x-ray showed acromioclavicular joint separation. PAST MEDICAL HISTORY: History of GERD, COPD, hypertension, vascular disease, peripheral vascular disease. MEDICATIONS: Home medications: None. ALLERGIES: NONE. FAMILY HISTORY: No history of heart disease or strokes in the family. SOCIAL HISTORY: History of smoking, alcohol, THC. REVIEW OF SYSTEMS: ENT: No diminished hearing. No diminished vision. CARDIOVASCULAR SYSTEM: No angina, palpitations. RESPIRATORY SYSTEM: As mentioned earlier. GI: As mentioned earlier. : As mentioned earlier. NERVOUS SYSTEM: As mentioned earlier. ALLERGY/IMMUNOLOGY: No asthma or hay fever. MUSCULOSKELETAL: As mentioned earlier. HEMATOLOGY/ONCOLOGY: No history of anemia. ENDOCRINE: No history of diabetes, hypothyroidism. CONSTITUTIONAL: As mentioned earlier. DERMATOLOGY: Negative. RHEUMATOLOGY: Negative. PSYCHIATRY: As mentioned earlier. PHYSICAL EXAMINATION: Patient alert and oriented x3. Pulse 114, regular. Blood pressure 157/97, respiration 20, temperature 96.6, pulse ox 97% on room air. HEENT: Conjunctivae normal. Oral mucosa moist. NECK: No jugular venous distention. No carotid bruit. No lymph node enlargement. CARDIOVASCULAR: S1, S2 muffled. No S3. No S4. RESPIRATION: Breath sounds diminished at the bases. Breathing efforts are markedly increased. Bilateral scattered rhonchi and expiratory wheezing and crackles. ABDOMEN: Soft, obese, distended. LEGS: Bilateral leg edema. Bilateral leg cellulitis also present. NERVOUS SYSTEM: Higher functions as mentioned earlier. Moves all 4 limbs. No focal motor or sensory deficit. LYMPHATICS: No lymph node palpable in neck, axillae or groin. SKIN: No ulcer, rash, bleeding. JOINTS: No active deforming arthropathy. LABS: WBC 11.5, hemoglobin 20.2, sodium 137, potassium 4.9, creatinine 1.5. ASSESSMENT: 1. Acute renal failure secondary to dehydration as well as acute rhabdomyolysis, acute tubular necrosis. 2. Chronic obstructive pulmonary disease, acute exacerbation. 3. Fall and gait dysfunction. 4. Acromioclavicular joint separation on the right. 5. Cellulitis of the legs. 6. Acute rhabdomyolysis secondary to fall. 7. Troponin 0.102, possibly secondary to rhabdomyolysis. 8. Elevated plasma lactic acid. 9. Possible cellulitis. 10.Possible sepsis, present on admission. 11.Increased white count. 12.Hemoconcentration and polycythemia possibly. 13.History of chronic obstructive pulmonary disease. 14.Gastroesophageal reflux disease. 15.Hypertension. 16.Peripheral vascular disease. 17.History of tinnitus. 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 19.History of diarrhea. 20.Brain aneurysm. 21.Appendectomy. 22.History of bowel resection. 23.History of depression. 24.Continued ongoing nicotine dependence. 25.FULL CODE. RECOMMENDATIONS AND DISCUSSION: In this 70-year-old gentleman who presented with multiple complex medical issues, we will monitor the patient closely, continue the current medications, continue with symptomatic treatment. Will initiate intensive bronchodilators as well as IV steroids. Otherwise, I would also recommend pain management, PT/OT evaluation, possible ECF rehab. Orthopedic Surgery also has been consulted for right shoulder AC joint separation. We will monitor the patient closely. Social Work and Case Management will evaluate the home situation. Prognosis is extremely guarded because of above-mentioned multiple medical issues. Obtain the cultures. See orders for further details. Further recommendations to follow. A copy of this dictation is being forwarded to Dr. Stella Lawrence, who is the primary physician. MMJOCELYN / SHEILAN: [id number] /
[2020-12-27] MEDS: SODIUM CHLORIDE 0.9% 1,000 ML IV SCH (21:14)
[2020-12-27] MEDS: HEPARIN SODIUM,PORCINE/PF 5,000 UNIT/0.5 ML SYRINGE SQ SCH ×2 (21:24→23:36)
[2020-12-27] MEDS: methylPREDNISolone SOD SUCCI 40 MG/ML 1 ML VIAL IV SCH ×2 (21:24→23:36)
[2020-12-27] MEDS: PIPERACILLIN-TAZOBACTAM 3.375 GM in SODIUM CHLORIDE 0.9% 100 ML IVPB SCH (21:29)
[2020-12-28] MEDS: IPRATROPIUM-ALBUTEROL 3 ML NEB INHALATION PRN ×2 (00:11→03:44)
[2020-12-28] MEDS: SODIUM CHLORIDE 0.9% 1,000 ML IV SCH ×2 (04:44→12:02)
[2020-12-28] MEDS ORDERED: DILTIAZEM DRIP BOLUS FROM BAG 1 MG SOLN IV ONE (04:45)
[2020-12-28] MEDS: DILTIAZEM 125 MG in SODIUM CHLORIDE 0.9% 100 ML IV SCH ×2 (04:51→17:33)
[2020-12-28] MEDS ORDERED: HEPARIN SOD,PORK IN 0.45% NACL 25,000 UNIT in 0.45% NACL 1 250ML.BAG IV SCH (05:00)
[2020-12-28] MEDS: PIPERACILLIN-TAZOBACTAM 3.375 GM in SODIUM CHLORIDE 0.9% 100 ML IVPB SCH ×3 (05:13→20:23)
[2020-12-28] MEDS: PANTOPRAZOLE 40 MG TABLET PO SCH (06:05)
[2020-12-28] MEDS: methylPREDNISolone SOD SUCCI 40 MG/ML 1 ML VIAL IV SCH ×4 (06:05→23:38)
[2020-12-28] MEDS: THIAMINE 100 MG TAB PO SCH ×2 (06:05→17:32)
[2020-12-28 06:06] LABS: Glucose,Whole Blood 116 mg/dL (75-99)
[2020-12-28] MEDS: HEPARIN SODIUM,PORCINE/PF 5,000 UNIT/0.5 ML SYRINGE SQ SCH (07:00)
[2020-12-28] MEDS: MULTIVITAMINS, THERA 1 EACH TAB PO SCH (07:35)
[2020-12-28] MEDS: NICOTINE 14MG/24HR PATCH TRANSDERM SCH (07:36)
[2020-12-28 07:51] LABS: ALT 38 U/L (4-49); AST 157 U/L (17-59); African American GFR (CKD) >90 (>60 ml/min/1.73 sqM); Albumin 3.5 g/dL (3.5-5.0); Alkaline Phosphatase 58 U/L (38-126); Anion Gap 15 mmol/L; Blood Urea Nitrogen 34 mg/dL (9-20); Calcium 8.1 mg/dL (8.4-10.2); Carbon Dioxide 18 mmol/L (22-30); Chloride 102 mmol/L (98-107); Glucose 116 mg/dL (74-99); Non-African American GFR(CKD) 88 (>60 ml/min/1.73 sqM); Sodium 135 mmol/L (137-145); Total Bilirubin 1.5 mg/dL (0.2-1.3); Total Protein 6.4 g/dL (6.3-8.2)
[2020-12-28 07:53] LABS: Potassium 4.1 mmol/L (3.5-5.1)
[2020-12-28] MEDS: METOPROLOL TARTRATE 25 MG TAB PO SCH ×2 (08:20→20:24)
[2020-12-28 08:27] LABS: Basophils % (A) 0 %; Eosinophils % (A) 0 %; HCT 51.4 % (39.0-53.0); Lymphocytes # (A) 0.6 k/uL (1.0-4.8); Lymphocytes % (A) 5 %; MCH 33.3 pg (25.0-35.0); MCV 95.1 fL (80.0-100.0); Mean Platelet Volume 7.7; Monocytes # (A) 0.7 k/uL (0-1.0); Monocytes % (A) 6 %; Neutrophils # (A) 8.8 k/uL (1.3-7.7); Neutrophils % (A) 86 %; Platelet Count 217 k/uL (150-450); RDW 14.9 % (11.5-15.5); WBC 10.1 k/uL (3.8-10.6)
[2020-12-28 08:31] LABS: Creatine Kinase 9783 U/L (55-170)
[2020-12-28] MEDS: IPRATROPIUM-ALBUTEROL 3 ML NEB INHALATION SCH ×4 (09:47→20:19)
--- NOTE | 2020-12-28 10:48 | P.CRDCN ---
History of Present Illness History of present illness: HISTORY OF PRESENTING ILLNESS This is a pleasant 70-year-old male past medical history significant for hypertension, peripheral artery disease follows with Dr. Tucker s/p bilateral iliofemoral thromboendarterectomy/stent placement in 10/2019, dyslipidemia, chronic nicotine dependence. He follows in the office with Dr. Malik but states he has not followed up. We have been asked to see in consultation for atrial fibrillation with rapid ventricular response. Patient presents to the emergency department after a fall at home, he states he lives alone, however his brother does come and check in on him at times. He was using his motorized wheel chair, using the back of the chair for a balance, he states the back of the chair gave way and he fell on the floor. He fell on his chest. He has pain with palpation to his chest. He also endorses having palpitations at home. Denies shortness of breath, lightheadedness, dizziness, loss of consciousness, syncope. He states he does not normally fall at home frequently, but he does not walk well, he has to hold on to a lot of items as in chairs, counters etc for balance. However, he states he did fall over a month ago due to losing his balance. He has presented to the hospital before for falls and syncope. Denies history of AR, Stroke, coronary artery disease, bleeding, GI bleeding ulcers. He is non-compliant with medication. He was on amlodipine, metoprolol tartrate, lisinopril, and statin stopped taking his medication, he is not sure when. Current every day smoker, smokes about 1PPD. He does drink alcohol daily, states around 2 beers. Patient was given Cardizem 10 mg bolus and started on drip at 10mg/hr. He underwent Head, cervical neck, chest abdomen, pelvix CT- no evidence of traumatic injury. DIAGNOSTICS EKG 12/28 3:30 am revealed atrial fibrillation with rapid ventricular response EKG on admission sinus tachycardia HR 116, PACs, no significant ST-T wave abnormalities. Telemetry tracings indicate atrial fibrillation with uncontrolled heart rates in the 140s. Chest xray - Revealed right acromioclavicular joint separation. No additional posttraumatic changes. No acute cardiopulmonary process. Shoulder Xray- right acromioclavicular joint separation Most recent echocardiogram 06/2019 revealed an EF of 55%, mild mitral regurgitation, mild tricuspid regurgitation, moderate concentric hypertrophy Most recent stress test Lexiscan 06/2019 revealed no evidence of stress-induced ischemia. Laboratory data reviewed WBC 10.1, hemoglobin 18, platelets 217, sodium 135, potassium 4.1, BUN 24, serum creatinine 0.8, creatinine kinase 9783 REVIEW OF SYSTEMS At the time of my exam: CONSTITUTIONAL: Denies fever or chills. CARDIOVASCULAR: + chest pain, +palpitations Denies shortness of breath, orthopnea, PND RESPIRATORY: Denies cough. GASTROINTESTINAL: Denies abdominal pain, diarrhea, constipation, nausea or v omiting. MUSCULOSKELETAL: Denies myalgias. NEUROLOGIC: Denies numbness, tingling, headacbe or weakness. ENDOCRINE: Denies fatigue, weight change, polydipsia or polyurina. GENITOURINARY: Denies burning, hematuria or urgency with micturation. HEMATOLOGIC: Denies history of anemia or bleeding. PHYSICAL EXAMINATION Blood pressure 175/87 heart rate 92 afebrile and maintaining oxygen saturation 97% on 2L nasal cannula CONSTITUTIONAL: No apparent distress. HEENT: Head is normocephalic. Pupils are equal, round. Sclerae anicteric. Mucous membranes of the mouth are moist. No JVD. No carotid bruit. CHEST EXAMINATION: Lungs are diminished bases bilaterally. No chest wall tenderness is noted on palpation or with deep breathing. HEART EXAMINATION: Irregular tachycardic rate and rhythm. S1, S2 heard. No murmurs, gallops or rub. ABDOMEN: Soft, nontender. Positive bowel sounds. EXTREMITIES: 2+ radial pulses, pedal pulses difficult to assess pulse, no lower extremity edema, +LE calf tenderness NEUROLOGIC EXAMINATION: Patient is awake, alert and oriented x3. ASSESSMENT New onset paroxysmal atrial fibrillation with rapid ventricular response Elevated troponin Acute Kidney Injury- improved Mechanical Fall Hypertension Dyslipidemia Peripheral vascular disease s/p bilateral iliofemoral throm boendarterectomy/stent placement in October 2019. Alcohol use Chronic tobacco use PLAN Start metoprolol tartrate 25mg BID Wean cardizem drip Start aspirin, statin Start lisinopril 5mg daily Obtain 2D echocardiogram Will transition to Eliquis 5mg BID, discontinue IV heparin, and consult case management in assistance with coverage for the patient. Orthopedics has been consulted Further recommendations based on clinical course. Nurse Practitioner note has been reviewed, I agree with a documented findings and plan of care. Patient was seen and examined. 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 Fall 10/05/19 with michelle back of head History of Any Multi-Drug Resistant Organisms: None Reported Past Surgical History: Appendectomy, Bowel Resection, Orthopedic Surgery Additional Past Surgical History / Comment(s): finger repair Past Anesthesia/Blood Transfusion Reactions: No Reported Reaction Past Psychological History: Depression Additional Psychological History / Comment(s): . Past Alcohol Use History: Daily Additional Past Alcohol Use History / Comment(s): started smoking 1965 (AGE 15) SMOKES 1PPD. 1-2 beers daily Past Drug Use History: Marijuana Additional Drug Use History / Comment(s): denies - Past Family History Mother Family Medical History: No Reported History Additional Family Medical History / Comment(s): . Father Family Medical History: CVA/TIA, Myocardial Infarction (AR) Additional Family Medical History / Comment(s): multiple mi's Brother(s) Family Medical History: Coronary Artery Disease (CAD) Additional Family Medical History / Comment(s): cabg Medications and Allergies Home Medications Medication Instructions Recorded Confirmed Type Apixaban [Eliquis] 5 mg PO BID 30 Days #60 tab 12/28/20 Rx Allergies Allergy/AdvReac Type Severity Reaction Status Date / Time No Known Allergies Allergy Verified 12/27/20 15:13 Physical Exam Vitals: Vital Signs Temp Pulse Pulse Resp BP BP Pulse Ox 12/28/20 04:30 153/98 12/28/20 03:59 100 12/28/20 03:45 95 12/28/20 03:40 98 F 89 18 180/98 95 12/28/20 02:00 100 20 12/28/20 00:24 99 12/28/20 00:11 91 12/27/20 23:30 98.5 F 100 20 180/92 96 12/27/20 21:00 120 H 18 12/27/20 20:00 98.3 F 120 H 18 170/92 97 12/27/20 19:16 117 H 12/27/20 19:05 120 H 12/27/20 17:49 96.6 F L 114 H 20 157/97 97 12/27/20 14:54 102 H 18 193/105 94 L 12/27/20 14:00 108 H 12/27/20 13:57 103 H 20 146/86 94 L 12/27/20 13:50 112 H 12/27/20 12:31 98.5 F 113 H 20 158/107 95 Intake and Output 12/27/20 12/28/20 12/28/20 22:59 06:59 14:59 Other: Weight 72.575 kg 77 kg Results 12/28/20 06:34 12/28/20 06:34 Cardiac Enzymes 12/27/20 12/27/20 12/27/20 Range/Units 12:32 12:32 16:10 AST 138 H (17-59) U/L Troponin I 0.121 H* 0.102 H* (0.000-0.034) ng/mL 12/27/20 Range/Units 19:19 AST (17-59) U/L Troponin I 0.092 H* (0.000-0.034) ng/mL Coagulation 12/27/20 Range/Units 17:13 PT 11.6 (9.0-12.0) sec APTT 22.3 (22.0-30.0) sec CBC 12/27/20 Range/Units 12:32 WBC 11.5 H (3.8-10.6) k/uL RBC 6.78 H (4.30-5.90) m/uL Hgb 22.2 H* (13.0-17.5) gm/dL Hct 64.0 H* (39.0-53.0) % Plt Count 240 (150-450) k/uL Comprehensive Metabolic Panel 12/27/20 Range/Units 12:32 Sodium 137 (137-145) mmol/L Potassium 4.9 (3.5-5.1) mmol/L Chloride 99 (98-107) mmol/L Carbon Dioxide 18 L (22-30) mmol/L BUN 54 H (9-20) mg/dL Creatinine 1.55 H (0.66-1.25) mg/dL Glucose 105 H (74-99) mg/dL Calcium 9.7 (8.4-10.2) mg/dL AST 138 H (17-59) U/L ALT 37 (4-49) U/L Alkaline Phosphatase 110 (38-126) U/L Total Protein 8.1 (6.3-8.2) g/dL Albumin 4.7 (3.5-5.0) g/dL Current Medications Generic Name Dose Route Start Last Admin Trade Name Freq PRN Reason Stop Dose Admin Acetaminophen 650 mg 12/27/20 16:03 Acetaminophen Tab 325 Mg Tab PO Q6HR PRN Mild Pain or Fever > 100.5 Hydrocodone Bitart/Acetaminophen 1 each 12/27/20 19:44 12/28/20 05:13 Hydrocodone/Apap 5-325mg 1 Each Tab PO 1 each Q6HR PRN Administration Pain Albuterol/Ipratropium 3 ml 12/27/20 20:00 12/27/20 19:58 Ipratropium-Albuterol 3 Ml Neb INHALATION Not Given RT-QID RONALDO Albuterol/Ipratropium 3 ml 12/27/20 19:42 12/28/20 03:44 Ipratropium-Albuterol 3 Ml Neb INHALATION 3 ml RT-QID PRN Administration Shortness Of Breath Or Wheezing Heparin Sodium (Porcine) 5,000 unit 12/27/20 16:15 12/28/20 07:00 Heparin Sodium,Porcine/Pf 5,000 Unit/0.5 Ml Syringe SQ Not Given Q8HR RONALDO Sodium Chloride 1,000 mls @ 100 mls/hr 12/27/20 16:15 12/28/20 04:44 Saline 0.9% IV Not Given .Q10H RONALDO Piperacillin Sod/Tazobactam 100 mls @ 25 mls/hr 12/27/20 20:00 12/28/20 05:13 Sod 3.375 gm/ Sodium Chloride IVPB 25 mls/hr Q8H RONALDO Administration Diltiazem HCl 125 mg/ Sodium 125 mls @ 10 mls/hr 12/28/20 05:00 12/28/20 04:51 Chloride IV 10 mg/hr .[id number] RONALDO 10 mls/hr Administration 10 MG/HR Heparin Sodium/Sodium Chloride 250 mls @ 7.258 mls/hr 12/28/20 05:00 12/28/20 05:09 25,000 unit/ Sodium Chloride IV 10 units/kg/hr .Q24H RONALDO 7.258 mls/hr Administration Protocol 10 UNITS/KG/HR Ketorolac Tromethamine 15 mg 12/27/20 16:03 Ketorolac 15 Mg/Ml 1 Ml Vial IVP 12/30/20 16:05 Q6HR PRN Moderate Pain Lorazepam 1 mg 12/27/20 16:06 Lorazepam 2 Mg/Ml Inj IV Q1HR PRN CIWA 10 to 15 Lorazepam 2 mg 12/27/20 16:06 Lorazepam 2 Mg/Ml Inj IV 12/29/20 16:06 Q10M PRN CIWA 16 or higher Lorazepam 1 mg 12/27/20 16:06 Lorazepam 2 Mg/Ml Inj IV Q2HR PRN CIWA 8 or 9 Methylprednisolone Sodium Succinate 40 mg 12/27/20 18:45 12/28/20 06:05 Methylprednisolone Sod Succi 40 Mg/Ml 1 Ml Vial IV 40 mg Q6HR RONALDO Administration Morphine Sulfate 4 mg 12/27/20 16:03 Morphine Sulfate 4 Mg/Ml Syringe IV Q4HR PRN Severe Pain Multivitamins 1 each 12/28/20 12:00 Multivitamins, Thera 1 Each Tab PO DAILY@1200 RONALDO Naloxone HCl 0.2 mg 12/27/20 16:03 Naloxone 0.4 Mg/Ml 1 Ml Vial IV Q2M PRN Opioid Reversal Nicotine 1 patch 12/28/20 09:00 Nicotine 14mg/24hr Patch TRANSDERM DAILY RONALDO Pantoprazole Sodium 40 mg 12/28/20 07:30 12/28/20 06:05 Pantoprazole 40 Mg Tablet PO 40 mg [id number] RONALDO Administration Thiamine HCl 100 mg 12/28/20 07:30 12/28/20 06:05 Thiamine 100 Mg Tab PO 100 mg BID-W/MEALS RONALDO Administration Intake and Output 12/27/20 12/28/20 12/28/20 22:59 06:59 14:59 Other: Weight 72.575 kg 77 kg 12/27/20 12:32 12/27/20 12:32
[2020-12-28 10:55] VITALS: RESP 18
[2020-12-28] MEDS: lisinopriL 5 MG TAB PO SCH (10:56)
[2020-12-28] MEDS: ATORVASTATIN 20 MG TAB PO SCH (10:56)
[2020-12-28] MEDS: ASPIRIN 81 MG PO SCH (10:57)
[2020-12-28] MEDS: APIXABAN 5 MG TAB PO SCH ×2 (11:00→20:24)
[2020-12-28 12:00] LABS: Glucose,Whole Blood 134 mg/dL (75-99)
[2020-12-28 12:53] LABS: Chol/HDL Ratio 5.29; LDL Cholesterol,Calculated 116.2 mg/dL (0.0-131.0); VLDL Calculation 29.8 mg/dL (5.00-40.00)
[2020-12-28 16:49] LABS: Glucose,Whole Blood 116 mg/dL (75-99)
--- NOTE | 2020-12-28 19:42 | PN ---
PROGRESS NOTE DATE OF SERVICE: 12/28/2020 This 70-year-old gentleman was found unconscious. Also had weakness and fall and renal failure and rhabdomyolysis. The patient is mildly confused. The patient complains of bilateral leg pain. Extensive x-ray series has been done which showed no evidence of any fractures at this time except right shoulder separation which is evaluated Orthopedic Surgery. The patient also had atrial fibrillation with fast ventricular rate and patient was started on a Cardizem drip. Eliquis also recommended by Cardiology. No chest pain. No palpitations. No fever. PAST MEDICAL HISTORY: Reviewed. REVIEW OF SYSTEMS: CARDIOVASCULAR As mentioned earlier. RESPIRATORY No cough, no hemoptysis. GI No nausea, vomiting, or diarrhea. No dysuria or hematuria. NERVOUS As mentioned earlier. CURRENT MEDICATIONS: Reviewed include Tylenol, [place], DuoNeb, Eliquis, aspirin, Lipitor, diltiazem, ketorolac, Zestril. Doses reviewed. PHYSICAL EXAMINATION: Patient is alert, oriented x2. Pulse is 81, irregular. Blood pressure is 118/70, respiration 18, temperature 97.7, pulse ox 94% on room air. HEENT: Conjunctivae normal. Oral mucosa moist. NECK: No jugular venous distention. No lymph node enlargement. CARDIOVASCULAR: S1, S2, muffled. No S3, no S4, RESPIRATORY: Diminished breath sounds at the bases. A few scattered rhonchi. ABDOMEN: Soft, nontender. NERVOUS SYSTEM: No focal deficits. LAB STUDIES: WBC 10.2, hemoglobin is 18. Sodium 134, potassium 4.1. Total bilirubin is 1.5. The creatine kinase is 9783. ASSESSMENT: 1. Acute renal failure secondary to dehydration as well as acute rhabdomyolysis and acute tubular necrosis. 2. Atrial fibrillation with fast ventricular rate, present on admission. 3. Chronic obstructive pulmonary disease acute exacerbation. 4. Fall and gait dysfunction. 5. Acromioclavicular joint separation on the right. 6. Cellulitis of both legs. 7. Acute rhabdomyolysis secondary to fall. 8. Troponin 0.102, possibly secondary to rhabdomyolysis. 9. Elevated plasma lactic acid present on admission. 10.Possible sepsis present on admission. 11.Increased WBC. 12.Hemoconcentration and polycythemia possibly present on admission. 13.History of COPD. 14.Gastroesophageal reflux disease. 15.Hypertension. 16.History of peripheral vascular disease. 17.History of tinnitus. 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 19.History of diarrhea. 20.History of brain aneurysm. 21.History of appendectomy. 22.History of depression. 23.Continued ongoing nicotine dependence. 24.FULL CODE. RECOMMENDATIONS: Recommend to continue current medications and symptomatic treatment. Otherwise, at this time I recommend continue with current medications. Continue with Eliquis. Monitor closely in telemetry. Continue the bronchodilators. PT/OT evaluation also to consult to evaluate the patient for possible ECF rehab. Prognosis extremely guarded because of multiple complex medical issues. Will order repeat labs for tomorrow. Further recommendations to follow. MMODL / IJN: [id number] /
[2020-12-28 20:11] LABS: Glucose,Whole Blood 132 mg/dL (75-99)
[2020-12-29 06:03] LABS: Glucose,Whole Blood 131 mg/dL (75-99)
[2020-12-29] MEDS: PIPERACILLIN-TAZOBACTAM 3.375 GM in SODIUM CHLORIDE 0.9% 100 ML IVPB SCH ×3 (06:30→20:48)
[2020-12-29] MEDS: PANTOPRAZOLE 40 MG TABLET PO SCH (06:32)
[2020-12-29] MEDS: methylPREDNISolone SOD SUCCI 40 MG/ML 1 ML VIAL IV SCH ×4 (06:34→23:37)
[2020-12-29] MEDS: SODIUM CHLORIDE 0.9% 1,000 ML IV SCH ×3 (07:39→17:44)
[2020-12-29 07:47] LABS: Basophils % (A) 0 %; Eosinophils % (A) 0 %; HCT 49.8 % (39.0-53.0); Hypochromasia Slight; Lymphocytes # (A) 0.7 k/uL (1.0-4.8); Lymphocytes % (A) 6 %; MCH 33.1 pg (25.0-35.0); MCHC 34.2 g/dL (31.0-37.0); Mean Platelet Volume 7.9; Monocytes # (A) 0.7 k/uL (0-1.0); Monocytes % (A) 6 %; Neutrophils # (A) 10.3 k/uL (1.3-7.7); Neutrophils % (A) 87 %; Platelet Count 224 k/uL (150-450); RBC 5.14 m/uL (4.30-5.90); RDW 14.9 % (11.5-15.5); WBC 11.8 k/uL (3.8-10.6)
[2020-12-29 08:03] LABS: African American GFR (CKD) >90 (>60 ml/min/1.73 sqM); Anion Gap 9 mmol/L; Blood Urea Nitrogen 24 mg/dL (9-20); Calcium 8.7 mg/dL (8.4-10.2); Carbon Dioxide 29 mmol/L (22-30); Chloride 99 mmol/L (98-107); Glucose 120 mg/dL (74-99); Non-African American GFR(CKD) >90 (>60 ml/min/1.73 sqM); Potassium 3.4 mmol/L (3.5-5.1); Sodium 137 mmol/L (137-145)
[2020-12-29] MEDS: IPRATROPIUM-ALBUTEROL 3 ML NEB INHALATION SCH ×4 (08:13→19:26)
[2020-12-29] MEDS: METOPROLOL TARTRATE 25 MG TAB PO SCH (08:14)
[2020-12-29] MEDS: lisinopriL 5 MG TAB PO SCH (08:14)
[2020-12-29] MEDS: APIXABAN 5 MG TAB PO SCH ×2 (08:14→20:48)
[2020-12-29] MEDS: THIAMINE 100 MG TAB PO SCH ×2 (08:14→17:44)
[2020-12-29] MEDS: ASPIRIN 81 MG PO SCH (08:14)
[2020-12-29] MEDS ORDERED: ONDANSETRON 4 MG/2 ML VIAL IVP PRN (08:14)
[2020-12-29] MEDS: ATORVASTATIN 20 MG TAB PO SCH (08:15)
[2020-12-29] MEDS: NICOTINE 14MG/24HR PATCH TRANSDERM SCH ×2 (08:15→08:16)
[2020-12-29 09:12] LABS: Creatine Kinase 9352 U/L (55-170)
[2020-12-29] MEDS ORDERED: METOPROLOL TARTRATE 25 MG TAB PO STA (10:03)
[2020-12-29 11:48] LABS: Glucose,Whole Blood 123 mg/dL (75-99)
[2020-12-29] MEDS ORDERED: Potassium Replacement Protocol 1 EACH MISC MISCELLANE PRN (12:01)
[2020-12-29] MEDS: MULTIVITAMINS, THERA 1 EACH TAB PO SCH (12:11)
[2020-12-29] MEDS: POTASSIUM CHLORIDE ER 20 MEQ TAB.ER PO SCH ×2 (12:12→14:05)
--- NOTE | 2020-12-29 13:19 | P.PN ---
Subjective Progress Note Date: 12/29/20 HISTORY OF PRESENT ILLNESS: This is a pleasant 70-year-old male past medical history significant for hypertension, peripheral artery disease follows with Dr. Tucker s/p bilateral i liofemoral thromboendarterectomy/stent placement in 10/2019, dyslipidemia, chronic nicotine dependence. He follows in the office with Dr. Malik but states he has not followed up. We have been asked to see in consultation for atrial fibrillation with rapid ventricular response. Patient presents to the emergency department after a fall at home, he states he lives alone, however his brother does come and check in on him at times. He was using his motorized wheel chair, using the back of the chair for a balance, he states the back of the chair gave way and he fell on the floor. He fell on his chest. He has pain with palpation to his chest. He also endorses having palpitations at home. Denies shortness of breath, lightheadedness, dizziness, loss of consciousness, syncope. He states he does not normally fall at home frequently, but he does not walk well, he has to hold on to a lot of items as in chairs, counters etc for balance. However, he states he did fall over a month ago due to losing his balance. He has presented to the hospital before for falls and syncope. Denies history of SD, Stroke, coronary artery disease, bleeding, GI bleeding ulcers. He is non-compliant with medication. He was on amlodipine, metoprolol tartrate, lisinopril, and statin stopped taking his medication, he is not sure when. Current every day smoker, smokes about 1PPD. He does drink alcohol daily, states around 2 beers. Patient was given Cardizem 10 mg bolus and started on drip at 10mg/hr. He underwent Head, cervical neck, chest abdomen, pelvix CT- no evidence of traumatic injury. DIAGNOSTICS EKG 12/28 3:30 am revealed atrial fibrillation with rapid ventricular response EKG on admission sinus tachycardia HR 116, PACs, no significant ST-T wave abnormalities. Telemetry tracings indicate atrial fibrillation with uncontrolled heart rates in the 140s. Chest xray - Revealed right acromioclavicular joint separation. No additional posttraumatic changes. No acute cardiopulmonary process. Shoulder Xray- right acromioclavicular joint separation Most recent echocardiogram 06/2019 revealed an EF of 55%, mild mitral regurgitation, mild tricuspid regurgitation, moderate concentric hypertrophy Most recent stress test Lexiscan 06/2019 revealed no evidence of stress-induced ischemia. Laboratory data reviewed WBC 10.1, hemoglobin 18, platelets 217, sodium 135, potassium 4.1, BUN 24, serum creatinine 0.8, creatinine kinase 9783 12/29/2020 Patient examined this morning at the bedside. Patient is currently working with physical therapy. Patient denies chest pain or pressure. Denies shortness of breath. Telemetry reveals atrial fibrillation with heart rate in the 90s. He remains on a Cardizem drip at 5 mg an hour. PHYSICAL EXAM: VITAL SIGNS: Reviewed. GENERAL: Well-developed in no acute distress. NECK: Supple. No JVD or thyromegaly LUNGS: Respirations even and unlabored. Lungs essentially clear to auscultation bilaterally. HEART: Irregular rate and rhythm. S1 and S2 heard. EXTREMITIES: Normal range of motion. No clubbing or cyanosis. Peripheral pulses intact. No lower extremity edema ASSESSMENT: New onset paroxysmal atrial fibrillation with rapid ventricular response- [id number] score 3 Elevated troponin, most likely related to patient's atrial fibrillation with RVR. No ischemic changes on EKG, patient's chest pain is reproducible on exam Acute Kidney Injury- improved Mechanical Fall Hypertension Dyslipidemia Peripheral vascular disease s/p bilateral iliofemoral thromboendarterectomy/stent placement in October 2019. Alcohol use Chronic tobacco use PLAN: Continue antiplatelets with Eliquis Continue current cardiac medications Increase metoprolol to 50 mg twice a day Wean off Cardizem drip if heart rate allows 2-D echo ordered. Await results Further recommendations pending patient's course Nurse practitioner note has been reviewed by physician. Signing provider agrees with the documented findings, assessment, and plan of care. Objective - Vital Signs Vital signs: Vital Signs Temp 98.0 F 12/29/20 12:00 Pulse 89 12/29/20 12:00 Resp 18 12/29/20 12:00 BP 142/85 12/29/20 12:00 Pulse Ox 97 12/29/20 12:00 Intake & Output 12/28/20 12/29/20 12/29/20 18:59 06:59 18:59 Intake Total 565.0 831 Balance 565.0 831 Weight 75.5 kg Intake: Intake, IV Titration 125.0 175 Amount Diltiazem 125 mg In 125.0 125 Sodium Chloride 0.9% 100 ml @ 5 MG/HR 5 mls/hr IV .Q24H RONALDO Rx#:[id number] Sodium Chloride 0.9% 1, 50 000 ml @ 100 mls/hr IV . Q10H RONALDO Rx#:[id number] Oral 440 656 Other: # Voids 2 - Labs CBC & Chem 7: 12/29/20 06:57 12/29/20 06:57 Labs: Abnormal Lab Results - Last 24 Hours (Table) 12/28/20 12/28/20 12/29/20 Range/Units 16:47 20:09 06:02 WBC (3.8-10.6) k/uL Neutrophils # (1.3-7.7) k/uL Lymphocytes # (1.0-4.8) k/uL Potassium (3.5-5.1) mmol/L BUN (9-20) mg/dL Glucose (74-99) mg/dL POC Glucose (mg/dL) 116 H 132 H 131 H (75-99) mg/dL Creatine Kinase (55-170) U/L 12/29/20 12/29/20 12/29/20 Range/Units 06:57 06:57 11:36 WBC 11.8 H (3.8-10.6) k/uL Neutrophils # 10.3 H (1.3-7.7) k/uL Lymphocytes # 0.7 L (1.0-4.8) k/uL Potassium 3.4 L (3.5-5.1) mmol/L BUN 24 H (9-20) mg/dL Glucose 120 H (74-99) mg/dL POC Glucose (mg/dL) 123 H (75-99) mg/dL Creatine Kinase 9352 H* (55-170) U/L
[2020-12-29] MEDS: DILTIAZEM 125 MG in SODIUM CHLORIDE 0.9% 100 ML IV SCH (16:06)
[2020-12-29 16:46] LABS: Glucose,Whole Blood 118 mg/dL (75-99)
--- NOTE | 2020-12-29 17:20 | CDI ---
Documentation Clarification Form Date: 12/29/2020 04:53:52 PM From: Breann Scott RN, CCDS Admit Date: 12/27/2020 04:03:00 PM Patient Name: Israel Gasca Visit Number: [id number] Discharge Date: ATTENTION: The Clinical Documentation Specialists (CDI) and [facility] Coding Staff appreciate your assistance in clarifying documentation. Please respond to the clarification below the line at the bottom and electronically sign. The CDI & [facility] Coding staff will review the response and follow-up if needed. Please note: Queries are made part of the Legal Health Record. If you have any questions, please contact the author of this message via ITS. Dr. Willam Houston Acute rhabdomyolysis secondary to fall is documented in the H/P and subsequent progress notes. Additional clarification regarding the type of rhabdomyolysis is requested. History/Risk Factors: Hypertension, COPD Peripheral vascular disease, Alcoholism Clinical Indicators: 70-year-old male present to emergency department on 12/27 after a at home. The down time is unknown. He had multiple excoriations of the legs and skin and a rash on the face and anterior part of chest; possible a rug rash per ED assessment. CT head and cervical spine scan showed no evidence of any acute fracture. Ct scan of chest, abdomen and pelvis no traumatic injury. The shoulder x-ray showed right acromioclavicular joint separation. 12/27 Vital signs 157/97 114 20 96.6 97 % RA Treatment: Telemetry Monitoring Monitor CBC, BUN, Creatinine, CK Daily .9NS @ 100 ML/HR Please clarify the type of rhabdomyolysis, if known: [ ] Traumatic rhabdomyolysis due to fall [ ] Traumatic rhabdomyolysis due to prolonged immobility [ ] Non traumatic rhabdomyolysis due to infection (please specify) [ ] Other, please specify [ ] Unable to Determine (Template Last Revised: June 2020) Traumatic rhabdomyolysis due to prolonged immobility MTDD
--- NOTE | 2020-12-29 18:01 | ECHOF ---
Referral Reason:LV function MEASUREMENTS -------- HEIGHT: 177.8 cm WEIGHT: 76.7 kg BP: IVSd: 1.5 cm (0.6 - 1.1) LVIDd: 4.1 cm (3.9 - 5.3) LVPWd: 1.2 cm (0.6 - 1.1) EDV(Teich): 76 ml IVSs: 2.2 cm LVIDs: 1.6 cm LVPWs: 1.8 cm %IVS Thck: 48 % ESV(Teich): 7 ml EF(Teich): 91 % %FS: 61 % SV(Teich): 69 ml RVIDd: 2.7 cm (< 3.3) Ao Diam: 4.5 cm (2.0 - 3.7) LA Diam: 3.3 cm (2.7 - 3.8) AV Cusp: 2.0 cm (1.5 - 2.6) EPSS: 0.7 cm MR Vmax: 0.85 m/s MR maxP.91 mmHg AV Vmax: 0.81 m/s AV maxP.87 mmHg TR Vmax: 1.95 m/s TR maxP.15 mmHg RAP: 5.00 mmHg RVSP: 20.15 mmHg MV EF SLOPE: 115.41 mm/s (70 - 150) MV EXCURSION: 15.23 mm (> 18.000) FINDINGS -------- This was a technically difficult study with suboptimal views. The left ventricular size is normal. There is moderate concentric left ventricular hypertrophy. O verall left ventricular systolic function is normal with, an EF between 55 - 60 %. The right ventricle is normal in size. The left atrial size is normal. The right atrial size is normal. The aortic valve is trileaflet and appears structurally normal. The mitral valve is normal. There is trace mitral regurgitation. The tricuspid valve appears structurally normal. Trace tricuspid regurgitation present. Right carie tricular systolic pressure is normal at < 35 mmHg. There is no pulmonic regurgitation present. 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 IVC Not well visulized. There is no pericardial effusion. CONCLUSIONS -------- 1. The left ventricular size is normal. 2. There is moderate concentric left ventricular hypertrophy. 3. Overall left ventricular systolic function is normal with, an EF between 55 - 60 %. 4. There is trace mitral regurgitation. 5. Trace tricuspid regurgitation present. 6. 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 7. There is no pericardial effusion. WEALTH MANAGEMENT DIRECTOR: Angeles Jerez RDCS
--- NOTE | 2020-12-29 20:14 | PN ---
PROGRESS NOTE DATE OF SERVICE: 12/29/2020 This 70-year-old gentleman admitted with acute abnormalities also had new-onset atrial fibrillation. Patient is being closely monitored. Patient is on anticoagulation. PT/OT is evaluating the patient. The patient is also on antibiotic. ECF rehab is being considered. No chest pain. No palpitations. No fever. PHYSICAL EXAMINATION: Alert and oriented x3. Pulse 95, blood pressure 100/70, respiration 18, temperature 98 degrees, pulse ox 94% on 2 L. HEENT: Conjunctivae normal. NECK: No jugular venous distention. CARDIOVASCULAR: S1, S2 muffled. RESPIRATION: Breath sounds diminished at the bases. A few scattered rhonchi. ABDOMEN: Soft, nontender. LEGS: No edema. No swelling. NERVOUS SYSTEM: Diffusely weak. LAB STUDIES: WBC 11.3, hemoglobin 7. Creatinine kinase is 9352. ASSESSMENT: 1. Acute renal failure secondary to dehydration as well as acute rhabdomyolysis and acute tubular necrosis. 2. Atrial fibrillation with fast ventricular rate, new onset, present on admission. 3. Chronic obstructive pulmonary disease, acute exacerbation. 4. Fall and gait dysfunction. 5. Acromioclavicular joint separation on the right. 6. Cellulitis of both legs. 7. Acute rhabdomyolysis secondary to fall. 8. Troponin 0.102, possibly secondary to rhabdomyolysis. 9. Elevated plasma lactic acid, present on admission. 10.Possible sepsis, present on admission. 11.Increased white count. 12.Hemoconcentration and polycythemia possibly, present on admission. 13.History of chronic obstructive pulmonary disease. 14.Gastroesophageal reflux disease. 15.Hypertension. 16.History of peripheral vascular disease. 17.History of tinnitus. 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 19.History of diarrhea. 20.History of brain aneurysm. 21.Appendectomy. 22.History of depression. 23.Continued ongoing nicotine dependence. 24.FULL CODE. RECOMMENDATIONS AND DISCUSSION: I recommend to continue current medications, continue with symptomatic treatment. Otherwise at this time I would recommend continuing with IV fluids. Continue with anticoagulation. Closely follow with Cardiology. Guarded prognosis. Further recommendations to follow. Possible ECF rehab. MMODL / IJN: [id number] /
[2020-12-29 20:20] LABS: Glucose,Whole Blood 139 mg/dL (75-99)
[2020-12-29] MEDS: METOPROLOL TARTRATE 50 MG TAB PO SCH (20:48)
[2020-12-30 06:05] LABS: Glucose,Whole Blood 138 mg/dL (75-99)
[2020-12-30] MEDS: PIPERACILLIN-TAZOBACTAM 3.375 GM in SODIUM CHLORIDE 0.9% 100 ML IVPB SCH ×2 (07:00→12:15)
[2020-12-30] MEDS: methylPREDNISolone SOD SUCCI 40 MG/ML 1 ML VIAL IV SCH ×2 (07:00→12:15)
[2020-12-30] MEDS: PANTOPRAZOLE 40 MG TABLET PO SCH (07:01)
[2020-12-30] MEDS: THIAMINE 100 MG TAB PO SCH (07:01)
[2020-12-30 07:15] LABS: Basophils % (A) 0 %; Eosinophils % (A) 0 %; HCT 46.9 % (39.0-53.0); HGB 15.4 gm/dL (13.0-17.5); Lymphocytes # (A) 0.6 k/uL (1.0-4.8); Lymphocytes % (A) 5 %; MCH 31.3 pg (25.0-35.0); MCHC 32.9 g/dL (31.0-37.0); MCV 95.2 fL (80.0-100.0); Mean Platelet Volume 8.1; Monocytes # (A) 0.7 k/uL (0-1.0); Monocytes % (A) 6 %; Neutrophils # (A) 10.8 k/uL (1.3-7.7); Neutrophils % (A) 88 %; Platelet Count 214 k/uL (150-450); RBC 4.92 m/uL (4.30-5.90); RDW 15.6 % (11.5-15.5); WBC 12.3 k/uL (3.8-10.6)
[2020-12-30 07:24] LABS: ALT 52 U/L (4-49); AST 128 U/L (17-59); African American GFR (CKD) >90 (>60 ml/min/1.73 sqM); Albumin 2.9 g/dL (3.5-5.0); Alkaline Phosphatase 45 U/L (38-126); Anion Gap 7 mmol/L; Blood Urea Nitrogen 27 mg/dL (9-20); Calcium 8.1 mg/dL (8.4-10.2); Carbon Dioxide 22 mmol/L (22-30); Chloride 104 mmol/L (98-107); Glucose 109 mg/dL (74-99); Non-African American GFR(CKD) >90 (>60 ml/min/1.73 sqM); Potassium 3.9 mmol/L (3.5-5.1); Sodium 133 mmol/L (137-145); Total Bilirubin 0.9 mg/dL (0.2-1.3); Total Protein 5.4 g/dL (6.3-8.2)
[2020-12-30] MEDS: IPRATROPIUM-ALBUTEROL 3 ML NEB INHALATION SCH ×3 (07:45→16:35)
[2020-12-30] MEDS: SODIUM CHLORIDE 0.9% 1,000 ML IV SCH ×2 (07:48→14:47)
--- NOTE | 2020-12-30 08:42 | P.PN ---
Subjective Progress Note Date: 12/30/20 Principal diagnosis: Paroxysmal atrial fibrillation The patient was seen this morning. He is feeling slightly better into her shortness of breath. No symptoms of chest pain or chest discomfort. He continues to be in atrial fibrillation was controlled heart rate and he is curr ently on oral anticoagulation. Hemodynamically he is stable. His heart rate has been in the 100. Objective - Vital Signs Vital signs: Vital Signs Temp 97.6 F 12/30/20 04:00 Pulse 100 12/30/20 04:00 Resp 18 12/30/20 04:00 BP 110/77 12/30/20 04:00 Pulse Ox 96 12/30/20 04:00 Intake & Output 12/29/20 12/30/20 12/30/20 18:59 06:59 18:59 Intake Total 2391 780 Balance 2391 780 Weight 77.5 kg Intake: Intake, IV Titration 1075 Amount Diltiazem 125 mg In 125 Sodium Chloride 0.9% 100 ml @ 5 MG/HR 5 mls/hr IV .Q24H RONALDO Rx#:[id number] Piperacillin-Tazobactam 3 100 .375 gm In Sodium Chloride 0.9% 100 ml @ 25 mls/hr IVPB Q8H RONALDO Rx#: [id number] Sodium Chloride 0.9% 1, 850 000 ml @ 100 mls/hr IV . Q10H RONALDO Rx#:[id number] Oral 1316 780 Other: # Voids 2 1 - Constitutional General appearance: Present: no acute distress - Respiratory Respiratory: bilateral: diminished - Cardiovascular Rhythm: irregularly irregular - Labs CBC & Chem 7: 12/30/20 06:29 12/30/20 06:29 Labs: Abnormal Lab Results - Last 24 Hours (Table) 12/29/20 12/29/20 12/29/20 Range/Units 06:57 11:36 16:42 WBC (3.8-10.6) k/uL RDW (11.5-15.5) % Neutrophils # (1.3-7.7) k/uL Lymphocytes # (1.0-4.8) k/uL Sodium (137-145) mmol/L BUN (9-20) mg/dL Glucose (74-99) mg/dL POC Glucose (mg/dL) 123 H 118 H (75-99) mg/dL Calcium (8.4-10.2) mg/dL AST (17-59) U/L ALT (4-49) U/L Creatine Kinase 9352 H* (55-170) U/L CK-MB (CK-2) (0.0-2.4) ng/mL Total Protein (6.3-8.2) g/dL Albumin (3.5-5.0) g/dL 12/29/20 12/30/20 12/30/20 Range/Units 20:15 06:04 06:29 WBC 12.3 H (3.8-10.6) k/uL RDW 15.6 H (11.5-15.5) % Neutrophils # 10.8 H (1.3-7.7) k/uL Lymphocytes # 0.6 L (1.0-4.8) k/uL Sodium (137-145) mmol/L BUN (9-20) mg/dL Glucose (74-99) mg/dL POC Glucose (mg/dL) 139 H 138 H (75-99) mg/dL Calcium (8.4-10.2) mg/dL AST (17-59) U/L ALT (4-49) U/L Creatine Kinase (55-170) U/L CK-MB (CK-2) (0.0-2.4) ng/mL Total Protein (6.3-8.2) g/dL Albumin (3.5-5.0) g/dL 12/30/20 12/30/20 Range/Units 06:29 06:29 WBC (3.8-10.6) k/uL RDW (11.5-15.5) % Neutrophils # (1.3-7.7) k/uL Lymphocytes # (1.0-4.8) k/uL Sodium 133 L (137-145) mmol/L BUN 27 H (9-20) mg/dL Glucose 109 H (74-99) mg/dL POC Glucose (mg/dL) (75-99) mg/dL Calcium 8.1 L (8.4-10.2) mg/dL AST 128 H (17-59) U/L ALT 52 H (4-49) U/L Creatine Kinase (55-170) U/L CK-MB (CK-2) 14.2 H (0.0-2.4) ng/mL Total Protein 5.4 L (6.3-8.2) g/dL Albumin 2.9 L (3.5-5.0) g/dL Assessment and Plan Assessment: Assessment #1 paroxysmal atrial fibrillation #2 chronic kidney disease #3 peripheral arterial disease #4 multiple comorbid conditions Plan #1 continue the current medical regimen #2 continue oral anticoagulation as well as metoprolol #3 possible discharge
[2020-12-30] MEDS: lisinopriL 5 MG TAB PO SCH (09:34)
[2020-12-30] MEDS: ASPIRIN 81 MG PO SCH (09:34)
[2020-12-30] MEDS: ATORVASTATIN 20 MG TAB PO SCH (09:35)
[2020-12-30] MEDS: APIXABAN 5 MG TAB PO SCH (09:35)
[2020-12-30] MEDS: NICOTINE 14MG/24HR PATCH TRANSDERM SCH (09:35)
[2020-12-30] MEDS: METOPROLOL TARTRATE 50 MG TAB PO SCH (09:35)
--- NOTE | 2020-12-30 10:45 | P.CNOR ---
History of Present Illness - [facility] Consult date: 12/30/20 Consult reason: joint pain History of present illness: Patient is 70 YO male seen at bedside this am in consultation for right AC joint separation. He has no shoulder complaints this morning. He is working with PT and using walker. He denies radicular symptoms. Review of Systems All systems: negative Constitutional: Denies chills, Denies fever Eyes: denies blurred vision, denies pain Ears, nose, mouth and throat: Denies headache, Denies sore throat Cardiovascular: Denies chest pain, Denies shortness of breath Respiratory: Denies cough Gastrointestinal: Denies abdominal pain, Denies diarrhea, Denies nausea, Denies vomiting Musculoskeletal: Denies myalgias Integumentary: Denies pruritus, Denies rash Neurological: Denies numbness, Denies weakness Psychiatric: Denies anxiety, Denies depression Endocrine: Denies fatigue, Denies weight change Past Medical History Past Medical History: COPD, GERD/Reflux, Hypertension, Vascular Disorder Additional Past Medical History / Comment(s): PVD, PAIN IN BILATERAL LEGS, DIFFICULTY WALKING USES CANE., TINNITUS, 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 Fall 10/05/19 with michelle back of head History of Any Multi-Drug Resistant Organisms: None Reported Past Surgical History: Appendectomy, Bowel Resection, Orthopedic Surgery Additional Past Surgical History / Comment(s): finger repair Past Anesthesia/Blood Transfusion Reactions: No Reported Reaction Past Psychological History: Depression Additional Psychological History / Comment(s): . Past Alcohol Use History: Daily Additional Past Alcohol Use History / Comment(s): started smoking 1965 (AGE 15) SMOKES 1PPD. 1-2 beers daily Past Drug Use History: Marijuana Additional Drug Use History / Comment(s): denies - Past Family History Mother Family Medical History: No Reported History Additional Family Medical History / Comment(s): . Father Family Medical History: CVA/TIA, Myocardial Infarction (MS) Additional Family Medical History / Comment(s): multiple mi's Brother(s) Family Medical History: Coronary Artery Disease (CAD) Additional Family Medical History / Comment(s): cabg Medications and Allergies Home Medications Medication Instructions Recorded Confirmed Type Apixaban [Eliquis] 5 mg PO BID 30 Days #60 tab 12/28/20 Rx Allergies Allergy/AdvReac Type Severity Reaction Status Date / Time No Known Allergies Allergy Verified 12/27/20 15:13 Physical Examination Inspection of right upper extremity shows small bump deformity consistent with AC separation. There is no erythema or echymoses. It is non tender. He has full active ROM of right shoulder and upper extremity with no pain . Neurovascular status is intact with motor and sensation throughout. 2+ radial pulse present and less than 2 sec cap refill. Results Xrays right shoulder shows no fracture. There is grade 1 AC separation - Labs Labs: Abnormal Lab Results - Last 24 Hours (Table) 12/29/20 12/29/20 12/29/20 Range/Units 11:36 16:42 20:15 WBC (3.8-10.6) k/uL RDW (11.5-15.5) % Neutrophils # (1.3-7.7) k/uL Lymphocytes # (1.0-4.8) k/uL Sodium (137-145) mmol/L BUN (9-20) mg/dL Glucose (74-99) mg/dL POC Glucose (mg/dL) 123 H 118 H 139 H (75-99) mg/dL Calcium (8.4-10.2) mg/dL AST (17-59) U/L ALT (4-49) U/L CK-MB (CK-2) (0.0-2.4) ng/mL Total Protein (6.3-8.2) g/dL Albumin (3.5-5.0) g/dL 12/30/20 12/30/20 12/30/20 Range/Units 06:04 06:29 06:29 WBC 12.3 H (3.8-10.6) k/uL RDW 15.6 H (11.5-15.5) % Neutrophils # 10.8 H (1.3-7.7) k/uL Lymphocytes # 0.6 L (1.0-4.8) k/uL Sodium 133 L (137-145) mmol/L BUN 27 H (9-20) mg/dL Glucose 109 H (74-99) mg/dL POC Glucose (mg/dL) 138 H (75-99) mg/dL Calcium 8.1 L (8.4-10.2) mg/dL AST 128 H (17-59) U/L ALT 52 H (4-49) U/L CK-MB (CK-2) (0.0-2.4) ng/mL Total Protein 5.4 L (6.3-8.2) g/dL Albumin 2.9 L (3.5-5.0) g/dL 12/30/20 Range/Units 06:29 WBC (3.8-10.6) k/uL RDW (11.5-15.5) % Neutrophils # (1.3-7.7) k/uL Lymphocytes # (1.0-4.8) k/uL Sodium (137-145) mmol/L BUN (9-20) mg/dL Glucose (74-99) mg/dL POC Glucose (mg/dL) (75-99) mg/dL Calcium (8.4-10.2) mg/dL AST (17-59) U/L ALT (4-49) U/L CK-MB (CK-2) 14.2 H (0.0-2.4) ng/mL Total Protein (6.3-8.2) g/dL Albumin (3.5-5.0) g/dL H & H 12/27/20 12/28/20 12/29/20 Range/Units 12:32 06:34 06:57 Hgb 22.2 H* 18.0 H D 17.0 (13.0-17.5) gm/dL Hct 64.0 H* 51.4 49.8 (39.0-53.0) % 12/30/20 Range/Units 06:29 Hgb 15.4 (13.0-17.5) gm/dL Hct 46.9 (39.0-53.0) % Coagulation 12/27/20 Range/Units 17:13 INR 1.1 (<1.2) Result Diagrams: 12/30/20 06:29 12/30/20 06:29 - Diagnostic results Shoulder x-ray: report reviewed, image reviewed Assessment and Plan (1) Acromioclavicular (joint) (ligament) sprain Narrative/Plan: He has minimal or no pain at right shoulder. There are no plans for surgical intervention. He may use a sling for comfort should his shoulder bother him. Would also recommend ice prn. He may do activity as tolerated with right upper extremity. He may f/u prn. Thank you Current Visit: Yes Status: Acute Priority: Low Code(s): S43.50XA - SPRAIN OF UNSPECIFIED ACROMIOCLAVICULAR JOINT, INIT ENCNTR SNOMED Code(s): 54957713 Time with Patient: Less than 30
[2020-12-30 11:33] LABS: Glucose,Whole Blood 130 mg/dL (75-99)
[2020-12-30 11:45] VITALS: TEMP 97.9
[2020-12-30] MEDS: MULTIVITAMINS, THERA 1 EACH TAB PO SCH (12:15)
--- NOTE | 2020-12-30 13:53 | P.DS ---
Providers Date of admission: 12/27/20 16:03 Expected date of discharge: 12/30/20 Attending physician: Willam Houston Consults: 12/27/20 16:04 Consult Physician Routine Consulting Provider: Maik Tompkins Consult Reason/Comments: Right shoulder AC joint separation Do you want consulting provider notified?: Yes 12/28/20 04:37 Consult Physician Routine Consulting Provider: Richard Chaidez Consult Reason/Comments: afib rvr Do you want consulting provider notified?: Yes Primary care physician: Stella Fernandez Hospital Course: Final diagnosis Acute renal failure secondary to dehydration as well as acute rhabdomyolysis and acute tubular necrosis Atrial fibrillation with fast ventricular rate, new onset, present on admission Chronic obstructive pulmonary disease acute exacerbation Falling gait dysfunction acromioclavicular joint separation on the right Cellulitis of both legs Acute rhabdomyolysis secondary to fall Troponin 0.102, possibly secondary to rhabdomyolysis Elevated asthma lactic acid, present on admission Possible sepsis, present on admission increased white count hemoconcentration and polycythemia possibly, present on admission History of chronic obstructive pulmonary disease Gastroesophageal reflux disease Hypertension history of peripheral vascular disease history of tinnitus history of appendix tumor with bowel resection History of diarrhea history of brain aneurysm appendectomy history of depression continued ongoing nicotine dependence Full code Discharge disposition Patient is being discharged in a stable condition with guarded prognosis to [facility] for continued PT/OT therapy. Patient will follow-up with Dr. Foster in the outpatient setting upon discharge. Patient normally follows with Dr. fernandez as his primary care provider and will follow-up outpatient once discharged from [facility]. Patient to follow-up with cardiology and orthopedics as needed outpatient. Total time taken is greater than 35 minutes. Hospital course This is a 70-year-old male who was recently admitted with acute abnormalities also had new onset atrial fibrillation and being closely monitored. Patient was evaluated by cardiology and started on anticoagulant and will continue in the outpatient setting. Patient continues to be weak and will be going to [facility] for continued PT/OT therapy for strengthening mobility. Patient was also seen by orthopedics for right shoulder pain recommending conservative management may use arm sling. Patient was on IV antibiotics and will transition to oral Keflex 500 mg 4 times daily for the next 3 days to complete the course. Patient will also continue with the prednisone taper. Recommend repeat labs of CBC, BMP, CK in the outpatient setting in 2-3 days. Patient was continued on 2-3 L of oxygen via nasal cannula and recommend to continue. Currently no reports of chest pain, worsening shortness of breath, or palpitations. Patient is afebrile. No reports of nausea or vomiting and patient is tolerating diet. Patient will be going to [facility] today. Guarded prognosis. On exam vital signs are stable. Cardio S1, S2 are muffled. Respiratory system shows diminished breath sounds at the bases with no wheezing or rhonchi noted. Abdomen is soft and nontender. Nervous system shows diffuse weakness. Please refer to medication reconciliation sheet for a list of medications. Patient Condition at Discharge: Stable Plan - Discharge Summary Discharge Rx Participant: Yes New Discharge Prescriptions: New Ipratropium-Albuterol Nebulize [Duoneb 0.5 mg-3 mg/3 ml Soln] 3 ml INHALATION RT-QID ml Ipratropium-Albuterol Nebulize [Duoneb 0.5 mg-3 mg/3 ml Soln] 3 ml INHALATION RT-QID PRN ml PRN Reason: Shortness Of Breath Or Wheezing Atorvastatin [Lipitor] 20 mg PO DAILY tab Multivitamins, Thera [Multivitamin (formulary)] 1 each PO DAILY@1200 tab Pantoprazole [Protonix] 40 mg PO AC-BRKFST tab Acetaminophen Tab [Tylenol] 650 mg PO Q6HR PRN tab PRN Reason: Mild Pain Or Fever > 100.5 Thiamine [Vitamin B-1] 100 mg PO DAILY #30 tablet lisinopriL [Zestril] 5 mg PO DAILY tab predniSONE 10 mg PO DIRECTED #30 tab Apixaban [Eliquis] 5 mg PO BID 30 Days #60 tab Aspirin 81 mg PO DAILY Nicotine 14Mg/24Hr Patch [Habitrol] 1 patch TRANSDERM DAILY patch Cephalexin [Keflex] 500 mg PO Q6HR 3 Days #12 cap Lactobacillus Acidoph & Bulgar [Lactinex] 1 packet PO BID #60 packet Metoprolol Tartrate [Lopressor] 50 mg PO BID tab HYDROcodone/APAP 5-325MG [[place] 5-325] 1 each PO Q6HR PRN #6 tab PRN Reason: Pain Thiamine [Vitamin B-1] 100 mg PO BID-W/MEALS tab Discharge Medication List Apixaban [Eliquis] 5 mg PO BID 30 Days #60 tab 09/01/21 [Rx] Acetaminophen Tab [Tylenol] 650 mg PO Q6HR PRN tab 12/30/20 [Rx] Aspirin 81 mg PO DAILY 12/30/20 [Rx] Atorvastatin [Lipitor] 20 mg PO DAILY tab 12/30/20 [Rx] Cephalexin [Keflex] 500 mg PO Q6HR 3 Days #12 cap 12/30/20 [Rx] HYDROcodone/APAP 5-325MG [[place] 5-325] 1 each PO Q6HR PRN #6 tab 12/30/20 [Rx] Ipratropium-Albuterol Nebulize [Duoneb 0.5 mg-3 mg/3 ml Soln] 3 ml INHALATION RT-QID ml 12/30/20 [Rx] Ipratropium-Albuterol Nebulize [Duoneb 0.5 mg-3 mg/3 ml Soln] 3 ml INHALATION RT-QID PRN ml 12/30/20 [Rx] Lactobacillus Acidoph & Bulgar [Lactinex] 1 packet PO BID #60 packet 12/30/20 [Rx] Metoprolol Tartrate [Lopressor] 50 mg PO BID tab 12/30/20 [Rx] Multivitamins, Thera [Multivitamin (formulary)] 1 each PO DAILY@1200 tab 12/30/20 [Rx] Nicotine 14Mg/24Hr Patch [Habitrol] 1 patch TRANSDERM DAILY patch 12/30/20 [Rx] Pantoprazole [Protonix] 40 mg PO AC-BRKFST tab 12/30/20 [Rx] Thiamine [Vitamin B-1] 100 mg PO BID-W/MEALS tab 12/30/20 [Rx] Thiamine [Vitamin B-1] 100 mg PO DAILY #30 tablet 12/30/20 [Rx] lisinopriL [Zestril] 5 mg PO DAILY tab 12/30/20 [Rx] predniSONE 10 mg PO DIRECTED #30 tab 12/30/20 [Rx] Follow up Appointment(s)/Referral(s): Stella Fernandez MD [Primary Care Provider] - 1-2 days Ambulatory/Diagnostic Orders: Complete Blood Count w/diff [LAB.AMB] Time Frame: 3 Days, Location: None Selected Activity/Diet/Wound Care/Special Instructions: Patient is going to [facility] Activity as tolerated Recommend repeat labs of CBC, BMP, CK continue with antibiotics 4 times daily for 3 days and then may discontinue Continue prednisone taper continue breathing inhalational treatments May follow-up with orthopedics outpatient Follow-up cardiology outpatient Follow-up primary care provider upon discharge Continue heart healthy diet Discharge Disposition: TRANSFER TO SNF/ECF
[2020-12-30 16:14] VITALS: BP 124/64
[2020-12-30 16:40] VITALS: PULSE 84
== END 2020-12-30 16:44 | DRG 871 ==
LOC: EC 12:07 → 3SCARD 16:03
PROVIDERS: ADMIT Hospitalist; ATTEND Hospitalist
DX: A41.9 Sepsis, unspecified organism (principal); N17.0 Acute kidney failure with tubular necrosis; E87.2 Acidosis; J44.1 Chronic obstructive pulmonary disease with (acute) exacerbation; L03.115 Cellulitis of right lower limb; L03.116 Cellulitis of left lower limb; I67.1 Cerebral aneurysm, nonruptured; S43.101A Unspecified dislocation of right acromioclavicular joint, initial encounter; D75.1 Secondary polycythemia; I48.0 Paroxysmal atrial fibrillation; E86.0 Dehydration; T79.6XXA Traumatic ischemia of muscle, initial encounter; I73.9 Peripheral vascular disease, unspecified; F10.21 Alcohol dependence, in remission; Z20.822 Contact with and (suspected) exposure to COVID-19; I12.9 Hypertensive chronic kidney disease with stage 1 through stage 4 chronic kidney disease, or unspecified chronic kidney disease; F32.9 Major depressive disorder, single episode, unspecified; T46.1X6A Underdosing of calcium-channel blockers, initial encounter; T44.7X6A Underdosing of beta-adrenoreceptor antagonists, initial encounter; T46.4X6A Underdosing of angiotensin-converting-enzyme inhibitors, initial encounter; Z91.128 Patient's intentional underdosing of medication regimen for other reason; I08.1 Rheumatic disorders of both mitral and tricuspid valves; E78.5 Hyperlipidemia, unspecified; K21.9 Gastro-esophageal reflux disease without esophagitis; N18.9 Chronic kidney disease, unspecified; H93.19 Tinnitus, unspecified ear; R26.2 Difficulty in walking, not elsewhere classified; F17.210 Nicotine dependence, cigarettes, uncomplicated; R35.0 Frequency of micturition; M54.9 Dorsalgia, unspecified; R77.8 Other specified abnormalities of plasma proteins; R19.7 Diarrhea, unspecified; Y90.0 Blood alcohol level of less than 20 mg/100 ml; Z79.01 Long term (current) use of anticoagulants; Z60.2 Problems related to living alone; Z95.828 Presence of other vascular implants and grafts; Z90.49 Acquired absence of other specified parts of digestive tract; Z87.19 Personal history of other diseases of the digestive system; Z87.39 Personal history of other diseases of the musculoskeletal system and connective tissue; Z98.890 Other specified postprocedural states; W18.30XA Fall on same level, unspecified, initial encounter; Y92.009 Unspecified place in unspecified non-institutional (private) residence as the place of occurrence of the external cause; Z82.3 Family history of stroke; Z82.49 Family history of ischemic heart disease and other diseases of the circulatory system
CPT/HCPCS: 36415; 70450; 70486; 71046; 71250; 72125; 72128; 72131; 72170; 74176; 80048; 80053; 80061; 80320; 81001; 82140; 82150; 82550; 82553; 83605; 83690; 83735; 84132; 84484; 85025; 85610; 85730; 87635; 93005; 93306; 94640; 94760; 96374; 99285

== ENCOUNTER 2021-01-11 14:30 | Inpatient (IN) | payer MEDICARE ==
[2021-01-11] MEDS ORDERED: SODIUM CHLORIDE 0.9% 500 ML 500 ML IV STA (14:41)
[2021-01-11 14:46] LABS: Glucose,Whole Blood 112 mg/dL (75-99)
--- NOTE | 2021-01-11 15:03 | ED ---
General Adult HPI - General Chief complaint: Neuro Symptoms/Deficit Stated complaint: possible seizure Time Seen by Provider: 01/11/21 14:30 Source: patient, EMS, RN notes reviewed, old records reviewed Mode of arrival: EMS Limitations: altered mental status - History of Present Illness Initial comments: This is a 70-year-old male who presents emergency Department from a jail they found the patient in his room reaching up with his left side his food tray all over the floor he was answering some questions but he was significantly altered from his baseline. According to EMS he had some left arm weakness as well. Patient does not know why is here and is unable to tell us. He is only alert and oriented 2. Patient denies any headache patient denies knowing about any weakness or numbness. Patient denies chest pain or abdominal pain patient difficulty breathing. Patient is very uncooperative with questioning and he does not seem to follow all basic commands. No further history is available at this time. - Related Data Previous Rx's Medication Instructions Recorded Apixaban [Eliquis] 5 mg PO BID 30 Days #60 tab 12/28/20 Acetaminophen Tab [Tylenol] 650 mg PO Q6HR PRN tab 12/30/20 Aspirin 81 mg PO DAILY 12/30/20 Atorvastatin [Lipitor] 20 mg PO DAILY tab 12/30/20 Cephalexin [Keflex] 500 mg PO Q6HR 3 Days #12 cap 12/30/20 HYDROcodone/APAP 5-325MG [[place] [facility] 1 each PO Q6HR PRN #6 tab 12/30/20 5-325] Ipratropium-Albuterol Nebulize 3 ml INHALATION RT-QID ml 12/30/20 [Duoneb 0.5 mg-3 mg/3 ml Soln] Ipratropium-Albuterol Nebulize 3 ml INHALATION RT-QID PRN ml 12/30/20 [Duoneb 0.5 mg-3 mg/3 ml Soln] Lactobacillus Acidoph & Bulgar 1 packet PO BID #60 packet 12/30/20 [Lactinex] Metoprolol Tartrate [Lopressor] 50 mg PO BID tab 12/30/20 Multivitamins, Thera [Multivitamin 1 each PO DAILY@1200 tab 12/30/20 (formulary)] Nicotine 14Mg/24Hr Patch [Habitrol] 1 patch TRANSDERM DAILY patch 12/30/20 Pantoprazole [Protonix] 40 mg PO AC-BRKFST tab 12/30/20 Thiamine [Vitamin B-1] 100 mg PO BID-W/MEALS tab 12/30/20 Thiamine [Vitamin B-1] 100 mg PO DAILY #30 tablet 12/30/20 lisinopriL [Zestril] 5 mg PO DAILY tab 12/30/20 predniSONE 10 mg PO DIRECTED #30 tab 12/30/20 Allergies Allergy/AdvReac Type Severity Reaction Status Date / Time No Known Allergies Allergy Verified 12/27/20 15:13 Review of Systems ROS Statement: Those systems with pertinent positive or pertinent negative responses have been documented in the HPI. ROS Other: All systems not noted in ROS Statement are negative. 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 Fall 10/05/19 with michelle back of head History of Any Multi-Drug Resistant Organisms: None Reported Past Surgical History: Appendectomy, Bowel Resection, Orthopedic Surgery Additional Past Surgical History / Comment(s): finger repair Past Anesthesia/Blood Transfusion Reactions: No Reported Reaction Past Psychological History: Depression Past Alcohol Use History: Daily Past Drug Use History: Marijuana - Past Family History Mother Family Medical History: No Reported History Additional Family Medical History / Comment(s): . Father Family Medical History: CVA/TIA, Myocardial Infarction (ME) Additional Family Medical History / Comment(s): multiple mi's Brother(s) Family Medical History: Coronary Artery Disease (CAD) Additional Family Medical History / Comment(s): cabg General Exam - General Exam Comments Initial Comments: GENERAL: Patient is well-developed and well-nourished. Patient is nontoxic and well- hydrated and is in mild distress. ENT: Neck is soft and supple. No significant lymphadenopathy is noted. Oropharynx is clear. Moist mucous membranes. Neck has full range of motion without eliciting any pain. EYES: The sclera were anicteric and conjunctiva were pink and moist. Extraocular movements were intact and pupils were equal round and reactive to light. Eyelids were unremarkable. PULMONARY: Unlabored respirations. Good breath sounds bilaterally. No audible rales rhonchi or wheezing was noted. CARDIOVASCULAR: There is a regular rate and rhythm without any murmurs gallops or rubs. ABDOMEN: Soft and nontender with normal bowel sounds. SKIN: Skin is clear with no lesions or rashes and otherwise unremarkable. NEUROLOGIC: Patient is alert and oriented x3. Cranial nerves II through XII are grossly intact. Patient has normal speech. Patient's left arm is definitely weaker about a 3 out of 5 when compared to the right arm. MUSCULOSKELETAL: Patient is moving both legs difficult to assess strength because he doesn't follow simple commands. Left upper arm is definitely weaker than the right. LYMPHATICS: No significant lymphadenopathy is noted PSYCHIATRIC: Unable to assess since patient is not answering most questions. Limitations: no limitations Course Vital Signs 01/11/21 01/11/21 01/11/21 14:31 14:50 15:05 Temperature 98.0 F Pulse Rate 51 L 57 L 72 Respiratory 18 18 18 Rate Blood Pressure 186/92 186/92 186/95 O2 Sat by Pulse 96 96 97 Oximetry 01/11/21 01/11/21 01/11/21 15:20 15:45 16:00 Temperature Pulse Rate 67 67 64 Respiratory 18 18 18 Rate Blood Pressure 184/100 179/79 174/94 O2 Sat by Pulse 97 96 96 Oximetry 01/11/21 16:35 Temperature Pulse Rate 63 Respiratory 18 Rate Blood Pressure 172/95 O2 Sat by Pulse 99 Oximetry Medical Decision Making - Medical Decision Making this was called a code stroke immediately I spoke with Dr. Dean and Dr. Dean stated he would review the films and call me back. EKG shows normal sinus rhythm at 66 bpm NM interval 160 QRS is 70 QT interval 414 QTC is 434. Patient's EKG shows no ST segment elevation or depression. Computed tomography scan of the brain shows no acute abnormality. CTA patient has a significant stenosis of the proximal left internal carotid artery at 55% he has severe atherosclerotic changes of the distal internal carotid arteries bilaterally with significant stenosis suspected bilaterally there is also a new noncalcified plaque in the distal left internal carotid artery causing more prominent stenosis and his 2018 visit. I spoke with Dr. Dean after he reviewed the CT and CTA and he wanted the patient admitted to the hospital and put on Proventil and aspirin. I spoke with Dr. Merchant agreed to admit the patient and the patient I wrote admitting orders. I started the patient on Proventil and aspirin in the emergency department. After I spoke with Dr. Dean I went back into reevaluate the patient his sympto ms had completely resolved. Patient was at his neurologic baseline at this point according to his brother was also in the room and he was no longer altered. I spoke with Dr. Hardy about the elevated troponin and he was aware of the elevated troponin and will follow-up with the patient has an inpatient. - Lab Data Result diagrams: 01/11/21 14:49 01/11/21 14:49 Lab Results 01/11/21 01/11/21 01/11/21 Range/Units 14:44 14:49 14:49 WBC 13.9 H (3.8-10.6) k/uL RBC 5.23 (4.30-5.90) m/uL Hgb 17.0 (13.0-17.5) gm/dL Hct 50.0 (39.0-53.0) % MCV 95.6 (80.0-100.0) fL MCH 32.5 (25.0-35.0) pg MCHC 34.1 (31.0-37.0) g/dL RDW 14.4 (11.5-15.5) % Plt Count 379 (150-450) k/uL MPV 7.4 Neutrophils % 73 % Lymphocytes % 16 % Monocytes % 6 % Eosinophils % 2 % Basophils % 0 % Neutrophils # 10.2 H (1.3-7.7) k/uL Lymphocytes # 2.2 (1.0-4.8) k/uL Monocytes # 0.8 (0-1.0) k/uL Eosinophils # 0.3 (0-0.7) k/uL Basophils # 0.1 (0-0.2) k/uL PT 10.4 (9.0-12.0) sec INR 1.0 (<1.2) APTT 22.3 (22.0-30.0) sec Sodium (137-145) mmol/L Potassium (3.5-5.1) mmol/L Chloride (98-107) mmol/L Carbon Dioxide (22-30) mmol/L Anion Gap mmol/L BUN (9-20) mg/dL Creatinine (0.66-1.25) mg/dL Est GFR (CKD-EPI)AfAm (>60 ml/min/1.73 sqM) Est GFR (CKD-EPI)NonAf (>60 ml/min/1.73 sqM) Glucose (74-99) mg/dL POC Glucose (mg/dL) 112 H (75-99) mg/dL POC Glu Generator Man ID Discher, Anny Plasma Lactic Acid Colin (0.7-2.0) mmol/L Calcium (8.4-10.2) mg/dL Total Bilirubin (0.2-1.3) mg/dL AST (17-59) U/L ALT (4-49) U/L Alkaline Phosphatase (38-126) U/L Ammonia (<30) umol/L Troponin I (0.000-0.034) ng/mL Total Protein (6.3-8.2) g/dL Albumin (3.5-5.0) g/dL 01/11/21 01/11/21 01/11/21 Range/Units 14:49 14:49 14:49 WBC (3.8-10.6) k/uL RBC (4.30-5.90) m/uL Hgb (13.0-17.5) gm/dL Hct (39.0-53.0) % MCV (80.0-100.0) fL MCH (25.0-35.0) pg MCHC (31.0-37.0) g/dL RDW (11.5-15.5) % Plt Count (150-450) k/uL MPV Neutrophils % % Lymphocytes % % Monocytes % % Eosinophils % % Basophils % % Neutrophils # (1.3-7.7) k/uL Lymphocytes # (1.0-4.8) k/uL Monocytes # (0-1.0) k/uL Eosinophils # (0-0.7) k/uL Basophils # (0-0.2) k/uL PT (9.0-12.0) sec INR (<1.2) APTT (22.0-30.0) sec Sodium 131 L (137-145) mmol/L Potassium 5.5 H (3.5-5.1) mmol/L Chloride 102 (98-107) mmol/L Carbon Dioxide 18 L (22-30) mmol/L Anion Gap 11 mmol/L BUN 23 H (9-20) mg/dL Creatinine 0.94 (0.66-1.25) mg/dL Est GFR (CKD-EPI)AfAm >90 (>60 ml/min/1.73 sqM) Est GFR (CKD-EPI)NonAf 82 (>60 ml/min/1.73 sqM) Glucose 111 H (74-99) mg/dL POC Glucose (mg/dL) (75-99) mg/dL POC Glu Generator Man ID Plasma Lactic Acid Colin (0.7-2.0) mmol/L Calcium 9.2 (8.4-10.2) mg/dL Total Bilirubin 1.0 (0.2-1.3) mg/dL AST 107 H (17-59) U/L ALT 73 H (4-49) U/L Alkaline Phosphatase 87 (38-126) U/L Ammonia <9 (<30) umol/L Troponin I 0.431 H* (0.000-0.034) ng/mL Total Protein 7.2 (6.3-8.2) g/dL Albumin 3.8 (3.5-5.0) g/dL 01/11/21 Range/Units 14:49 WBC (3.8-10.6) k/uL RBC (4.30-5.90) m/uL Hgb (13.0-17.5) gm/dL Hct (39.0-53.0) % MCV (80.0-100.0) fL MCH (25.0-35.0) pg MCHC (31.0-37.0) g/dL RDW (11.5-15.5) % Plt Count (150-450) k/uL MPV Neutrophils % % Lymphocytes % % Monocytes % % Eosinophils % % Basophils % % Neutrophils # (1.3-7.7) k/uL Lymphocytes # (1.0-4.8) k/uL Monocytes # (0-1.0) k/uL Eosinophils # (0-0.7) k/uL Basophils # (0-0.2) k/uL PT (9.0-12.0) sec INR (<1.2) APTT (22.0-30.0) sec Sodium (137-145) mmol/L Potassium (3.5-5.1) mmol/L Chloride (98-107) mmol/L Carbon Dioxide (22-30) mmol/L Anion Gap mmol/L BUN (9-20) mg/dL Creatinine (0.66-1.25) mg/dL Est GFR (CKD-EPI)AfAm (>60 ml/min/1.73 sqM) Est GFR (CKD-EPI)NonAf (>60 ml/min/1.73 sqM) Glucose (74-99) mg/dL POC Glucose (mg/dL) (75-99) mg/dL POC Glu Generator Man ID Plasma Lactic Acid Colin 1.4 (0.7-2.0) mmol/L Calcium (8.4-10.2) mg/dL Total Bilirubin (0.2-1.3) mg/dL AST (17-59) U/L ALT (4-49) U/L Alkaline Phosphatase (38-126) U/L Ammonia (<30) umol/L Troponin I (0.000-0.034) ng/mL Total Protein (6.3-8.2) g/dL Albumin (3.5-5.0) g/dL Critical Care Time Critical Care Time: Yes Total Critical Care Time: 35 Disposition Clinical Impression: CVA (cerebral vascular accident), Elevated troponin Disposition: ADMITTED IP TO THIS HOSP Referrals: Ulisses Khan DO [Primary Care Provider] - 1-2 days Time of Disposition: 16:47
--- NOTE | 2021-01-11 15:13 | XR ---
EXAMINATION TYPE: XR chest 2V DATE OF EXAM: 01/11/2021 COMPARISON: 12/27/2020 INDICATION: Code stroke, possible seizure TECHNIQUE: Frontal and lateral views of the chest are obtained. FINDINGS: The heart size is mildly prominent. The pulmonary vasculature is normal. Left lower lobe infiltrate is present silhouetting the left heart border and is within the lingula. C orrelate for pneumonia. IMPRESSION: 1. Lingular infiltrate. Correlate for pneumonia. Follow-up is recommended.
[2021-01-11 15:14] LABS: Basophils # (A) 0.1 k/uL (0-0.2); Basophils % (A) 0 %; Eosinophils # (A) 0.3 k/uL (0-0.7); Eosinophils % (A) 2 %; Lymphocytes # (A) 2.2 k/uL (1.0-4.8); Lymphocytes % (A) 16 %; MCH 32.5 pg (25.0-35.0); MCHC 34.1 g/dL (31.0-37.0); MCV 95.6 fL (80.0-100.0); Mean Platelet Volume 7.4; Monocytes # (A) 0.8 k/uL (0-1.0); Monocytes % (A) 6 %; Neutrophils # (A) 10.2 k/uL (1.3-7.7); Neutrophils % (A) 73 %; Platelet Count 379 k/uL (150-450); RBC 5.23 m/uL (4.30-5.90); RDW 14.4 % (11.5-15.5); WBC 13.9 k/uL (3.8-10.6)
[2021-01-11 15:30] LABS: ALT 73 U/L (4-49); AST 107 U/L (17-59); African American GFR (CKD) >90 (>60 ml/min/1.73 sqM); Albumin 3.8 g/dL (3.5-5.0); Alkaline Phosphatase 87 U/L (38-126); Anion Gap 11 mmol/L; Blood Urea Nitrogen 23 mg/dL (9-20); Calcium 9.2 mg/dL (8.4-10.2); Carbon Dioxide 18 mmol/L (22-30); Chloride 102 mmol/L (98-107); Glucose 111 mg/dL (74-99); Non-African American GFR(CKD) 82 (>60 ml/min/1.73 sqM); Sodium 131 mmol/L (137-145); Total Protein 7.2 g/dL (6.3-8.2)
--- NOTE | 2021-01-11 15:31 | CT ---
EXAMINATION TYPE: CT brain wo con for TPA DATE OF EXAM: 01/11/2021 HISTORY: Left sided weakness, possible seizure. Acute onset neural deficit. CT DLP: 1195.8 mGycm. Automated Exposure Control for Dose Reduction was Utilized. TECHNIQUE: CT scan of the head is performed without contrast. COMPARISON: CT brain December 27, 2020 and older studies. FINDINGS: There is no acute intracranial hemorrhage or midline shift identified. There is mild to m oderate diffuse ventricular and sulcal prominence consistent with diffuse age-related cerebral atroph y. There is moderate to severe low-attenuation in the periventricular white matter consistent with c hronic small vessel ischemic change. Moderate to severe vascular calcification distal internal caroti d arteries bilaterally. The globes are intact and the visualized sinuses are clear. Nasal septum is deviated to left of midline. IMPRESSION: No acute intracranial hemorrhage or midline shift. There is [id number] diffuse ag e-related cerebral atrophy and moderate to advanced chronic small vessel ischemic change redemonstrat ed. No significant change from most recent prior studies.
[2021-01-11 15:36] LABS: Partial Thromboplastin Time 22.3 sec (22.0-30.0); Prothrombin Time 10.4 sec (9.0-12.0)
[2021-01-11 15:42] LABS: Potassium 5.5 mmol/L (3.5-5.1)
--- NOTE | 2021-01-11 15:44 | CT ---
EXAMINATION TYPE: CT angio head neck DATE OF EXAM: 01/11/2021 HISTORY: Left sided weakness, possible seizure. Acute onset neurologic deficit. COMPARISON: Prior CTA of the neck February 21, 2018 CT DLP: 392.1 mGycm. Automated Exposure Control for Dose Reduction was Utilized. TECHNIQUE: CTA scan of the head and neck are performed with IV Contrast, patient injected with 65 mL of Isovue 370, axial images are obtained, coronal and sagittal reformatted images are reviewed. 3D r econstructed images are created on an independent workstation and reviewed. FINDINGS: Carotid/Vascular Structures: Mild mixed plaque in the aortic arch. Normal three-vessel origin. Mild t o moderate peripheral plaque at origin of 3 great vessels without significant stenosis. Normal origin right common carotid artery from the right brachiocephalic artery. There is moderate peripheral mixed plaque anteriorly in the left common carotid artery mid segment wi th mild to moderate peripheral plaque distal segment. No significant stenosis. Mild to moderate mixed plaque anteriorly in the mid to distal right common carotid artery is less prominent than left side. No significant stenosis. Moderate to severe mixed plaque at carotid bulb level on the right extends into proximal internal and external carotid arteries without significant stenosis. Similar finding noted on the left no signifi cant stenosis at origin of the left external carotid artery and more prominent stenosis in the proxim al left internal carotid artery on current study. Lumen diameter narrows to 2.2 mm on image 13 of ser ies 4086 and reconstitutes to 4.7 mm superior to this image 54 series 401 causing stenosis just over 50%. Distal internal carotid arteries show more severe plaque in the supraclinoid segments with signi ficant stenosis likely present bilaterally. More dense noncalcified plaque on the left noted axial im age 76 causing significant stenosis more prominent from prior study image 17. There is redemonstration of nonopacified or suspect occluded nondominant left vertebral artery. There is dominant right vertebral artery patent to basilar junction with possible some retrograde filling of the distal left vertebral artery is small caliber. Hypoplastic bilateral posterior communicating a rteries are redemonstrated. No significant focal stenosis or aneurysm in the posterior circulation. S mall caliber patent anterior communicating artery is difficult to visualize but likely present. No si gnificant focal stenosis or aneurysm in the anterior circulation. No significant change from prior at this level. Other: Moderate emphysematous change of visualized upper lungs is redemonstrated. Asymmetric small left thyroid lobe remnant redemonstrated. Multilevel mild disc space narrowing and uncovertebral facet degenerative changes throughout the cerv ical spine is redemonstrated. Suspected calcified pleural plaques bilaterally are partially imaged similar to prior. Correlate clin ically for prior asbestos exposure. IMPRESSION: 1. New significant stenosis proximal left internal carotid artery near 55%. 2. Severe atherosclerotic changes distal internal carotid arteries bilaterally with significant steno sis suspected bilaterally. Presence of temporal bone and dense calcified plaque makes evaluation subo ptimal. There is new noncalcified plaque distal left internal carotid artery causing more prominent s tenosis versus 2018 study clearly seen. 3. No aneurysm or new significant focal stenosis at level [place] of [place]. NASCET criteria was used in interpretation of this exam?
[2021-01-11] MEDS ORDERED: cefTRIAXone IN SWFI 1,000 MG/10 ML SYRINGE IVP STA (16:11)
[2021-01-11] MEDS ORDERED: ASPIRIN 81 MG PO STA (16:22)
[2021-01-11] MEDS ORDERED: TICAGRELOR 90 MG TAB PO STA (16:57)
[2021-01-11] MEDS ORDERED: HYDROcodone/APAP 5-325MG 1 EACH TAB PO PRN (19:24)
[2021-01-11] MEDS ORDERED: MAGNESIUM HYDROXIDE 2,400 MG/10 ML CUP PO PRN (19:24)
[2021-01-11] MEDS: ATORVASTATIN 20 MG TAB PO SCH (20:14)
[2021-01-11] MEDS: METOPROLOL TARTRATE 50 MG TAB PO SCH (20:14)
[2021-01-11] MEDS: lisinopriL 5 MG TAB PO SCH (20:14)
[2021-01-12] MEDS: IPRATROPIUM-ALBUTEROL 3 ML NEB INHALATION PRN ×2 (02:26→07:31)
[2021-01-12] MEDS: PANTOPRAZOLE 40 MG TABLET PO SCH (05:53)
[2021-01-12 07:01] LABS: Basophils # (A) 0.1 k/uL (0-0.2); Basophils % (A) 0 %; Eosinophils # (A) 0.2 k/uL (0-0.7); Eosinophils % (A) 1 %; HCT 49.1 % (39.0-53.0); HGB 17.1 gm/dL (13.0-17.5); Lymphocytes # (A) 1.7 k/uL (1.0-4.8); Lymphocytes % (A) 13 %; MCH 32.6 pg (25.0-35.0); MCHC 34.9 g/dL (31.0-37.0); MCV 93.4 fL (80.0-100.0); Mean Platelet Volume 7.1; Monocytes # (A) 0.5 k/uL (0-1.0); Monocytes % (A) 4 %; Neutrophils # (A) 9.9 k/uL (1.3-7.7); Neutrophils % (A) 79 %; Platelet Count 382 k/uL (150-450); RBC 5.26 m/uL (4.30-5.90); RDW 14.9 % (11.5-15.5); WBC 12.5 k/uL (3.8-10.6)
[2021-01-12 07:12] LABS: Anion Gap 13 mmol/L; Blood Urea Nitrogen 18 mg/dL (9-20); Carbon Dioxide 21 mmol/L (22-30); Chloride 99 mmol/L (98-107); Glucose 96 mg/dL (74-99); Potassium 4.8 mmol/L (3.5-5.1); Sodium 133 mmol/L (137-145)
[2021-01-12 07:13] LABS: African American GFR (CKD) >90 (>60 ml/min/1.73 sqM); Calcium 9.4 mg/dL (8.4-10.2); Non-African American GFR(CKD) 87 (>60 ml/min/1.73 sqM)
[2021-01-12] MEDS ORDERED: APIXABAN 5 MG TAB PO SCH (08:00)
[2021-01-12] MEDS ORDERED: ASPIRIN 325 MG TAB PO SCH (09:00)
[2021-01-12] MEDS ORDERED: HEPARIN SODIUM 1,000 UN/ML (10ML VL) IV PRN (09:11)
[2021-01-12] MEDS ORDERED: HEPARIN SOD,PORK IN 0.45% NACL 25,000 UNIT in 0.45% NACL 1 250ML.BAG IV SCH (09:15)
--- NOTE | 2021-01-12 09:46 | P.HPIM ---
History of Present Illness H&P Date: 01/11/21 Chief Complaint: Altered mentation History of presenting complaint: Patient was seen by me in the ER This is a 70-year-old patient who follows Dr. Khan. Patient's chronic stable medical conditions include COPD, GERD, hypertension, peripheral arterial disease, peripheral neuropathy, atrial fibrillation, history of appendix tumor with bowel resection, As per the EMS report: Nursing staff stated that the patient be laying in bed when staff 100 trash and found the patient in one are up, not responding. Patient been displaced decorticate posturing and was unable to lift his left arm. When the EMS arrived patient is able to lift his left arm but did not answer questions appropriately. Was agitated. Not being cooperative with assessment. Per nursing staff patient normally is AO 4 and pleasant. EMS evaluated and did not find any focal weakness. Due to the course of transport patient showed some confusion. Code stroke was called in the ER. Given that patient's symptoms are improving and decided not to do any further intervention. When I saw the patient she was able to answer questions though slowly. Appeared to be slightly distant. Able to move his limbs. He says he started smoking a few weeks ago. Patient started on Brilinta in the ER after Dr. Larios spoke to the stroke team. Review of systems: GEN.: Tired EYES: Bit decreased vision HEENT: None NECK: None RESPIRATORY: Baseline some shortness of breath CARDIOVASCULAR: None GASTROINTESTINAL: None GENITOURINARY: None MUSCULOSKELETAL: Some joint pains LYMPHATICS: None HEMATOLOGICAL: None PSYCHIATRY: None NEUROLOGICAL: Numbness tingling and hurting of the feet. 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 Depression. Hypertension, paroxysmal atrial fibrillation Social history: Current resident of [facility]. Patient started smoking in [id number], 1 pack a day up to 2-3 weeks ago. Was drinking one or 2 beers a day Family history: Reviewed, noncontributory to presentation Physical examination: VITAL SIGNS: 98, 67, 18, 179/79, 96% on 2 L GENERAL: BMI 20, laying in bed, awake slightly slow to respond. EYES: Pupils equal. Conjunctiva normal. HEENT: External appearance of nose and ears normal, oral cavity grossly normal. NECK: JVD unable to assess; masses not palpable. HEART: First and second heart sounds are normal; no edema. LUNGS: Respiratory rate normal; diminished breath sounds. ABDOMEN: Soft, nontender, liver spleen not palpable, no masses palpable. PSYCH: She is awake but slightly lethargic. Able to answer questions appropriately breath slowly. EXTREMITIES: Poor dorsalis pedis. Ischemic changes in the nails and the skinl. NEUROLOGICAL: Cranial nerves grossly intact; no facial asymmetry, power and s ensation grossly intact. LYMPHATICS: No lymph nodes palpable in the axilla and neck INVESTIGATIONS, reviewed in the clinical context: White count 13.9 hemoglobin 17 platelets 379 potassium 5.5 BUN 23 creatinine 0.94 Troponin I 0.431 TSH 8.0 Coronavirus [PCR]: Not detected EKG tracing personally reviewed by me-no sinus rhythm, poor R-wave progression Chest x-ray film personally reviewed by me-possible infiltrate Computed tomography scan of the brain: No acute intracranial hemorrhage slight shift. Age related atrophy. And chronic small vessel changes. CT angiography head and neck: Severe atherosclerotic changes with significant stenosis suspected bilaterally. Assessment and plan: -This patient had a baseline who is AO times 4. the nursing staff at the [facility] was noted to be acutely confused, was in a decorticate position left arm in the air. He was also bit confused when the EMS arrived and transported him. In the ER he was able to answer questionable slightly distant. This well could be a seizure. Doubt stroke. Neuro Checks. Neurology consulted. Order EEG -Bilateral significance carotid artery disease Consult vascular surgery -Abnormal troponin with some EKG changes. Patient denies chest pain. Cardiology consulted -COPD in a previous smoker DuoNeb -Essential hypertension Metoprolol 50 mg twice a day lisinopril 5 mg twice a day -Hyperlipidemia Lipitor 20 mg daily at bedtime -Peripheral arterial disease Aspirin. Lipitor 20 mg daily at bedtime -GERD PPI -History of tiny aneurysm in his brain history of michelle Home medications resumed. Neuro checks. Consult neurology. Given Brilinta in the ER. Cardiology consulted. Serial troponins. Given the complexity and severity of patient's condition expect the patient to be in the hospital at least for 2 overnights Past Medical History Past Medical History: COPD, GERD/Reflux, Hypertension, Vascular Disorder Additional Past Medical History / Comment(s): PVD, PAIN IN BILATERAL LEGS, DIFFICULTY WALKING USES CANE., TINNITUS, 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 Fall 10/05/19 with michelle back of head History of Any Multi-Drug Resistant Organisms: None Reported Past Surgical History: Appendectomy, Bowel Resection, Orthopedic Surgery Additional Past Surgical History / Comment(s): finger repair Past Anesthesia/Blood Transfusion Reactions: No Reported Reaction Past Psychological History: Depression Past Alcohol Use History: Daily Past Drug Use History: Marijuana - Past Family History Mother Family Medical History: No Reported History Additional Family Medical History / Comment(s): . Father Family Medical History: CVA/TIA, Myocardial Infarction ([place]) Additional Family Medical History / Comment(s): multiple mi's Brother(s) Family Medical History: Coronary Artery Disease (CAD) Additional Family Medical History / Comment(s): cabg Medications and Allergies Home Medications Medication Instructions Recorded Confirmed Type Acetaminophen Tab [Tylenol] 650 mg PO Q6HR PRN tab 12/30/20 01/11/21 Rx Ipratropium-Albuterol Nebulize 3 ml INHALATION RT-QID ml 12/30/20 01/11/21 Rx [Duoneb 0.5 mg-3 mg/3 ml Soln] Ipratropium-Albuterol Nebulize 3 ml INHALATION RT-QID PRN ml 12/30/20 01/11/21 Rx [Duoneb 0.5 mg-3 mg/3 ml Soln] Pantoprazole [Protonix] 40 mg PO AC-BRKFST tab 12/30/20 01/11/21 Rx Apixaban [Eliquis] 5 mg PO BID@0800,1700 01/11/21 01/11/21 History Aspirin 81 mg PO DAILY@1700 01/11/21 01/11/21 History Atorvastatin [Lipitor] 20 mg PO HS@2100 01/11/21 01/11/21 History HYDROcodone/APAP 5-325MG [[place] 1 tab PO Q6HR PRN 01/11/21 01/11/21 History 5-325] Lactobacillus Acidoph & Bulgar 1 packet PO BID@0800,1700 01/11/21 01/11/21 History [Lactinex] Loperamide HCl [Imodium A-D] 2 - 4 mg PO BID PRN 01/11/21 01/11/21 History Magnesium Hydroxide [Milk of 7,200 mg PO DAILY PRN 01/11/21 01/11/21 History Magnesia Concentrate] Metoprolol Tartrate [Lopressor] 50 mg PO BID@0800,1700 01/11/21 01/11/21 History Multivitamins, Thera [Multivitamin 1 tab PO DAILY@1200 01/11/21 01/11/21 History (formulary)] Na Phos,M-B/Na Phos,Di-Ba [Fleet 133 ml RECTAL DAILY PRN 01/11/21 01/11/21 History Adult] Nicotine 14Mg/24Hr Patch [Habitrol] 1 patch TRANSDERM DAILY@0800 01/11/21 01/11/21 History Thiamine [Vitamin B-1] 100 mg PO DAILY@0800 01/11/21 01/11/21 History bisacodyL [Dulcolax] 10 mg RECTAL DAILY PRN 01/11/21 01/11/21 History lisinopriL [Zestril] 5 mg PO BID@0800,2100 01/11/21 01/11/21 History Allergies Allergy/AdvReac Type Severity Reaction Status Date / Time No Known Allergies Allergy Verified 01/11/21 17:11 Physical Exam Vitals: Vital Signs Temp Pulse Resp BP Pulse Ox 01/11/21 16:56 61 18 159/88 96 01/11/21 16:35 63 18 172/95 99 01/11/21 16:00 64 18 174/94 96 01/11/21 15:45 67 18 179/79 96 01/11/21 15:20 67 18 184/100 97 01/11/21 15:05 72 18 186/95 97 01/11/21 14:50 57 L 18 186/92 96 01/11/21 14:31 98.0 F 51 L 18 186/92 96 Intake and Output 01/11/21 01/11/21 01/11/21 06:59 14:59 22:59 Other: Weight 75.568 kg Results CBC & Chem 7: 01/12/21 06:04 01/12/21 06:04 Labs: Abnormal Lab Results - Last 24 Hours (Table) 01/11/21 01/11/21 01/11/21 Range/Units 14:44 14:49 14:49 WBC 13.9 H (3.8-10.6) k/uL Neutrophils # 10.2 H (1.3-7.7) k/uL Sodium 131 L (137-145) mmol/L Potassium 5.5 H (3.5-5.1) mmol/L Carbon Dioxide 18 L (22-30) mmol/L BUN 23 H (9-20) mg/dL Glucose 111 H (74-99) mg/dL POC Glucose (mg/dL) 112 H (75-99) mg/dL AST 107 H (17-59) U/L ALT 73 H (4-49) U/L Troponin I (0.000-0.034) ng/mL 01/11/21 Range/Units 14:49 WBC (3.8-10.6) k/uL Neutrophils # (1.3-7.7) k/uL Sodium (137-145) mmol/L Potassium (3.5-5.1) mmol/L Carbon Dioxide (22-30) mmol/L BUN (9-20) mg/dL Glucose (74-99) mg/dL POC Glucose (mg/dL) (75-99) mg/dL AST (17-59) U/L ALT (4-49) U/L Troponin I 0.431 H* (0.000-0.034) ng/mL
[2021-01-12 10:04] LABS: Partial Thromboplastin Time 23.1 sec (22.0-30.0)
[2021-01-12] MEDS: lisinopriL 5 MG TAB PO SCH ×2 (10:23→20:46)
[2021-01-12] MEDS: NICOTINE 14MG/24HR PATCH TRANSDERM SCH (10:23)
[2021-01-12] MEDS: LACTOBACILLUS ACIDOPH & BULGAR 1 EACH PACKET PO SCH ×2 (10:23→18:11)
[2021-01-12] MEDS: THIAMINE 100 MG TAB PO SCH (10:23)
[2021-01-12] MEDS: METOPROLOL TARTRATE 50 MG TAB PO SCH ×2 (10:24→20:46)
[2021-01-12] MEDS: TICAGRELOR 90 MG TAB PO SCH ×2 (10:24→20:47)
--- NOTE | 2021-01-12 10:48 | P.CNNES ---
History of Present Illness Consult date: 01/12/21 Requesting physician: Marcos Larios Reason for Consult: CVA History of Present Illness: This is a 70-year-old gentleman with medical history of atrial fibrillation on eliquis, hypertension, multiple falls, alcohol use who presented to the emergency department via EMS from a retirement on 01/11/2021 for confusion. S ome of the history is obtained from medical record and patient nurse since patient is unable to provide that. It seems the per the ED note that at nursing facility the patient the left the food tray all over the floor and was answering only some questions and seems altered from his baseline. EMS felt he had l some left-sided weakness. Per the nurse, the patient was living home alone and reported history of alcohol use and was found on the floor about a week ago and no reported history of seizure. As result he was taken to retirement. Some of the patient home medication consist of Eliquis 5 mg 1 tablet twice a day, aspirin 81 mg, Lipitor 20 mg daily, thiamine, lisinopril, magnesium, Pr otonix, multivitamins, Some of the workup in the hospital consisted of: Initial vitals as his the blood pressure of 186/92, heart rate 51, respiratory of 18, temperature of 98.0 Fahrenheit and pulse ox 96% on 2 L of nasal cannula during his hospital stay his blood pressure has been in the predominantly 170s to 180s sytolic Delcid currently it's in the 150s over 88. CT of the head is reported as no acute intracranial hemorrhage or midline shift. There is mild to moderate diffuse age-related cerebral atrophy and moderate to advanced chronic small vessel ischemic changes redemonstrated. No significant change from most recent prior studies and that was in 12/27/2020. CT angiography of the head and neck is reported as new significant stenosis proximal left internal carotid artery near 55%. Severe aphthous chronic changes distal internal carotid artery bilaterally with significant stenosis suspected bilaterally. Present of temporal bone and dense calcified plaque makes evaluation suboptimal. There is new noncalcified plaque distal left internal carotid artery causing more prominent stenosis versus 2018 study clearly seen. No aneurysm or new significant focal stenosis at the level [place] EKG is reported as normal sinus rhythm. At anterior septal infarct age undetermined. Abnormal EKG. White blood cell on initial presentation is 13.9 and repeat is 12.5. On presentation the sodium is 131 which is low, potassium is 5.5 which was elevated. The glucose of 112 which is just minimally elevated but not drastically. AST of 107 and ALT of 73 the ammonia level is less than 9 which is within normal limits. Troponin is elevated 0.43 and it's as high as 19.1 TSH is 8.05 which is considered within normal limits Martinez virus PCR was not detected. As a result of his symptoms stroke code was activated and the per the ED note the spoke with the endovascular/stroke attending (Dr. Solares). And it seems that the patient the is back to baseline per his brother that is documented in the ED note and he is no longer altered. Per the ED note, it was recommended by stroke team to be to be on aspirin and Brilinta (the ED stated Proventil but I think what they meant was Brilinta) and patient to be admitted in our facility. From the ED note I felt, since patient was improving no IV tpa. Another contraindication is his anticoagulation. Review of Systems Review of system: The 12 point system was reviewed and apparent positive and negative per HPI. 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 Fall 10/05/19 with michelle back of head History of Any Multi-Drug Resistant Organisms: None Reported Past Surgical History: Appendectomy, Bowel Resection, Orthopedic Surgery Additional Past Surgical History / Comment(s): finger repair Past Anesthesia/Blood Transfusion Reactions: No Reported Reaction Past Psychological History: Depression Past Alcohol Use History: Daily Past Drug Use History: Marijuana - Past Family History Mother Family Medical History: No Reported History Additional Family Medical History / Comment(s): . Father Family Medical History: CVA/TIA, Myocardial Infarction ([place]) Additional Family Medical History / Comment(s): multiple mi's Brother(s) Family Medical History: Coronary Artery Disease (CAD) Additional Family Medical History / Comment(s): cabg Medications and Allergies Home Medications Medication Instructions Recorded Confirmed Type Acetaminophen Tab [Tylenol] 650 mg PO Q6HR PRN tab 12/30/20 01/11/21 Rx Ipratropium-Albuterol Nebulize 3 ml INHALATION RT-QID ml 12/30/20 01/11/21 Rx [Duoneb 0.5 mg-3 mg/3 ml Soln] Ipratropium-Albuterol Nebulize 3 ml INHALATION RT-QID PRN ml 12/30/20 01/11/21 Rx [Duoneb 0.5 mg-3 mg/3 ml Soln] Pantoprazole [Protonix] 40 mg PO AC-BRKFST tab 12/30/20 01/11/21 Rx Apixaban [Eliquis] 5 mg PO BID@0800,1700 01/11/21 01/11/21 History Aspirin 81 mg PO DAILY@169901/11/21 01/11/21 History Atorvastatin [Lipitor] 20 mg PO HS@2100 01/11/21 01/11/21 History HYDROcodone/APAP 5-325MG [[place] 1 tab PO Q6HR PRN 01/11/21 01/11/21 History 5-325] Lactobacillus Acidoph & Bulgar 1 packet PO BID@0800,1700 01/11/21 01/11/21 History [Lactinex] Loperamide HCl [Imodium A-D] 2 - 4 mg PO BID PRN 01/11/21 01/11/21 History Magnesium Hydroxide [Milk of 7,200 mg PO DAILY PRN 01/11/21 01/11/21 History Magnesia Concentrate] Metoprolol Tartrate [Lopressor] 50 mg PO BID@0800,1700 01/11/21 01/11/21 History Multivitamins, Thera [Multivitamin 1 tab PO DAILY@1200 01/11/21 01/11/21 History (formulary)] Na Phos,M-B/Na Phos,Di-Ba [Fleet 133 ml RECTAL DAILY PRN 01/11/21 01/11/21 History Adult] Nicotine 14Mg/24Hr Patch [Habitrol] 1 patch TRANSDERM DAILY@0800 01/11/21 01/11/21 History Thiamine [Vitamin B-1] 100 mg PO DAILY@0800 01/11/21 01/11/21 History bisacodyL [Dulcolax] 10 mg RECTAL DAILY PRN 01/11/21 01/11/21 History lisinopriL [Zestril] 5 mg PO BID@0800,2100 01/11/21 01/11/21 History Allergies Allergy/AdvReac Type Severity Reaction Status Date / Time No Known Allergies Allergy Verified 01/11/21 17:11 Physical Examination - Vital Signs Vital Signs: Vital Signs Temp Pulse Pulse Resp BP BP Pulse Ox 01/12/21 07:44 76 18 01/12/21 07:31 78 18 01/12/21 04:00 98.2 F 80 18 123/82 93 L 01/12/21 02:35 64 01/12/21 02:26 60 97 01/11/21 23:53 98.0 F 60 18 139/84 96 01/11/21 20:00 97.8 F 63 16 149/83 95 01/11/21 17:37 98.0 F 61 18 159/88 96 01/11/21 16:56 61 18 159/88 96 01/11/21 16:35 63 18 172/95 99 01/11/21 16:00 64 18 174/94 96 01/11/21 15:45 67 18 179/79 96 01/11/21 15:20 67 18 184/100 97 01/11/21 15:05 72 18 186/95 97 01/11/21 14:50 57 L 18 186/92 96 01/11/21 14:31 98.0 F 51 L 18 186/92 96 Intake and Output 01/11/21 01/12/21 01/12/21 22:59 06:59 14:59 Other: Voiding Method Incontinent Incontinent # Voids 1 1 Weight 75.568 kg 63 kg GENERAL: The patient is lying in bed and is not in acute distress. CHEST: The heart rate is regular rate rhythm. No murmurs to auscultation. No carotid bruit bilaterally. LUNG: Clear to auscultation bilaterally no wheezing noted throughout. Not labored breathing. ABDOMEN/GI: Bowel sounds present in all 4 quadrants. No tenderness to palpation throughout. NEUROLOGICAL: Was somewhat limited because of his cooperation. Higher mental function: The patient is awake, alert, oriented to self, place. He was able to tell me the year but did not answer for the month. Patient could not name objects (pen or watch). Patient is following commands. No aphasia. I felt he was neglecting the left side. Cranial nerves: The pupils are round, equal and reactive to light. Visual lewis: Had left homonymous hemianposia to confrontation. Extraocular movement is intact no nystagmus is noted. Facial sensation is normal to touch throughout. The facial strength is normal throughout. Hearing is bilaterally to hand rub. No dysarthria is noted. Could not assess. Motor: Gait is deferred. Is able to lift bilateral upper extremities above gravity (right > left). 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 I felt the right sided was 5-/5. The left lower extremity was not able to lift above gravity but is able to bend his knee. He increase tone over the left side. Normal bulk. Cerebellum: Could not asses. Sensation: He has sensory neglect over the left. The right seemed normal. Reflexes (right/left): 1+ throughout. Plantars are mute bilaterally. I asked the the patient nurse that I felt the patient continues to have weakness and she stated that per the ED note is seems that his symptoms resolved but I'm not sure if his symptoms truly resolved or not and if they did resolve it's unknown when his symptoms reoccurred. Results - Laboratory Findings CBC and BMP: 01/12/21 06:04 01/12/21 06:04 Abnormal Lab Findings: Abnormal Labs 01/11/21 01/11/21 01/11/21 14:44 14:49 14:49 WBC 13.9 H Neutrophils # 10.2 H Sodium 131 L Potassium 5.5 H Carbon Dioxide 18 L BUN 23 H Glucose 111 H POC Glucose (mg/dL) 112 H AST 107 H ALT 73 H Troponin I TSH 01/11/21 01/11/21 01/12/21 14:49 18:08 06:04 WBC Neutrophils # Sodium 133 L Potassium Carbon Dioxide 21 L BUN Glucose POC Glucose (mg/dL) AST ALT Troponin I 0.431 H* TSH 8.050 H 01/12/21 01/12/21 06:04 07:21 WBC 12.5 H Neutrophils # 9.9 H Sodium Potassium Carbon Dioxide BUN Glucose POC Glucose (mg/dL) AST ALT Troponin I 17.100 H* TSH Assessment and Plan Assessment: Acute Left sided weakness (on examination left side weakness, neglect and left homonymous hemianposia). Seems highly suspicious for acute ischemic stroke. No IV tpa since on anticoagulation. Altered mental status seems more metabolic encephalopathy Left internal carotid stenosis per CTA nearly 55% as well as severe upper sclerotic changes of distal internal carotid arteries bilaterally that suspect that per CTA Elevated troponin Mild hyponatremia on presentation was 131 currently it's 133 Elevated liver function Uncontrolled hypertension History of alcohol use History of multiple falls Plan: * I ordered MRI Brain w/o STAT. * Cardiology team is on board. They would like to start the patient on heparin drip especially with the elevated troponin. Use heparin drip if benefit outweigh the risk. I recommended to avoid boluses and to keep PTT between 45- 60. * Patient is started on aspirin 325mg daily and was started on Brilinta 90mg bid (with loading of 180mg in the ED) in The ED. If the patient is started on heparin drip, then from neurology standpoint he does not need to be on dual antiplatelets to avoid risk of bleeding. Recommen discontinuing ASA but will defer that decision to the cardiology team. * Continue Lipitor 20 mg daily at bedtime. I will not increase the Lipitor because of his elevated liver function once his liver function improved focal up to 40mg qhs for secondary stroke prophylaxis. * EEG is ordered by the primary team. I'll not start the patient on antiepileptic drug unless there is epileptiform discharges or seizure on the EEG. * Lipid panel and TSH with reflex are pending. We'll defer thyroid abnormality management to the primary team * Recommend 2-D echo. * Consulted vascular surgery team for carotid stenosis. * PT, OT and STAFF COUNSEL are consulted * Neuro checks per [facility] protocol * Vitamin B12, folate are ordered and are pending * We'll defer the rest of the medical management to the primary team The plan is discussed with the patient's nurse. Thank you for the consultation. UPDATE: MRI the brain is reported as evolving acute/subacute infarct inferior right parietal occipital level extending to the posterior superior temporal lobe with some extension to the posterior right coronal radiata and a smaller area of involvement of the posterior left occipital lobe. Background moderate diffuse cerebral atrophy and moderate to advanced chronic small vessel ischemic changes redemonstrated. Because of the large stroke, I called cardiology team and asked them if possible to hold heparin or anticoagulation because of risk of bleed is high especially with acute stroke and they are in agreement. Will hold off on anticoagulation for now and will notify team once it is safe. Calixto Sanches M.D. Neuro-hospitalist Time with Patient: Greater than 30
[2021-01-12] MEDS: IPRATROPIUM-ALBUTEROL 3 ML NEB INHALATION SCH ×3 (11:02→19:10)
[2021-01-12 11:28] LABS: Chol/HDL Ratio 2.76; Cholesterol 127 mg/dL (0-200)
--- NOTE | 2021-01-12 12:08 | P.CRDCN ---
History of Present Illness History of present illness: HISTORY OF PRESENTING ILLNESS This is a pleasant 70-year-old male past medical history significant for hypertension, peripheral artery disease follows with Dr. Tucker s/p bilateral iliofemoral thromboendarterectomy/stent placement in 10/2019, dyslipidemia, chronic nicotine dependence, paroxysmal atrial fibrillation (on Eliquis), history of daily alcohol use. He follows in the office with Dr. Malik but states he has not followed up since 01/2020. We have been asked to see in consu ltation for elevated troponin. Patient brought to the emergency department from a [facility] for alerted mental status and left upper extremity weakness. He is unable to tell a full accurate story of what happened yesterday. He states his words are not coming out right. He does endorse being confused which is new and his left arm weakness is new. He does endorse dizziness. He states he did have chest pain a few days ago, unable to give specifics about his chest pain. On exam he denies any chest pain, shortness of breath, syncope, or palpitations. He has a history of non-compliance with medication, however, he states he has been receiving his medication at the nursing facility. Denies history of [place], previous history of Stroke, coronary artery disease, bleeding, GI bleeding ulcers. Patient recently admitted in December 27, 2020 after a mechanical fall at home, at that time he lived alone. Shoulder Xray revealed right acromioclavicular joint separation. He underwent Head, cervical neck, chest abdomen, pelvix CT- no evidence of traumatic injury. He was found to be in atrial fibrillation with rapid ventricular response, patient was initially managed on cardizem but weaned off. Started on Eliquis 5mg BID and metoprolol tartrate. He was stabilized and discharged to a longterm facility. He was an every day smoker, smoked about 1PPD. He was also an every day alcohol drinker prior to going to fci, around 2 beers per day. DIAGNOSTICS -EKG sinus rhythm, HR 66, some mild ST elevation in leads II, III, and V3-V6, no reciprocal changes EKG this morning reveals- sinus rhythm, heart rate 89, PACs, mild ST elevation in leads V4-V6. no reciprocal changes -Telemetry tracings indicate sinus mechanism, heart rate 6080s, patient did have a 4 beat in 6 feet run NSVT -CT brain revealed no acute intracranial hemorrhage or midline shift. Mild to moderate diffuse age-related cerebral atrophy, moderate to advanced chronic small vessel ischemia. -CT angiography- new significant stenosis proximal left internal carotid artery, near 55%, severe atherosclerotic changes distal internal carotid arteries bilaterally significant stenosis. Patient had noncalcified plaque distal left internal carotid artery causing more prominent stenosis. No aneurysmal and no significant focal stenosis at level [place] at [place]. -Most recent echocardiogram 12/28/2020 revealed an EF of 55-60%, trace mitral re gurgitation, trace tricuspid regurgitation, moderate concentric hypertrophy, aortic root dilated 4.5cm. -Most recent stress test Lexiscan 06/2019 revealed no evidence of stress-induced ischemia. -Current daily cardiac medications include- lisinopril 5 mg twice a day, metoprolol tartrate 50 mg twice a day, atorvastatin 20 mg nightly, aspirin 81 mg daily, Eliquis 5 mg twice a day Laboratory data reviewed Troponin 0.4-->17 REVIEW OF SYSTEMS At the time of my exam: CONSTITUTIONAL: Denies fever or chills. CARDIOVASCULAR: +chest pain reports a few days ago, non-currently, +does endorse some mild shortness of breath at times Denies palpitations Denies orthopnea, PND RESPIRATORY: Denies cough. GASTROINTESTINAL: Denies abdominal pain, diarrhea, constipation, nausea or vomiting. MUSCULOSKELETAL: Denies myalgias. NEUROLOGIC: +left arm weakness, +confusion Denies numbness, tingling, headache ENDOCRINE: Denies fatigue, weight change, polydipsia or polyurina. GENITOURINARY: Denies burning, hematuria or urgency with micturation. HEMATOLOGIC: Denies history of anemia or bleeding. PHYSICAL EXAMINATION Blood pressure 123/82 HR 90 afebrile and maintaining oxygen saturation room air. CONSTITUTIONAL: No apparent distress. HEENT: Head is normocephalic. Pupils are equal, round. Sclerae anicteric. Mucous membranes of the mouth are dry. No JVD. +carotid bruit bilaterally CHEST EXAMINATION: Lungs are diminished bases bilaterally. No chest wall tenderness is noted on palpation or with deep breathing. HEART EXAMINATION: Regular rate and rhythm. S1, S2 heard. No murmurs, gallops or rub. ABDOMEN: Soft Positive bowel sounds. Mild tenderness to palpation lower abdomen bilaterally. EXTREMITIES: 2+ radial pulses, pedal pulses difficult to assess pulse, no lower extremity edema. NEUROLOGIC EXAMINATION: Patient is awake, alert and oriented x 2- to person and place. Left arm weakness noted. Drift on left upper extremity. Hand cuff stitcher decreased on left upper extremity. Difficulty seeing on left side visual field. ASSESSMENT NSTEMI Altered Mental Status Acute Left arm weakness Carotid Stenosis Paroxysmal atrial fibrillation (New diagnosis 11/2020) On Eliquis 5mg BID outpatient, currently maintaining sinus mechanism. Hypertension Dyslipidemia Peripheral vascular disease s/p bilateral iliofemoral thromboendarterectomy/stent placement in October 2019. History of Alcohol use Chronic tobacco use PLAN Repeat 2D echocardiogram Start IV heparin drip Discontinue Eliquis while on heparin Decrease aspirin to 81mg daily Continue statin, lisinopril and metoprolol tartrate We will continue medical management at this time due to concerns for acute ischemic stroke. Neurology following Further recommendations based on clinical course Nurse Practitioner note has been reviewed, I agree with a documented findings and plan of care. Patient was seen and examined. 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 Fall 10/05/19 with michelle back of head History of Any Multi-Drug Resistant Organisms: None Reported Past Surgical History: Appendectomy, Bowel Resection, Orthopedic Surgery Additional Past Surgical History / Comment(s): finger repair Past Anesthesia/Blood Transfusion Reactions: No Reported Reaction Past Psychological History: Depression Past Alcohol Use History: Daily Past Drug Use History: Marijuana - Past Family History Mother Family Medical History: No Reported History Additional Family Medical History / Comment(s): . Father Family Medical History: CVA/TIA, Myocardial Infarction ([place]) Additional Family Medical History / Comment(s): multiple mi's Brother(s) Family Medical History: Coronary Artery Disease (CAD) Additional Family Medical History / Comment(s): cabg Medications and Allergies Home Medications Medication Instructions Recorded Confirmed Type Acetaminophen Tab [Tylenol] 650 mg PO Q6HR PRN tab 12/30/20 01/11/21 Rx Ipratropium-Albuterol Nebulize 3 ml INHALATION RT-QID ml 12/30/20 01/11/21 Rx [Duoneb 0.5 mg-3 mg/3 ml Soln] Ipratropium-Albuterol Nebulize 3 ml INHALATION RT-QID PRN ml 12/30/20 01/11/21 Rx [Duoneb 0.5 mg-3 mg/3 ml Soln] Pantoprazole [Protonix] 40 mg PO AC-BRKFST tab 12/30/20 01/11/21 Rx Apixaban [Eliquis] 5 mg PO BID@0800,1700 01/11/21 01/11/21 History Aspirin 81 mg PO DAILY@169901/11/21 01/11/21 History Atorvastatin [Lipitor] 20 mg PO HS@209901/11/21 01/11/21 History HYDROcodone/APAP 5-325MG [[place] 1 tab PO Q6HR PRN 01/11/21 01/11/21 History 5-325] Lactobacillus Acidoph & Bulgar 1 packet PO BID@0800,0 01/11/21 01/11/21 History [Lactinex] Loperamide HCl [Imodium A-D] 2 - 4 mg PO BID PRN 01/11/21 01/11/21 History Magnesium Hydroxide [Milk of 7,200 mg PO DAILY PRN 01/11/21 01/11/21 History Magnesia Concentrate] Metoprolol Tartrate [Lopressor] 50 mg PO BID@0800,1700 01/11/21 01/11/21 History Multivitamins, Thera [Multivitamin 1 tab PO DAILY@1200 01/11/21 01/11/21 History (formulary)] Na Phos,M-B/Na Phos,Di-Ba [Fleet 133 ml RECTAL DAILY PRN 01/11/21 01/11/21 History Adult] Nicotine 14Mg/24Hr Patch [Habitrol] 1 patch TRANSDERM DAILY@79901/11/21 01/11/21 History Thiamine [Vitamin B-1] 100 mg PO DAILY@0800 01/11/21 01/11/21 History bisacodyL [Dulcolax] 10 mg RECTAL DAILY PRN 01/11/21 01/11/21 History lisinopriL [Zestril] 5 mg PO BID@0800,2100 01/11/21 01/11/21 History Allergies Allergy/AdvReac Type Severity Reaction Status Date / Time No Known Allergies Allergy Verified 01/11/21 17:11 Physical Exam Vitals: Vital Signs Temp Pulse Pulse Resp BP BP Pulse Ox 01/12/21 04:00 98.2 F 80 18 123/82 93 L 01/12/21 02:35 64 01/12/21 02:26 60 97 01/11/21 23:53 98.0 F 60 18 139/84 96 01/11/21 20:00 97.8 F 63 16 149/83 95 01/11/21 17:37 98.0 F 61 18 159/88 96 01/11/21 16:56 61 18 159/88 96 01/11/21 16:35 63 18 172/95 99 01/11/21 16:00 64 18 174/94 96 01/11/21 15:45 67 18 179/79 96 01/11/21 15:20 67 18 184/100 97 01/11/21 15:05 72 18 186/95 97 01/11/21 14:50 57 L 18 186/92 96 01/11/21 14:31 98.0 F 51 L 18 186/92 96 Intake and Output 01/11/21 01/12/21 01/12/21 22:59 06:59 14:59 Other: Voiding Method Incontinent Incontinent # Voids 1 1 Weight 75.568 kg 63 kg Results 01/12/21 06:04 01/12/21 06:04 Cardiac Enzymes 01/11/21 01/11/21 Range/Units 14:49 14:49 AST 107 H (17-59) U/L Troponin I 0.431 H* (0.000-0.034) ng/mL Coagulation 01/11/21 Range/Units 14:49 PT 10.4 (9.0-12.0) sec APTT 22.3 (22.0-30.0) sec CBC 01/11/21 01/12/21 Range/Units 14:49 06:04 WBC 13.9 H 12.5 H (3.8-10.6) k/uL RBC 5.23 5.26 (4.30-5.90) m/uL Hgb 17.0 17.1 (13.0-17.5) gm/dL Hct 50.0 49.1 (39.0-53.0) % Plt Count 379 382 (150-450) k/uL Comprehensive Metabolic Panel 01/11/21 01/12/21 Range/Units 14:49 06:04 Sodium 131 L 133 L (137-145) mmol/L Potassium 5.5 H 4.8 (3.5-5.1) mmol/L Chloride 102 99 (98-107) mmol/L Carbon Dioxide 18 L 21 L (22-30) mmol/L BUN 23 H 18 (9-20) mg/dL Creatinine 0.94 0.88 (0.66-1.25) mg/dL Glucose 111 H 96 (74-99) mg/dL Calcium 9.2 9.4 (8.4-10.2) mg/dL AST 107 H (17-59) U/L ALT 73 H (4-49) U/L Alkaline Phosphatase 87 (38-126) U/L Total Protein 7.2 (6.3-8.2) g/dL Albumin 3.8 (3.5-5.0) g/dL Current Medications Generic Name Dose Route Start Last Admin Trade Name Freq PRN Reason Stop Dose Admin Acetaminophen 650 mg 01/11/21 19:24 Acetaminophen Tab 325 Mg Tab PO Q6HR PRN Mild Pain or Fever > 100.5 Hydrocodone Bitart/Acetaminophen 1 each 01/11/21 19:24 Hydrocodone/Apap 5-325mg 1 Each Tab PO Q6HR PRN Pain Albuterol/Ipratropium 3 ml 01/11/21 16:58 01/12/21 02:26 Ipratropium-Albuterol 3 Ml Neb INHALATION 3 ml RT-QID PRN Administration Shortness Of Breath Or Wheezing Apixaban 5 mg 01/12/21 08:00 Apixaban 5 Mg Tab PO BID@0800,1700 [facility] Protocol Aspirin 325 mg 01/12/21 09:00 Aspirin 325 Mg Tab PO DAILY [facility] Atorvastatin Calcium 20 mg 01/11/21 21:00 01/11/21 20:14 Atorvastatin 20 Mg Tab PO 20 mg HS@2100 RONALDO Administration Lactobacillus Acidoph/Bulgaricus 1 each 01/12/21 08:00 Lactobacillus Acidoph & Bulgar 1 Each Packet PO BID@0800,1700 [facility] Lisinopril 5 mg 01/11/21 21:00 01/11/21 20:14 Lisinopril 5 Mg Tab PO 5 mg BID@0800,2100 [facility] Administration Magnesium Hydroxide 2,400 mg 01/11/21 19:24 Magnesium Hydroxide 2,400 Mg/10 Ml Cup PO DAILY PRN Constipation Metoprolol Tartrate 50 mg 01/11/21 21:00 01/11/21 20:14 Metoprolol Tartrate 50 Mg Tab PO 50 mg BID [facility] Administration Multivitamins 1 each 01/12/21 12:00 Multivitamins, Thera 1 Each Tab PO DAILY@1200 [facility] Nicotine 1 patch 01/12/21 08:00 Nicotine 14mg/24hr Patch TRANSDERM DAILY@0800 [facility] Pantoprazole Sodium 40 mg 01/12/21 07:30 01/12/21 05:53 Pantoprazole 40 Mg Tablet PO Not Given AC-BRKFST [facility] Thiamine HCl 100 mg 01/12/21 08:00 Thiamine 100 Mg Tab PO DAILY@0800 [facility] Ticagrelor 90 mg 01/12/21 09:00 Ticagrelor 90 Mg Tab PO BID [facility] Intake and Output 01/11/21 01/12/21 01/12/21 22:59 06:59 14:59 Other: Voiding Method Incontinent Incontinent # Voids 1 1 Weight 75.568 kg 63 kg 01/12/21 06:04 01/12/21 06:04
--- NOTE | 2021-01-12 12:43 | MR ---
"EXAMINATION TYPE: MR brain wo con DATE OF EXAM: 01/12/2021 COMPARISON: MRI brain [address] brain from yesterday. HISTORY: Left sided weakness. TECHNIQUE: Multiplanar, multisequence imaging of the brain and brainstem is performed without IV cont rast. FINDINGS: Diffusion weighted images demonstrate areas of increased signal on diffusion-weighted imaging with di minished signal on ADC mapping that show T2 hyperintensity in the deep right coronal radiata, there i s more prominent involvement in the right parietal-occipital region extending into the posterior supe rior temporal lobe where there is new cortical edema and sulcal effacement. A smaller area of involve ment in the posterior aspect left occipital lobe measuring 1.2 cm image 180 series 408 is also presen t. Background moderate ventricular and sulcal prominence redemonstrated. Background focal and confluent areas of T2 hyperintensity greatest at periventricular levels again seen. Midline structures redemonstrate normal morphology. The craniocervical junction appears within nicole l limits. Normal vascular flow voids are present. The visualized sinuses are clear and the globes are intact. Nasal septum remains deviated to left of midline. IMPRESSION: 1. Evolving acute/subacute infarct inferior right parietal occipital level extending to the posterior superior temporal lobe with some extension to the posterior right coronal radiata and a smaller area of involvement of posterior left occipital lobe. 2. Background moderate diffuse cerebral atrophy and moderate to advanced chronic small vessel ischemi c change redemonstrated. A Yellow level critical message alert has been initiated for Claudio Merchant MD via the '[employer] 36 0 | Critical Results System on 01/12/2021 12:41 PM. This message alert has been sent to Claudio Merchant MD via the preferences provided by the clinician for the receipt of Radiology Critical Findings. [facility] [id number]."
[2021-01-12] MEDS: MULTIVITAMINS, THERA 1 EACH TAB PO SCH (13:12)
--- NOTE | 2021-01-12 13:52 | EEG ---
ELECTROENCEPHALOGRAM REPORT DATE OF SERVICE: 01/12/2021. CLINICAL HISTORY: This is a 70-year-old gentleman with a history of recent stroke over the right parietal occipital temporal region who has altered mental status. The video EEG is obtained to evaluate for seizure epileptiform activity. RELEVANT MEDICATION: The patient is not on any an antiepileptic drug. EEG TYPE: A routine 21-channel EEG is performed with video using the 10/20 electrode placement system. DESCRIPTION: Wakefulness is only obtained. During wakefulness, the background is asymmetrical with the left posterior-dominant rhythm consisting of low to moderate voltage that is 7-8 hertz activity, while on the right it is between 5 1/2 to 6 1/2 hertz activity that is poorly modulated, poorly sustained over the right. There is no sleep architecture seen. There is significant to continuous delta slowing over the right hemisphere. Interictal and ictal is none. ACTIVATION PROCEDURE: Photic stimulation and hyperventilation are not performed. CLINICAL INTERPRETATION: This is an abnormal routine EEG. The background is asymmetric with mild encephalopathy over the left and moderate over the right. There is focal slowing over the right hemisphere consistent with the patient's history of stroke. There is no epileptiform discharge or seizure on the EEG. Clinical correlation is recommended. MMODL / IJN: [id number] / TARA
--- NOTE | 2021-01-12 14:49 | P.GSCN ---
History of Present Illness Consult date: 01/12/21 Reason for Consult: Carotid stenosis Requesting physician: Calixto Sanches History of present illness: The patient was initially attempted to be seen however was down for MRI and EEG. This is a 70-year-old male with a past medical history of atrial fibrillation on Eliquis, hypertension, history of multiple falls and alcohol abuse who presented to the emergency department via EMS 2 days ago with confusion. Patient don smith was recently admitted and has a history of alcohol abuse and intoxication and was discharged to a nursing facility. Per chart the patient seemed confused while in the retirement and with her not answering questions appropriately therefore he was brought to the emergency department for further evaluation. Most of the HPI is collected from the chart as the patient is somewhat confused and agitated with answering any questions. Patient currently is reporting he is unsure why he came to the emergency department. He is alert and oriented to self. He is on willing or unable to answer whether he has a history of peripheral arterial disease or carotid stenosis. After reviewing the chart patient was seen by vascular surgical services in October 2019 and underwent elective bilateral common femoral, external iliac artery endarterectomy with patch angioplasty and bilateral iliofemoral stenting.. On admission he had a CT of the head that was reporting no acute intracranial hemorrhage or midline shift. There is mild to moderate diffuse age-related cerebral atrophy and moderate to advanced chronic small vessel ischemic changes redemonstrated. No significant change from most recent prior studies that was on 12/27/2020. Patient also underwent a CT angiogram of the head and neck with reports of new significant stenosis proximal left internal carotid artery near 55%. Severe arthrosclerotic changes distal internal carotid arteries bilaterally with significant stenosis suspected bilaterally. Presence of temporal bone and dense calcified plaque makes evaluation suboptimal. There is a new noncalcified plaque distal left internal carotid artery causing more prominent stenosis versus 2018 study clearly seen. No aneurysm or new significant focal stenosis at level of [place]. Vascular surgery has been consult regarding carotid stenosis. MRI of brain shows a balding acute/subacute infarct inferior right parietal occipital level extending to the posterior superior temporal lobe with some extension to the posterior right coronal radiata and smaller area of involvement of posterior left occipital lobe. Background moderate diffuse cerebral atrophy and moderate to advanced chronic small vessel ischemic change redemonstrated. EEG: Abnormal routine EEG. Background is asymmetric with mild encephalopathy over the left and moderate to severe over the right. There is focal slowing over the right hemisphere consistent with the patient's history of stroke. Ther e is no lip to form discharge her seizure on the EEG. Clinical correlation is recommended. 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 Fall 10/05/19 with michelle back of head History of Any Multi-Drug Resistant Organisms: None Reported Past Surgical History: Appendectomy, Bowel Resection, Orthopedic Surgery Additional Past Surgical History / Comment(s): finger repair Past Anesthesia/Blood Transfusion Reactions: No Reported Reaction Past Psychological History: Depression Past Alcohol Use History: Daily Past Drug Use History: Marijuana - Past Family History Mother Family Medical History: No Reported History Additional Family Medical History / Comment(s): . Father Family Medical History: CVA/TIA, Myocardial Infarction (VT) Additional Family Medical History / Comment(s): multiple mi's Brother(s) Family Medical History: Coronary Artery Disease (CAD) Additional Family Medical History / Comment(s): cabg Medications and Allergies Home Medications Medication Instructions Recorded Confirmed Type Acetaminophen Tab [Tylenol] 650 mg PO Q6HR PRN tab 12/30/20 01/11/21 Rx Ipratropium-Albuterol Nebulize 3 ml INHALATION RT-QID ml 12/30/20 01/11/21 Rx [Duoneb 0.5 mg-3 mg/3 ml Soln] Ipratropium-Albuterol Nebulize 3 ml INHALATION RT-QID PRN ml 12/30/20 01/11/21 Rx [Duoneb 0.5 mg-3 mg/3 ml Soln] Pantoprazole [Protonix] 40 mg PO AC-BRKFST tab 12/30/20 01/11/21 Rx Apixaban [Eliquis] 5 mg PO BID@0800,1700 01/11/21 01/11/21 History Aspirin 81 mg PO DAILY@1700 01/11/21 01/11/21 History Atorvastatin [Lipitor] 20 mg PO HS@2100 01/11/21 01/11/21 History HYDROcodone/APAP 5-325MG [Jean 1 tab PO Q6HR PRN 01/11/21 01/11/21 History 5-325] Lactobacillus Acidoph & Bulgar 1 packet PO BID@0800,1700 01/11/21 01/11/21 History [Lactinex] Loperamide HCl [Imodium A-D] 2 - 4 mg PO BID PRN 01/11/21 01/11/21 History Magnesium Hydroxide [Milk of 7,200 mg PO DAILY PRN 01/11/21 01/11/21 History Magnesia Concentrate] Metoprolol Tartrate [Lopressor] 50 mg PO BID@0800,1700 01/11/21 01/11/21 History Multivitamins, Thera [Multivitamin 1 tab PO DAILY@1200 01/11/21 01/11/21 History (formulary)] Na Phos,M-B/Na Phos,Di-Ba [Fleet 133 ml RECTAL DAILY PRN 01/11/21 01/11/21 History Adult] Nicotine 14Mg/24Hr Patch [Habitrol] 1 patch TRANSDERM DAILY@0800 01/11/21 01/11/21 History Thiamine [Vitamin B-1] 100 mg PO DAILY@0800 01/11/21 01/11/21 History bisacodyL [Dulcolax] 10 mg RECTAL DAILY PRN 01/11/21 01/11/21 History lisinopriL [Zestril] 5 mg PO BID@0800,2100 01/11/21 01/11/21 History Allergies Allergy/AdvReac Type Severity Reaction Status Date / Time No Known Allergies Allergy Verified 01/11/21 17:11 Surgical - Exam Vital Signs Temp Pulse Resp BP Pulse Ox 98.0 F 51 L 18 186/92 96 01/11/21 14:31 01/11/21 14:31 01/11/21 14:31 01/11/21 14:31 01/11/21 14:31 General appearance: The patient is alert, oriented to self, appears in no acute distress. HET: Head is normocephalic and atraumatic. Pupils are equal and reactive. Neck: Supple without lymphadenopathy. Trachea midline. Heart: S1 S2. Regular rate and rhythm. Lungs: Clear to auscultation. No audible bruit Abdomen: Soft, nontender, nondistended. Extremities: Normal skin color and turgor. No cyanosis, rash, ulceration, clubbing, or edema. Good capillary refill bilaterally. Neurological: Alert and oriented to self. Speech is somewhat garbled/mumbled. Patient able to identify a pen, following simple commands. Somewhat agitated and uncooperative with answering questions and following commands. Patient has good strength and tone on right upper extremity and lower extremity. Left upper extremity unable to grasp hand or left arm, patient unable to lift left lower extremity but able to bend at the knee and move his leg up and down the bed. Results - Labs 01/12/21 06:04 01/12/21 06:04 Abnormal Lab Results - Last 24 Hours (Table) 01/11/21 01/11/21 01/11/21 Range/Units 14:44 14:49 14:49 WBC 13.9 H (3.8-10.6) k/uL Neutrophils # 10.2 H (1.3-7.7) k/uL Sodium 131 L (137-145) mmol/L Potassium 5.5 H (3.5-5.1) mmol/L Carbon Dioxide 18 L (22-30) mmol/L BUN 23 H (9-20) mg/dL Glucose 111 H (74-99) mg/dL POC Glucose (mg/dL) 112 H (75-99) mg/dL AST 107 H (17-59) U/L ALT 73 H (4-49) U/L Troponin I (0.000-0.034) ng/mL TSH (0.465-4.680) mIU/L 01/11/21 01/11/21 01/12/21 Range/Units 14:49 18:08 06:04 WBC (3.8-10.6) k/uL Neutrophils # (1.3-7.7) k/uL Sodium 133 L (137-145) mmol/L Potassium (3.5-5.1) mmol/L Carbon Dioxide 21 L (22-30) mmol/L BUN (9-20) mg/dL Glucose (74-99) mg/dL POC Glucose (mg/dL) (75-99) mg/dL AST (17-59) U/L ALT (4-49) U/L Troponin I 0.431 H* (0.000-0.034) ng/mL TSH 8.050 H (0.465-4.680) mIU/L 01/12/21 01/12/21 Range/Units 06:04 07:21 WBC 12.5 H (3.8-10.6) k/uL Neutrophils # 9.9 H (1.3-7.7) k/uL Sodium (137-145) mmol/L Potassium (3.5-5.1) mmol/L Carbon Dioxide (22-30) mmol/L BUN (9-20) mg/dL Glucose (74-99) mg/dL POC Glucose (mg/dL) (75-99) mg/dL AST (17-59) U/L ALT (4-49) U/L Troponin I 17.100 H* (0.000-0.034) ng/mL TSH (0.465-4.680) mIU/L Diabetes panel 01/11/21 01/12/21 Range/Units 14:49 06:04 Sodium 131 L 133 L (137-145) mmol/L Potassium 5.5 H 4.8 (3.5-5.1) mmol/L Chloride 102 99 (98-107) mmol/L Carbon Dioxide 18 L 21 L (22-30) mmol/L BUN 23 H 18 (9-20) mg/dL Creatinine 0.94 0.88 (0.66-1.25) mg/dL Glucose 111 H 96 (74-99) mg/dL Calcium 9.2 9.4 (8.4-10.2) mg/dL AST 107 H (17-59) U/L ALT 73 H (4-49) U/L Alkaline Phosphatase 87 (38-126) U/L Total Protein 7.2 (6.3-8.2) g/dL Albumin 3.8 (3.5-5.0) g/dL Thyroid panel 01/11/21 Range/Units 18:08 TSH 8.050 H (0.465-4.680) mIU/L Calcium panel 01/11/21 01/12/21 Range/Units 14:49 06:04 Calcium 9.2 9.4 (8.4-10.2) mg/dL Albumin 3.8 (3.5-5.0) g/dL Pituitary panel 01/11/21 01/11/21 01/12/21 Range/Units 14:49 18:08 06:04 Sodium 131 L 133 L (137-145) mmol/L Potassium 5.5 H 4.8 (3.5-5.1) mmol/L Chloride 102 99 (98-107) mmol/L Carbon Dioxide 18 L 21 L (22-30) mmol/L BUN 23 H 18 (9-20) mg/dL Creatinine 0.94 0.88 (0.66-1.25) mg/dL Glucose 111 H 96 (74-99) mg/dL Calcium 9.2 9.4 (8.4-10.2) mg/dL TSH 8.050 H (0.465-4.680) mIU/L Adrenal panel 01/11/21 01/12/21 Range/Units 14:49 06:04 Sodium 131 L 133 L (137-145) mmol/L Potassium 5.5 H 4.8 (3.5-5.1) mmol/L Chloride 102 99 (98-107) mmol/L Carbon Dioxide 18 L 21 L (22-30) mmol/L BUN 23 H 18 (9-20) mg/dL Creatinine 0.94 0.88 (0.66-1.25) mg/dL Glucose 111 H 96 (74-99) mg/dL Calcium 9.2 9.4 (8.4-10.2) mg/dL Total Bilirubin 1.0 (0.2-1.3) mg/dL AST 107 H (17-59) U/L ALT 73 H (4-49) U/L Alkaline Phosphatase 87 (38-126) U/L Total Protein 7.2 (6.3-8.2) g/dL Albumin 3.8 (3.5-5.0) g/dL - Imaging Comments: See HPI for details Assessment and Plan Assessment: 1. Left ICA stenosis 55% per CT angiogram 2. Evolving acute/subacute infarct inferior right parietal occipital level extending to posterior superior temporal lobe with some extension to posterior right coronal Broady Iva and smaller area of involvement of posterior left occi pital lobe per MRI 3. Left-sided weakness 4. History of atrial fibrillation on Eliquis 5. Hypertension 6. History of alcohol abuse 7. Former smoker Plan: 1. Carotid ultrasound ordered 2. Anticoagulation/antiplatelet per recommendations of neurology 3. Continue Lipitor 4. Further recommendations forthcoming Thank you for this consultation and allowing us take part in the plan of care of your patient during his hospital stay The impression and plan of care has been dictated as directed. I performed a history and examination of this patient, discussed the same with the dictator. I agree with the dictator's note ,documented as a scribe. Any additional findings or plans will be noted.
--- NOTE | 2021-01-12 15:30 | US ---
EXAMINATION TYPE: US carotid duplex BILAT DATE OF EXAM: 01/12/2021 COMPARISON: CT angio 01/11/2021 CLINICAL HISTORY: 70-year-old male carotid stenosis, possible CVA. Confusion, altered mental status. TECHNIQUE: Carotid duplex ultrasound examination. Indirect Doppler criteria was utilized. FINDINGS: EXAM MEASUREMENTS: RIGHT: Peak Systolic Velocity (PSV) cm/sec ----- Right CCA: 34.5 ----- Right ICA: 64.47 ----- Right ECA: 61.0 ICA/CCA ratio: 1.9 RIGHT: End Diastole cm/sec ----- Right CCA: 5.4 ----- Right ICA: 18.6 ----- Right ECA: 0.0 LEFT: Peak Systolic Velocity (PSV) cm/sec ----- Left CCA: 59.4 ----- Left ICA: 121.0 ----- Left ECA: 335.6 ICA/CCA ratio: 2.0 LEFT: End Diastole cm/sec ----- Left CCA: 13.1 ----- Left ICA: 40.2 ----- Left ECA: 31.3 VERTEBRALS (direction of flow): Right Vertebral: Unable to visualize Left Vertebral: Unable to visualize Merchandise Flow Manager notes:Pt altered mental status, unable to lie still during exam making exam difficult Heterogeneous plaque bilaterally, more on left with slightly elevated velocities left ICA and signi ficant stenosis within left ECA IMPRESSION: 1. Atherosclerotic change in the left greater than right carotid bifurcations. 2. Proximal left ICA: The end diastolic velocity and ICA/CCA ratios suggest moderate (50-69%) stenosi s. 3. Severe proximal left ECA stenosis. 4. The possible severe right cavernous segment intracranial ICA stenosis seen on CTA is not assessed on the current exam. Criteria for Assigning % of Stenosis / Diameter reduction (Estimation based on the indirect measurements of the internal carotid artery velocities (ICA PSV). 1. Normal (no stenosis)=ICA PSV < 125 cm/s: ratio < 2.0: ICA EDV<40 cm/s. 2. Less than 50% stenosis=ICA PSV < 125 cm/s: ratio < 2.0: ICA EDV<40 cm/s. 3. 50 to 69% stenosis=ICA PSV of 125 to 230 cm/s: ration 2.0 ? 4.0: ICA EDV 40-100 cm/s. 4. Greater than 70% stenosis to near occlusion= ICA PSV > 230 cm/s: ratio > 4.0: ICA EDV > 100 cm/s. 5. Near occlusion= ICA PSV velocities may be low or undetectable: variable ratio and ICA EDV. 6. Total occlusion=unable to detect flow.
[2021-01-12] MEDS ORDERED: ASPIRIN 81 MG PO SCH (17:00)
--- NOTE | 2021-01-12 19:18 | P.PN ---
Progress Note - Text Progress Note Date: 01/12/21 Chief Complaint: Altered mentation History of presenting complaint: Patient was seen by me in the ER This is a 70-year-old patient who follows Dr. Khan. Patient's chronic stable medical conditions include COPD, GERD, hypertension, peripheral arterial disease, peripheral neuropathy, atrial fibrillation, history of appendix tumor with bowel resection, As per the EMS report: Nursing staff stated that the patient be laying in bed when staff 100 trash and found the patient in one are up, not responding. Patient been displaced decorticate posturing and was unable to lift his left arm. When the EMS arrived patient is able to lift his left arm but did not answer questions appropriately. Was agitated. Not being cooperative with assessment. Per nursing staff patient normally is AO 4 and pleasant. EMS evaluated and did not find any focal weakness. Due to the course of transport patient showed some confusion. Code stroke was called in the ER. Given that patient's symptoms are improving and decided not to do any further intervention. When I saw the patient she was able to answer questions though slowly. Appeared to be slightly distant. Able to move his limbs. He says he started smoking a few weeks ago. Patient started on Brilinta in the ER after Dr. Larios spoke to the stroke team. January 12: Today patient is bit more awake. Noted some left-sided weakness. MRI is showing acute stroke on the right brain. In the parietal occipital and some element of temporal lobe. troponin has gone up. Cardiology started the patient IV heparin. I spoke to Dr. Sanches from neurology. IV heparin is to be discontinued. Review of systems: Was done for constitutional, cardiovascular, GI, pulmonary. Neurological relevant finding as above Active Medications Acetaminophen (Acetaminophen Tab 325 Mg Tab) 650 mg PO Q6HR PRN PRN Reason: Mild Pain or Fever > 100.5 Hydrocodone Bitart/Acetaminophen (Hydrocodone/Apap 5-325mg 1 Each Tab) 1 each PO Q6HR PRN PRN Reason: Pain Albuterol/Ipratropium (Ipratropium-Albuterol 3 Ml Neb) 3 ml INHALATION RT-QID [facility] Last Admin: 01/12/21 19:10 Dose: 3 ml Documented by: Aspirin (Aspirin 81 Mg) 81 mg PO DAILY [facility] Atorvastatin Calcium (Atorvastatin 20 Mg Tab) 20 mg PO HS@2100 [facility] Last Admin: 01/11/21 20:14 Dose: 20 mg Documented by: Lactobacillus Acidoph/Bulgaricus (Lactobacillus Acidoph & Bulgar 1 Each Packet) 1 each PO BID@0800,1700 [facility] Last Admin: 01/12/21 18:11 Dose: 1 each Documented by: Lisinopril (Lisinopril 5 Mg Tab) 5 mg PO BID@0800,2100 [facility] Last Admin: 01/12/21 10:23 Dose: Not Given Documented by: Magnesium Hydroxide (Magnesium Hydroxide 2,400 Mg/10 Ml Cup) 2,400 mg PO DAILY PRN PRN Reason: Constipation Metoprolol Tartrate (Metoprolol Tartrate 50 Mg Tab) 50 mg PO BID [facility] Last Admin: 01/12/21 10:24 Dose: Not Given Documented by: Multivitamins (Multivitamins, Thera 1 Each Tab) 1 each PO DAILY@1200 [facility] Last Admin: 01/12/21 13:12 Dose: Not Given Documented by: Nicotine (Nicotine 14mg/24hr Patch) 1 patch TRANSDERM DAILY@0800 [facility] Last Admin: 01/12/21 10:23 Dose: Not Given Documented by: Pantoprazole Sodium (Pantoprazole 40 Mg Tablet) 40 mg PO AC-BRKFST [facility] Last Admin: 01/12/21 05:53 Dose: Not Given Documented by: Thiamine HCl (Thiamine 100 Mg Tab) 100 mg PO DAILY@0800 [facility] Last Admin: 01/12/21 10:23 Dose: Not Given Documented by: Ticagrelor (Ticagrelor 90 Mg Tab) 90 mg PO BID [facility] Last Admin: 01/12/21 10:24 Dose: Not Given Documented by: Past medical history to include: COPD, GERD, hypertension, PAD, peripheral neuropathy, tenderness, 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 Depression. Hypertension, paroxysmal atrial fibrillation Social history: Current resident of [facility]. Patient started smoking in [id number], 1 pack a day up to 2-3 weeks ago. Was drinking one or 2 beers a day Family history: Reviewed, noncontributory to presentation Physical examination: VITAL SIGNS: 98, 85, 16, 133 bun 86, 95% room air GENERAL: Laying in bed, awake, tired EYES: Pupils equal. Conjunctiva normal. HEENT: External appearance of nose and ears normal, oral cavity grossly normal. NECK: JVD unable to assess; masses not palpable. HEART: First and second heart sounds are normal; no edema. LUNGS: Respiratory rate normal; diminished breath sounds. ABDOMEN: Soft, nontender, liver spleen not palpable, no masses palpable. PSYCH: Answering simple questions EXTREMITIES: Poor dorsalis pedis. Ischemic changes in the nails and the skin. NEUROLOGICAL: Left-sided palmar 3/5 INVESTIGATIONS, reviewed in the clinical context: Brain MRI: Evolving acute/subacute infarct inferior right parietal occipital level extending to the posterior superior temporal lobe with some extension to the posterior right coronary radiata and a smaller area of the involvement of the posterior left occipital lobe. Background moderate diffuse cerebral atrophy and chronic small vessel ischemic changes EEG: Some evidence of encephalopathy. No epileptiform discharge. Carotid Doppler: Atherosclerotic change in the left greater than right carotid bifurcation. Proximal left ICA suggestive of 55-69% stenosis. Severe proximal left ECF stenosis. Possible severe right cavernous segment intracranial ICA stenosis. January 12: White count 12.5 hemoglobin 17.1 platelets 32 potassium 4.8 creatinine 0.88 LDL 59 White count 13.9 hemoglobin 17 platelets 379 potassium 5.5 BUN 23 creatinine 0.94 Troponin I 0.431, 17.1 TSH 8.0 Coronavirus [PCR]: Not detected EKG tracing personally reviewed by me-no sinus rhythm, poor R-wave progression Chest x-ray film personally reviewed by me-possible infiltrate Computed tomography scan of the brain: No acute intracranial hemorrhage slight shift. Age related atrophy. And chronic small vessel changes. CT angiography head and neck: Severe atherosclerotic changes with significant stenosis suspected bilaterally. Assessment and plan: -acute infarct inferior right parietal occipital level extending to the posterior superior temporal lobe with some extension to the posterior right coronary radiata and a smaller area of the involvement of the posterior left occipital. Patient on aspirin, Brillinta. Follow-up with neurology. -Bilateral significance carotid artery disease Consult vascular surgery -Acute non-Q wave AR. No cardiac symptoms. Given acute stroke IV heparin discontinued. Lipitor 20 mg daily at bedtime -COPD in a previous smoker DuoNeb -Essential hypertension Metoprolol 50 mg twice a day lisinopril 5 mg twice a day -Hyperlipidemia Lipitor 20 mg daily at bedtime -Peripheral arterial disease Aspirin. Lipitor 20 mg daily at bedtime -GERD PPI -History of tiny aneurysm in his brain history of michelle Patient aspirin, Brillinta. Lipitor. Other medications to continue. Discussed with Dr. Arce from neurology. IV heparin discontinued after he discussed with cardiology. Prognosis guarded
[2021-01-12] MEDS: ACETAMINOPHEN TAB 325 MG TAB PO PRN (20:45)
[2021-01-12] MEDS: ATORVASTATIN 20 MG TAB PO SCH (20:46)
[2021-01-12] MEDS ORDERED: METOPROLOL TARTRATE 25 MG TAB PO STA (23:31)
[2021-01-13 00:47] LABS: Folate, Serum 10.7 ng/mL
[2021-01-13] MEDS: PANTOPRAZOLE 40 MG TABLET PO SCH (06:28)
[2021-01-13] MEDS: IPRATROPIUM-ALBUTEROL 3 ML NEB INHALATION SCH ×4 (07:25→20:52)
[2021-01-13 08:46] LABS: Basophils # (A) 0.1 k/uL (0-0.2); Basophils % (A) 0 %; Eosinophils # (A) 0.1 k/uL (0-0.7); Eosinophils % (A) 0 %; HCT 51.9 % (39.0-53.0); HGB 17.8 gm/dL (13.0-17.5); Lymphocytes # (A) 1.8 k/uL (1.0-4.8); Lymphocytes % (A) 12 %; MCH 32.4 pg (25.0-35.0); MCHC 34.2 g/dL (31.0-37.0); MCV 94.7 fL (80.0-100.0); Mean Platelet Volume 7.2; Monocytes # (A) 0.5 k/uL (0-1.0); Monocytes % (A) 4 %; Neutrophils # (A) 11.9 k/uL (1.3-7.7); Neutrophils % (A) 81 %; Platelet Count 412 k/uL (150-450); RBC 5.47 m/uL (4.30-5.90); RDW 15.1 % (11.5-15.5); WBC 14.7 k/uL (3.8-10.6)
[2021-01-13 09:02] LABS: INR 1.1 (<1.2); Prothrombin Time 11.6 sec (9.0-12.0)
[2021-01-13 09:03] LABS: Calcium 9.7 mg/dL (8.4-10.2)
[2021-01-13 09:12] LABS: Potassium 5.8 mmol/L (3.5-5.1)
[2021-01-13] MEDS: NICOTINE 14MG/24HR PATCH TRANSDERM SCH (09:18)
[2021-01-13] MEDS: LACTOBACILLUS ACIDOPH & BULGAR 1 EACH PACKET PO SCH ×2 (09:19→19:09)
[2021-01-13] MEDS: METOPROLOL TARTRATE 25 MG TAB PO SCH ×2 (09:19→21:45)
[2021-01-13] MEDS: TICAGRELOR 90 MG TAB PO SCH ×2 (09:19→21:46)
[2021-01-13] MEDS: lisinopriL 5 MG TAB PO SCH (09:36)
[2021-01-13] MEDS: THIAMINE 100 MG TAB PO SCH (09:37)
[2021-01-13] MEDS: ASPIRIN 81 MG PO SCH (09:37)
--- NOTE | 2021-01-13 10:00 | ECHOF ---
Referral Reason:repeat. NSTEMI MEASUREMENTS -------- HEIGHT: 175.3 cm WEIGHT: 62.6 kg BP: 123/82 IVSd: 1.3 cm (0.6 - 1.1) LVIDd: 3.6 cm (3.9 - 5.3) LVPWd: 1.6 cm (0.6 - 1.1) IVSs: 1.4 cm LVIDs: 2.3 cm LVPWs: 1.6 cm FINDINGS -------- Sinus rhythm. This was a technically difficult study with suboptimal views. ATTEMPTED LIMITED STUDY The left ventricular size is normal. There is mild concentric left ventricular hypertrophy. Overa ll left ventricular systolic function is normal with, an EF between 55 - 60 %. There is no pericardial effusion. CONCLUSIONS -------- 1. The left ventricular size is normal. 2. There is mild concentric left ventricular hypertrophy. 3. Overall left ventricular systolic function is normal with, an EF between 55 - 60 %. 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
--- NOTE | 2021-01-13 10:45 | XR ---
EXAMINATION TYPE: XR chest 1V portable DATE OF EXAM: 01/13/2021 COMPARISON: 01/11/2021 HISTORY: Shortness of breath TECHNIQUE: Single frontal view of the chest is obtained. FINDINGS: Bilateral lower lobe consolidation with small left effusion. Heart size normal. Diffuse os teopenia. Arthropathy of the shoulders. Biapical pleural thickening. Atherosclerotic change aorta. De generative change of the spine. IMPRESSION: Left lower lobe infiltrate and small effusion.
--- NOTE | 2021-01-13 12:06 | P.PN ---
Subjective Progress Note Date: 01/13/21 Principal diagnosis: Carotid stenosis, acute CVA Patient is seen and examined lying in bed. He is tachypneic. No acute changes through the night. He is able to follow simple commands and answer direct questions. Patient had elevated troponin of 17 yesterday. No repeat done. Cardiology is on consult. Carotid ultrasound shows right ICA PSV 64.47 with ICA/CCA ratio 1.9. Left ICA PSV 121 with ICA/CCA ratio 2.0. Impression states arthrosclerotic change in the left greater than right carotid bifurcations. Proximal left ICA the end diastolic velocity and ICA/CCA ratios moderate 50-69% stenosis. Severe proximal left ECA stenosis. A possible severe right cavernous segment intracranial ICA stenosis seen on CT is not assessed on the current exam. Objective - Vital Signs Vital signs: Vital Signs Temp 99.4 F 01/13/21 09:15 Pulse 94 01/13/21 09:15 Resp 22 01/13/21 09:15 BP 133/71 01/13/21 09:15 Pulse Ox 100 01/13/21 09:15 Intake & Output 01/12/21 01/13/21 01/13/21 18:59 06:59 18:59 Intake Total 0 100 Balance 0 100 Weight 54.5 kg Intake: Oral 0 100 Other: Voiding Method Incontinent Incontinent - Exam General appearance: The patient is alert, oriented to self, appears in no acute distress. HET: Head is normocephalic and atraumatic. Pupils are equal and reactive. Oropharynx is clear without lesions. Neck: Supple without lymphadenopathy. Trachea midline. Heart: S1 S2. Regular rate and rhythm. Lungs: No crackles or wheezes are heard. Abdomen: Soft, nontender, nondistended. Extremities: Normal skin color and turgor. No cyanosis, rash, ulceration, clubbing, or edema. Palpable bilateral femoral pulses. Doppler signal obtained right posterior tibialis. Left deferred as patient had to go for stat chest x- ray. Neurological: Alert and oriented to self. Unable to really assess speech as patient is not answering many questions. Left upper and lower extremity weakness, unable to use left hand for grasp. Right upper extremity and lower extremity with good strength and tone. - Labs CBC & Chem 7: 01/13/21 08:19 01/13/21 08:19 Labs: Abnormal Lab Results - Last 24 Hours (Table) 01/13/21 01/13/21 Range/Units 08:19 08:19 WBC 14.7 H (3.8-10.6) k/uL Hgb 17.8 H (13.0-17.5) gm/dL Neutrophils # 11.9 H (1.3-7.7) k/uL Sodium 132 L (137-145) mmol/L Potassium 5.8 H (3.5-5.1) mmol/L Carbon Dioxide 16 L (22-30) mmol/L BUN 38 H (9-20) mg/dL Creatinine 1.75 H (0.66-1.25) mg/dL Glucose 115 H (74-99) mg/dL Assessment and Plan Assessment: 1. Left ICA stenosis 55% per CT angiogram 2. Evolving acute/subacute infarct inferior right parietal occipital level extending to posterior superior temporal lobe with some extension to posterior right coronal Broady Iva and smaller area of involvement of posterior left occipital lobe per MRI 3. Left-sided weakness 4. History of atrial fibrillation on Eliquis 5. Hypertension 6. History of alcohol abuse 7. Former smoker Plan: 1. Carotid ultrasound ordered and reviewed 2. Anticoagulation/antiplatelet per recommendations of neurology 3. Continue Lipitor 4. Patient was made DO NOT RESUSCITATE 5. Outpatient follow-up recommended for further evaluation and discussion of possible intervention Thank you for this consultation and allowing us take part in the plan of care of your patient during his hospital stay The impression and plan of care has been dictated as directed. Dr. Tucker I performed a history and examination of this patient, discussed the same with the dictator. I agree with the dictator's note ,documented as a scribe. Any additional findings or plans will be noted.
[2021-01-13] MEDS ORDERED: SODIUM CHLORIDE 0.9% 1,000 ML IV SCH ×2 (13:00→17:00)
[2021-01-13] MEDS: MULTIVITAMINS, THERA 1 EACH TAB PO SCH (13:03)
--- NOTE | 2021-01-13 13:05 | P.PN ---
Subjective Progress Note Date: 01/13/21 The patient is seen at bedside and per nurse he seems to be drowsy and not interactive and is tachypneic. Objective - Vital Signs Vital signs: Vital Signs Temp 99.7 F H 01/13/21 11:41 Pulse 84 01/13/21 11:41 Resp 34 H 01/13/21 11:41 BP 118/72 01/13/21 11:41 Pulse Ox 98 01/13/21 11:41 Intake & Output 01/12/21 01/13/21 01/13/21 18:59 06:59 18:59 Intake Total 0 100 240 Balance 0 100 240 Weight 54.5 kg Intake: Oral 0 100 240 Other: Voiding Method Incontinent Incontinent Incontinent - Exam GENERAL: The patient is lying in bed and is not in acute distress. NEUROLOGICAL: Was somewhat limited because of his cooperation. Higher mental function: The patient is severely drowsy and is not verbally responsive. He would open his eyes but not verbalizing or following commands. Cranial nerves: The pupils are round, equal and reactive to light. Minimal left lower facial droop. Was neglecting the left side. Could not assess rest. Motor: Gait is deferred. Is lift the right side above gravity with painful stimuli but minimally lifting the left side. Increase tone over the left side. Cerebellum: Could not asses. Sensation: Could not assess. Reflexes (right/left): 1+ throughout. Plantars are mute bilaterally. WORK-UP: * CT of the head is reported as no acute intracranial hemorrhage or midline shift. There is mild to moderate diffuse age-related cerebral atrophy and moderate to advanced chronic small vessel ischemic changes redemonstrated. No significant change from most recent prior studies and that was in 12/27/2020. * CT angiography of the head and neck is reported as new significant stenosis proximal left internal carotid artery near 55%. Severe aphthous chronic changes distal internal carotid artery bilaterally with significant stenosis suspected bilaterally. Present of temporal bone and dense calcified plaque makes evaluation suboptimal. There is new noncalcified plaque distal left internal carotid artery causing more prominent stenosis versus 2018 study clearly seen. No aneurysm or new significant focal stenosis at the level [place] * MRI the brain is reported as evolving acute/subacute infarct inferior right parietal occipital level extending to the posterior superior temporal lobe with some extension to the posterior right coronal radiata and a smaller area of involvement of the posterior left occipital lobe. Background moderate diffuse cerebral atrophy and moderate to advanced chronic small vessel ischemic changes redemonstrated. * Limited 2-D echo is 11 ventricle size is normal. Mild concentric Lipitor hypertrophy. Ejection fraction 55-60%. * Carotid duplex was reported as atherosclerotic change in the left greater than the right carotid bifurcation. Proximal left ICA; the end-diastolic velocity and ICA/CCA ratio suggests moderate 50-69% stenosis. 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 Possible severe right cavernous segment intracranial ICA stenosis seen on the CTA is not assessed on the current exam. * Routine EEG on 01/12/2021: It's an abnormal routine EEG. The background is asymmetric with mild encephalopathy over the last and moderate over the right. There is focal slowing over the right hemisphere consistent with the patient history of stroke. There are no epileptiform discharges or seizure on the EEG. * Lipid panel: Triglyceride 110, cholesterol 127, LDL 59, HDL of 46. * TSH is 8.05 which is considered within normal limits * Vitamin B12 level is 524 which is within normal limits. Serum folate level is 10.7 which is also within normal limits. * EKG is reported as normal sinus rhythm. At anterior septal infarct age undetermined. Abnormal EKG * AST of 107 and ALT of 73 the ammonia level is less than 9 which is within normal limits. * Troponin is elevated 0.43 and it's as high as 17.1 - Labs CBC & Chem 7: 01/13/21 08:19 01/13/21 13:59 Labs: Abnormal Lab Results - Last 24 Hours (Table) 01/13/21 01/13/21 Range/Units 08:19 08:19 WBC 14.7 H (3.8-10.6) k/uL Hgb 17.8 H (13.0-17.5) gm/dL Neutrophils # 11.9 H (1.3-7.7) k/uL Sodium 132 L (137-145) mmol/L Potassium 5.8 H (3.5-5.1) mmol/L Carbon Dioxide 16 L (22-30) mmol/L BUN 38 H (9-20) mg/dL Creatinine 1.75 H (0.66-1.25) mg/dL Glucose 115 H (74-99) mg/dL Assessment and Plan Assessment: Acute large ischemic stroke (Over the right temporal/parietal and occipital region): Seems embolic. No IV tpa since on anticoagulation. No intervention per stroke team Altered mental status seems due to above and component due to metabolic--mentation worsening. Left internal carotid stenosis per CTA nearly 55% as well as severe upper sclerotic changes of distal internal carotid arteries bilaterally that suspect that per CTA Elevated troponin Mild hyponatremia on presentation was 131 currently it's 133 Elevated liver function Uncontrolled hypertension History of alcohol use History of multiple falls Plan: * I ordered a repeat CT head. * Continue ASA 81mg daily and Brilinta 90 1 tab bid. Hold anticoagulation use because of increase risk of bleed with large stroke. Consider use of anticoagulation on 01/17/2021. Continue Lipitor 20 mg daily at bedtime. I will not increase the Lipitor because of his elevated liver function once his liver function improved focal up to 40mg qhs for secondary stroke prophylaxis. * Vascular surgery team is consulted for carotid stenosis. They stated the outpatient follow-up and no intervention as an inpatient. * PT, OT and FACILITIES OPERATOR are consulted * Neuro checks per [facility] protocol * Cardiology is on board. * On cardiac monitoring * We'll defer the rest of the medical management to the primary team Patient CODE STATUS: DNR. The patient's condition is very guarded. Today's examination he seems worse. The plan is discussed with the patient's nurse. UPDATE: CT head: Acute to subacute right occipital lobe infarct. Chronic appearing periventric ular white matter ischemic changes. I personally reviewed it and I do agree there is right occipital subacute infarct as well as that extends into the temporal region. Calixto Sanches M.D. Neuro-hospitalist Time with Patient: Less than 30
--- NOTE | 2021-01-13 14:12 | P.PN ---
Subjective This is a pleasant 70-year-old male past medical history significant for hypertension, peripheral artery disease follows with Dr. Tucker s/p bilateral iliofemoral thromboendarterectomy/stent placement in 10/2019, dyslipidemia, chronic nicotine dependence, paroxysmal atrial fibrillation (on Eliquis), history of daily alcohol use. He follows in the office with Dr. Malik but states he has not followed up since 01/2020. We have been asked to see in consultation for elevated troponin. Patient brought to the emergency department from a skilled nursing for alerted mental status and left upper extremity weakness. He is unable to tell a full accurate story of what happened yesterday. He states his words are not coming out right. He does endorse being confused which is new and his left arm weakness is new. He does endorse dizziness. He states he did have chest pain a few days ago, unable to give specifics about his chest pain. On exam he denies any chest pain, shortness of breath, syncope, or palpitations. He has a history of non-compliance with medication, however, he states he has been receiving his medication at the nursing facility. Denies history of [place], previous history of Stroke, coronary artery disease, bleeding, GI bleeding c ers. Patient recently admitted in December 27, 2020 after a mechanical fall at home, at that time he lived alone. Shoulder Xray revealed right acromioclavicular joint separation. He underwent Head, cervical neck, chest abdomen, pelvix CT- no evidence of traumatic injury. He was found to be in atrial fibrillation with rapid ventricular response, patient was initially managed on cardizem but weaned off. Started on Eliquis 5mg BID and metoprolol tartrate. He was stabilized and discharged to a halfway facility. He was an every day smoker, smoked about 1PPD. He was also an every day alcohol drinker prior to going to skilled nursing, around 2 beers per day. DIAGNOSTICS -EKG sinus rhythm, HR 66, some mild ST elevation in leads II, III, and V3-V6, no reciprocal changes EKG this morning reveals- sinus rhythm, heart rate 89, PACs, mild ST elevation in leads V4-V6. no reciprocal changes -CT brain revealed no acute intracranial hemorrhage or midline shift. Mild to moderate diffuse age-related cerebral atrophy, moderate to advanced chronic small vessel ischemia. -CT angiography- new significant stenosis proximal left internal carotid artery, near 55%, severe atherosclerotic changes distal internal carotid arteries bilaterally significant stenosis. Patient had noncalcified plaque distal left internal carotid artery causing more prominent stenosis. No aneurysmal and no significant focal stenosis at level [place] at [place]. -Most recent echocardiogram 12/28/2020 revealed an EF of 55-60%, trace mitral r egurgitation, trace tricuspid regurgitation, moderate concentric hypertrophy, aortic root dilated 4.5cm. -Most recent stress test Lexiscan 06/2019 revealed no evidence of stress-induced ischemia. -Current home daily cardiac medications include- lisinopril 5 mg twice a day, metoprolol tartrate 50 mg twice a day, atorvastatin 20 mg nightly, aspirin 81 mg daily, Eliquis 5 mg twice a day Laboratory data reviewed Troponin 0.4-->17 01/12: MRI of the brain revealed evolving acute/subacute infarct in inferior right parietal occipital level extending into the posterior superior temporal lobe with some extension to the posterior right coronary and no red time and a small area of involvement of the posterior left occipital lobe. Limited echo revealed EF 55-60% 01/13/21: Patient seen and examined at bedside, he is confused, he is drowsy, BP and heart rate stable. Tachypneic RR 30s. Chest Xray- revealed bilateral lower lobe consolidation with small left effusion. Laboratory data reviewed WBC 14.7, hemoglobin 17.8, platelets 412, sodium 132, potassium 5.8, BUN 38, serum creatinine 1.7. Telemetry reviewed patient maintaining sinus mechanism heart rate 70 to 90s. PHYSICAL EXAMINATION Blood pressure 118/72, respirations 24, heart rate 84 temperature 99.7F, maintaining oxygen saturations on room air. CONSTITUTIONAL: Tachypneic HEENT: Head is normocephalic. Pupils are equal, round. Sclerae anicteric. Mucous membranes of the mouth are dry. No JVD. +carotid bruit bilaterally CHEST EXAMINATION: Lungs are diminished bases bilaterally. No chest wall tenderness is noted on palpation or with deep breathing. HEART EXAMINATION: Regular rate and rhythm. S1, S2 heard. No murmurs, gallops or rub. ABDOMEN: Soft Positive bowel sounds. Mild tenderness to palpation lower abdomen bilaterally. EXTREMITIES: 2+ radial pulses, pedal pulses difficult to assess pulse, no lower extremity edema. NEUROLOGIC EXAMINATION: Patient is awake, alert and oriented x 2- to person and place. Left arm weakness noted. Drift on left upper extremity. 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 Difficulty seeing on left side visual field. ASSESSMENT NSTEMI Acute large ischemic stroke Alerted mental status Carotid Stenosis Paroxysmal atrial fibrillation (New diagnosis 11/2020) On Eliquis 5mg BID outpatient, currently maintaining sinus mechanism. Hypertension Dyslipidemia Peripheral vascular disease s/p bilateral iliofemoral th romboendarterectomy/stent placement in October 2019. History of Alcohol use Chronic tobacco use Acute Kidney Injury- likely contrast induced from Hyperkalemia PLAN Anticoagulation on hold per Neurology Plan for CT brain today Continue aspirin 81 mg daily, statin, lisinopril and metoprolol tartrate We will continue medical management at this time due to acute ischemic stroke. Neurology following Further recommendations based on clinical course Nurse Practitioner note has been reviewed, I agree with a documented findings and plan of care. Patient was seen and examine Objective - Vital Signs Vital signs: Vital Signs Temp 99.7 F H 01/13/21 11:41 Pulse 84 01/13/21 11:41 Resp 34 H 01/13/21 11:41 BP 118/72 01/13/21 11:41 Pulse Ox 98 01/13/21 11:41 Intake & Output 01/12/21 01/13/21 01/13/21 18:59 06:59 18:59 Intake Total 0 100 240 Balance 0 100 240 Weight 54.5 kg Intake: Oral 0 100 240 Other: Voiding Method Incontinent Incontinent Incontinent - Labs CBC & Chem 7: 01/13/21 08:19 01/13/21 08:19 Labs: Abnormal Lab Results - Last 24 Hours (Table) 01/13/21 01/13/21 Range/Units 08:19 08:19 WBC 14.7 H (3.8-10.6) k/uL Hgb 17.8 H (13.0-17.5) gm/dL Neutrophils # 11.9 H (1.3-7.7) k/uL Sodium 132 L (137-145) mmol/L Potassium 5.8 H (3.5-5.1) mmol/L Carbon Dioxide 16 L (22-30) mmol/L BUN 38 H (9-20) mg/dL Creatinine 1.75 H (0.66-1.25) mg/dL Glucose 115 H (74-99) mg/dL
[2021-01-13 14:43] LABS: Calcium 9.4 mg/dL (8.4-10.2)
[2021-01-13 14:45] LABS: Potassium 5.8 mmol/L (3.5-5.1)
--- NOTE | 2021-01-13 15:01 | CT ---
EXAMINATION TYPE: CT brain wo con DATE OF EXAM: 01/13/2021 COMPARISON: 01/11/2021 INDICATION: Altered mental status DLP: 1217.4 mGycm, Automated exposure control for dose reduction was used. CONTRAST: None CT of the brain is performed utilizing 3 mm thick sections through the posterior fossa and 3 mm thick sections through the remaining calvarium. Study is performed within 24 hours of arrival to the hosp [facility]. No abnormal hyperdensity is present to suggest an acute intracranial hemorrhage. No mass lesion is evident. There is a large right occipital lobe infarct. There is some very periventricular white matter hypodensity, present previously, can be compatible wi th chronic white matter ischemic changes. Ventricles and sulci are somewhat prominent for the patient age. Paranasal sinuses and mastoid air cells within the [id number] are clear. IMPRESSIONS: 1. Acute to subacute right occipital lobe infarct. 2. Chronic appearing periventricular white matter ischemic changes.
[2021-01-13] MEDS: HEPARIN SODIUM,PORCINE/PF 5,000 UNIT/0.5 ML SYRINGE SQ SCH ×2 (15:44→21:48)
[2021-01-13] MEDS ORDERED: SODIUM POLYSTYRENE SULFONATE 15 GM/60 ML BOTTLE PO STA (16:51)
--- NOTE | 2021-01-13 17:02 | P.PN ---
Progress Note - Text Progress Note Date: 01/13/21 Chief Complaint: Altered mentation History of presenting complaint: Patient was seen by me in the ER This is a 70-year-old patient who follows Dr. Khan. Patient's chronic stable medical conditions include COPD, GERD, hypertension, peripheral arterial disease, peripheral neuropathy, atrial fibrillation, history of appendix tumor with bowel resection, As per the EMS report: Nursing staff stated that the patient be laying in bed when staff 100 trash and found the patient in one are up, not responding. Patient been displaced decorticate posturing and was unable to lift his left arm. When the EMS arrived patient is able to lift his left arm but did not answer questions appropriately. Was agitated. Not being cooperative with assessment. Per nursing staff patient normally is AO 4 and pleasant. EMS evaluated and did not find any focal weakness. Due to the course of transport patient showed some confusion. Code stroke was called in the ER. Given that patient's symptoms are improving and decided not to do any further intervention. When I saw the patient she was able to answer questions though slowly. Appeared to be slightly distant. Able to move his limbs. He says he started smoking a few weeks ago. Patient started on Brilinta in the ER after Dr. Larios spoke to the stroke team. January 12: Today patient is bit more awake. Noted some left-sided weakness. MRI is showing acute stroke on the right brain. In the parietal occipital and some element of temporal lobe. troponin has gone up. Cardiology started the patient IV heparin. I spoke to Dr. Sanches from neurology. IV heparin is to be discontinued. January 13: Tired. Did eat some. Kidney function has been worsening. Likely contrast-induced nephropathy. Started on IV fluids. Nephrology consulted. Patient also having Matt-Mcdermott breathing. A bit lethargic. More weakness in the left arm. Patient refuses medication this morning. Review of systems: Patient not answering much. Active Medications Acetaminophen (Acetaminophen Tab 325 Mg Tab) 650 mg PO Q6HR PRN PRN Reason: Mild Pain or Fever > 100.5 Last Admin: 01/12/21 20:45 Dose: 650 mg Documented by: Hydrocodone Bitart/Acetaminophen (Hydrocodone/Apap 5-325mg 1 Each Tab) 1 each PO Q6HR PRN PRN Reason: Pain Albuterol/Ipratropium (Ipratropium-Albuterol 3 Ml Neb) 3 ml INHALATION RT-QID [facility] Last Admin: 01/13/21 15:49 Dose: 3 ml Documented by: Aspirin (Aspirin 81 Mg) 81 mg PO DAILY [facility] Last Admin: 01/13/21 09:37 Dose: Not Given Documented by: Atorvastatin Calcium (Atorvastatin 20 Mg Tab) 20 mg PO HS@2100 [facility] Last Admin: 01/12/21 20:46 Dose: 20 mg Documented by: Heparin Sodium (Porcine) (Heparin Sodium,Porcine/Pf 5,000 Unit/0.5 Ml Syringe) 5,000 unit SQ Q12HR [facility] Last Admin: 01/13/21 15:44 Dose: 5,000 unit Documented by: Sodium Chloride (Saline 0.9%) 1,000 mls @ 130 mls/hr IV .Q7H42M [facility] Lactobacillus Acidoph/Bulgaricus (Lactobacillus Acidoph & Bulgar 1 Each Packet) 1 each PO BID@0800,1700 [facility] Last Admin: 01/13/21 09:19 Dose: Not Given Documented by: Magnesium Hydroxide (Magnesium Hydroxide 2,400 Mg/10 Ml Cup) 2,400 mg PO DAILY PRN PRN Reason: Constipation Metoprolol Tartrate (Metoprolol Tartrate 25 Mg Tab) 75 mg PO BID [facility] Last Admin: 01/13/21 09:19 Dose: Not Given Documented by: Multivitamins (Multivitamins, Thera 1 Each Tab) 1 each PO DAILY@1200 [facility] Last Admin: 01/13/21 13:03 Dose: Not Given Documented by: Nicotine (Nicotine 14mg/24hr Patch) 1 patch TRANSDERM DAILY@0800 [facility] Last Admin: 01/13/21 09:18 Dose: 1 patch Documented by: Pantoprazole Sodium (Pantoprazole 40 Mg Tablet) 40 mg PO AC-BRKFST [facility] Last Admin: 01/13/21 06:28 Dose: 40 mg Documented by: Thiamine HCl (Thiamine 100 Mg Tab) 100 mg PO DAILY@0800 [facility] Last Admin: 01/13/21 09:37 Dose: Not Given Documented by: Ticagrelor (Ticagrelor 90 Mg Tab) 90 mg PO BID [facility] Last Admin: 01/13/21 09:19 Dose: Not Given Documented by: Past medical history to include: COPD, GERD, hypertension, PAD, peripheral neuropathy, tenderness, 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 Depression. Hypertension, paroxysmal atrial fibrillation Social history: Current resident of [facility]. Patient started smoking in [id number], 1 pack a day up to 2-3 weeks ago. Was drinking one or 2 beers a day Family history: Reviewed, noncontributory to presentation Physical examination: VITAL SIGNS: 99.7, 84, 30, 11 8 x 72, 98% room air GENERAL: Laying in bed, lethargic. EYES: Pupils equal. Conjunctiva normal. NECK: JVD unable to assess; masses not palpable. HEART: First and second heart sounds are normal; no edema. LUNGS: Matt-Mcdermott breathing ; diminished breath sounds. ABDOMEN: Soft, nontender, liver spleen not palpable, no masses palpable. PSYCH: Lethargic EXTREMITIES: Poor dorsalis pedis. Ischemic changes in the nails and the skin. NEUROLOGICAL: Left arm weakness 2/5. Some spontaneous movement of left leg INVESTIGATIONS, reviewed in the clinical context: January 13: White count 14.7 hemoglobin 17.8 platelets 412 potassium 5.8 by cup 14. 49 creatinine 2.34 Brain MRI: Evolving acute/subacute infarct inferior right parietal occipital level extending to the posterior superior temporal lobe with some extension to the posterior right coronary radiata and a smaller area of the involvement of the posterior left occipital lobe. Background moderate diffuse cerebral atrophy and chronic small vessel ischemic changes EEG: Some evidence of encephalopathy. No epileptiform discharge. Carotid Doppler: Atherosclerotic change in the left greater than right carotid bifurcation. Proximal left ICA suggestive of 55-69% stenosis. Severe proximal left ECF stenosis. Possible severe right cavernous segment intracranial ICA stenosis. January 12: White count 12.5 hemoglobin 17.1 platelets 32 potassium 4.8 creatinine 0.88 LDL 59 White count 13.9 hemoglobin 17 platelets 379 potassium 5.5 BUN 23 creatinine 0.94 Troponin I 0.431, 17.1 TSH 8.0 Coronavirus [PCR]: Not detected EKG tracing personally reviewed by me-no sinus rhythm, poor R-wave progression Chest x-ray film personally reviewed by me-possible infiltrate Computed tomography scan of the brain: No acute intracranial hemorrhage slight shift. Age related atrophy. And chronic small vessel changes. CT angiography head and neck: Severe atherosclerotic changes with significant stenosis suspected bilaterally. Assessment and plan: -acute infarct inferior right parietal occipital level extending to the posterior superior temporal lobe with some extension to the posterior right coronary radiata and a smaller area of the involvement of the posterior left occipital. Patient on aspirin, Brillinta. Follow-up with neurology. -Bilateral significance carotid artery disease vascular surgery -Acute non-Q wave HI. No cardiac symptoms. Given acute stroke IV heparin discontinued. Lipitor 20 mg daily at bedtime -COPD in a previous smoker DuoNeb -Essential hypertension Metoprolol 50 mg twice a day -Hyperlipidemia Lipitor 20 mg daily at bedtime -Peripheral arterial disease Aspirin. Lipitor 20 mg daily at bedtime -GERD PPI -History of tiny aneurysm in his brain history of michelle -Acute kidney injury, ATN/from contrast-induced Lisinopril discontinued. IV fluids started. Follow input and output Consult nephrology. -Hyperkalemia from acute kidney injury and STALIN inhibitor Discontinue lisinopril. Kayexalate 30 g -Acute metabolic encephalopathy from stroke Follow clinically -Matt-Mcdermott breathing, from metabolic encephalopathy from stroke -Acute metabolic acidosis from acute kidney injury Start bicarbonate drip Patient ordered 30 g of Kayexalate. Started on bicarbonate drip and IV fluids. Follow renal function. Strict I's and O's. Nephrology consultation. Prognosis guarded. Lisinopril discontinued.
[2021-01-13] MEDS: SODIUM POLYSTYRENE SULFONATE 30 GM/120 ML BOTTLE RECTAL SCH (19:08)
[2021-01-13] MEDS: SODIUM CHLORIDE 0.45% 1,000 ML with SODIUM BICARB (1 MEQ/ML) 50 ML IV SCH ×2 (19:09)
[2021-01-13] MEDS: ATORVASTATIN 20 MG TAB PO SCH (21:45)
[2021-01-14] MEDS: SODIUM POLYSTYRENE SULFONATE 30 GM/120 ML BOTTLE RECTAL SCH ×4 (00:26→16:22)
[2021-01-14] MEDS: SODIUM CHLORIDE 0.45% 1,000 ML with SODIUM BICARB (1 MEQ/ML) 50 ML IV SCH ×2 (05:43)
[2021-01-14] MEDS: PANTOPRAZOLE 40 MG TABLET PO SCH (06:48)
[2021-01-14] MEDS: IPRATROPIUM-ALBUTEROL 3 ML NEB INHALATION SCH ×4 (08:33→19:36)
[2021-01-14] MEDS: HEPARIN SODIUM,PORCINE/PF 5,000 UNIT/0.5 ML SYRINGE SQ SCH ×2 (09:26→21:25)
[2021-01-14] MEDS: NICOTINE 14MG/24HR PATCH TRANSDERM SCH (09:26)
[2021-01-14] MEDS: ASPIRIN 81 MG PO SCH (09:31)
[2021-01-14] MEDS: LACTOBACILLUS ACIDOPH & BULGAR 1 EACH PACKET PO SCH ×2 (09:31→16:21)
[2021-01-14] MEDS: THIAMINE 100 MG TAB PO SCH (09:31)
[2021-01-14] MEDS: METOPROLOL TARTRATE 25 MG TAB PO SCH ×2 (09:31→21:22)
[2021-01-14 09:32] LABS: Calcium 8.7 mg/dL (8.4-10.2); Potassium 4.6 mmol/L (3.5-5.1)
[2021-01-14] MEDS: TICAGRELOR 90 MG TAB PO SCH ×2 (09:32→21:23)
--- NOTE | 2021-01-14 09:58 | CONS ---
CONSULTATION REASON FOR CONSULTATION: Renal failure. HISTORY OF PRESENT ILLNESS: Patient is a 70-year-old male who was initially admitted to the hospital on 01/11/2021. Patient was admitted with a history of altered mentation. The patient had a CT scan which showed evidence of acute CVA. Patient was not able to move his left arm when he initially came in. He had a CT angiogram done on 01/11/[address] showed no acute changes initially. However, brain CT done yesterday showed acute to subacute right occipital lobe infarct. Patient's creatinine was 0.8 on 01/12 and today it is 2.34. His potassium is elevated at 5.8. CO2 is 14. The patient's troponin level is at 17. His blood pressure has been around 120 to 106 mmHg systolic. Patient was on STALIN inhibitors, which is now discontinued. Currently patient is maintained on bicarb drip. PAST MEDICAL HISTORY: Significant for COPD, gastroesophageal reflux disease, hypertension, history of bowel resection, history of brain aneurysm. PAST SURGICAL HISTORY: Appendectomy, bowel resection, finger surgery. SOCIAL HISTORY: Positive for use of marijuana. No smoking history documented. MEDICATIONS: Medications prior to admission included Tylenol, inhalers, Protonix, Eliquis, aspirin, Lipitor, [place], Imodium, Lopressor, milk of magnesia, thiamine, Dulcolax, Zestril. ALLERGIES: NONE. REVIEW OF SYSTEMS: As per HPI. PHYSICAL EXAMINATION: Patient is awake. He is comfortable. Blood pressure 125/85, heart rate 101 per minute. He does not communicate much. The patient is lying in bed. He is not following commands. EXAMINATION OF THE HEART: S1 and S2. EXAMINATION OF LUNGS: Bilateral breath sounds are heard. ABDOMEN: Soft, nontender. LOWER EXTREMITIES: Examination of lower extremities shows no evidence of edema. PHARMACY MANAGER EXAM: PHARMACY MANAGER exam cannot be assessed. Patient is not followed following commands. Apparently he had not been moving his left side as much. LABS: Labs on 01/13 showed sodium 132, potassium 5.8, chloride 101. CO2 was 14, BUN 49, creatinine 2.3, hemoglobin 7.8, troponin 17. ASSESSMENT: 1. Acute kidney injury, acute tubular necrosis, associated with contrast nephropathy as well as some degree of hypoperfusion. Rule out urine retention. The patient is currently incontinent. We will do a bladder scan, check a urinalysis. Continue with IV fluids. Agree with IV bicarb. 2. Metabolic acidosis, anion gap, associated with renal failure, maintained on IV bicarb. 3. Hyperkalemia associated with acute kidney injury. Rule out urine retention. Also associated with underlying metabolic acidosis, status post Kayexalate yesterday. We will repeat labs today. 4. Acute cerebrovascular accident, being followed by Neurology, maintained on Brilinta. PLAN: Continue with bicarb drip. Change to 150 mEq. Check labs today. Check bladder scan. Check urinalysis. Repeat labs in a.m. Repeat labs again today if his potassium is elevated. Thank you for this consultation. Will continue to follow the patient with you during his hospitalization. MMODL / IJN: [id number] /
--- NOTE | 2021-01-14 11:13 | US ---
EXAMINATION TYPE: US kidneys/renal and bladder DATE OF EXAM: 01/14/2021 COMPARISON: NONE CLINICAL HISTORY: RF. EXAM MEASUREMENTS: Right Kidney: 9.9 x 5.9 x 4.4 cm Left Kidney: 10.4 x 6.8 x 6.0 cm Right Kidney: No hydronephrosis, shadowing calculi or masses seen Left Kidney: No hydronephrosis, shadowing calculi or masses seen Bladder: Partially distended unremarkable as seen. Bilateral Jets seen: No IMPRESSION: Unremarkable renal sonographic evaluation.
[2021-01-14] MEDS: MULTIVITAMINS, THERA 1 EACH TAB PO SCH (12:46)
--- NOTE | 2021-01-14 14:36 | P.PN ---
Subjective Progress Note Date: 01/14/21 The patient is seen at bedside and per the patient's nurse he is about the same. Objective - Vital Signs Vital signs: Vital Signs Temp 99 F 01/14/21 12:00 Pulse 80 01/14/21 12:07 Resp 20 01/14/21 12:00 BP 113/69 01/14/21 08:00 Pulse Ox 90 L 01/14/21 12:00 Intake & Output 01/13/21 01/14/21 01/14/21 18:59 06:59 18:59 Intake Total 240 Output Total 500 600 Balance -260 -600 Weight 54.5 kg 64.5 kg Intake: Oral 240 Output: Urine 500 600 Other: Voiding Method Incontinent Incontinent Incontinent # Voids 1 # Bowel Movements 1 - Exam GENERAL: The patient is lying in bed and is not in acute distress. NEUROLOGICAL: Llimited because of his cooperation. Higher mental function: The patient is drowsy but is awakeable to voice. Is oriented to self. But does not respond to questions about time and place. He is following simple commands (thumbs up and lifting arms. No aphasia but is neglecting the left side. Cranial nerves: The pupils are round, equal and reactive to light. Has homonymous hemianopsia to left. Minimal left lower facial droop. Was neglecting the left side. No dysarthria. Could not assess rest. Motor: Gait is deferred. Is lift the right side above gravity and some movement to the left (but is weak) and has increase tone over the left side. Cerebellum: Could not asses. Sensation: Could not assess. Reflexes (right/left): 3+ over the left. Otherwise 1+ throughout. Plantars are mute bilaterally. WORK-UP: * CT of the head is reported as no acute intracranial hemorrhage or midline shift. There is mild to moderate diffuse age-related cerebral atrophy and moderate to advanced chronic small vessel ischemic changes redemonstrated. No significant change from most recent prior studies and that was in 12/27/2020. * CT angiography of the head and neck is reported as new significant stenosis proximal left internal carotid artery near 55%. Severe aphthous chronic changes distal internal carotid artery bilaterally with significant stenosis suspected bilaterally. Present of temporal bone and dense calcified plaque makes evaluation suboptimal. There is new noncalcified plaque distal left internal carotid artery causing more prominent stenosis versus 2018 study clearly seen. No aneurysm or new significant focal stenosis at the level [place] * MRI the brain is reported as evolving acute/subacute infarct inferior right parietal occipital level extending to the posterior superior temporal lobe with some extension to the posterior right coronal radiata and a smaller area of involvement of the posterior left occipital lobe. Background moderate diffuse cerebral atrophy and moderate to advanced chronic small vessel ischemic changes redemonstrated. * CT head (01/13/2021): Acute to subacute right occipital lobe infarct. Chronic appearing periventricular white matter ischemic changes. I personally reviewed it and I do agree there is right occipital subacute infarct as well as that extends into the temporal region. * Limited 2-D echo is 11 ventricle size is normal. Mild concentric Lipitor hypertrophy. Ejection fraction 55-60%. * Carotid duplex was reported as atherosclerotic change in the left greater than the right carotid bifurcation. Proximal left ICA; the end-diastolic velocity and ICA/CCA ratio suggests moderate 50-69% stenosis. 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 Possible severe right cavernous segment intracranial ICA stenosis seen on the CTA is not assessed on the current exam. * Routine EEG on 01/12/2021: It's an abnormal routine EEG. The background is asymmetric with mild encephalopathy over the last and moderate over the right. There is focal slowing over the right hemisphere consistent with the patient history of stroke. There are no epileptiform discharges or seizure on the EEG. * Lipid panel: Triglyceride 110, cholesterol 127, LDL 59, HDL of 46. * TSH is 8.05 which is considered within normal limits * Vitamin B12 level is 524 which is within normal limits. Serum folate level is 10.7 which is also within normal limits. * EKG is reported as normal sinus rhythm. At anterior septal infarct age unde termined. Abnormal EKG * AST of 107 and ALT of 73 the ammonia level is less than 9 which is within n ormal limits. * Troponin is elevated 0.43 and it's as high as 17.1 - Labs CBC & Chem 7: 01/13/21 08:19 01/14/21 08:31 Labs: Abnormal Lab Results - Last 24 Hours (Table) 01/13/21 01/14/21 Range/Units 13:59 08:31 Sodium 132 L 135 L (137-145) mmol/L Potassium 5.8 H (3.5-5.1) mmol/L Carbon Dioxide 14 L 21 L (22-30) mmol/L BUN 49 H 62 H (9-20) mg/dL Creatinine 2.34 H 2.26 H (0.66-1.25) mg/dL Glucose 108 H 112 H (74-99) mg/dL Assessment and Plan Assessment: Acute large ischemic stroke (Over the right temporal/parietal and occipital region): Seems embolic. No IV tpa since on anticoagulation. No intervention per stroke team Altered mental status seems due to above and component due to metabolic Left internal carotid stenosis per CTA nearly 55% as well as severe upper sclerotic changes of distal internal carotid arteries bilaterally that suspect that per CTA Elevated troponin Mild hyponatremia on presentation was 131 currently it's 133 Elevated liver function Uncontrolled hypertension History of alcohol use History of multiple falls Plan: * Per the nurse he is lethargic and so not taking his medication. I recommend placing NG tube and possible consideration PEG tube. * He is on ASA 81mg daily and Brilinta 90 1 tab bid. Hold anticoagulation use because of increase risk of bleed with large stroke. Consider use of anticoagulation on 01/17/2021. Continue Lipitor 20 mg daily at bedtime. I will not increase the Lipitor because of his elevated liver function once his liver function improved focal up to 40mg qhs for secondary stroke prophylaxis. * Vascular surgery team is consulted for carotid stenosis. They stated the outpatient follow-up and no intervention as an inpatient. * PT, OT and C++ QUANT DEVELOPER are consulted * Neuro checks per [facility] protocol * Cardiology is on board. * On cardiac monitoring * We'll defer the rest of the medical management to the primary team * DVT prophylaxis: Place on suq heparin 5000U every 12 hours. Patient CODE STATUS: DNI and DNR. The patient's condition is very guarded. The plan is discussed with the patient's nurse. Calixto Sanches M.D. Neuro-hospitalist Time with Patient: Less than 30
--- NOTE | 2021-01-14 15:17 | P.PN ---
Progress Note - Text Progress Note Date: 01/14/21 Chief Complaint: Altered mentation History of presenting complaint: Patient was seen by me in the ER This is a 70-year-old patient who follows Dr. Khan. Patient's chronic stable medical conditions include COPD, GERD, hypertension, peripheral arterial disease, peripheral neuropathy, atrial fibrillation, history of appendix tumor with bowel resection, As per the EMS report: Nursing staff stated that the patient be laying in bed when staff 100 trash and found the patient in one are up, not responding. Patient been displaced decorticate posturing and was unable to lift his left arm. When the EMS arrived patient is able to lift his left arm but did not answer questions appropriately. Was agitated. Not being cooperative with assessment. Per nursing staff patient normally is AO 4 and pleasant. EMS evaluated and did not find any focal weakness. Due to the course of transport patient showed some confusion. Code stroke was called in the ER. Given that patient's symptoms are improving and decided not to do any further intervention. When I saw the patient she was able to answer questions though slowly. Appeared to be slightly distant. Able to move his limbs. He says he started smoking a few weeks ago. Patient started on Brilinta in the ER after Dr. Larios spoke to the stroke team. January 12: Today patient is bit more awake. Noted some left-sided weakness. MRI is showing acute stroke on the right brain. In the parietal occipital and some element of temporal lobe. troponin has gone up. Cardiology started the patient IV heparin. I spoke to Dr. Sanches from neurology. IV heparin is to be discontinued. January 13: Tired. Did eat some. Kidney function has been worsening. Likely contrast-induced nephropathy. Started on IV fluids. Nephrology consulted. Patient also having Matt-Mcdermott breathing. A bit lethargic. More weakness in the left arm. Patient refuses medication this morning. January 14: More awake today. Answering simple questions. Wanting to eat. Weakness in the left arm persist. Feeding with assistance ordered. On IV fluids and bicarbonate drip for acute kidney injury Review of systems: Attempted for constitutional, cardiovascular, GI, pulmonary. relevant finding as above Active Medications Acetaminophen (Acetaminophen Tab 325 Mg Tab) 650 mg PO Q6HR PRN PRN Reason: Mild Pain or Fever > 100.5 Last Admin: 01/12/21 20:45 Dose: 650 mg Documented by: Hydrocodone Bitart/Acetaminophen (Hydrocodone/Apap 5-325mg 1 Each Tab) 1 each PO Q6HR PRN PRN Reason: Pain Albuterol/Ipratropium (Ipratropium-Albuterol 3 Ml Neb) 3 ml INHALATION RT-QID [facility] Last Admin: 01/14/21 11:58 Dose: 3 ml Documented by: Aspirin (Aspirin 81 Mg) 81 mg PO DAILY [facility] Last Admin: 01/14/21 09:31 Dose: Not Given Documented by: Atorvastatin Calcium (Atorvastatin 20 Mg Tab) 20 mg PO HS@2100 [facility] Last Admin: 01/13/21 21:45 Dose: Not Given Documented by: Heparin Sodium (Porcine) (Heparin Sodium,Porcine/Pf 5,000 Unit/0.5 Ml Syringe) 5,000 unit SQ Q12HR [facility] Last Admin: 01/14/21 09:26 Dose: 5,000 unit Documented by: Sodium Bicarbonate 150 ml/ (Dextrose/Water) 1,150 mls @ 100 mls/hr IV .[id number] [facility] Lactobacillus Acidoph/Bulgaricus (Lactobacillus Acidoph & Bulgar 1 Each Packet) 1 each PO BID@0800,1700 [facility] Last Admin: 01/14/21 09:31 Dose: Not Given Documented by: Magnesium Hydroxide (Magnesium Hydroxide 2,400 Mg/10 Ml Cup) 2,400 mg PO DAILY PRN PRN Reason: Constipation Metoprolol Tartrate (Metoprolol Tartrate 25 Mg Tab) 75 mg PO BID [facility] Last Admin: 01/14/21 09:31 Dose: Not Given Documented by: Multivitamins (Multivitamins, Thera 1 Each Tab) 1 each PO DAILY@1200 [facility] Last Admin: 01/14/21 12:46 Dose: Not Given Documented by: Nicotine (Nicotine 14mg/24hr Patch) 1 patch TRANSDERM DAILY@0800 [facility] Last Admin: 01/14/21 09:26 Dose: 1 patch Documented by: Pantoprazole Sodium (Pantoprazole 40 Mg Tablet) 40 mg PO [id number] [facility] Last Admin: 01/14/21 06:48 Dose: Not Given Documented by: Sodium Polystyrene Sulfonate (Sodium Polystyrene Sulfonate 30 Gm/120 Ml Bottle) 30 gm RECTAL Q6HR [facility] Last Admin: 01/14/21 12:42 Dose: Not Given Documented by: Thiamine HCl (Thiamine 100 Mg Tab) 100 mg PO DAILY@0800 [facility] Last Admin: 01/14/21 09:31 Dose: Not Given Documented by: Ticagrelor (Ticagrelor 90 Mg Tab) 90 mg PO BID [facility] Last Admin: 01/14/21 09:32 Dose: Not Given Documented by: Past medical history to include: COPD, GERD, hypertension, PAD, peripheral neuropathy, tenderness, 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 Depression. Hypertension, paroxysmal atrial fibrillation Social history: Current resident of [facility]. Patient started smoking in [id number], 1 pack a day up to 2-3 weeks ago. Was drinking one or 2 beers a day Family history: Reviewed, noncontributory to presentation Physical examination: VITAL SIGNS: 98.3, 103, 24, 11 3 x 69, 93% room air GENERAL: Laying in bed, bit more awake. EYES: Pupils equal. Conjunctiva normal. NECK: JVD unable to assess; masses not palpable. HEART: First and second heart sounds are normal; no edema. LUNGS: Rate normal ; diminished breath sounds. ABDOMEN: Soft, nontender, liver spleen not palpable, no masses palpable. PSYCH: Answering simple questions EXTREMITIES: Poor dorsalis pedis. Ischemic changes in the nails and the skin. NEUROLOGICAL: Left arm weakness 1/5. Some spontaneous movement of left leg INVESTIGATIONS, reviewed in the clinical context: January 14: Potassium 4.6 BUN [address] brain: [January 13]: Acute to subacute right occipital lobe infarct. Ultrasound: Unremarkable January 13: White count 14.7 hemoglobin 17.8 platelets 412 potassium 5.8 by cup 14. 49 creatinine 2.34 Brain MRI: Evolving acute/subacute infarct inferior right parietal occipital level extending to the posterior superior temporal lobe with some extension to the posterior right coronary radiata and a smaller area of the involvement of the posterior left occipital lobe. Background moderate diffuse cerebral atrophy and chronic small vessel ischemic changes EEG: Some evidence of encephalopathy. No epileptiform discharge. Carotid Doppler: Atherosclerotic change in the left greater than right carotid bifurcation. Proximal left ICA suggestive of 55-69% stenosis. Severe proximal left ECF stenosis. Possible severe right cavernous segment intracranial ICA stenosis. January 12: White count 12.5 hemoglobin 17.1 platelets 32 potassium 4.8 creatinine 0.88 LDL 59 White count 13.9 hemoglobin 17 platelets 379 potassium 5.5 BUN 23 creatinine 0.94 Troponin I 0.431, 17.1 TSH 8.0 Coronavirus [PCR]: Not detected EKG tracing personally reviewed by me-no sinus rhythm, poor R-wave progression Chest x-ray film personally reviewed by me-possible infiltrate Computed tomography scan of the brain: No acute intracranial hemorrhage slight shift. Age related atrophy. And chronic small vessel changes. CT angiography head and neck: Severe atherosclerotic changes with significant stenosis suspected bilaterally. Assessment and plan: -acute infarct inferior right parietal occipital level extending to the posterior superior temporal lobe with some extension to the posterior right coronary radiata and a smaller area of the involvement of the posterior left occipital.: Slow to respond aspirin, Brillinta. Follow-up with neurology. -Bilateral significance carotid artery disease vascular surgery -Acute non-Q wave GA. No cardiac symptoms. Given acute stroke IV heparin discontinued. Lipitor 20 mg daily at bedtime -COPD in a previous smoker DuoNeb -Essential hypertension Metoprolol 50 mg twice a day -Hyperlipidemia Lipitor 20 mg daily at bedtime -Peripheral arterial disease Aspirin. Lipitor 20 mg daily at bedtime -GERD PPI -History of tiny aneurysm in his brain history of michelle -Acute kidney injury, ATN/from contrast-induced: Slow to respond Lisinopril discontinued. IV fluids . Follow input and output Consult nephrology. -Hyperkalemia from acute kidney injury and STALIN inhibitor: Corrected Discontinue lisinopril. Kayexalate 30 g -Acute metabolic encephalopathy from stroke: Some improvement Follow clinically -Matt-Mcdermott breathing, from metabolic encephalopathy from stroke: Resolved -Acute metabolic acidosis from acute kidney injury Continue bicarbonate drip Continue IV fluids, bicarbonate drip. Ordered feeding with assistance. Change diet to ground
[2021-01-14] MEDS ORDERED: DEXTROSE 5% IN WATER 100 ML with AMIODARONE 150 MG IV ONE (15:50)
[2021-01-14] MEDS ORDERED: AMIODARONE 360 MG in DEXTROSE 5% IN WATER 200 ML IV ONE ×2 (16:00)
[2021-01-14] MEDS: DEXTROSE 5% IN WATER 1,000 ML with SODIUM BICARB (1 MEQ/ML) 150 ML IV SCH ×2 (16:14→21:21)
[2021-01-14 16:41] LABS: T4, Free (Free Thyroxine) 1.32 ng/dL (0.78-2.19)
[2021-01-14 17:03] LABS: Appearance,Urine Cloudy (Clear); Bilirubin,Urine Negative (Negative); Blood,Urine Moderate (Negative); Color,Urine Yellow; Glucose,Urine (UA) Negative (Negative); Granular Casts,Urine 4 /lpf (0); Hyaline Casts,Urine 14 /lpf (0-2); Ketones,Urine Trace (Negative); Leukocyte Esterase,Urine Negative (Negative); Mucus,Urine Occasional /hpf; Nitrite,Urine Negative (Negative); Protein,Urine Trace (Negative); RBC,Urine 7 /hpf (0-5); Specific Gravity,Urine 1.022 (1.001-1.035); Squamous Epithelial Cell,Urine <1 /hpf (0-4); Urobilinogen,Urine <2.0 mg/dL (<2.0); WBC,Urine 9 /hpf (0-5)
--- NOTE | 2021-01-14 17:04 | P.PN ---
Subjective This is a pleasant 70-year-old male past medical history significant for hypertension, peripheral artery disease follows with Dr. Tucker s/p bilateral iliofemoral thromboendarterectomy/stent placement in 10/2019, dyslipidemia, chronic nicotine dependence, paroxysmal atrial fibrillation (on Eliquis), history of daily alcohol use. He follows in the office with Dr. Malik but states he has not followed up since 01/2020. We have been asked to see in consultation for elevated troponin. Patient [facility] department [facility] a [facility] for alerted mental status and left upper extremity weakness. He is unable to tell a full accurate story of what happened yesterday. He states his words are not coming out right. He does endorse being confused which is new and his left arm weakness is new. He does endorse dizziness. He states he did have chest pain a few days ago, unable to give specifics about his chest pain. On exam he denies any chest pain, shortness of breath, syncope, or palpitations. He has a history of non-compliance with medication, however, he states he has been receiving his medication at the nursing facility. Denies history of VT, previous history of Stroke, coronary artery disease, bleeding, GI bleeding ul cers. Patient recently admitted in December 27, 2020 after a mechanical fall at home, at that time he lived alone. Shoulder Xray revealed right acromioclavicular joint separation. He underwent Head, cervical neck, chest abdomen, pelvix CT- no evidence of traumatic injury. He was found to be in atrial fibrillation with rapid ventricular response, patient was initially managed on cardizem but weaned off. Started on Eliquis 5mg BID and metoprolol tartrate. He was stabilized and discharged to a [facility] facility. He was an every day smoker, smoked about 1PPD. He was also an every day alcohol drinker prior to going to jail, around 2 beers per day. DIAGNOSTICS -EKG sinus rhythm, HR 66, some mild ST elevation in leads II, III, and V3-V6, no reciprocal changes EKG this morning reveals- sinus rhythm, heart rate 89, PACs, mild ST elevation in leads V4-V6. no reciprocal changes -CT brain revealed no acute intracranial hemorrhage or midline shift. Mild to moderate diffuse age-related cerebral atrophy, moderate to advanced chronic small vessel ischemia. -CT angiography- new significant stenosis proximal left internal carotid artery, near 55%, severe atherosclerotic changes distal internal carotid arteries bilaterally significant stenosis. Patient had noncalcified plaque distal left internal carotid artery causing more prominent stenosis. No aneurysmal and no significant focal stenosis at level [place] [facility] [place]. -Most recent echocardiogram 12/28/2020 revealed an EF of 55-60%, trace mitral regurgitation, trace tricuspid regurgitation, moderate concentric hypertrophy, aortic root dilated 4.5cm. -Most recent stress test Lexiscan 06/2019 revealed no evidence of stress-induced ischemia. -Current home daily cardiac medications include- lisinopril 5 mg twice a day, metoprolol tartrate 50 mg twice a day, atorvastatin 20 mg nightly, aspirin 81 mg daily, Eliquis 5 mg twice a day Laboratory data reviewed Troponin 0.4-->17 01/12: MRI of the brain revealed evolving acute/subacute infarct in inferior right parietal occipital level extending into the posterior superior temporal lobe with some extension to the posterior right coronary and no red time and a small area of involvement of the posterior left occipital lobe. Limited echo revealed EF 55-60% 01/13/21: Patient seen and examined at bedside, he is confused, he is drowsy, BP and heart rate stable. Tachypneic RR 30s. Chest Xray- revealed bilateral lower lobe consolidation with small left effusion. Laboratory data reviewed WBC 14.7, hemoglobin 17.8, platelets 412, sodium 132, potassium 5.8, BUN 38, serum creatinine 1.7. Telemetry reviewed patient maintaining sinus mechanism heart rate 70 to 90s. 01/14 Patient seen and examined. Patient appears somewhat more confused than yesterday. Patient has had a few episodes of going into A. fib with RVR with heart rates up to the 170s. He was placed on amiodarone drip with improved heart rates into the 100-110 range. Patient is not responding verbally. He does have his eyes open and appears confused. PHYSICAL EXAMINATION Vitals reviewed. CONSTITUTIONAL: Tachypneic HEENT: Head is normocephalic. Pupils are equal, round. Sclerae anicteric. Mucous membranes of the mouth are dry. No JVD. +carotid bruit bilaterally CHEST EXAMINATION: Lungs are diminished bases bilaterally. No chest wall tenderness is noted on palpation or with deep breathing. HEART EXAMINATION: Regular rate and rhythm. S1, S2 heard. No murmurs, gallops or rub. ABDOMEN: Soft Positive bowel sounds. Mild tenderness to palpation lower abdomen bilaterally. EXTREMITIES: 2+ radial pulses, pedal pulses difficult to assess pulse, no lower extremity edema. NEUROLOGIC EXAMINATION: Patient is awake, alert and oriented x 2- to person and place. Left arm weakness noted. Drift on left upper extremity. 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 Difficulty seeing on left side visual field. ASSESSMENT NSTEMI Acute large ischemic stroke Alerted mental status Carotid Stenosis Paroxysmal atrial fibrillation (New diagnosis 11/2020) On Eliquis 5mg BID outpatient, currently maintaining sinus mechanism. Hypertension Dyslipidemia Peripheral vascular disease s/p bilateral iliofemoral thromboendarterectomy/stent placement in October 2019. History of Alcohol use Chronic tobacco use Acute Kidney Injury- likely contrast induced from Hyperkalemia PLAN Anticoagulation when cleared by Neurology Continue aspirin 81 mg daily, statin, lisinopril and metoprolol tartrate We will continue medical management at this time due to acute ischemic stroke. Patient unfortunately appears to have altered mental status even worse than pre vious as well as increased respiratory rate concerning for aspiration. Carotid artery stenosis and vascular consulted. Prognosis guarded. Objective - Vital Signs Vital signs: Vital Signs Temp 100.3 F H 01/14/21 16:00 Pulse 96 01/14/21 16:27 Resp 36 H 01/14/21 16:16 BP 137/79 01/14/21 16:16 Pulse Ox 95 01/14/21 16:16 Intake & Output 01/13/21 01/14/21 01/14/21 18:59 06:59 18:59 Intake Total 240 1100 Output Total 500 900 Balance -260 200 Weight 54.5 kg 64.5 kg Intake: Intake, IV Titration 1100 Amount Dextrose 5% in Water 1, 1000 000 ml @ 100 mls/hr IV . [id number] RONALDO with Sodium Bicarb (1 Meq/ml) 150 ml Rx#:[id number] Dextrose 5% in Water 100 100 ml @ 618 mls/hr IV .Q10M ONE with Amiodarone 150 mg Rx#:[id number] Oral 240 Output: Urine 500 900 Other: Voiding Method Incontinent Incontinent Incontinent # Voids 1 # Bowel Movements 1 - Labs CBC & Chem 7: 01/13/21 08:19 01/14/21 08:31 Labs: Abnormal Lab Results - Last 24 Hours (Table) 01/14/21 01/14/21 Range/Units 08:31 08:31 Sodium 135 L (137-145) mmol/L Carbon Dioxide 21 L (22-30) mmol/L BUN 62 H (9-20) mg/dL Creatinine 2.26 H (0.66-1.25) mg/dL Glucose 112 H (74-99) mg/dL TSH 5.890 H (0.465-4.680) mIU/L
[2021-01-14] MEDS: ATORVASTATIN 20 MG TAB PO SCH (21:22)
--- NOTE | 2021-01-14 22:03 | XR ---
EXAMINATION TYPE: XR chest 1V portable DATE OF EXAM: 01/14/2021 COMPARISON: Yesterday HISTORY: Short of breath TECHNIQUE: Single view FINDINGS: There is some blunting of the left costophrenic angle. There is no gross heart failure. Hea rt size is normal. Thoracic aorta is atheromatous. There is some mild pleural thickening at the lung apices. There are chest leads. IMPRESSION: Pleural reaction and fluid at the left lung base. Normal heart. Left lower lobe pneumonia not excluded. No significant change compared to yesterday.
[2021-01-14] MEDS: AMIODARONE 450 MG in DEXTROSE 5% IN WATER 250 ML IV SCH ×2 (22:06)
[2021-01-14] MEDS: ACETAMINOPHEN SUPPOSITORY 650 MG SUPP RECTAL PRN (23:05)
[2021-01-15] MEDS: ACETAMINOPHEN SUPPOSITORY 650 MG SUPP RECTAL PRN (06:23)
[2021-01-15] MEDS: PANTOPRAZOLE 40 MG TABLET PO SCH (07:05)
[2021-01-15 07:42] LABS: Calcium 7.8 mg/dL (8.4-10.2); Potassium 3.5 mmol/L (3.5-5.1)
[2021-01-15] MEDS: IPRATROPIUM-ALBUTEROL 3 ML NEB INHALATION SCH ×4 (07:48→20:24)
[2021-01-15 07:52] LABS: Basophils % (A) 1 %; Eosinophils # (A) 0.2 k/uL (0-0.7); Eosinophils % (A) 3 %; HCT 42.3 % (39.0-53.0); Lymphocytes # (A) 0.7 k/uL (1.0-4.8); Lymphocytes % (A) 11 %; MCH 32.6 pg (25.0-35.0); MCHC 34.6 g/dL (31.0-37.0); MCV 94.1 fL (80.0-100.0); Mean Platelet Volume 7.2; Monocytes # (A) 0.3 k/uL (0-1.0); Monocytes % (A) 5 %; Neutrophils # (A) 4.8 k/uL (1.3-7.7); Neutrophils % (A) 77 %; Platelet Count 262 k/uL (150-450); RBC 4.49 m/uL (4.30-5.90); RDW 14.8 % (11.5-15.5); WBC 6.3 k/uL (3.8-10.6)
[2021-01-15 08:02] LABS: HGB 14.6 gm/dL (13.0-17.5)
[2021-01-15] MEDS: ASPIRIN 300 MG SUPP RECTAL SCH (09:10)
[2021-01-15] MEDS: NICOTINE 14MG/24HR PATCH TRANSDERM SCH (09:10)
[2021-01-15] MEDS: HEPARIN SODIUM,PORCINE/PF 5,000 UNIT/0.5 ML SYRINGE SQ SCH (09:10)
[2021-01-15] MEDS: LACTOBACILLUS ACIDOPH & BULGAR 1 EACH PACKET PO SCH ×2 (09:21→15:52)
[2021-01-15] MEDS: THIAMINE 100 MG TAB PO SCH (09:21)
[2021-01-15] MEDS: METOPROLOL TARTRATE 25 MG TAB PO SCH (09:22)
[2021-01-15] MEDS: TICAGRELOR 90 MG TAB PO SCH (09:22)
[2021-01-15] MEDS: MULTIVITAMINS, THERA 1 EACH TAB PO SCH (09:23)
[2021-01-15] MEDS: DEXTROSE 5% IN WATER 1,000 ML with SODIUM BICARB (1 MEQ/ML) 150 ML IV SCH (11:54)
[2021-01-15] MEDS: AMIODARONE 450 MG in DEXTROSE 5% IN WATER 250 ML IV SCH ×2 (13:46)
--- NOTE | 2021-01-15 14:35 | P.PN ---
Progress Note - Text Progress Note Date: 01/15/21 Chief Complaint: Altered mentation History of presenting complaint: Patient was seen by me in the ER This is a 70-year-old patient who follows Dr. Khan. Patient's chronic stable medical conditions include COPD, GERD, hypertension, peripheral arterial disease, peripheral neuropathy, atrial fibrillation, history of appendix tumor with bowel resection, As per the EMS report: Nursing staff stated that the patient be laying in bed when staff 100 trash and found the patient in one are up, not responding. Patient been displaced decorticate posturing and was unable to lift his left arm. When the EMS arrived patient is able to lift his left arm but did not answer questions appropriately. Was agitated. Not being cooperative with assessment. Per nursing staff patient normally is AO 4 and pleasant. EMS evaluated and did not find any focal weakness. Due to the course of transport patient showed some confusion. Code stroke was called in the ER. Given that patient's symptoms are improving and decided not to do any further intervention. When I saw the patient she was able to answer questions though slowly. Appeared to be slightly distant. Able to move his limbs. He says he started smoking a few weeks ago. Patient started on Brilinta in the ER after Dr. Larios spoke to the stroke team. January 12: Today patient is bit more awake. Noted some left-sided weakness. MRI is showing acute stroke on the right brain. In the parietal occipital and some element of temporal lobe. troponin has gone up. Cardiology started the patient IV heparin. I spoke to Dr. Sanches from neurology. IV heparin is to be discontinued. January 13: Tired. Did eat some. Kidney function has been worsening. Likely contrast-induced nephropathy. Started on IV fluids. Nephrology consulted. Patient also having Matt-Mcdermott breathing. A bit lethargic. More weakness in the left arm. Patient refuses medication this morning. January 14: More awake today. Answering simple questions. Wanting to eat. Weakness in the left arm persist. Feeding with assistance ordered. On IV fluids and bicarbonate drip for acute kidney injury January 15: Awake, looking to the right. Friend visiting. I did attempt to feed the patient. He did start eating slowly. Patient was febrile last night. Was pancultured. Started on IV ceftriaxone. Review of systems: Attempted for constitutional, cardiovascular, GI, pulmonary. relevant finding as above Active Medications Acetaminophen (Acetaminophen Tab 325 Mg Tab) 650 mg PO Q6HR PRN PRN Reason: Mild Pain or Fever > 100.5 Last Admin: 01/12/21 20:45 Dose: 650 mg Documented by: Acetaminophen (Acetaminophen Suppository 650 Mg Supp) 650 mg RECTAL Q4HR PRN PRN Reason: Fever and/ or Pain Last Admin: 01/15/21 06:23 Dose: 650 mg Documented by: Hydrocodone Bitart/Acetaminophen (Hydrocodone/Apap 5-325mg 1 Each Tab) 1 each PO Q6HR PRN PRN Reason: Pain Last Admin: 01/15/21 13:49 Dose: 1 each Documented by: Albuterol/Ipratropium (Ipratropium-Albuterol 3 Ml Neb) 3 ml INHALATION RT-QID [facility] Last Admin: 01/15/21 11:23 Dose: 3 ml Documented by: Aspirin (Aspirin 300 Mg Supp) 300 mg RECTAL DAILY [facility] Last Admin: 01/15/21 09:10 Dose: 300 mg Documented by: Atorvastatin Calcium (Atorvastatin 20 Mg Tab) 20 mg PO HS@2100 [facility] Last Admin: 01/14/21 21:22 Dose: Not Given Documented by: Heparin Sodium (Porcine) (Heparin Sodium,Porcine/Pf 5,000 Unit/0.5 Ml Syringe) 5,000 unit SQ Q12HR [facility] Last Admin: 01/15/21 09:10 Dose: 5,000 unit Documented by: Sodium Bicarbonate 150 ml/ (Dextrose/Water) 1,150 mls @ 100 mls/hr IV .[id number] [facility] Last Admin: 01/15/21 11:54 Dose: 100 mls/hr Documented by: Amiodarone HCl 450 mg/ (Dextrose/Water) 250 mls @ 16.667 mls/hr IV .Q15H [facility]; Protocol Last Admin: 01/15/21 13:46 Dose: 0.5 mg/min, 16.667 mls/hr Documented by: Ceftriaxone Sodium 1 gm/ (Sodium Chloride) 50 mls @ 100 mls/hr IVPB Q12H [facility] Last Admin: 01/15/21 09:10 Dose: 100 mls/hr Documented by: Lactobacillus Acidoph/Bulgaricus (Lactobacillus Acidoph & Bulgar 1 Each Packet) 1 each PO BID@0800,1700 [facility] Last Admin: 01/15/21 09:21 Dose: Not Given Documented by: Magnesium Hydroxide (Magnesium Hydroxide 2,400 Mg/10 Ml Cup) 2,400 mg PO DAILY PRN PRN Reason: Constipation Metoprolol Tartrate (Metoprolol Tartrate 25 Mg Tab) 75 mg PO BID [facility] Last Admin: 01/15/21 09:22 Dose: Not Given Documented by: Multivitamins (Multivitamins, Thera 1 Each Tab) 1 each PO DAILY@1200 [facility] Last Admin: 01/15/21 09:23 Dose: Not Given Documented by: Nicotine (Nicotine 14mg/24hr Patch) 1 patch TRANSDERM DAILY@0800 [facility] Last Admin: 01/15/21 09:10 Dose: 1 patch Documented by: Pantoprazole Sodium (Pantoprazole 40 Mg Tablet) 40 mg PO AC-BRKFST [facility] Last Admin: 01/15/21 07:05 Dose: Not Given Documented by: Thiamine HCl (Thiamine 100 Mg Tab) 100 mg PO DAILY@0800 [facility] Last Admin: 01/15/21 09:21 Dose: Not Given Documented by: Ticagrelor (Ticagrelor 90 Mg Tab) 90 mg PO BID [facility] Last Admin: 01/15/21 09:22 Dose: Not Given Documented by: Past medical history to include: COPD, GERD, hypertension, PAD, peripheral neuropathy, tenderness, 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 Depression. Hypertension, paroxysmal atrial fibrillation Social history: Current resident of [facility]. Patient started smoking in [id number], 1 pack a day up to 2-3 weeks ago. Was drinking one or 2 beers a day Family history: Reviewed, noncontributory to presentation Physical examination: VITAL SIGNS: T-max 101.5, afebrile today, 91, 24, 120/74, 94% on 2 L GENERAL: Laying in bed, bit more awake. Looking to the right EYES: Pupils equal. Conjunctiva normal. NECK: JVD unable to assess; masses not palpable. HEART: First and second heart sounds are normal; no edema. LUNGS: Rate increased; diminished breath sounds. ABDOMEN: Soft, nontender, liver spleen not palpable, no masses palpable. PSYCH: May answer occasional question EXTREMITIES: Poor dorsalis pedis. Ischemic changes in the nails and the skin. NEUROLOGICAL: Left arm weakness 0/5. Some spontaneous movement of left leg INVESTIGATIONS, reviewed in the clinical context: January 15: WBC 6.3 hemoglobin 14.6 potassium 3.5 BUN 44 creatinine 1.49 Chest x-ray film personally reviewed by me-[January 14]: Possible left basilar infiltrate. UA: Negative for nitrite and leukoesterase January 14: Potassium 4.6 BUN [address] brain: [January 13]: Acute to subacute right occipital lobe infarct. Ultrasound: Unremarkable January 13: White count 14.7 hemoglobin 17.8 platelets 412 potassium 5.8 by cup 14. 49 creatinine 2.34 Brain MRI: Evolving acute/subacute infarct inferior right parietal occipital level extending to the posterior superior temporal lobe with some extension to the posterior right coronary radiata and a smaller area of the involvement of the posterior left occipital lobe. Background moderate diffuse cerebral atrophy and chronic small vessel ischemic changes EEG: Some evidence of encephalopathy. No epileptiform discharge. Carotid Doppler: Atherosclerotic change in the left greater than right carotid bifurcation. Proximal left ICA suggestive of 55-69% stenosis. Severe proximal left ECF stenosis. Possible severe right cavernous segment intracranial ICA stenosis. January 12: White count 12.5 hemoglobin 17.1 platelets 32 potassium 4.8 creatinine 0.88 LDL 59 White count 13.9 hemoglobin 17 platelets 379 potassium 5.5 BUN 23 creatinine 0.94 Troponin I 0.431, 17.1 TSH 8.0 Coronavirus [PCR]: Not detected EKG tracing personally reviewed by me-no sinus rhythm, poor R-wave progression Chest x-ray film personally reviewed by me-possible infiltrate Computed tomography scan of the brain: No acute intracranial hemorrhage slight shift. Age related atrophy. And chronic small vessel changes. CT angiography head and neck: Severe atherosclerotic changes with significant stenosis suspected bilaterally. Assessment and plan: -acute infarct inferior right parietal occipital level extending to the posterior superior temporal lobe with some extension to the posterior right coronary radiata and a smaller area of the involvement of the posterior left occipital.: Slow to respond aspirin, Brillinta. Follow-up with neurology. -Bilateral significance carotid artery disease vascular surgery -Acute left basilar pneumonia. IV Zosyn. Check pro-calcitonin. -Acute non-Q wave [place]. No cardiac symptoms. Given acute stroke IV heparin discontinued. Lipitor 20 mg daily at bedtime -COPD in a previous smoker DuoNeb -Essential hypertension Metoprolol 50 mg twice a day -Hyperlipidemia Lipitor 20 mg daily at bedtime -Peripheral arterial disease Aspirin. 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 IV fluids . Follow input and output Consult nephrology. -Hyperkalemia from acute kidney injury and STALIN inhibitor: Corrected Discontinue lisinopril. Kayexalate given. -Acute metabolic encephalopathy from stroke: Some improvement Follow clinically -Matt-Mcdermott breathing, from metabolic encephalopathy from stroke: Resolved -Acute metabolic acidosis from acute kidney injury: Corrected *Bicarbonate drip IV Zosyn. Check procalcitonin. Other medications to continue. Spoke to the from the bedside. Encourage oral intake. Prognosis guarded.*Bicarbonate drip. Continue the IV fluids. Repeat labs.
[2021-01-15] MEDS: SODIUM CHLORIDE 0.9% 1,000 ML IV SCH (15:57)
[2021-01-15] MEDS: PIPERACILLIN-TAZOBACTAM 3.375 GM in SODIUM CHLORIDE 0.9% 100 ML IVPB SCH (15:58)
--- NOTE | 2021-01-15 18:25 | PN ---
PROGRESS NOTE Patient is seen for followup for acute kidney injury. This morning he had a fever, max of 102 degrees Fahrenheit last evening. The patient is maintained on amiodarone drip. He has had good urine output. He is getting IV fluids at 100 mL an hour. PHYSICAL EXAMINATION: On examination today, patient is awake. He is lethargic but responds to verbal stimuli, following commands. Blood pressure was 124/79, heart rate 92 per minute, he is afebrile. Examination of the heart S1, S2. Examination of the lungs, decreased breath sounds at the bases. Abdomen is soft, nontender. Examination of lower extremities shows no evidence of edema. MOBILE TESTER exam grossly intact. LAB: Show sodium 134, potassium 3.5, BUN 44, creatinine 1.49. ASSESSMENT: 1. Acute kidney injury, ATN, associated with hypotension, hypoperfusion and contrast nephropathy, currently improved. No evidence of urine retention. Continue with IV fluids. 2. Fever, possible aspiration pneumonia. 3. Acute cerebrovascular accident, being followed by Neurology, maintained on Brilinta. 4. Hyperkalemia associated with acute kidney injury, now improved. 5. Metabolic acidosis associated with renal failure, status post IV bicarb. PLAN: Continue with normal saline. Treat with empiric antibiotics. Repeat labs in a.m. Avoid nephrotoxic agents. MMODL / IJN: [id number] /
--- NOTE | 2021-01-15 20:04 | P.PN ---
Subjective This is a pleasant 70-year-old male past medical history significant for hypertension, peripheral artery disease follows with Dr. Tucker s/p bilateral iliofemoral thromboendarterectomy/stent placement in 10/2019, dyslipidemia, chronic nicotine dependence, paroxysmal atrial fibrillation (on Eliquis), history of daily alcohol use. He follows in the office with Dr. Malik but states he has not followed up since 01/2020. We have been asked to see in consultation for elevated troponin. Patient brought to the emergency department from a snf for alerted mental status and left upper extremity weakness. He is unable to tell a full accurate story of what happened yesterday. He states his words are not coming out right. He does endorse being confused which is new and his left arm weakness is new. He does endorse dizziness. He states he did have chest pain a few days ago, unable to give specifics about his chest pain. On exam he denies any chest pain, shortness of breath, syncope, or palpitations. He has a history of non-compliance with medication, however, he states he has been receiving his medication at the nursing facility. Denies history of [place], previous history of Stroke, coronary artery disease, bleeding, GI bleeding ul cers. Patient recently admitted in December 27, 2020 after a mechanical fall at home, at that time he lived alone. Shoulder Xray revealed right acromioclavicular joint separation. He underwent Head, cervical neck, chest abdomen, pelvix CT- no evidence of traumatic injury. He was found to be in atrial fibrillation with rapid ventricular response, patient was initially managed on cardizem but weaned off. Started on Eliquis 5mg BID and metoprolol tartrate. He was stabilized and [facility]. He was an every day smoker, smoked about 1PPD. He was also an every day alcohol drinker prior to going to snf, around 2 beers per day. DIAGNOSTICS -EKG sinus rhythm, HR 66, some mild ST elevation in leads II, III, and V3-V6, no reciprocal changes EKG this morning reveals- sinus rhythm, heart rate 89, PACs, mild ST elevation in leads V4-V6. no reciprocal changes -CT brain revealed no acute intracranial hemorrhage or midline shift. Mild to moderate diffuse age-related cerebral atrophy, moderate to advanced chronic small vessel ischemia. -CT angiography- new significant stenosis proximal left internal carotid artery, near 55%, severe atherosclerotic changes distal internal carotid arteries bilaterally significant stenosis. Patient had noncalcified plaque distal left internal carotid artery causing more prominent stenosis. No aneurysmal and no significant focal stenosis at level [facility] [place] [facility] [place]. -Most recent echocardiogram 12/28/2020 revealed an EF of 55-60%, trace mitral regurgitation, trace tricuspid regurgitation, moderate concentric hypertrophy, aortic root dilated 4.5cm. -Most recent stress test Lexiscan 06/2019 revealed no evidence of stress-induced ischemia. -Current home daily cardiac medications include- lisinopril 5 mg twice a day, metoprolol tartrate 50 mg twice a day, atorvastatin 20 mg nightly, aspirin 81 mg daily, Eliquis 5 mg twice a day Laboratory data reviewed Troponin 0.4-->17 01/12: MRI of the brain revealed evolving acute/subacute infarct in inferior right parietal occipital level extending into the posterior superior temporal lobe with some extension to the posterior right coronary and no red time and a small area of involvement of the posterior left occipital lobe. Limited echo revealed EF 55-60% 01/13/21: Patient seen and examined at bedside, he is confused, he is drowsy, BP and heart rate stable. Tachypneic RR 30s. Chest Xray- revealed bilateral lower lobe consolidation with small left effusion. Laboratory data reviewed WBC 14.7, hemoglobin 17.8, platelets 412, sodium 132, potassium 5.8, BUN 38, serum creatinine 1.7. Telemetry reviewed patient maintaining sinus mechanism heart rate 70 to 90s. 01/14 Patient seen and examined. Patient appears somewhat more confused than yesterday. Patient has had a few episodes of going into A. fib with RVR with heart rates up to the 170s. He was placed on amiodarone drip with improved heart rates into the 100-110 range. Patient is not responding verbally. He does have his eyes open and appears confused. 01/15 Patient seen and examined. Patient appears comfortable however confused and not responding to any questions. He makes eye contact however not responding verbally. He is combing through his [place]. PHYSICAL EXAMINATION Vitals reviewed. CONSTITUTIONAL: Confused HEENT: Head is normocephalic. Pupils are equal, round. Sclerae anicteric. Mucous membranes of the mouth are dry. No JVD. +carotid bruit bilaterally CHEST EXAMINATION: Lungs are diminished bases bilaterally. No chest wall tenderness is noted on palpation or with deep breathing. HEART EXAMINATION: Regular rate and rhythm. S1, S2 heard. No murmurs, gallops or rub. ABDOMEN: Soft Positive bowel sounds. Mild tenderness to palpation lower abdomen bilaterally. EXTREMITIES: 2+ radial pulses, pedal pulses difficult to assess pulse, no lower extremity edema. NEUROLOGIC EXAMINATION: Patient is awake, alert and oriented x 2- to person and place. Left arm weakness noted. Drift on left upper extremity. 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 Difficulty seeing on left side visual field. ASSESSMENT NSTEMI Acute large ischemic stroke Alerted mental status Carotid Stenosis Paroxysmal atrial fibrillation (New diagnosis 11/2020) On Eliquis 5mg BID outpatient, currently maintaining sinus mechanism. Hypertension Dyslipidemia Peripheral vascular disease s/p bilateral iliofemoral thromboendarterectomy/stent placement in October 2019. History of Alcohol use Chronic tobacco use Acute Kidney Injury- likely contrast induced from Hyperkalemia PLAN Continue amiodarone drip, not currently receiving any oral medications. Heart rates predominantly in the 90s with controlled blood pressures. Anticoagulation when cleared by neurology. Prognosis guarded. Objective - Vital Signs Vital signs: Vital Signs Temp 99.2 F 01/15/21 16:00 Pulse 95 01/15/21 16:00 Resp 24 01/15/21 16:00 BP 136/73 01/15/21 16:00 Pulse Ox 95 01/15/21 16:00 Intake & Output 01/15/21 01/15/21 01/16/21 06:59 18:59 06:59 Intake Total 1500 Output Total 800 Balance -800 1500 Weight 61.5 kg Intake: Intake, IV Titration 1500 Amount Amiodarone 450 mg In 250 Dextrose 5% in Water 250 ml @ 0.5 MG/MIN 16.667 mls/hr IV .Q15H [facility] Rx#: [id number] Dextrose 5% in Water 1, 1200 000 ml @ 100 mls/hr IV . [id number] [facility] with Sodium Bicarb (1 Meq/ml) 150 ml Rx#:[id number] cefTRIAXone 1 gm In 50 Sodium Chloride 0.9% 50 ml @ 100 mls/hr IVPB Q12H [facility] Rx#:[id number] Output: Urine 800 Other: Voiding Method Indwelling Catheter Indwelling Catheter # Bowel Movements 1 - Labs CBC & Chem 7: 01/15/21 07:02 01/15/21 07:02 Labs: Abnormal Lab Results - Last 24 Hours (Table) 01/15/21 01/15/21 01/15/21 Range/Units 07:02 07:02 07:02 Lymphocytes # 0.7 L (1.0-4.8) k/uL Sodium 134 L (137-145) mmol/L Chloride 94 L (98-107) mmol/L Carbon Dioxide 35 H (22-30) mmol/L BUN 44 H (9-20) mg/dL Creatinine 1.49 H (0.66-1.25) mg/dL Glucose 112 H (74-99) mg/dL Calcium 7.8 L (8.4-10.2) mg/dL Procalcitonin 0.26 H (0.02-0.09) ng/mL Microbiology - Last 24 Hours (Table) 01/15/21 01:00 Urine Culture - Preliminary Urine,Catheterized
[2021-01-16] MEDS: HEPARIN SODIUM,PORCINE/PF 5,000 UNIT/0.5 ML SYRINGE SQ SCH ×2 (00:15→10:24)
[2021-01-16] MEDS: ATORVASTATIN 20 MG TAB PO SCH (01:26)
[2021-01-16] MEDS: METOPROLOL TARTRATE 25 MG TAB PO SCH ×3 (01:26→18:22)
[2021-01-16] MEDS: TICAGRELOR 90 MG TAB PO SCH ×3 (01:27→21:57)
[2021-01-16] MEDS: PIPERACILLIN-TAZOBACTAM 3.375 GM in SODIUM CHLORIDE 0.9% 100 ML IVPB SCH ×3 (04:30→17:07)
[2021-01-16] MEDS: AMIODARONE 450 MG in DEXTROSE 5% IN WATER 250 ML IV SCH ×2 (04:30)
[2021-01-16] MEDS: IPRATROPIUM-ALBUTEROL 3 ML NEB INHALATION SCH ×4 (08:15→20:47)
[2021-01-16 09:50] LABS: Calcium 7.7 mg/dL (8.4-10.2); Potassium 3.6 mmol/L (3.5-5.1)
[2021-01-16] MEDS: SODIUM CHLORIDE 0.9% 1,000 ML IV SCH ×2 (10:19→17:08)
[2021-01-16] MEDS: NICOTINE 14MG/24HR PATCH TRANSDERM SCH (10:24)
[2021-01-16] MEDS: ASPIRIN 300 MG SUPP RECTAL SCH (10:25)
--- NOTE | 2021-01-16 12:00 | P.PN ---
Subjective This is a pleasant 70-year-old male past medical history significant for hypertension, peripheral artery disease follows with Dr. Tucker s/p bilateral iliofemoral thromboendarterectomy/stent placement in 10/2019, dyslipidemia, chronic nicotine dependence, paroxysmal atrial fibrillation (on Eliquis), history of daily alcohol use. He follows in the office with Dr. Malik but states he has not followed up since 01/2020. We have been asked to see in consultation for elevated troponin. Patient brought [facility] the emergency department from a jail for alerted mental status and left upper extremity weakness. He is unable to tell a full accurate story of what happened yesterday. He states his words are not coming out right. He does endorse being confused which is new and his left arm weakness is new. He does endorse dizziness. He states he did have chest pain a few days ago, unable to give specifics about his chest pain. On exam he denies any chest pain, shortness of breath, syncope, or palpitations. He has a history of non-compliance with medication, however, he states he has been receiving his medication at the nursing facility. Denies history of NM, previous history of Stroke, coronary artery disease, bleeding, GI bleeding ul cers. Patient recently admitted in December 27, 2020 after a mechanical fall at home, at that time he lived alone. Shoulder Xray revealed right acromioclavicular joint separation. He underwent Head, cervical neck, chest abdomen, pelvix CT- no evidence of traumatic injury. He was found to be in atrial fibrillation with rapid ventricular response, patient was initially managed on cardizem but weaned off. Started on Eliquis 5mg BID and metoprolol tartrate. He was stabilized and discharged to a intermediate facility. He was an every day smoker, smoked about 1PPD. He was also an every day alcohol drinker prior to going to jail, around 2 beers per day. DIAGNOSTICS -EKG sinus rhythm, HR 66, some mild ST elevation in leads II, III, and V3-V6, no reciprocal changes EKG this morning reveals- sinus rhythm, heart rate 89, PACs, mild ST elevation in leads V4-V6. no reciprocal changes -CT brain revealed no acute intracranial hemorrhage or midline shift. Mild to moderate diffuse age-related cerebral atrophy, moderate to advanced chronic small vessel ischemia. -CT angiography- new significant stenosis proximal left internal carotid artery, near 55%, severe atherosclerotic changes distal internal carotid arteries bilaterally significant stenosis. Patient had noncalcified plaque distal left internal carotid artery causing more prominent stenosis. No aneurysmal and no significant focal stenosis at level [place] at [place]. -Most recent echocardiogram 12/28/2020 revealed an EF of 55-60%, trace mitral regurgitation, trace tricuspid regurgitation, moderate concentric hypertrophy, aortic root dilated 4.5cm. -Most recent stress test Lexiscan 06/2019 revealed no evidence of stress-induced ischemia. -Current home daily cardiac medications include- lisinopril 5 mg twice a day, metoprolol tartrate 50 mg twice a day, atorvastatin 20 mg nightly, aspirin 81 mg daily, Eliquis 5 mg twice a day Laboratory data reviewed Troponin 0.4-->17 01/16/2021 Pt seen and examined resting comfortably in bed. He does not open his eyes or respond to verbal stimuli. Blood pressure 127/68 heart rate 84 afebrile and ma intaining oxygen saturation on nasal cannula. Laboratory data reviewed, sodium 133, potassium 3.6 and creatinine 1.21. PHYSICAL EXAMINATION CONSTITUTIONAL: Confused HEENT: Head is normocephalic. Pupils are equal, round. Sclerae anicteric. Mucous membranes of the mouth are dry. No JVD. +carotid bruit bilaterally CHEST EXAMINATION: Lungs are diminished bases bilaterally. No chest wall tenderness is noted on palpation or with deep breathing. HEART EXAMINATION: Regular rate and rhythm. S1, S2 heard. No murmurs, gallops or rub. EXTREMITIES: 2+ radial pulses, pedal pulses difficult to assess pulse, no lower extremity edema. ASSESSMENT NSTEMI Acute large ischemic stroke Alerted mental status Carotid Stenosis Paroxysmal atrial fibrillation (New diagnosis 11/2020) On Eliquis 5mg BID outpatient, currently maintaining sinus mechanism. Hypertension Dyslipidemia Peripheral vascular disease s/p bilateral iliofemoral thromboendarterectomy/stent placement in October 2019. History of Alcohol use Chronic tobacco use Acute Kidney Injury- likely contrast induced from Hyperkalemia PLAN Continue amiodarone drip, not currently receiving any oral medications. Transition to oral when is able to tolerate. Anticoagulation when cleared by neurology. We will follow along as needed, please call with questions or concerns. Prognosis guarded. Nurse Practitioner note has been reviewed, I agree with a documented findings and plan of care. Patient was seen and examined. Objective - Vital Signs Vital signs: Vital Signs Temp 98.9 F 01/16/21 08:40 Pulse 84 01/16/21 11:45 Resp 18 01/16/21 08:40 BP 127/68 01/16/21 08:40 Pulse Ox 96 01/16/21 08:40 Intake & Output 01/15/21 01/16/21 01/16/21 18:59 06:59 18:59 Intake Total 1500 485.56 Output Total 800 1000 Balance 1500 -314.44 -1000 Weight 54 kg Intake: Intake, IV Titration 1500 245.56 Amount Amiodarone 450 mg In 250 245.56 Dextrose 5% in Water 250 ml @ 0.5 MG/MIN 16.667 mls/hr IV .Q15H RONALDO Rx#: [id number] Dextrose 5% in Water 1, 1200 000 ml @ 100 mls/hr IV . [id number] RONALDO with Sodium Bicarb (1 Meq/ml) 150 ml Rx#:[id number] cefTRIAXone 1 gm In 50 Sodium Chloride 0.9% 50 ml @ 100 mls/hr IVPB Q12H RONALDO Rx#:[id number] Oral 240 Output: Urine 800 1000 Other: Voiding Method Indwelling Catheter Indwelling Catheter # Voids 1 # Bowel Movements 1 - Labs CBC & Chem 7: 01/15/21 07:02 01/16/21 08:53 Labs: Abnormal Lab Results - Last 24 Hours (Table) 01/15/21 01/16/21 Range/Units 07:02 08:53 Sodium 133 L (137-145) mmol/L BUN 23 H (9-20) mg/dL Calcium 7.7 L (8.4-10.2) mg/dL Procalcitonin 0.26 H (0.02-0.09) ng/mL Microbiology - Last 24 Hours (Table) 01/14/21 22:15 Blood Culture - Preliminary Blood No Growth after 24 hours 01/15/21 01:00 Urine Culture - Preliminary Urine,Catheterized
[2021-01-16] MEDS: LACTOBACILLUS ACIDOPH & BULGAR 1 EACH PACKET PO SCH ×2 (12:17→17:07)
[2021-01-16] MEDS: MULTIVITAMINS, THERA 1 EACH TAB PO SCH (12:17)
[2021-01-16] MEDS: THIAMINE 100 MG TAB PO SCH (12:17)
[2021-01-16] MEDS: PANTOPRAZOLE 40 MG TABLET PO SCH (12:17)
--- NOTE | 2021-01-16 14:58 | P.PN ---
Progress Note - Text Progress Note Date: 01/16/21 Chief Complaint: Altered mentation History of presenting complaint: Patient was seen by me in the ER This is a 70-year-old patient who follows Dr. Khan. Patient's chronic stable medical conditions include COPD, GERD, hypertension, peripheral arterial disease, peripheral neuropathy, atrial fibrillation, history of appendix tumor with bowel resection, As per the EMS report: Nursing staff stated that the patient be laying in bed when staff 100 trash and found the patient in one are up, not responding. Patient been displaced decorticate posturing and was unable to lift his left arm. When the EMS arrived patient is able to lift his left arm but did not answer questions appropriately. Was agitated. Not being cooperative with assessment. Per nursing staff patient normally is AO 4 and pleasant. EMS evaluated and did not find any focal weakness. Due to the course of transport patient showed some confusion. Code stroke was called in the ER. Given that patient's symptoms are improving and decided not to do any further intervention. When I saw the patient she was able to answer questions though slowly. Appeared to be slightly distant. Able to move his limbs. He says he started smoking a few weeks ago. Patient started on Brilinta in the ER after Dr. Larios spoke to the stroke team. January 12: Today patient is bit more awake. Noted some left-sided weakness. MRI is showing acute stroke on the right brain. In the parietal occipital and some element of temporal lobe. troponin has gone up. Cardiology started the patient IV heparin. I spoke to Dr. Sanches from neurology. IV heparin is to be discontinued. January 13: Tired. Did eat some. Kidney function has been worsening. Likely contrast-induced nephropathy. Started on IV fluids. Nephrology consulted. Patient also having Matt-Mcdermott breathing. A bit lethargic. More weakness in the left arm. Patient refuses medication this morning. January 14: More awake today. Answering simple questions. Wanting to eat. Weakness in the left arm persist. Feeding with assistance ordered. On IV fluids and bicarbonate drip for acute kidney injury January 15: Awake, looking to the right. Friend visiting. I did attempt to feed the patient. He did start eating slowly. Patient was febrile last night. Was pancultured. Started on IV ceftriaxone. January 16: Awake. Looking to the right. Seen by speech therapy: Did tolerate liquids and soft liquids without any overt sign symptoms of aspiration. Some episodes of coughing with feeding. They recommended: In changing diet to ground nectar thick liquids. Sippy cup to be used. Patient can only appreciate hand movements. Unable to count fingers. Left arm flaccid. Answering simple questions. Maintained on IV amiodarone. Has been taking medications. Review of systems: Attempted for constitutional, cardiovascular, GI, pulmonary. relevant finding as above Active Medications Acetaminophen (Acetaminophen Tab 325 Mg Tab) 650 mg PO Q6HR PRN PRN Reason: Mild Pain or Fever > 100.5 Last Admin: 01/12/21 20:45 Dose: 650 mg Documented by: Acetaminophen (Acetaminophen Suppository 650 Mg Supp) 650 mg RECTAL Q4HR PRN PRN Reason: Fever and/ or Pain Last Admin: 01/15/21 06:23 Dose: 650 mg Documented by: Hydrocodone Bitart/Acetaminophen (Hydrocodone/Apap 5-325mg 1 Each Tab) 1 each PO Q6HR PRN PRN Reason: Pain Last Admin: 01/15/21 13:49 Dose: 1 each Documented by: Albuterol/Ipratropium (Ipratropium-Albuterol 3 Ml Neb) 3 ml INHALATION RT-QID [facility] Last Admin: 01/16/21 11:27 Dose: 3 ml Documented by: Aspirin (Aspirin 300 Mg Supp) 300 mg RECTAL DAILY [facility] Last Admin: 01/16/21 10:25 Dose: 300 mg Documented by: Atorvastatin Calcium (Atorvastatin 20 Mg Tab) 20 mg PO HS@2100 RONALDO Last Admin: 01/16/21 01:26 Dose: Not Given Documented by: Heparin Sodium (Porcine) (Heparin Sodium,Porcine/Pf 5,000 Unit/0.5 Ml Syringe) 5,000 unit SQ Q12HR [facility] Last Admin: 01/16/21 10:24 Dose: 5,000 unit Documented by: Amiodarone HCl 450 mg/ (Dextrose/Water) 250 mls @ 16.667 mls/hr IV .Q15H [facility]; Protocol Last Admin: 01/16/21 04:30 Dose: 0.5 mg/min, 16.667 mls/hr Documented by: Piperacillin Sod/Tazobactam (Sod 3.375 gm/ Sodium Chloride) 100 mls @ 25 mls/hr IVPB Q8HR [facility] Last Admin: 01/16/21 10:24 Dose: 25 mls/hr Documented by: Sodium Chloride (Saline 0.9%) 1,000 mls @ 100 mls/hr IV .Q10H [facility] Last Admin: 01/16/21 10:19 Dose: Not Given Documented by: Lactobacillus Acidoph/Bulgaricus (Lactobacillus Acidoph & Bulgar 1 Each Packet) 1 each PO BID@0800,1700 [facility] Last Admin: 01/16/21 12:17 Dose: Not Given Documented by: Magnesium Hydroxide (Magnesium Hydroxide 2,400 Mg/10 Ml Cup) 2,400 mg PO DAILY PRN PRN Reason: Constipation Metoprolol Tartrate (Metoprolol Tartrate 25 Mg Tab) 75 mg PO BID [facility] Last Admin: 01/16/21 12:17 Dose: Not Given Documented by: Multivitamins (Multivitamins, Thera 1 Each Tab) 1 each PO DAILY@1200 [facility] Last Admin: 01/16/21 12:17 Dose: Not Given Documented by: Nicotine (Nicotine 14mg/24hr Patch) 1 patch TRANSDERM DAILY@0800 [facility] Last Admin: 01/16/21 10:24 Dose: 1 patch Documented by: Pantoprazole Sodium (Pantoprazole 40 Mg Tablet) 40 mg PO AC-BRKFST [facility] Last Admin: 01/16/21 12:17 Dose: Not Given Documented by: Thiamine HCl (Thiamine 100 Mg Tab) 100 mg PO DAILY@0800 [facility] Last Admin: 01/16/21 12:17 Dose: Not Given Documented by: Ticagrelor (Ticagrelor 90 Mg Tab) 90 mg PO BID [facility] Last Admin: 01/16/21 12:17 Dose: Not Given Documented by: Past medical history to include: COPD, GERD, hypertension, PAD, peripheral neuropathy, tenderness, 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 Depression. Hypertension, paroxysmal atrial fibrillation Social history: Current resident of [facility]. Patient started smoking in [id number], 1 pack a day up to 2-3 weeks ago. Was drinking one or 2 beers a day Family history: Reviewed, noncontributory to presentation Physical examination: VITAL SIGNS: 98.9, 83, 18, 127/60, 96% on 2 L GENERAL: Reclining in bed, tired, awake, looking to the right EYES: Pupils equal. Conjunctiva normal. NECK: JVD unable to assess; masses not palpable. HEART: First and second heart sounds are normal; no edema. LUNGS: Rate increased; diminished breath sounds. ABDOMEN: Soft, nontender, liver spleen not palpable, no masses palpable. PSYCH: May answer occasional question EXTREMITIES: Poor dorsalis pedis. Ischemic changes in the nails and the skin. NEUROLOGICAL: Left arm weakness 0/5. Looking to the right. Can only appreciate hand movements. INVESTIGATIONS, reviewed in the clinical context: January 16: Potassium 3.6 creatinine 1.21 Pro-calcitonin 0.26 January 15: WBC 6.3 hemoglobin 14.6 potassium 3.5 BUN 44 creatinine 1.49 Chest x-ray film personally reviewed by me-[January 14]: Possible left basilar infiltrate. UA: Negative for nitrite and leukoesterase January 14: Potassium 4.6 BUN [address] brain: [January 13]: Acute to subacute right occipital lobe infarct. Ultrasound: Unremarkable January 13: White count 14.7 hemoglobin 17.8 platelets 412 potassium 5.8 by cup 14. 49 creatinine 2.34 Brain MRI: Evolving acute/subacute infarct inferior right parietal occipital level extending to the posterior superior temporal lobe with some extension to the posterior right coronary radiata and a smaller area of the involvement of the posterior left occipital lobe. Background moderate diffuse cerebral atrophy and chronic small vessel ischemic changes EEG: Some evidence of encephalopathy. No epileptiform discharge. Carotid Doppler: Atherosclerotic change in the left greater than right carotid bifurcation. Proximal left ICA suggestive of 55-69% stenosis. Severe proximal left ECF stenosis. Possible severe right cavernous segment intracranial ICA stenosis. January 12: White count 12.5 hemoglobin 17.1 platelets 32 potassium 4.8 creatinine 0.88 LDL 59 White count 13.9 hemoglobin 17 platelets 379 potassium 5.5 BUN 23 creatinine 0.94 Troponin I 0.431, 17.1 TSH 8.0 Coronavirus [PCR]: Not detected EKG tracing personally reviewed by me-no sinus rhythm, poor R-wave progression Chest x-ray film personally reviewed by me-possible infiltrate Computed tomography scan of the brain: No acute intracranial hemorrhage slight shift. Age related atrophy. And chronic small vessel changes. CT angiography head and neck: Severe atherosclerotic changes with significant stenosis suspected bilaterally. Assessment and plan: -acute infarct inferior right parietal occipital level extending to the posterior superior temporal lobe with some extension to the posterior right coronary radiata and a smaller area of the involvement of the posterior left occipital.: Slow to respond aspirin, Brillinta. Follow-up with neurology. 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 -Paroxysmal atrial fibrillation, currently in sinus rhythm On IV amiodarone. -Acute dysphagia from stroke Being followed by speech. Ground diet and NTL -Bilateral significance carotid artery disease vascular surgery -Acute left basilar pneumonia. IV Zosyn. Check pro-calcitonin. -Acute non-Q wave MS. No cardiac symptoms. Given acute stroke IV heparin discontinued. Lipitor 20 mg daily at bedtime -COPD in a previous smoker DuoNeb -Essential hypertension Metoprolol 50 mg twice a day -Hyperlipidemia Lipitor 20 mg daily at bedtime -Peripheral arterial disease Aspirin. 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 IV fluids . Follow input and output Consult nephrology. -Hyperkalemia from acute kidney injury and STALIN inhibitor: Corrected Discontinue lisinopril. Kayexalate given. -Acute metabolic encephalopathy from stroke: Some improvement Follow clinically -Matt-Mcdermott breathing, from metabolic encephalopathy from stroke: Resolved -Acute metabolic acidosis from acute kidney injury: Corrected *Bicarbonate drip IV Zosyn. IV amiodarone. Diet as per speech therapist. Ground/NTL. We'll see patient is able to tolerate oral medications. Continue supportive care. Prognosis guarded. Discussed with nurse. Also discussedtherapist. Total time spent today about 40 minutes with over 25 minutes of discussion
--- NOTE | 2021-01-16 16:25 | P.PN ---
Subjective Progress Note Date: 01/16/21 Patient was seen for a follow-up. Patient initially seen by Dr. Calixto Sanches. Please refer to his note for details. Patient is a 70-year-old male, came with right large MCA territory CVA. Patient also had increased troponins. Telemetry monitoring showing sinus rhythm in the 80s. Patient at present has slow mentation. Denies headache. Denies any chest pain. States he does have problem with the vision but could not tell details. Patient tells me that he has smoked 1 pack per day for last 6 years. Patient is to be started on anticoagulation from 01/17/2021. Objective - Vital Signs Vital signs: Vital Signs Temp 98.9 F 01/16/21 08:40 Pulse 84 01/16/21 12:05 Resp 18 01/16/21 14:00 BP 133/68 01/16/21 12:05 Pulse Ox 93 L 01/16/21 12:05 Intake & Output 01/15/21 01/16/21 01/16/21 18:59 06:59 18:59 Intake Total 1500 485.56 Output Total 800 1000 Balance 1500 -314.44 -1000 Weight 54 kg 54 kg Intake: Intake, IV Titration 1500 245.56 Amount Amiodarone 450 mg In 250 245.56 Dextrose 5% in Water 250 ml @ 0.5 MG/MIN 16.667 mls/hr IV .Q15H RONALDO Rx#: [id number] Dextrose 5% in Water 1, 1200 000 ml @ 100 mls/hr IV . [id number] RONALDO with Sodium Bicarb (1 Meq/ml) 150 ml Rx#:[id number] cefTRIAXone 1 gm In 50 Sodium Chloride 0.9% 50 ml @ 100 mls/hr IVPB Q12H RONALDO Rx#:[id number] Oral 240 Output: Urine 800 1000 Other: Voiding Method Indwelling Catheter Indwelling Catheter Indwelling Catheter # Voids 1 # Bowel Movements 1 - Exam GENERAL: The patient is lying in bed and is not in acute distress. NEUROLOGICAL: Llimited because of his cooperation. Higher mental function: The patient is drowsy but is awakeable to voice. Is oriented to self. But does not respond to questions about time and place. He is following simple commands (thumbs up and lifting arms. No aphasia but is neglecting the left side. Cranial nerves: The pupils are round, equal and reactive to light. Patient has bilateral visual field deficits, with some intermittent preserved central vision. When I held all 5 fingers of left hand, patient was able to see "1 thumb and 3 fingers". When I held 2 fingers, patient stated "2 fingers and no thumb". Patient's gaze is in the midline. Extraocular muscles are intact. Minimal left lower facial droop. Was neglecting the left side. No dysarthria. Could not assess rest. Motor: Gait is deferred. Patient has left pronator drift. Muscle strength is (right/left), deltoid 5/4, biceps 5/4, triceps 5/4, pilot instructor 5/5-. Patient able to move his right lower extremity but is almost flaccid the left lower extremity. Cerebellum: Could not asses. Sensation: Could not assess. Reflexes (right/left): 3+ over the left. Otherwise 1+ throughout. Plantars are mute bilaterally. - Labs CBC & Chem 7: 01/15/21 07:02 01/16/21 08:53 Labs: Abnormal Lab Results - Last 24 Hours (Table) 01/15/21 01/16/21 Range/Units 07:02 08:53 Sodium 133 L (137-145) mmol/L BUN 23 H (9-20) mg/dL Calcium 7.7 L (8.4-10.2) mg/dL Procalcitonin 0.26 H (0.02-0.09) ng/mL Microbiology - Last 24 Hours (Table) 01/15/21 01:00 Urine Culture - Final Urine,Catheterized 01/14/21 22:15 Blood Culture - Preliminary Blood No Growth after 24 hours Assessment and Plan Assessment: Acute large ischemic stroke in 3 different vascular territories. It involves mainly the right occipital lobe and right medial temporal lobe (in the right KILN DRAWER vascular territory). Patient also has a smaller acute ischemic stroke involving the left occipital pole, and also involving the right cerebellar region: Seems embolic. No IV tpa since on anticoagulation. 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 Paroxysmal atrial fibrillation. Patient was on anticoagulation prior to arrival. Left internal carotid stenosis per CTA nearly 55% as well as severe upper sclerotic changes of distal internal carotid arteries bilaterally that suspect that per CTA Elevated troponin Mild hyponatremia on presentation was 131 currently it's 133 Elevated liver function Uncontrolled hypertension History of alcohol use History of multiple falls History of tobacco use. Plan: * Patient had been more lethargic in the last few days, but today is more awake. * He is on ASA 81mg daily and Brilinta 90mg 1 tab bid . Hold anticoagulation use because of increase risk of bleed with large stroke. Consider use of a nticoagulation on 01/17/2021. Continue Lipitor 20 mg daily at bedtime. I will not increase the Lipitor because of his elevated liver function once his liver function improved focal up to 40mg qhs for secondary stroke prophylaxis. * Repeat computed tomography scan of head in a.m. If negative, may resume anticoagulation. * Vascular surgery team is consulted for carotid stenosis. They stated the ou tpatient follow-up and no intervention as an inpatient. * PT, OT and REPAIRER SCREEN CRUSHER are consulted * Neuro checks per [facility] protocol * Cardiology is on board. * Telemetry monitoring showing sinus rhythm, in 80s. * We'll defer the rest of the medical management to the primary team * DVT prophylaxis: Place on suq heparin 5000U every 12 hours. * Recommended tobacco cessation. Patient CODE STATUS: DNI and DNR. WORK-UP: * CT of the head is reported as no acute intracranial hemorrhage or midline shift. There is mild to moderate diffuse age-related cerebral atrophy and moderate to advanced chronic small vessel ischemic changes redemonstrated. No significant change from most recent prior studies and that was in 12/27/2020. * CT angiography of the head and neck is reported as new significant stenosis proximal left internal carotid artery near 55%. Severe aphthous chronic changes distal internal carotid artery bilaterally with significant stenosis suspected bilaterally. Present of temporal bone and dense calcified plaque makes evaluation suboptimal. There is new noncalcified plaque distal left internal carotid artery causing more prominent stenosis versus 2018 study clearly seen. No aneurysm or new significant focal stenosis at the level ambler of [place] * MRI the brain is reported as evolving acute/subacute infarct inferior right parietal occipital level extending to the posterior superior temporal lobe with some extension to the posterior right coronal radiata and a smaller area of involvement of the posterior left occipital lobe. Background moderate diffuse cerebral atrophy and moderate to advanced chronic small vessel ischemic changes redemonstrated. * CT head (01/13/2021): Acute to subacute right occipital lobe infarct. Chronic appearing periventricular white matter ischemic changes. I personally reviewed it and I do agree there is right occipital subacute infarct as well as that extends into the temporal region. * Limited 2-D echo is 11 ventricle size is normal. Mild concentric Lipitor hypertrophy. Ejection fraction 55-60%. * Carotid duplex was reported as atherosclerotic change in the left greater than the right carotid bifurcation. Proximal left ICA; the end-diastolic velocity and ICA/CCA ratio suggests moderate 50-69% stenosis. Severe proximal left KILN DRAWER stenosis. Possible severe right cavernous segment intracranial ICA stenosis seen on the CTA is not assessed on the current exam. * Routine EEG on 01/12/2021: It's an abnormal routine EEG. The background is asymmetric with mild encephalopathy over the last and moderate over the right. There is focal slowing over the right hemisphere consistent with the patient history of stroke. There are no epileptiform discharges or seizure on the EEG. * Lipid panel: Triglyceride 110, cholesterol 127, LDL 59, HDL of 46. * TSH is 8.05 which is considered within normal limits * Vitamin B12 level is 524 which is within normal limits. Serum folate level is 10.7 which is also within normal limits. * EKG is reported as normal sinus rhythm. At anterior septal infarct age undetermined. Abnormal EKG * AST of 107 and ALT of 73 the ammonia level is less than 9 which is within normal limits. * Troponin is elevated 0.43 and it's as high as 17.1
--- NOTE | 2021-01-16 16:30 | PN ---
PROGRESS NOTE Patient is seen for followup for acute kidney injury secondary to sepsis, hypotension and hypovolemia. Patient's renal function has improved with creatinine down to 1.2. He is currently awake, comfortable, not in any acute distress. Mentation has improved. PHYSICAL EXAMINATION: Blood pressure is 133/68, heart rate 84 per minute, he is afebrile. Examination of the heart S1, S2. Examination of the lungs, decreased breath sounds at the bases. Abdomen is soft, nontender. Examination of lower extremities shows no evidence of edema. RURAL ROUTE MAIL CARRIER exam shows patient is moving all 4 extremities. Mentation is improved. A 24 hour urine output documented at about 1700 cc. LAB: Show sodium 133, potassium 3.6, chloride 99, BUN 23, creatinine 1.2. UA shows trace protein, trace ketones, moderate blood. ASSESSMENT: 1. Acute kidney injury secondary to hypotension and contrast nephropathy and sepsis as well. Renal function is currently improving. Patient is off IV fluids. He has had fair urine output. 2. Metabolic acidosis status post IV bicarb, now resolved. 3. Hyperkalemia initially associated with acute kidney injury, metabolic acidosis, now improved and potassium on the lower side. 4. Fever most likely associated with underlying pneumonia, maintained on empiric antibiotics and improving. 5. Acute cerebrovascular accident, maintained on Brilinta. The patient has left-sided weakness. PLAN: Continue IV fluids. Encourage increased oral intake. Avoid nephrotoxic agents and medications. Repeat labs in a.m. and continue empiric antibiotics. MMODL / IJN: [id number] /
[2021-01-17] MEDS: HEPARIN SODIUM,PORCINE/PF 5,000 UNIT/0.5 ML SYRINGE SQ SCH ×2 (00:06→09:48)
[2021-01-17] MEDS: PIPERACILLIN-TAZOBACTAM 3.375 GM in SODIUM CHLORIDE 0.9% 100 ML IVPB SCH ×3 (00:07→17:08)
[2021-01-17] MEDS: ATORVASTATIN 20 MG TAB PO SCH ×2 (00:07→21:26)
[2021-01-17] MEDS: SODIUM CHLORIDE 0.9% 1,000 ML IV SCH ×3 (05:25→17:09)
[2021-01-17] MEDS: PANTOPRAZOLE 40 MG TABLET PO SCH (06:39)
[2021-01-17] MEDS: IPRATROPIUM-ALBUTEROL 3 ML NEB INHALATION SCH ×4 (08:16→19:17)
[2021-01-17] MEDS: NICOTINE 14MG/24HR PATCH TRANSDERM SCH (08:45)
[2021-01-17] MEDS: AMIODARONE 450 MG in DEXTROSE 5% IN WATER 250 ML IV SCH ×4 (08:48→09:34)
--- NOTE | 2021-01-17 09:20 | CT ---
EXAMINATION TYPE: CT brain wo con DATE OF EXAM: 01/17/2021 HISTORY: CVA CT DLP: 1217 mGycm. Automated Exposure Control for Dose Reduction was Utilized. TECHNIQUE: CT scan of the head is performed without contrast. COMPARISON: CT brain 4 days ago and older studies FINDINGS: There is no acute intracranial hemorrhage or midline shift identified. Evolving acute/sub acute infarct low right occipital lobe extending into the temporal lobe axial images 14 through 33 is redemonstrated. Local mass effect with sulcal effacement again seen. Areas of normal density suggest s some cortical sparing similar to prior. On current study there is additional new area of evolving a cute infarct inferior right cerebellar hemisphere axial image 10 for reference. There is background mild to moderate diffuse ventricular and sulcal prominence consistent with diffus e cerebral atrophy redemonstrated. There is moderate to severe low-attenuation in the periventricula r white matter consistent with chronic small vessel ischemic change redemonstrated. The globes are i ntact and the visualized sinuses are clear. Vascular calcifications distal internal carotid arterie s redemonstrated. Nasal septum remains deviated to the left of midline. IMPRESSION: Persistent evolving large acute infarct right occipital temporal region. Better visualize d evolving acute infarct right cerebellar lobe inferiorly.
[2021-01-17] MEDS: LACTOBACILLUS ACIDOPH & BULGAR 1 EACH PACKET PO SCH ×2 (09:35→17:08)
[2021-01-17] MEDS: ASPIRIN 300 MG SUPP RECTAL SCH (09:48)
[2021-01-17] MEDS: THIAMINE 100 MG TAB PO SCH ×2 (09:48→09:55)
[2021-01-17] MEDS: TICAGRELOR 90 MG TAB PO SCH ×3 (09:48→21:26)
[2021-01-17] MEDS: METOPROLOL TARTRATE 25 MG TAB PO SCH ×3 (09:48→21:26)
[2021-01-17] MEDS: MULTIVITAMINS, THERA 1 EACH TAB PO SCH (12:29)
--- NOTE | 2021-01-17 13:25 | PN ---
PROGRESS NOTE Patient is seen for followup for acute kidney injury, mostly prerenal and secondary to sepsis. The patient's blood pressure has improved. Renal function has improved significantly, with creatinine down to 1.2 from 2.34 at peak. PHYSICAL EXAMINATION: Patient is comfortable, awake. He is not in any acute distress. Blood pressure is 146/73, heart rate 74 per minute. He is afebrile. EXAMINATION OF THE HEART: S1 and S2. EXAMINATION OF LUNGS: Bilateral breath sounds are heard. ABDOMEN: Soft, nontender. LOWER EXTREMITIES: Examination of lower extremities shows no evidence of edema. POWERPLANT OPERATOR EXAM: Grossly intact. POWERPLANT OPERATOR exam shows patient moving all 4 extremities. He responds to simple questions. LABS: Labs on 01/16/2021 showed sodium 133, potassium 3.6, BUN 23, creatinine 1.2. ASSESSMENT: 1. Acute kidney injury secondary to sepsis and contrast nephropathy, currently improved. 2. Metabolic acidosis, status post IV bicarb, now resolved. 3. Hyperkalemia associated with acute kidney injury, metabolic acidosis, improved, with potassium currently on the lower side. 4. Fever, most likely secondary to pneumonia, possibly aspiration pneumonia, maintained on antibiotics, currently improved. 5. Cerebrovascular accident, maintained on Brilinta, with left-sided weakness. PLAN: Continue to encourage increased oral intake. May continue IV fluids for now. Avoid nephrotoxic agents. MMODL / IJN: [id number] /
--- NOTE | 2021-01-17 14:51 | P.PN ---
Progress Note - Text Progress Note Date: 01/17/21 Chief Complaint: Altered mentation History of presenting complaint: Patient was seen by me in the ER This is a 70-year-old patient who follows Dr. Khan. Patient's chronic stable medical conditions include COPD, GERD, hypertension, peripheral arterial disease, peripheral neuropathy, atrial fibrillation, history of appendix tumor with bowel resection, As per the EMS report: Nursing staff stated that the patient be laying in bed when staff 100 trash and found the patient in one are up, not responding. Patient been displaced decorticate posturing and was unable to lift his left arm. When the EMS arrived patient is able to lift his left arm but did not answer questions appropriately. Was agitated. Not being cooperative with assessment. Per nursing staff patient normally is AO 4 and pleasant. EMS evaluated and did not find any focal weakness. Due to the course of transport patient showed some confusion. Code stroke was called in the ER. Given that patient's symptoms are improving and decided not to do any further intervention. When I saw the patient she was able to answer questions though slowly. Appeared to be slightly distant. Able to move his limbs. He says he started smoking a few weeks ago. Patient started on Brilinta in the ER after Dr. Larios spoke to the stroke team. January 12: Today patient is bit more awake. Noted some left-sided weakness. MRI is showing acute stroke on the right brain. In the parietal occipital and some element of temporal lobe. troponin has gone up. Cardiology started the patient IV heparin. I spoke to Dr. Sanches from neurology. IV heparin is to be discontinued. January 13: Tired. Did eat some. Kidney function has been worsening. Likely contrast-induced nephropathy. Started on IV fluids. Nephrology consulted. Patient also having Matt-Mcdermott breathing. A bit lethargic. More weakness in the left arm. Patient refuses medication this morning. January 14: More awake today. Answering simple questions. Wanting to eat. Weakness in the left arm persist. Feeding with assistance ordered. On IV fluids and bicarbonate drip for acute kidney injury January 15: Awake, looking to the right. Friend visiting. I did attempt to feed the patient. He did start eating slowly. Patient was febrile last night. Was pancultured. Started on IV ceftriaxone. January 16: Awake. Looking to the right. Seen by speech therapy: Did tolerate liquids and soft liquids without any overt sign symptoms of aspiration. Some episodes of coughing with feeding. They recommended: In changing diet to ground nectar thick liquids. Sippy cup to be used. Patient can only appreciate hand movements. Unable to count fingers. Left arm flaccid. Answering simple questions. Maintained on IV amiodarone. Has been taking medications. January 17: Laying in bed. Tired. Patient is refusing food and medications. I talked to the patient. He was to be left alone. I did touch upon the topic of hospice. I also spoke to patient's brother Ulisses. Explained to him the clinical picture. He is also okay with proceeding with hospice if does not improvement. I did convey to the piano case maker. To get informational visit. Also discussed with Dr. Stone from neurology. Patient to be started on eliquis. He is getting his IV Zosyn. Review of systems: Attempted for constitutional, cardiovascular, GI, pulmonary. relevant finding as above Active Medications Acetaminophen (Acetaminophen Tab 325 Mg Tab) 650 mg PO Q6HR PRN PRN Reason: Mild Pain or Fever > 100.5 Last Admin: 01/12/21 20:45 Dose: 650 mg Documented by: Acetaminophen (Acetaminophen Suppository 650 Mg Supp) 650 mg RECTAL Q4HR PRN PRN Reason: Fever and/ or Pain Last Admin: 01/15/21 06:23 Dose: 650 mg Documented by: Hydrocodone Bitart/Acetaminophen (Hydrocodone/Apap 5-325mg 1 Each Tab) 1 each PO Q6HR PRN PRN Reason: Pain Last Admin: 01/15/21 13:49 Dose: 1 each Documented by: Albuterol/Ipratropium (Ipratropium-Albuterol 3 Ml Neb) 3 ml INHALATION RT-QID [facility] Last Admin: 01/17/21 11:49 Dose: 3 ml Documented by: Aspirin (Aspirin 300 Mg Supp) 300 mg RECTAL DAILY [facility] Last Admin: 01/17/21 09:48 Dose: 300 mg Documented by: Atorvastatin Calcium (Atorvastatin 20 Mg Tab) 20 mg PO HS@2100 [facility] Last Admin: 01/17/21 00:07 Dose: Not Given Documented by: Heparin Sodium (Porcine) (Heparin Sodium,Porcine/Pf 5,000 Unit/0.5 Ml Syringe) 5,000 unit SQ Q12HR [facility] Last Admin: 01/17/21 09:48 Dose: 5,000 unit Documented by: Piperacillin Sod/Tazobactam (Sod 3.375 gm/ Sodium Chloride) 100 mls @ 25 mls/hr IVPB Q8HR [facility] Last Admin: 01/17/21 08:45 Dose: 25 mls/hr Documented by: Sodium Chloride (Saline 0.9%) 1,000 mls @ 100 mls/hr IV .Q10H [facility] Last Admin: 01/17/21 08:48 Dose: 100 mls/hr Documented by: Lactobacillus Acidoph/Bulgaricus (Lactobacillus Acidoph & Bulgar 1 Each Packet) 1 each PO BID@0800,1700 [facility] Last Admin: 01/17/21 09:35 Dose: Not Given Documented by: Magnesium Hydroxide (Magnesium Hydroxide 2,400 Mg/10 Ml Cup) 2,400 mg PO DAILY PRN PRN Reason: Constipation Metoprolol Tartrate (Metoprolol Tartrate 25 Mg Tab) 75 mg PO BID [facility] Last Admin: 01/17/21 09:56 Dose: Not Given Documented by: Multivitamins (Multivitamins, Thera 1 Each Tab) 1 each PO DAILY@1200 [facility] Last Admin: 01/17/21 12:29 Dose: Not Given Documented by: Nicotine (Nicotine 14mg/24hr Patch) 1 patch TRANSDERM DAILY@0800 [facility] Last Admin: 01/17/21 08:45 Dose: 1 patch Documented by: Pantoprazole Sodium (Pantoprazole 40 Mg Tablet) 40 mg PO AC-BRKFST [facility] Last Admin: 01/17/21 06:39 Dose: 40 mg Documented by: Thiamine HCl (Thiamine 100 Mg Tab) 100 mg PO DAILY@0800 [facility] Last Admin: 01/17/21 09:55 Dose: Not Given Documented by: Ticagrelor (Ticagrelor 90 Mg Tab) 90 mg PO BID [facility] Last Admin: 01/17/21 09:56 Dose: Not Given Documented by: Past medical history to include: COPD, GERD, hypertension, PAD, peripheral neuropathy, tenderness, 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 Depression. Hypertension, paroxysmal atrial fibrillation Social history: Current resident of [facility]. Patient started smoking in [id number], 1 pack a day up to 2-3 weeks ago. Was drinking one or 2 beers a day Family history: Reviewed, noncontributory to presentation Physical examination: VITAL SIGNS: 97.8, 74, 17, 146/73, 96% room air GENERAL: Reclining in bed, tired, awake, EYES: Pupils equal. Conjunctiva normal. NECK: JVD unable to assess; masses not palpable. HEART: First and second heart sounds are normal; no edema. LUNGS: Rate increased; diminished breath sounds. ABDOMEN: Soft, nontender, liver spleen not palpable, no masses palpable. PSYCH: May answer occasional question EXTREMITIES: Poor dorsalis pedis. Ischemic changes in the nails and the skin. NEUROLOGICAL: Left arm weakness 0/5. Can only appreciate hand movements. INVESTIGATIONS, reviewed in the clinical context: CT brain [January 17] persistent involving large acute infarct right occipital-temporal region. Evolving acute infarct right cerebellar lobe inferiorly. January 16: Potassium 3.6 creatinine 1.21 Pro-calcitonin 0.26 January 15: WBC 6.3 hemoglobin 14.6 potassium 3.5 BUN 44 creatinine 1.49 Chest x-ray film personally reviewed by me-[January 14]: Possible left basilar infiltrate. UA: Negative for nitrite and leukoesterase January 14: Potassium 4.6 BUN [address] brain: [January 13]: Acute to subacute right occipital lobe infarct. Ultrasound: Unremarkable January 13: White count 14.7 hemoglobin 17.8 platelets 412 potassium 5.8 by cup 14. 49 creatinine 2.34 Brain MRI: Evolving acute/subacute infarct inferior right parietal occipital level extending to the posterior superior temporal lobe with some extension to the posterior right coronary radiata and a smaller area of the involvement of the posterior left occipital lobe. Background moderate diffuse cerebral atrophy and chronic small vessel ischemic changes EEG: Some evidence of encephalopathy. No epileptiform discharge. Carotid Doppler: Atherosclerotic change in the left greater than right carotid bifurcation. Proximal left ICA suggestive of 55-69% stenosis. Severe proximal left ECF stenosis. Possible severe right cavernous segment intracranial ICA stenosis. January 12: White count 12.5 hemoglobin 17.1 platelets 32 potassium 4.8 creatinine 0.88 LDL 59 White count 13.9 hemoglobin 17 platelets 379 potassium 5.5 BUN 23 creatinine 0 .94 Troponin I 0.431, 17.1 TSH 8.0 Coronavirus [PCR]: Not detected EKG tracing personally reviewed by me-no sinus rhythm, poor R-wave progression Chest x-ray film personally reviewed by me-possible infiltrate Computed tomography scan of the brain: No acute intracranial hemorrhage slight shift. Age related atrophy. And chronic small vessel changes. CT angiography head and neck: Severe atherosclerotic changes with significant stenosis suspected bilaterally. Assessment and plan: -acute infarct inferior right parietal occipital level extending to the posterior superior temporal lobe with some extension to the posterior right coronary radiata and a smaller area of the involvement of the posterior left occipital.: Slow to respond aspirin, Brillinta. Follow-up with neurology. 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 Discontinued. Eliquis to be started per neurology -Acute dysphagia from stroke Being followed by speech. Ground diet and NTL. Patient has been refusing food and medications. -Bilateral significance carotid artery disease vascular surgery -Acute left basilar pneumonia. IV Zosyn. Check pro-calcitonin. -Acute non-Q wave DE. No cardiac symptoms. Given acute stroke IV heparin discontinued. Lipitor 20 mg daily at bedtime -COPD in a previous smoker DuoNeb -Essential hypertension Metoprolol 50 mg twice a day -Hyperlipidemia Lipitor 20 mg daily at bedtime -Peripheral arterial disease Aspirin. 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 IV fluids . Follow input and output Consult nephrology. -Hyperkalemia from acute kidney injury and STALIN inhibitor: Corrected Discontinue lisinopril. Kayexalate given. -Acute metabolic encephalopathy from stroke: Some improvement Follow clinically -Matt-Mcdermott breathing, from metabolic encephalopathy from stroke: Resolved -Acute metabolic acidosis from acute kidney injury: Corrected *Bicarbonate drip Continue IV Zosyn. Discussed with Dr. Stone from neurology. Start eliquis. Prognosis guarded. Patient has been refusing medications. We'll get a psychiatry evaluation to make sure depressions not playing a part. Advanced care planning: Discussed with the patient. About hospice. Will get informational visit to the patient about the same. Also discussed with patient's brother Ulisses. If patient does not eat or drink she is agreeable to the same. Discussed with piano case maker. Consult hospice for informational visit. Time spent for this about 20 minutes
[2021-01-17] MEDS: APIXABAN 5 MG TAB PO SCH (21:26)
--- NOTE | 2021-01-17 22:24 | P.PN ---
Subjective Progress Note Date: 01/17/21 01/17/2021: Patient is laying comfortably in the bed. Offers no complaints. 01/16/2021: Patient was seen for a follow-up. Patient initially seen by Dr. Calixto Sanches. Please refer to his note for details. Patient is a 70-year-old male, came with right large MCA territory CVA. Patient also had increased troponins. Telemetry monitoring showing sinus rhythm in the 80s. Patient at present has slow mentation. Denies headache. Denies any chest pain. States he does have problem with the vision but could not tell details. Patient tells me that he has smoked 1 pack per day for last 6 years. Patient is to be started on anticoagulation from 01/17/2021. Objective - Vital Signs Vital signs: Vital Signs Temp 99.1 F 01/17/21 21:15 Pulse 97 01/17/21 21:15 Resp 17 01/17/21 21:15 BP 162/91 01/17/21 21:15 Pulse Ox 96 01/17/21 21:15 Intake & Output 01/17/21 01/17/21 01/18/21 06:59 18:59 06:59 Intake Total 300 Output Total 300 Balance -300 300 Weight 59.5 kg Intake: Intake, IV Titration 300 Amount Sodium Chloride 0.9% 1, 300 000 ml @ 100 mls/hr IV . Q10H [facility] Rx#:[id number] Output: Urine 300 Other: Voiding Method Indwelling Catheter Indwelling Catheter Indwelling Catheter # Voids 1 700 # Bowel Movements 1 1 - Exam GENERAL: The patient is lying in bed and is not in acute distress. NEUROLOGICAL: Llimited because of his cooperation. Higher mental function: Patient is awake. He follows simple commands. Speech is clear with no aphasia. Cranial nerves: The pupils are round, equal and reactive to light. Patient has very prominent left homonymous hemianopia. Patient has somewhat relatively preserved visual field on the right (not as dense). . Patient able to recognize objects like eyeglasses, comb in his right visual field. Patient's gaze is in the midline. Extraocular muscles are intact. Minimal left lower facial droop. Was neglecting the left side. No dysarthria. Could not assess rest. Motor: Gait is deferred. Patient has left pronator drift. Muscle strength is (right/left), deltoid 5/4, biceps 5/4, triceps 5/4, abrasive mixer helper 5/5-. Patient able to move his right lower extremity but is almost flaccid the left lower extremity. Cerebellum: Could not asses. Sensation: Could not assess. Reflexes (right/left): 3+ over the left. Otherwise 1+ throughout. Plantars are mute bilaterally. - Labs CBC & Chem 7: 01/15/21 07:02 01/16/21 08:53 Labs: Microbiology - Last 24 Hours (Table) 01/14/21 22:15 Blood Culture - Preliminary Blood No Growth after 48 hours Assessment and Plan Assessment: Acute large ischemic stroke in 3 different vascular territories. It involves mainly the right occipital lobe and right medial temporal lobe (in the right MANAGER OPERATING vascular territory). Patient also has a smaller acute ischemic stroke involving the left occipital pole, and also involving the right cerebellar region: Seems embolic. No IV tpa since on anticoagulation. 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 Patient has relatively preserved right visual field. Paroxysmal atrial fibrillation. Patient was on anticoagulation prior to arrival. Left internal carotid stenosis per CTA nearly 55% as well as severe upper sclerotic changes of distal internal carotid arteries bilaterally that suspect that per CTA Elevated troponin Mild hyponatremia on presentation was 131 currently it's 133 Elevated liver function Uncontrolled hypertension History of alcohol use History of multiple falls History of tobacco use. Plan: * Repeat computed tomography scan of head from this morning showed persistent evolving large acute infarct right occipital temporal region. Better visualized evolving acute infarct right cerebellar lobe inferiorly. No hemorrhage. * Patient will be started on Eliquis 5 mg twice a day and maintain on aspirin 81 mg. * Vascular surgery team is consulted for carotid stenosis. They stated the outpatient follow-up and no intervention as an inpatient. * PT, OT and SANITATION TRUCK CLEANER are consulted * Cardiology is on board. * Telemetry monitoring showing sinus rhythm, in 80s. * We'll defer the rest of the medical management to the primary team * DVT prophylaxis: On Eliquis * Recommended tobacco cessation. Patient CODE STATUS: DNI and DNR. WORK-UP: * CT angiography of the head and neck is reported as new significant stenosis proximal left internal carotid artery near 55%. Severe atherosclerotic changes distal internal carotid artery bilaterally with significant stenosis suspected bilaterally. Present of temporal bone and dense calcified plaque makes evaluation suboptimal. There is new noncalcified plaque distal left internal carotid artery causing more prominent stenosis versus 2018 study clearly seen. No aneurysm or new significant focal stenosis at the level [place] * MRI the brain is reported as evolving acute/subacute infarct inferior right parietal occipital level extending to the posterior superior temporal lobe with some extension to the posterior right coronal radiata and a smaller area of involvement of the posterior left occipital lobe. Background moderate di ffuse cerebral atrophy and moderate to advanced chronic small vessel ischemic changes redemonstrated. * Limited 2-D echo is 11 ventricle size is normal. Mild concentric Lipitor hypertrophy. Ejection fraction 55-60%. * Carotid duplex was reported as atherosclerotic change in the left greater than the right carotid bifurcation. Proximal left ICA; the end-diastolic velocity and ICA/CCA ratio suggests moderate 50-69% stenosis. Severe proximal left MANAGER OPERATING stenosis. Possible severe right cavernous segment intracranial ICA stenosis seen on the CTA is not assessed on the current exam. * Routine EEG on 01/12/2021: It's an abnormal routine EEG. The background is asymmetric with mild encephalopathy over the last and moderate over the right. There is focal slowing over the right hemisphere consistent with the patient history of stroke. There are no epileptiform discharges or seizure on the EEG. * Lipid panel: Triglyceride 110, cholesterol 127, LDL 59, HDL of 46. * TSH is 8.05 which is considered within normal limits * Vitamin B12 level is 524 which is within normal limits. Serum folate level is 10.7 which is also within normal limits. * EKG is reported as normal sinus rhythm. At anterior septal infarct age undetermined. Abnormal EKG * AST of 107 and ALT of 73 the ammonia level is less than 9 which is within normal limits. * Troponin is elevated 0.43 and it's as high as 17.1
[2021-01-18] MEDS: PIPERACILLIN-TAZOBACTAM 3.375 GM in SODIUM CHLORIDE 0.9% 100 ML IVPB SCH ×4 (00:14→23:01)
[2021-01-18] MEDS: SODIUM CHLORIDE 0.9% 1,000 ML IV SCH ×2 (04:46→14:47)
[2021-01-18] MEDS: PANTOPRAZOLE 40 MG TABLET PO SCH (06:26)
[2021-01-18] MEDS: IPRATROPIUM-ALBUTEROL 3 ML NEB INHALATION SCH ×4 (08:55→20:19)
[2021-01-18] MEDS: NICOTINE 14MG/24HR PATCH TRANSDERM SCH (09:21)
[2021-01-18 10:53] LABS: African American GFR (CKD) >90 (>60 ml/min/1.73 sqM); Anion Gap 10 mmol/L; Blood Urea Nitrogen 12 mg/dL (9-20); Carbon Dioxide 19 mmol/L (22-30); Chloride 105 mmol/L (98-107); Glucose 86 mg/dL (74-99); Non-African American GFR(CKD) 88 (>60 ml/min/1.73 sqM); Potassium 3.7 mmol/L (3.5-5.1); Sodium 134 mmol/L (137-145)
[2021-01-18 12:11] VITALS: BMI 19.3
--- NOTE | 2021-01-18 12:52 | P.PN ---
Progress Note - Text Progress Note Date: 01/18/21 Chief Complaint: Altered mentation History of presenting complaint: Patient was seen by me in the ER This is a 70-year-old patient who follows Dr. Khan. Patient's chronic stable medical conditions include COPD, GERD, hypertension, peripheral arterial disease, peripheral neuropathy, atrial fibrillation, history of appendix tumor with bowel resection, As per the EMS report: Nursing staff stated that the patient be laying in bed when staff 100 trash and found the patient in one are up, not responding. Patient been displaced decorticate posturing and was unable to lift his left arm. When the EMS arrived patient is able to lift his left arm but did not answer questions appropriately. Was agitated. Not being cooperative with assessment. Per nursing staff patient normally is AO 4 and pleasant. EMS evaluated and did not find any focal weakness. Due to the course of transport patient showed some confusion. Code stroke was called in the ER. Given that patient's symptoms are improving and decided not to do any further intervention. When I saw the patient she was able to answer questions though slowly. Appeared to be slightly distant. Able to move his limbs. He says he started smoking a few weeks ago. Patient started on Brilinta in the ER after Dr. Larios spoke to the stroke team. January 12: Today patient is bit more awake. Noted some left-sided weakness. MRI is showing acute stroke on the right brain. In the parietal occipital and some element of temporal lobe. troponin has gone up. Cardiology started the patient IV heparin. I spoke to Dr. Sanches from neurology. IV heparin is to be discontinued. January 13: Tired. Did eat some. Kidney function has been worsening. Likely contrast-induced nephropathy. Started on IV fluids. Nephrology consulted. Patient also having Matt-Mcdermott breathing. A bit lethargic. More weakness in the left arm. Patient refuses medication this morning. January 14: More awake today. Answering simple questions. Wanting to eat. Weakness in the left arm persist. Feeding with assistance ordered. On IV fluids and bicarbonate drip for acute kidney injury January 15: Awake, looking to the right. Friend visiting. I did attempt to feed the patient. He did start eating slowly. Patient was febrile last night. Was pancultured. Started on IV ceftriaxone. January 16: Awake. Looking to the right. Seen by speech therapy: Did tolerate liquids and soft liquids without any overt sign symptoms of aspiration. Some episodes of coughing with feeding. They recommended: In changing diet to ground nectar thick liquids. Sippy cup to be used. Patient can only appreciate hand movements. Unable to count fingers. Left arm flaccid. Answering simple questions. Maintained on IV amiodarone. Has been taking medications. January 17: Laying in bed. Tired. Patient is refusing food and medications. I talked to the patient. He was to be left alone. I did touch upon the topic of hospice. I also spoke to patient's brother Ulisses. Explained to him the clinical picture. He is also okay with proceeding with hospice if does not improvement. I did convey to the case checker. To get informational visit. Also discussed with Dr. Stone from neurology. Patient to be started on eliquis. He is getting his IV Zosyn. January 18: Laying in bed. Awake. Answering questions. Does not have an appetite. try Marinol. Psychiatry consulted. Review of systems: Attempted for constitutional, cardiovascular, GI, pulmonary. relevant finding as above Active Medications Acetaminophen (Acetaminophen Tab 325 Mg Tab) 650 mg PO Q6HR PRN PRN Reason: Mild Pain or Fever > 100.5 Last Admin: 01/12/21 20:45 Dose: 650 mg Documented by: Acetaminophen (Acetaminophen Suppository 650 Mg Supp) 650 mg RECTAL Q4HR PRN PRN Reason: Fever and/ or Pain Last Admin: 01/15/21 06:23 Dose: 650 mg Documented by: Hydrocodone Bitart/Acetaminophen (Hydrocodone/Apap 5-325mg 1 Each Tab) 1 each PO Q6HR PRN PRN Reason: Pain Last Admin: 01/15/21 13:49 Dose: 1 each Documented by: Albuterol/Ipratropium (Ipratropium-Albuterol 3 Ml Neb) 3 ml INHALATION RT-QID [facility] Last Admin: 01/18/21 12:00 Dose: 3 ml Documented by: Apixaban (Apixaban 5 Mg Tab) 5 mg PO BID [facility]; Protocol Last Admin: 01/17/21 21:26 Dose: Not Given Documented by: Aspirin (Aspirin 81 Mg) 81 mg PO DAILY [facility] Atorvastatin Calcium (Atorvastatin 20 Mg Tab) 20 mg PO HS@2100 [facility] Last Admin: 01/17/21 21:26 Dose: Not Given Documented by: Piperacillin Sod/Tazobactam (Sod 3.375 gm/ Sodium Chloride) 100 mls @ 25 mls/hr IVPB Q8HR [facility] Last Admin: 01/18/21 09:21 Dose: 25 mls/hr Documented by: Sodium Chloride (Saline 0.9%) 1,000 mls @ 100 mls/hr IV .Q10H [facility] Last Admin: 01/18/21 04:46 Dose: Not Given Documented by: Lactobacillus Acidoph/Bulgaricus (Lactobacillus Acidoph & Bulgar 1 Each Packet) 1 each PO BID@0800,1700 [facility] Last Admin: 01/17/21 17:08 Dose: Not Given Documented by: Magnesium Hydroxide (Magnesium Hydroxide 2,400 Mg/10 Ml Cup) 2,400 mg PO DAILY PRN PRN Reason: Constipation Metoprolol Tartrate (Metoprolol Tartrate 25 Mg Tab) 75 mg PO BID [facility] Last Admin: 01/17/21 21:26 Dose: Not Given Documented by: Multivitamins (Multivitamins, Thera 1 Each Tab) 1 each PO DAILY@1200 [facility] Last Admin: 01/17/21 12:29 Dose: Not Given Documented by: Nicotine (Nicotine 14mg/24hr Patch) 1 patch TRANSDERM DAILY@0800 [facility] Last Admin: 01/18/21 09:21 Dose: 1 patch Documented by: Pantoprazole Sodium (Pantoprazole 40 Mg Tablet) 40 mg PO AC-BRKFST [facility] Last Admin: 01/18/21 06:26 Dose: Not Given Documented by: Thiamine HCl (Thiamine 100 Mg Tab) 100 mg PO DAILY@0800 [facility] Last Admin: 01/17/21 09:55 Dose: Not Given Documented by: Ticagrelor (Ticagrelor 90 Mg Tab) 90 mg PO BID [facility] Last Admin: 01/17/21 21:26 Dose: Not Given Documented by: Past medical history to include: COPD, GERD, hypertension, PAD, peripheral neuropathy, tenderness, 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 Depression. Hypertension, paroxysmal atrial fibrillation Social history: Current resident of [facility]. Patient started smoking in [id number], 1 pack a day up to 2-3 weeks ago. Was drinking one or 2 beers a day Family history: Reviewed, noncontributory to presentation Physical examination: VITAL SIGNS: 99.7, 97, 19, 169 weight 9, 96% room air GENERAL: Reclining in bed, tired, awake, EYES: Pupils equal. Conjunctiva normal. NECK: JVD unable to assess; masses not palpable. HEART: First and second heart sounds are normal; no edema. LUNGS: Rate increased; diminished breath sounds. ABDOMEN: Soft, nontender, liver spleen not palpable, no masses palpable. PSYCH: Answering simple questions EXTREMITIES: Poor dorsalis pedis. Ischemic changes in the nails and the skin. NEUROLOGICAL: Left arm weakness 0/5. Can only appreciate hand movements. INVESTIGATIONS, reviewed in the clinical context: January 18: Potassium 3.[address] brain [January 17] persistent involving large acute infarct right occipit al-temporal region. Evolving acute infarct right cerebellar lobe inferiorly. January 16: Potassium 3.6 creatinine 1.21 Pro-calcitonin 0.26 January 15: WBC 6.3 hemoglobin 14.6 potassium 3.5 BUN 44 creatinine 1.49 Chest x-ray film personally reviewed by me-[January 14]: Possible left basilar infiltrate. UA: Negative for nitrite and leukoesterase January 14: Potassium 4.6 BUN [address] brain: [January 13]: Acute to subacute right occipital lobe infarct. Ultrasound: Unremarkable January 13: White count 14.7 hemoglobin 17.8 platelets 412 potassium 5.8 by cup 14. 49 creatinine 2.34 Brain MRI: Evolving acute/subacute infarct inferior right parietal occipital level extending to the posterior superior temporal lobe with some extension to the posterior right coronary radiata and a smaller area of the involvement of the posterior left occipital lobe. Background moderate diffuse cerebral atrophy and chronic small vessel ischemic changes EEG: Some evidence of encephalopathy. No epileptiform discharge. Carotid Doppler: Atherosclerotic change in the left greater than right carotid bifurcation. Proximal left ICA suggestive of 55-69% stenosis. Severe proximal left ECF stenosis. Possible severe right cavernous segment intracranial ICA stenosis. January 12: White count 12.5 hemoglobin 17.1 platelets 32 potassium 4.8 creatinine 0.88 LDL 59 White count 13.9 hemoglobin 17 platelets 379 potassium 5.5 BUN 23 creatinine 0.94 Troponin I 0.431, 17.1 TSH 8.0 Coronavirus [PCR]: Not detected EKG tracing personally reviewed by me-no sinus rhythm, poor R-wave progression Chest x-ray film personally reviewed by me-possible infiltrate Computed tomography scan of the brain: No acute intracranial hemorrhage slight shift. Age related atrophy. And chronic small vessel changes. CT angiography head and neck: Severe atherosclerotic changes with significant stenosis suspected bilaterally. Assessment and plan: -acute infarct inferior right parietal occipital level extending to the posterior superior temporal lobe with some extension to the posterior right coronary radiata and a smaller area of the involvement of the posterior left occipital.: Slow to respond aspirin, Brillinta. Follow-up with neurology. 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 Discontinued. Eliquis -Acute dysphagia from stroke Being followed by speech. Ground diet and NTL. Patient has been refusing food and medications. -Anorexia. Try Marinol -Bilateral significance carotid artery disease vascular surgery -Acute left basilar pneumonia. IV Zosyn. Check pro-calcitonin. -Acute non-Q wave GA. No cardiac symptoms. Given acute stroke IV heparin discontinued. Lipitor 20 mg daily at bedtime -COPD in a previous smoker DuoNeb -Essential hypertension Metoprolol 50 mg twice a day -Hyperlipidemia Lipitor 20 mg daily at bedtime -Peripheral arterial disease Aspirin. 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 IV fluids . Follow input and output Consult nephrology. -Hyperkalemia from acute kidney injury and STALIN inhibitor: Corrected Discontinue lisinopril. Kayexalate given. -Acute metabolic encephalopathy from stroke: Some improvement Follow clinically -Matt-Mcdermott breathing, from metabolic encephalopathy from stroke: Resolved -Acute metabolic acidosis from acute kidney injury: Corrected *Bicarbonate drip We will DC IV Zosyn today. Add Marinol. Discussed with the patient to eat food. Awaiting psychiatry input.
[2021-01-18] MEDS ORDERED: DEXTROSE 5%-0.45% NACL 1,000 ML IV SCH (13:00)
--- NOTE | 2021-01-18 14:20 | P.CN ---
Psychiatric Consult - . Consult date: 01/18/21 Consult:: 01/18/21 14:19 IDENTIFYING DATA: This patient is a retired, , 70-year-old male with a significant history of atrial fibrillation, hypertension, peripheral arterial disease, who presented to the emergency department with altered mentation. HISTORY OF PRESENT ILLNESS: The patient presented to the hospital on 01/11/2021, where he presented in the emergency department with a stroke. Psychiatry has been consulted for evaluation of depression as the patient has been presenting with low appetite and has been refusing medications. At this time, the patient is a very poor historian and is not able to fully participate in the psychiatric interview. He is currently alert and oriented to self only. When asked what kind of building we are currently in, the patient reports "a wet one" as he gestures to the rain outside. He is slow to respond. The patient does deny any suicidal or homicidal ideation, intention, and/or plan. He is currently not reporting any auditory or visual hallucinations. He is not reporting any paranoia or other delusions. The patient does acknowledge that he has no appetite. When asked if he wants to continue living, the patient does not reply. PAST PSYCHIATRIC HISTORY: Collateral information was provided by the patient's brother and sister. Reports that the patient has no significant history of psychiatric illness. They report no prior psychiatric hospitalizations or psychotropic medication treatment. They report that the patient has never attempted suicide. 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 Fall 10/05/19 with michelle back of head History of Any Multi-Drug Resistant Organisms: None Reported Past Surgical History: Appendectomy, Bowel Resection, Orthopedic Surgery Additional Past Surgical History / Comment(s): finger repair Past Anesthesia/Blood Transfusion Reactions: No Reported Reaction Past Psychological History: Depression Past Alcohol Use History: Daily Past Drug Use History: Marijuana ALLERGIES: NO KNOWN DRUG ALLERGIES CHEMICAL DEPENDENCY HISTORY: Previous history of marijuana use as per chart review. Otherwise unable to assess previous chemical dependency history. FAMILY PSYCHIATRIC/SUBSTANCE USE HISTORY: Patient's family does not recall any family psychiatric or substance abuse history. SOCIAL HISTORY: Patient is currently retired. He is a . MENTAL STATUS EXAM: General Appearance: Patient appears to be stated age, is currently disheveled, shirtless, unkempt hair and johnston. Obese body habitus. Behavior: Patient is calmly lying in bed without any agitated behavior. Speech: Patient's speech is nonspontaneous, minimal, slow to respond, low in volume, monotone. Mood/Affect: Patient reports that mood is "fine." Affect is blunted. Suicidality/Homicidality: Patient denies any suicidal or homicidal ideation, intention, and/or plan. Perceptions: Patient denies any visual hallucinations and denies any auditory hallucinations Though content/process: There is no evidence of any delusional thought content and thought process is linear and goal-directed. Memory and concentration: Patient appears to be alert and oriented to self only. Concentration is grossly poor. Judgment and insight: poor Vital Signs Temp 97.3 F L 01/18/21 08:00 Pulse 66 01/18/21 12:10 Resp 18 01/18/21 08:00 BP 171/94 01/18/21 08:00 Pulse Ox 95 01/18/21 08:00 Intake & Output 01/17/21 01/18/21 01/18/21 18:59 06:59 18:59 Intake Total 300 Output Total 1300 Balance 300 -1300 Weight 59.5 kg Intake: Intake, IV Titration 300 Amount Sodium Chloride 0.9% 1, 300 000 ml @ 100 mls/hr IV . 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 -Delirium precautions recommended with patient including - avoiding use of narcotics and AMBULANCE DRIVER sedatives, limit anticholinergic medications when possible, frequent re-orientation, minimize use of restraints, open window shades during the day and close them at night -Would recommend the following medication changes/additions: Agree with plan to start Dronabinol 2.5 mg by mouth before meals twice a day We will also start Remeron 15 mg at bedtime for depressive symptoms and appetite stimulation -Agree with plan for recommendation for hospice care. -Psychiatry will sign off at this point, please contact with any questions. 01/18/21 14:20
[2021-01-18] MEDS: LACTOBACILLUS ACIDOPH & BULGAR 1 EACH PACKET PO SCH ×2 (15:23→17:21)
[2021-01-18] MEDS: APIXABAN 5 MG TAB PO SCH ×2 (16:34→20:46)
[2021-01-18] MEDS: THIAMINE 100 MG TAB PO SCH (16:34)
[2021-01-18] MEDS: MULTIVITAMINS, THERA 1 EACH TAB PO SCH (16:35)
[2021-01-18] MEDS: ASPIRIN 81 MG PO SCH (16:35)
[2021-01-18] MEDS: METOPROLOL TARTRATE 25 MG TAB PO SCH ×2 (16:35→20:46)
[2021-01-18] MEDS: TICAGRELOR 90 MG TAB PO SCH (18:36)
[2021-01-18] MEDS: ACETAMINOPHEN TAB 325 MG TAB PO PRN (18:56)
--- NOTE | 2021-01-18 19:57 | PN ---
PROGRESS NOTE Patient is seen for followup for acute kidney injury. His renal function has improved significantly. He is currently doing fairly well. PHYSICAL EXAMINATION: On examination today, the patient is lying in bed he is comfortable. He denies any complaints. Blood pressure is 144/89, heart rate 70 per minute. He has been afebrile. EXAMINATION OF THE HEART: S1 and S2. EXAMINATION OF LUNGS: Decreased breath sounds at the bases. ABDOMEN: Soft, nontender. LOWER EXTREMITIES: Examination of lower extremities shows no significant edema. BRIDGE MECHANIC EXAM: Grossly intact. LABS: Sodium 134, potassium 3.7. CO2 is 19, chloride 105, BUN 12, serum creatinine 0.87. ASSESSMENT: 1. Acute kidney injury secondary to sepsis, hypotension, currently improved significantly. 2. Metabolic acidosis, status post IV bicarb. 3. Hyperkalemia associated with acute kidney injury, metabolic acidosis, currently improved. 4. Aspiration pneumonia, maintained on antibiotics and improving. 5. Cerebrovascular accident, maintained on Brilinta. Patient has left-sided weakness. PLAN: Continue with IV fluids. Monitor for volume overload. Current IV fluid is D5.45. Patient's sodium is actually on the lower side. Suggest changing to D5.9. MMODL / IJN: [id number] /
[2021-01-18] MEDS: ATORVASTATIN 20 MG TAB PO SCH (20:46)
[2021-01-18] MEDS: DEXTROSE 5%-0.9% NACL 1,000 ML IV SCH (20:47)
[2021-01-18] MEDS ORDERED: MIRTAZAPINE 15 MG TAB PO SCH (21:00)
[2021-01-19] MEDS: IPRATROPIUM-ALBUTEROL 3 ML NEB INHALATION SCH ×3 (08:38→17:14)
[2021-01-19 08:40] VITALS: RESP 16
[2021-01-19] MEDS: LACTOBACILLUS ACIDOPH & BULGAR 1 EACH PACKET PO SCH (10:10)
[2021-01-19] MEDS: APIXABAN 5 MG TAB PO SCH (10:12)
[2021-01-19] MEDS: METOPROLOL TARTRATE 25 MG TAB PO SCH (10:12)
[2021-01-19] MEDS: NICOTINE 14MG/24HR PATCH TRANSDERM SCH (10:12)
[2021-01-19] MEDS: ASPIRIN 81 MG PO SCH (10:12)
[2021-01-19] MEDS: PANTOPRAZOLE 40 MG TABLET PO SCH (10:12)
[2021-01-19] MEDS: PIPERACILLIN-TAZOBACTAM 3.375 GM in SODIUM CHLORIDE 0.9% 100 ML IVPB SCH (10:12)
--- NOTE | 2021-01-19 10:20 | P.PN ---
Subjective Progress Note Date: 01/18/21 01/18/2021: Patient is laying comfortably in the bed. Some family members were present. Patient denies headache. 01/17/2021: Patient is laying comfortably in the bed. Offers no complaints. 01/16/2021: Patient was seen for a follow-up. Patient initially seen by Dr. Calixto Sanches. Please refer to his note for details. Patient is a 70-year-old male, came with right large MCA territory CVA. Patient also had increased troponins. Telemetry monitoring showing sinus rhythm in the 80s. Patient at present has slow mentation. Denies headache. Denies any chest pain. States he does have problem with the vision but could not tell details. Patient tells me that he has smoked 1 pack per day for last 6 years. Patient is to be started on anticoagulation from 01/17/2021. Objective - Vital Signs Vital signs: Vital Signs Temp 98.8 F 01/18/21 20:45 Pulse 104 H 01/18/21 20:45 Resp 18 01/18/21 20:45 BP 145/87 01/18/21 20:45 Pulse Ox 96 01/18/21 20:45 Intake & Output 01/18/21 01/18/21 01/19/21 06:59 18:59 06:59 Output Total 1300 400 300 Balance -1300 -400 -300 Weight 59.5 kg Output: Urine 1300 400 300 Other: Voiding Method Indwelling Catheter Indwelling Catheter Indwelling Catheter - Exam GENERAL: The patient is lying in bed and is not in acute distress. NEUROLOGICAL: Llimited because of his cooperation. Higher mental function: Patient is awake. He follows simple commands. Patient has a very prolonged latency time to answer questions. Some problems with comprehension. Speech is clear with no aphasia. Patient can repeat. Cranial nerves: The pupils are round, equal and reactive to light. 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 Patient appears worse today. Not able to recognize any objects presented in his visual field. Not able to count fingers.. Patient has right gaze preference. Extraocular muscles are intact. Minimal left lower facial droop. Was neglecting the left side. No dysa rthria. Could not assess rest. Motor: Gait is deferred. Patient is very weak on the left side. Left arm is no more than 2-3, and left leg is flaccid. Cerebellum: Could not asses. Sensation: Decreased on the left Reflexes (right/left): 3+ over the left. Otherwise 1+ throughout. Plantars are mute bilaterally. - Labs CBC & Chem 7: 01/15/21 07:02 01/18/21 10:22 Labs: Abnormal Lab Results - Last 24 Hours (Table) 01/18/21 Range/Units 10:22 Sodium 134 L (137-145) mmol/L Carbon Dioxide 19 L (22-30) mmol/L Calcium 8.0 L (8.4-10.2) mg/dL Microbiology - Last 24 Hours (Table) 01/14/21 22:15 Blood Culture - Preliminary Blood No Growth after 72 hours Assessment and Plan Assessment: Acute large ischemic stroke in 3 different vascular territories. It involves mainly the right occipital lobe and right medial temporal lobe (in the right HEMATOLOGY ONCOLOGY CONSULTANT vascular territory). Patient also has a smaller acute ischemic stroke involving the left occipital pole, and also involving the right cerebellar region: Seems embolic. No IV tpa since on anticoagulation. 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 Patient's visual lewis appears to be getting worse. Paroxysmal atrial fibrillation. Patient was on anticoagulation prior to arrival. Left internal carotid stenosis per CTA nearly 55% as well as severe upper sclerotic changes of distal internal carotid arteries bilaterally that suspect that per CTA Elevated troponin Mild hyponatremia on presentation was 131 currently it's 134 Elevated liver function Uncontrolled hypertension History of alcohol use History of multiple falls History of tobacco use. Plan: * Repeat computed tomography scan of head 01/17/2021 showed persistent evolving large acute infarct right occipital temporal region. Better visualized evolving acute infarct right cerebellar lobe inferiorly. No hemorrhage. * Patient will be started on Eliquis 5 mg twice a day and maintain on aspirin 81 mg. patient apparently is declining to take oral medication. If patient canno t take oral pills, then would recommend Lovenox anticoagulation does twice a day. Informed the nurse. * Vascular surgery team is consulted for carotid stenosis. They stated the outpatient follow-up and no intervention as an inpatient. * PT, OT and PURIFYING PLANT OPERATOR are consulted * Cardiology is on board. * Telemetry monitoring showing sinus rhythm, in 80s. * We'll defer the rest of the medical management to the primary team * DVT prophylaxis: On Eliquis * Recommended tobacco cessation. * Family is considering hospice care. Patient CODE STATUS: DNI and DNR. WORK-UP: * CT angiography of the head and neck is reported as new significant stenosis proximal left internal carotid artery near 55%. Severe atherosclerotic changes distal internal carotid artery bilaterally with significant stenosis suspected bilaterally. Present of temporal bone and dense calcified plaque makes evaluation suboptimal. There is new noncalcified plaque distal left internal carotid artery causing more prominent stenosis versus 2018 study clearly seen. No aneurysm or new significant focal stenosis at the level [place] of [place] * MRI the brain is reported as evolving acute/subacute infarct inferior right parietal occipital level extending to the posterior superior temporal lobe with some extension to the posterior right coronal radiata and a smaller area of involvement of the posterior left occipital lobe. Background moderate diffuse cerebral atrophy and moderate to advanced chronic small vessel ischemic changes redemonstrated. * Limited 2-D echo is 11 ventricle size is normal. Mild concentric Lipitor hypertrophy. Ejection fraction 55-60%. * Carotid duplex was reported as atherosclerotic change in the left greater than the right carotid bifurcation. Proximal left ICA; the end-diastolic velocity and ICA/CCA ratio suggests moderate 50-69% stenosis. Severe proximal left HEMATOLOGY ONCOLOGY CONSULTANT stenosis. Possible severe right cavernous segment intracranial ICA stenosis seen on the CTA is not assessed on the current exam. * Routine EEG on 01/12/2021: It's an abnormal routine EEG. The background is asymmetric with mild encephalopathy over the last and moderate over the right. There is focal slowing over the right hemisphere consistent with the patient history of stroke. There are no epileptiform discharges or seizure on the EEG. * Lipid panel: Triglyceride 110, cholesterol 127, LDL 59, HDL of 46. * TSH is 8.05 which is considered within normal limits * Vitamin B12 level is 524 which is within normal limits. Serum folate level is 10.7 which is also within normal limits. * EKG is reported as normal sinus rhythm. At anterior septal infarct age undetermined. Abnormal EKG * AST of 107 and ALT of 73 the ammonia level is less than 9 which is within normal limits. * Troponin is elevated 0.43 and it's as high as 17.1
--- NOTE | 2021-01-19 12:25 | PN ---
PROGRESS NOTE Patient is seen for followup for acute kidney injury. Patient's renal function has improved with creatinine down to 0.87 now. He is currently off of IV fluids. The patient is awake. He is comfortable. He is not answering any questions today and he is not communicating much today. PHYSICAL EXAMINATION: Blood pressure is 160/80, heart rate 79 per minute, he is afebrile. Examination of the heart S1, S2. Examination of the lungs, decreased breath sounds at bases. Abdomen is soft, nontender. Examination of lower extremities shows no significant edema. WOMENS HEALTH NURSE PRACTITIONER exam shows patient is not moving his left side. He is looking mostly towards the right side and today he is not communicating much. LAB: Show sodium 134, potassium 3.7, serum creatinine 0.87. ASSESSMENT: 1. Acute kidney injury, currently resolved. 2. Metabolic acidosis, now improved with CO2 today at 19. 3. Status post cerebrovascular accident. 4. Generalized debility. PLAN: Agree with plans for possible hospice care. Add gentle IV hydration if the patient is not eating if no plans on hospice care. At this time we will sign off. MMODL / IJN: [id number] /
[2021-01-19 16:24] VITALS: BP 158/78; TEMP 98
[2021-01-19] MEDS: DEXTROSE 5%-0.9% NACL 1,000 ML IV SCH (16:26)
[2021-01-19] MEDS: THIAMINE 100 MG TAB PO SCH (16:27)
[2021-01-19] MEDS: MULTIVITAMINS, THERA 1 EACH TAB PO SCH (16:27)
--- NOTE | 2021-01-19 16:38 | P.DS ---
Providers Date of admission: 01/11/21 16:53 Expected date of discharge: 01/19/21 Attending physician: Claudio Merchant Consults: 01/11/21 16:54 Consult Physician Routine Consulting Provider: Calixto Sanches Consult Reason/Comments: CVA Do you want consulting provider notified?: Yes 01/11/21 16:56 Consult Physician Routine Consulting Provider: [facility] Consult Reason/Comments: Elevated troponin Do you want consulting provider notified?: Yes 01/12/21 10:28 Consult Physician Routine Consulting Provider: Jarrett Tucker Consult Reason/Comments: left ica stenosis/bilateral per CTA Do you want consulting provider notified?: Yes 01/13/21 16:50 Consult Physician Routine Consulting Provider: Michael So Consult Reason/Comments: Acute kidney injury Do you want consulting provider notified?: Yes 01/17/21 14:50 Consult Physician Routine Consulting Provider: Ulisses Nieto Consult Reason/Comments: Refusing medications, rule out depression Do you want consulting provider notified?: Yes Primary care physician: [facility] Course: Chief Complaint: Altered mentation History of presenting complaint: Patient was seen by me in the ER This is a 70-year-old patient who follows Dr. Khan. Patient's chronic stable medical conditions include COPD, GERD, hypertension, peripheral arterial disease, peripheral neuropathy, atrial fibrillation, history of appendix tumor with bowel resection, As per the EMS report: Nursing staff stated that the patient be laying in bed when staff 100 trash and found the patient in one are up, not responding. Patient been displaced decorticate posturing and was unable to lift his left arm. When the EMS arrived patient is able to lift his left arm but did not answer questions appropriately. Was agitated. Not being cooperative with assessment. Per nursing staff patient normally is AO 4 and pleasant. EMS evaluated and did not find any focal weakness. Due to the course of transport patient showed some confusion. Code stroke was called in the ER. Given that patient's symptoms are improving and decided not to do any further intervention. When I saw the patient she was able to answer questions though slowly. Appeared to be slightly distant. Able to move his limbs. He says he started smoking a few weeks ago. Patient started on Brilinta in the ER after Dr. Larios spoke to the stroke team. January 12: Today patient is bit more awake. Noted some left-sided weakness. MRI is showing acute stroke on the right brain. In the parietal occipital and some element of temporal lobe. troponin has gone up. Cardiology started the patient IV heparin. I spoke to Dr. Sanches from neurology. IV heparin is to be discontinued. January 13: Tired. Did eat some. Kidney function has been worsening. Likely contrast-induced nephropathy. Started on IV fluids. Nephrology consulted. Patient also having Matt-Mcdermott breathing. A bit lethargic. More weakness in the left arm. Patient refuses medication this morning. January 14: More awake today. Answering simple questions. Wanting to eat. Weakness in the left arm persist. Feeding with assistance ordered. On IV fluids and bicarbonate drip for acute kidney injury January 15: Awake, looking to the right. Friend visiting. I did attempt to feed the patient. He did start eating slowly. Patient was febrile last night. Was pancultured. Started on IV ceftriaxone. January 16: Awake. Looking to the right. Seen by speech therapy: Did tolerate liquids and soft liquids without any overt sign symptoms of aspiration. Some episodes of coughing with feeding. They recommended: In changing diet to ground nectar thick liquids. Sippy cup to be used. Patient can only appreciate hand movements. Unable to count fingers. Left arm flaccid. Answering simple questions. Maintained on IV amiodarone. Has been taking medications. January 17: Laying in bed. Tired. Patient is refusing food and medications. I talked to the patient. He was to be left alone. I did touch upon the topic of hospice. I also spoke to patient's brother Ulisses. Explained to him the clinical picture. He is also okay with proceeding with hospice if does not improvement. I did convey to the caseworker. To get informational visit. Also discussed with Dr. Stone from neurology. Patient to be started on eliquis. He is getting his IV Zosyn. January 18: Laying in bed. Awake. Answering questions. Does not have an appetite. try Marinol. Psychiatry consulted. January 19: Patient only eating a few bites. Patient's metabolic encephalopathy and showed some improvement. Patient does take his medications. Did discuss with Dr. Stone from neurology. We'll continue eliquis. Did speak to Dr. Celis from psychiatry. No medications from his standpoint. Spoke to Cecy from [facility]. Patient will be discharged there today. Prognosis guarded. Patient to continue current medications. Vision remains to be poor. Discussion and discharge planning more than 35 minutes Consultation: Dr. Stone from neurology Dr. Celis from psychiatry Dr. 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 Depression. Hypertension, paroxysmal atrial fibrillation Social history: Current resident of [facility]. Patient started smoking in [id number], 1 pack a day up to 2-3 weeks ago. Was drinking one or 2 beers a day Family history: Reviewed, noncontributory to presentation Physical examination: VITAL SIGNS: 99.1, 73, 16, 150/78, 96% room air GENERAL: Reclining in bed, tired, awake, EYES: Pupils equal. Conjunctiva normal. NECK: JVD unable to assess; masses not palpable. HEART: First and second heart sounds are normal; no edema. LUNGS: Rate increased; diminished breath sounds. ABDOMEN: Soft, nontender, liver spleen not palpable, no masses palpable. PSYCH: Answering simple questions EXTREMITIES: Poor dorsalis pedis. Ischemic changes in the nails and the skin. NEUROLOGICAL: Left arm weakness 0/5. Can see some hand movements. INVESTIGATIONS, reviewed in the clinical context: January 18: Potassium 3.[address] brain [January 17] persistent involving large acute infarct right occipita l-temporal region. Evolving acute infarct right cerebellar lobe inferiorly. January 16: Potassium 3.6 creatinine 1.21 Pro-calcitonin 0.26 January 15: WBC 6.3 hemoglobin 14.6 potassium 3.5 BUN 44 creatinine 1.49 Chest x-ray film personally reviewed by me-[January 14]: Possible left basilar infiltrate. UA: Negative for nitrite and leukoesterase January 14: Potassium 4.6 BUN [address] brain: [January 13]: Acute to subacute right occipital lobe infarct. Ultrasound: Unremarkable January 13: White count 14.7 hemoglobin 17.8 platelets 412 potassium 5.8 by cup 14. 49 creatinine 2.34 Brain MRI: Evolving acute/subacute infarct inferior right parietal occipital level extending to the posterior superior temporal lobe with some extension to the posterior right coronary radiata and a smaller area of the involvement of the posterior left occipital lobe. Background moderate diffuse cerebral atrophy and chronic small vessel ischemic changes EEG: Some evidence of encephalopathy. No epileptiform discharge. Carotid Doppler: Atherosclerotic change in the left greater than right carotid bifurcation. Proximal left ICA suggestive of 55-69% stenosis. Severe proximal left ECF stenosis. Possible severe right cavernous segment intracranial ICA stenosis. January 12: White count 12.5 hemoglobin 17.1 platelets 32 potassium 4.8 creatinine 0.88 LDL 59 White count 13.9 hemoglobin 17 platelets 379 potassium 5.5 BUN 23 creatinine 0.94 Troponin I 0.431, 17.1 TSH 8.0 Coronavirus [PCR]: Not detected EKG tracing personally reviewed by me-no sinus rhythm, poor R-wave progression Chest x-ray film personally reviewed by me-possible infiltrate Computed tomography scan of the brain: No acute intracranial hemorrhage slight shift. Age related atrophy. And chronic small vessel changes. CT angiography head and neck: Severe atherosclerotic changes with significant stenosis suspected bilaterally. Assessment and plan: -acute infarct inferior right parietal occipital level extending to the posterior superior temporal lobe with some extension to the posterior right coronary radiata and a smaller area of the involvement of the posterior left occipital.: Slow to respond aspirin, Follow-up with neurology. 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 Discontinued. Eliquis -Acute dysphagia from stroke Being followed by speech. Ground diet and NTL. Patient eating extremely small amounts -Anorexia. Try Marinol -Bilateral significance carotid artery disease vascular surgery -Acute left basilar pneumonia. IV Zosyn. Completed course -Acute non-Q wave TX. No cardiac symptoms. Given acute stroke IV heparin discontinued. Lipitor 20 mg daily at bedtime -COPD in a previous smoker DuoNeb -Essential hypertension Metoprolol 50 mg twice a day -Hyperlipidemia Lipitor 20 mg daily at bedtime -Peripheral arterial disease Aspirin. 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 IV fluids . Follow input and output seen by nephrology -Hyperkalemia from acute kidney injury and STALIN inhibitor: Corrected Discontinue lisinopril. Kayexalate given. -Acute metabolic encephalopathy from stroke: Some improvement Follow clinically -Matt-Mcdermott breathing, from metabolic encephalopathy from stroke: Resolved -Acute metabolic acidosis from acute kidney injury: Corrected *Bicarbonate drip Disposition: [facility] Plan - Discharge Summary New Discharge Prescriptions: New Mirtazapine [Remeron] 15 mg PO HS tab dronabinoL [Marinol] 2.5 mg PO AC-BID cap Continue Ipratropium-Albuterol Nebulize [Duoneb 0.5 mg-3 mg/3 ml Soln] 3 ml INHALATION RT-QID ml Ipratropium-Albuterol Nebulize [Duoneb 0.5 mg-3 mg/3 ml Soln] 3 ml INHALATION RT-QID PRN ml PRN Reason: Shortness Of Breath Or Wheezing Pantoprazole [Protonix] 40 mg PO AC-BRKFST tab Acetaminophen Tab [Tylenol] 650 mg PO Q6HR PRN tab PRN Reason: Mild Pain Or Fever > 100.5 Multivitamins, Thera [Multivitamin (formulary)] 1 tab PO DAILY@1200 Atorvastatin [Lipitor] 20 mg PO HS@2100 Aspirin 81 mg PO DAILY@1700 Loperamide HCl [Imodium A-D] 2 - 4 mg PO BID PRN PRN Reason: Diarrhea Apixaban [Eliquis] 5 mg PO BID@0800,1700 Thiamine [Vitamin B-1] 100 mg PO DAILY@0800 Changed Metoprolol Tartrate [Lopressor] 75 mg PO BID@0800,1700 #0 Discontinued HYDROcodone/APAP 5-325MG [[place] 5-325] 1 tab PO Q6HR PRN PRN Reason: Pain Magnesium Hydroxide [Milk of Magnesia Concentrate] 7,200 mg PO DAILY PRN PRN Reason: Constipation Na Phos,M-B/Na Phos,Di-Ba [Fleet Adult] 133 ml RECTAL DAILY PRN PRN Reason: Constipation Lactobacillus Acidoph & Bulgar [Lactinex] 1 packet PO BID@0800,1700 bisacodyL [Dulcolax] 10 mg RECTAL DAILY PRN PRN Reason: Constipation Nicotine 14Mg/24Hr Patch [Habitrol] 1 patch TRANSDERM DAILY@0800 No Action lisinopriL [Zestril] 5 mg PO BID@0800,2100 Discharge Medication List Acetaminophen Tab [Tylenol] 650 mg PO Q6HR PRN tab 12/30/20 [Rx] Ipratropium-Albuterol Nebulize [Duoneb 0.5 mg-3 mg/3 ml Soln] 3 ml INHALATION RT-QID ml 12/30/20 [Rx] Ipratropium-Albuterol Nebulize [Duoneb 0.5 mg-3 mg/3 ml Soln] 3 ml INHALATION RT-QID PRN ml 12/30/20 [Rx] Pantoprazole [Protonix] 40 mg PO AC-BRKFST tab 12/30/20 [Rx] Apixaban [Eliquis] 5 mg PO BID@0800,1700 01/11/21 [History] Aspirin 81 mg PO DAILY@1700 01/11/21 [History] Atorvastatin [Lipitor] 20 mg PO HS@209901/11/21 [History] Loperamide HCl [Imodium A-D] 2 - 4 mg PO BID PRN 01/11/21 [History] Multivitamins, Thera [Multivitamin (formulary)] 1 tab PO DAILY@1200 01/11/21 [History] Thiamine [Vitamin B-1] 100 mg PO DAILY@0800 01/11/21 [History] lisinopriL [Zestril] 5 mg PO BID@0800,2100 01/11/21 [History] Metoprolol Tartrate [Lopressor] 75 mg PO BID@0800,1700 #0 01/19/21 [Rx] Mirtazapine [Remeron] 15 mg PO HS tab 01/19/21 [Rx] dronabinoL [Marinol] 2.5 mg PO AC-BID cap 01/19/21 [Rx] Follow up Appointment(s)/Referral(s): Ulisses Khan DO [Primary Care Provider] - 1-2 days Discharge [facility]position: [facility]
[2021-01-19 17:16] VITALS: PULSE 68
--- NOTE | 2021-01-19 17:44 | P.PN ---
Subjective Progress Note Date: 01/19/21 01/19/2021: Patient is laying comfortably in the bed. Family members were not present. Patient denies headache. Patient's telemetry monitoring showing sinus rhythm, with PVC, some couplets and some PACs. No A. fib. 01/18/2021: Patient is laying comfortably in the bed. Some family members were present. Patient denies headache. 01/17/2021: Patient is laying comfortably in the bed. Offers no complaints. 01/16/2021: Patient was seen for a follow-up. Patient initially seen by Dr. Calixto Sanches. Please refer to his note for details. Patient is a 70-year-old male, came with right large MCA territory CVA. Patient also had increased troponins. Telemetry monitoring showing sinus rhythm in the 80s. Patient at present has slow mentation. Denies headache. Denies any chest pain. States he does have problem with the vision but could not tell details. Patient tells me that he has smoked 1 pack per day for last 6 years. Patient is to be started on anticoagulation from 01/17/2021. Objective - Vital Signs Vital signs: Vital Signs Temp 98.0 F 01/19/21 16:00 Pulse 68 01/19/21 17:24 Resp 16 01/19/21 16:00 BP 158/78 01/19/21 16:00 Pulse Ox 96 01/19/21 16:00 Intake & Output 01/18/21 01/19/21 01/19/21 18:59 06:59 18:59 Intake Total 350 Output Total 400 560 Balance -400 -560 350 Weight 59.5 kg 59.5 kg Intake: Intake, IV Titration 300 Amount Dextrose 5%-0.9% NaCl 1, 200 000 ml @ 100 mls/hr IV . Q10H RONALDO Rx#:[id number] Piperacillin-Tazobactam 3 100 .375 gm In Sodium Chloride 0.9% 100 ml @ 25 mls/hr IVPB Q8HR RONALDO Rx# :[id number] Oral 50 Output: Urine 400 560 Other: Voiding Method Indwelling Catheter Indwelling Catheter Indwelling Catheter # Voids 1 - Exam GENERAL: The patient is lying in bed and is not in acute distress. NEUROLOGICAL: Llimited because of his cooperation. Higher mental function: Patient is awake. He follows simple commands. Patient has a very prolonged latency time to answer questions. Very slow mentation. Some problems with comprehension. Speech is clear with no aphasia. Patient can repeat. Cranial nerves: Patient could not name any object that was presented to his visual field. He could not recognize the comb, glasses, spoon that I presented in the visual field. He does see hand movement and tracks the object somehow. Patient has right gaze and head preference. Patient neglects the left side. 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 The pupils are round, equal and reactive to light. Extraocular muscles are intact. Minimal left lower facial droop. Was neglecting the left side. No dysarthria. Could not assess rest. Motor: Gait is deferred. Patient is very weak on the left side. Patient slightly cooperated better with the examination. His strength is normal in the right upper limb. On the left side, his deltoid is 2, biceps 5, triceps 5-, gri p 5-. His left leg is flaccid. Cerebellum: Could not asses. Sensation: Decreased on the left Reflexes (right/left): 3+ over the left. Otherwise 1+ throughout. Plantars are mute bilaterally. - Labs CBC & Chem 7: 01/15/21 07:02 01/18/21 10:22 Labs: Abnormal Lab Results - Last 24 Hours (Table) 01/19/21 Range/Units 09:23 Procalcitonin 0.14 H (0.02-0.09) ng/mL Microbiology - Last 24 Hours (Table) 01/14/21 22:15 Blood Culture - Preliminary Blood No Growth after 96 hours Assessment and Plan Assessment: Acute large ischemic stroke in 3 different vascular territories. 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 Patient also has a smaller acute ischemic stroke involving the left occipital pole, and also involving the right cerebellar region: Seems embolic. No IV tpa since on anticoagulation. 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 Patient's visual lewis appears to be getting worse. Paroxysmal atrial fibrillation. Patient was on anticoagulation prior to arrival. Left internal carotid stenosis per CTA nearly 55% on the left. Severe atherosclerotic changes of distal internal carotid arteries bilaterally. Elevated troponin Mild hyponatremia on presentation was 131 currently it's 134 Elevated liver function Uncontrolled hypertension History of alcohol use History of multiple falls History of tobacco use. Plan: * Repeat computed tomography scan of head 01/17/2021 showed persistent evolving large acute infarct right occipital temporal region. Better visualized evolving acute infarct right cerebellar lobe inferiorly. No hemorrhage. * Patient was restarted on Eliquis 5 mg twice a day and maintain on aspirin 81 m g. Patient was declining to take oral medication. He has started taking medication since last night. * Vascular surgery team is consulted for carotid stenosis. They stated the outpatient follow-up and no intervention as an inpatient. * PT, OT and VISOR INSTALLER are consulted * Cardiology is on board. * Telemetry monitoring showing sinus rhythm, in 80s, some PVC. * We'll defer the rest of the medical management to the primary team * DVT prophylaxis: On Eliquis * Recommended tobacco cessation. * Family is considering hospice care. Patient CODE STATUS: DNI and DNR. WORK-UP: * CT angiography of the head and neck is reported as new significant stenosis proximal left internal carotid artery near 55%. Severe atherosclerotic changes distal internal carotid artery bilaterally with significant stenosis suspected bilaterally. Present of temporal bone and dense calcified plaque makes evaluation suboptimal. There is new noncalcified plaque distal left internal carotid artery causing more prominent stenosis versus 2018 study clearly seen. No aneurysm or new significant focal stenosis at the level [place] * MRI the brain is reported as evolving acute/subacute infarct inferior right parietal occipital level extending to the posterior superior temporal lobe with some extension to the posterior right coronal radiata and a smaller area of involvement of the posterior left occipital lobe. Background moderate diffuse cerebral atrophy and moderate to advanced chronic small vessel ischemic changes redemonstrated. * Limited 2-D echo is 11 ventricle size is normal. Mild concentric Lipitor hypertrophy. Ejection fraction 55-60%. * Carotid duplex was reported as atherosclerotic change in the left greater than the right carotid bifurcation. Proximal left ICA; the end-diastolic velocity and ICA/CCA ratio suggests moderate 50-69% stenosis. Severe proximal left [employer] stenosis. Possible severe right cavernous segment intracranial ICA stenosis seen on the CTA is not assessed on the current exam. * Routine EEG on 01/12/2021: It's an abnormal routine EEG. The background is asymmetric with mild encephalopathy over the last and moderate over the right. There is focal slowing over the right hemisphere consistent with the patient history of stroke. There are no epileptiform discharges or seizure on the EEG. * Lipid panel: Triglyceride 110, cholesterol 127, LDL 59, HDL of 46. * TSH is 8.05 which is considered within normal limits * Vitamin B12 level is 524 which is within normal limits. Serum folate level is 10.7 which is also within normal limits. * EKG is reported as normal sinus rhythm. At anterior septal infarct age undetermined. Abnormal EKG * AST of 107 and ALT of 73 the ammonia level is less than 9 which is within normal limits. * Troponin is elevated 0.43 and it's as high as 17.1
== END 2021-01-19 19:27 | disposition hospice, inpatient (51) | DRG 64 ==
LOC: EC 14:30 → 3SCARD 16:53
PROVIDERS: ADMIT Hospitalist; ATTEND Hospitalist
DX: I63.411 Cerebral infarction due to embolism of right middle cerebral artery (principal); J69.0 Pneumonitis due to inhalation of food and vomit; R65.20 Severe sepsis without septic shock; I21.4 Non-ST elevation (NSTEMI) myocardial infarction; N17.0 Acute kidney failure with tubular necrosis; G93.41 Metabolic encephalopathy; A41.9 Sepsis, unspecified organism; R41.4 Neurologic neglect syndrome; I47.2 Ventricular tachycardia; E87.2 Acidosis; R06.3 Periodic breathing; E87.1 Hypo-osmolality and hyponatremia; G81.94 Hemiplegia, unspecified affecting left nondominant side; H47.619 Cortical blindness, unspecified side of brain; I48.0 Paroxysmal atrial fibrillation; J44.9 Chronic obstructive pulmonary disease, unspecified; I73.9 Peripheral vascular disease, unspecified; Z66 Do not resuscitate; Z51.5 Encounter for palliative care; Z20.822 Contact with and (suspected) exposure to COVID-19; I67.1 Cerebral aneurysm, nonruptured; E86.1 Hypovolemia; I95.9 Hypotension, unspecified; H53.462 Homonymous bilateral field defects, left side; N14.1 Nephropathy induced by other drugs, medicaments and biological substances; T50.8X5A Adverse effect of diagnostic agents, initial encounter; R13.10 Dysphagia, unspecified; I67.89 Other cerebrovascular disease; E78.5 Hyperlipidemia, unspecified; I10 Essential (primary) hypertension; I49.3 Ventricular premature depolarization; I65.23 Occlusion and stenosis of bilateral carotid arteries; F10.10 Alcohol abuse, uncomplicated; E87.5 Hyperkalemia; R19.7 Diarrhea, unspecified; R29.6 Repeated falls; G62.9 Polyneuropathy, unspecified; F32.9 Major depressive disorder, single episode, unspecified; S43.101A Unspecified dislocation of right acromioclavicular joint, initial encounter; K21.9 Gastro-esophageal reflux disease without esophagitis; R32 Unspecified urinary incontinence; R35.0 Frequency of micturition; H93.19 Tinnitus, unspecified ear; F17.210 Nicotine dependence, cigarettes, uncomplicated; Z71.6 Tobacco abuse counseling; Z79.01 Long term (current) use of anticoagulants; Z79.82 Long term (current) use of aspirin; Z79.899 Other long term (current) drug therapy; Z90.49 Acquired absence of other specified parts of digestive tract; Z87.19 Personal history of other diseases of the digestive system; Z87.39 Personal history of other diseases of the musculoskeletal system and connective tissue; Z91.81 History of falling; Z95.820 Peripheral vascular angioplasty status with implants and grafts; Z98.890 Other specified postprocedural states; Z82.49 Family history of ischemic heart disease and other diseases of the circulatory system; Z82.3 Family history of stroke; Y92.238 Other place in hospital as the place of occurrence of the external cause
CPT/HCPCS: 36415; 70450; 70496; 70498; 70551; 71045; 71046; 76770; 80048; 80053; 80061; 81001; 82140; 82306; 82607; 82746; 83605; 83735; 84145; 84439; 84443; 84484; 85025; 85027; 85610; 85730; 87040; 87086; 87635; 93005; 93308; 93880; 94640; 94760; 95816; 96361; 96374; 99291